=== PATIENT | female | born 1935 | race Two or more races ===

== ENCOUNTER 2017-05-12 17:02 | Emergency (ER) | payer MEDICARE, OTHER ==
[~2017-05-12] VITALS: Ht 162.6 cm; Wt 118.2 kg
[2017-05-12] MEDS ORDERED: NAPR220C PO (17:19)
[2017-05-12] MEDS ORDERED: LOSA100T36 PO (17:19)
[2017-05-12] MEDS ORDERED: XARE20TA PO (17:19)
[2017-05-12] MEDS ORDERED: CITA10SO PO (17:19)
[2017-05-12] MEDS ORDERED: NEUR300C PO (17:19)
[2017-05-12] MEDS ORDERED: ESZO1TAB3 PO (17:19)
[2017-05-12] MEDS ORDERED: VESI5TAB2 PO (17:19)
[2017-05-12] MEDS ORDERED: OMEP40CA2 PO (17:19)
[2017-05-12] MEDS ORDERED: TOLT1CAP PO (17:19)
[2017-05-12] MEDS ORDERED: HYDR25TAB PO (17:19)
[2017-05-12 20:56] VITALS: BP 178/80
== END 2017-05-12 20:57 | disposition home or self-care (01) ==
LOC: M ED 17:02 → EEVIPCON 17:02 → M ED 20:57
DX: Z48.00 Encounter for change or removal of nonsurgical wound dressing (principal); L98.499 Non-pressure chronic ulcer of skin of other sites with unspecified severity; I10 Essential (primary) hypertension; K21.9 Gastro-esophageal reflux disease without esophagitis; Z79.899 Other long term (current) drug therapy; Z88.8 Allergy status to other drugs, medicaments and biological substances; Z88.5 Allergy status to narcotic agent

== ENCOUNTER → 2017-05-18 | Outpatient (REF) | payer MEDICARE, OTHER ==
[~2017-05-18] MED LIST: CITA10SO PO; ESZO1TAB3 PO; HYDR25TAB PO; LOSA100T36 PO; NAPR220C PO; NEUR300C PO; OMEP40CA2 PO; TOLT1CAP PO; VESI5TAB2 PO; XARE20TA PO
== END ==
LOC: M LAB REF 16:39
PROVIDERS: ATTEND Nurse Practitioner Family
DX: G62.9 Polyneuropathy, unspecified (principal)

== ENCOUNTER 2017-05-27 12:35 | Outpatient (CLI) | payer MEDICARE, OTHER ==
[2017-05-27 13:00] VITALS: BP 142/70
[2017-05-27 14:58] LABS: PERCENT SATURATION 4.9 % (13.2-45.0)
[2017-05-27] MEDS ORDERED: FUROSEMIDE 40 MG/4 ML VIAL (J1940) IV PRN (18:30)
== END 2017-05-27 23:45 | disposition home or self-care (01) ==
LOC: M OPCLI4PV 12:35 → M MSPAV 12:48 → M OPCLI4PV 23:45
PROVIDERS: ATTEND Nurse Practitioner Family
DX: D64.9 Anemia, unspecified (principal); Z88.5 Allergy status to narcotic agent; Z88.8 Allergy status to other drugs, medicaments and biological substances; Z79.899 Other long term (current) drug therapy
CPT/HCPCS: 36430; 82728; 83550; 86850; 86900; 86901; 86920; J1940; P9016

== ENCOUNTER → 2017-05-30 | Outpatient (REF) | payer MEDICARE, OTHER ==
[2017-05-30 14:10] LABS: BANDS 1 % (< 11); EOSINOPHILS 1 % (0-5)
[2017-05-30 14:11] LABS: HYPOCHROMASIA 1+; POLYCHROMASIA 1+
== END ==
LOC: M LAB REF 12:44
PROVIDERS: ATTEND Nurse Practitioner Family
DX: D72.829 Elevated white blood cell count, unspecified (principal)

== ENCOUNTER → 2017-06-01 | Outpatient (REF) | payer MEDICARE, OTHER | LOC: M LAB REF 13:05 | PROVIDERS: ATTEND Surgery | DX: I87.311 Chronic venous hypertension (idiopathic) with ulcer of right lower extremity (principal) ==

== ENCOUNTER → 2017-06-01 | Outpatient (REF) | payer MEDICARE, OTHER ==
[2017-06-01 15:27] LABS: ALBUMIN 2.9 GM/DL (3.2-5.2); ALBUMIN/GLOBULIN RATIO 0.81 (1.00-1.93); ALKALINE PHOSPHATASE 80 U/L (45-117); ALT/SGPT 20 U/L (12-78); ANION GAP 9 MEQ/L (8-16); AST/SGOT 20 U/L (15-37); BILIRUBIN,TOTAL 0.5 MG/DL (0.2-1.0); BLOOD UREA NITROGEN 16 MG/DL (7-18); CARBON DIOXIDE LEVEL 29 MEQ/L (21-32); CHLORIDE LEVEL 104 MEQ/L (98-107); CREATININE FOR GFR 0.82 MG/DL (0.55-1.02); GLOMERULAR FILTRATION RATE > 60.0 (>32); GLUCOSE, FASTING 88 MG/DL (83-110); POTASSIUM SERUM 4.1 MEQ/L (3.5-5.1); SODIUM LEVEL 142 MEQ/L (136-145); TOTAL PROTEIN 6.5 GM/DL (6.4-8.2)
== END ==
LOC: M LAB REF 11:53
PROVIDERS: ATTEND Nurse Practitioner Family
DX: I87.311 Chronic venous hypertension (idiopathic) with ulcer of right lower extremity (principal)
CPT/HCPCS: 11042; 80053; 86140; 87070; 87077; 87186; G0463

== ENCOUNTER → 2017-06-08 | Outpatient (REF) | payer MEDICARE, OTHER ==
[2017-06-08 13:53] LABS: MEAN CORPUSCULAR HEMOGLOBIN 27.3 pg (27.0-33.0); MEAN CORPUSCULAR HGB CONC 29.3 g/dl (32.0-36.5); MEAN CORPUSCULAR VOLUME 93.2 fl (80.0-96.0); PLATELET COUNT, AUTOMATED 375 10^3/uL (150-450); RED CELL DISTRIBUTION WIDTH 16.3 % (11.5-14.5); WHITE BLOOD COUNT 7.9 10^3/uL (4.0-10.0)
[2017-06-08 14:42] LABS: ERYTHROCYTE SEDIMENTATION RATE 70 mm/hr (0-30)
== END ==
LOC: M LAB REF 12:55
PROVIDERS: ATTEND Surgery
DX: I87.311 Chronic venous hypertension (idiopathic) with ulcer of right lower extremity (principal); Z79.82 Long term (current) use of aspirin; Z79.899 Other long term (current) drug therapy

== ENCOUNTER → 2017-06-28 | Outpatient (CLI) | payer MEDICARE, OTHER ==
--- NOTE | 2017-06-28 11:44 | REP ---
Clinical: Venous hypertension and lower extremity ulcer. Technique: Zaragoza scale and color Doppler evaluation using linear high frequency transducer with reflux evaluation. Findings: Ultrasound examination of the right lower extremity deep venous structures from the common femoral vein to the popliteal vein demonstrates normal compressibility flow and wave patterns in response to respiration and augmentation. There is no evidence for deep venous thrombosis. Evaluation for reflux demonstrates mild reflux through the deep system including common femoral vein, superficial femoral vein, popliteal vein as well as the lesser saphenous vein which measures 5 mm diameter with reflux duration of 5 seconds. The greater saphenous vein measures between 5.2 and 6.1 mm diameter and is without evidence for reflux. Anterior accessory vein not identified. Impression: No evidence for deep venous thrombosis. Mild reflux through the deep venous system. Signed by Triston Tyler MD 06/28/2017 11:35 A
== END ==
LOC: M RAD 09:46
PROVIDERS: ATTEND Surgery
DX: I87.311 Chronic venous hypertension (idiopathic) with ulcer of right lower extremity (principal)

== ENCOUNTER → 2017-07-21 | Outpatient (REF) | payer MEDICARE, OTHER | LOC: M LAB REF 15:14 | PROVIDERS: ATTEND Nurse Practitioner Family | DX: D64.9 Anemia, unspecified (principal) ==

== ENCOUNTER → 2017-07-22 | Outpatient (CLI) | payer MEDICARE, OTHER ==
[~2017-07-22] MED LIST changes: +FUROSEMIDE 20 MG/2 ML VIAL (J1940) As Ordered ONE; +FUROSEMIDE 40 MG/4 ML VIAL (J1940) IV SCH
== END ==
LOC: M OPCLI3 09:19
PROVIDERS: ATTEND Nurse Practitioner Family
DX: D64.9 Anemia, unspecified (principal); Z88.8 Allergy status to other drugs, medicaments and biological substances; Z88.5 Allergy status to narcotic agent; Z79.899 Other long term (current) drug therapy
CPT/HCPCS: 36430; J1940; P9016

== ENCOUNTER 2017-07-26 10:57 | Outpatient (CLI) | payer MEDICARE, OTHER ==
[~2017-07-26 10:57] MED LIST changes: -FUROSEMIDE 20 MG/2 ML VIAL (J1940) As Ordered ONE; +FUROSEMIDE 40 MG/4 ML VIAL (J1940) IV ONE; -FUROSEMIDE 40 MG/4 ML VIAL (J1940) IV SCH
[2017-07-26] MEDS ORDERED: GABAPENTIN 300 MG CAP PO ONE (12:00)
[2017-07-26] MEDS ORDERED: NAPROXEN 250 MG TAB PO ONE (12:00)
== END 2017-07-26 16:35 | disposition home or self-care (01) ==
LOC: M INFU 10:57
PROVIDERS: ATTEND Internal Medicine
DX: D64.9 Anemia, unspecified (principal); Z96.653 Presence of artificial knee joint, bilateral; Z96.642 Presence of left artificial hip joint; Z88.5 Allergy status to narcotic agent; Z88.8 Allergy status to other drugs, medicaments and biological substances; Z79.899 Other long term (current) drug therapy
CPT/HCPCS: 36430; 86850; 86900; 86901; 86920; J1940; P9016

== ENCOUNTER → 2017-07-28 | Outpatient (CLI) | payer MEDICARE, OTHER ==
[~2017-07-28] MED LIST changes: -FUROSEMIDE 40 MG/4 ML VIAL (J1940) IV ONE
--- NOTE | 2017-07-28 13:21 | REP ---
Urinary tract sonography: History: Urinary frequency and incontinence. Findings: Scanning through the urinary bladder demonstrates smooth bladder contours. No extra vesicle lesion is seen. Emptying ureteral jets are confirmed bilaterally from the ureters on color Doppler interrogation. Prev oid bladder volume is calculated at 136 mL. Renal cortical echogenicity pattern is slightly increased bilaterally consistent with chronic medical renal disease. No hydronephrosis is seen on either side. The right kidney measures 9.8 x 4.9 x 3.8 cm. The left renal dimensions are 10.1 x 4.7 x 4.4 cm. We were not able to visualize the lower pole right kidney optimally due to bowel gas. No mass is seen. There is a cyst in the left kidney measuring 2.3 x 2.3 x 2.1 cm. Impression: 2.3 cm cyst left kidney. Increased renal cortical echogenicity pattern consistent with chronic medical renal disease. No evidence of hydronephrosis. Signed by Silver Carrillo MD 07/28/2017 03:59 P
== END ==
LOC: M SMT 10:04
PROVIDERS: ATTEND Nurse Practitioner Women's Health
DX: N28.1 Cyst of kidney, acquired (principal); R32 Unspecified urinary incontinence; R39.15 Urgency of urination

== ENCOUNTER 2017-08-09 06:43 | Day surgery (SDC) | payer MEDICARE, OTHER ==
[2017-08-09] MEDS: NS 1,000 ML IV ×2 (07:27)
[2017-08-09] MEDS ORDERED: LIDOCAINE 2% INJ 100 MG/5 ML SDV (FOR ANES.) As Ordered ×2 (07:32)
[2017-08-09] MEDS ORDERED: PROPOFOL 200 MG/20 ML VIAL As Ordered ×4 (07:32)
== END 2017-08-09 09:11 | disposition home or self-care (01) ==
LOC: M OPP 06:43
DX: K64.8 Other hemorrhoids (principal); K57.30 Diverticulosis of large intestine without perforation or abscess without bleeding; D50.9 Iron deficiency anemia, unspecified; K21.0 Gastro-esophageal reflux disease with esophagitis; K44.9 Diaphragmatic hernia without obstruction or gangrene; M19.90 Unspecified osteoarthritis, unspecified site; I10 Essential (primary) hypertension; Z79.82 Long term (current) use of aspirin; Z79.899 Other long term (current) drug therapy; Z88.5 Allergy status to narcotic agent; Z88.8 Allergy status to other drugs, medicaments and biological substances; Z91.040 Latex allergy status; Z91.09 Other allergy status, other than to drugs and biological substances
CPT/HCPCS: 45378

== ENCOUNTER → 2017-08-19 | Outpatient (CLI) | payer MEDICARE, OTHER | LOC: M RAD 11:03 | DX: I87.311 Chronic venous hypertension (idiopathic) with ulcer of right lower extremity (principal) ==

== ENCOUNTER 2017-08-21 19:00 | Inpatient (IN) | payer MEDICARE, OTHER ==
[2017-08-21 19:54] LABS: ABG BASE EXCESS 3.8 (-2.0-2.0); ABG HCO3 30.3 MEQ/L (22.0-26.0); ABG PARTIAL PRESSURE CO2 56.6 mmHg (35.0-45.0); ABG PARTIAL PRESSURE O2 70.4 mmHg (75.0-100.0); ABG STANDARD HCO3 27.8 MEQ/L (22.0-26.0); ABG pH (ARTERIAL) 7.346 UNITS (7.350-7.450); BASO # 0.1 10^3/uL (0.0-0.2); BASO % 0.2 % (0.0-1.0); EOS # 0.1 10^3/uL (0.0-0.50); EOS % 0.4 % (0.0-3.0); HEMATOCRIT 28.6 % (36.0-47.0); HEMOGLOBIN 8.6 g/dl (12.0-16.0); IMMATURE GRANULOCYTE # 0.1 10^3/uL (0-0); IMMATURE GRANULOCYTE % 0.5 % (0-0); LYMPH # 0.7 10^3/uL (1.5-4.5); LYMPH % 3.3 % (24.0-44.0); MEAN CORPUSCULAR HEMOGLOBIN 28.9 pg (27.0-33.0); MEAN CORPUSCULAR HGB CONC 30.1 g/dl (32.0-36.5); MONO # 1.5 10^3/uL (0.0-0.8); MONO % 6.9 % (0.0-5.0); NEUTROPHILS % 88.7 % (36.0-66.0); PLATELET COUNT, AUTOMATED 369 10^3/uL (150-450); RED BLOOD COUNT 2.98 10^6/uL (4.00-5.40); RED CELL DISTRIBUTION WIDTH 18.4 % (11.5-14.5); WHITE BLOOD COUNT 21.5 10^3/uL (4.0-10.0)
[2017-08-21 20:08] LABS: INR 1.42; PROTHROMBIN TIME 17.7 SECONDS (12.4-14.5)
[2017-08-21 20:11] LABS: D-DIMER QUANT 998.5 ng/ml (<500)
[2017-08-21] MEDS: methylPREDNISolone INJ 125 MG/2 ML VIAL (J2930) IV (20:15)
[2017-08-21] MEDS: FUROSEMIDE 40 MG/4 ML VIAL (J1940) IV (20:15)
[2017-08-21 20:21] LABS: LACTIC ACID SEPSIS PROTOCOL 2.2 MMOL/L (0.4-2.0)
[2017-08-21 20:34] LABS: ALBUMIN 2.5 GM/DL (3.2-5.2); ALBUMIN/GLOBULIN RATIO 0.68 (1.00-1.93); ALKALINE PHOSPHATASE 74 U/L (45-117); ALT/SGPT 28 U/L (12-78); ANION GAP 5 MEQ/L (8-16); AST/SGOT 39 U/L (7-37); BILIRUBIN,DIRECT 0.2 MG/DL (0.0-0.2); BILIRUBIN,TOTAL 0.6 MG/DL (0.2-1.0); BLOOD UREA NITROGEN 16 MG/DL (7-18); C REACTIVE PROTEIN QUANTITATIV 8.33 MG/DL (0.00-0.30); CALCIUM LEVEL 8.2 MG/DL (8.8-10.2); CARBON DIOXIDE LEVEL 32 MEQ/L (21-32); CHLORIDE LEVEL 103 MEQ/L (98-107); CPK CREATINE PHOSPHOKINASE 92 U/L (26-192); CREATININE FOR GFR 1.01 MG/DL (0.55-1.02); GLUCOSE, FASTING 136 MG/DL (83-110); POTASSIUM SERUM 3.9 MEQ/L (3.5-5.1); SODIUM LEVEL 140 MEQ/L (136-145); THYROXINE (T4) 6.4 UG/DL (4.5-12.0); TOTAL PROTEIN 6.2 GM/DL (6.4-8.2); TROPONIN I 0.06 NG/ML (< 0.10)
[2017-08-21 20:39] LABS: CK-MB VALUE MASS 3.7 NG/ML (0.0-3.6); MB/CK RELATIVE INDEX 4.02 (< OR =4); NT-PRO BNP 1493 PG/ML (<450)
[2017-08-21] MEDS ORDERED: ISOVUE-370 76% 100ML VIAL (Q9967) As Ordered ×2 (21:08→21:14)
[2017-08-21] MEDS: ONDANSETRON 4MG/2ML VIAL (J2405) IV (21:45)
[2017-08-21] MEDS: VANCOMYCIN HCL 1,000 MG, VIAL MATE ADAPTER 1 EACH in D5W 250 ML IV (21:45)
[2017-08-21] MEDS: PANTOPRAZOLE 40MG INJ (PROTONIX) (C9113) IV (21:45)
[2017-08-21] MEDS: PIPERACILLIN/TAZOBACTAM SOD 3.375 GM in APPROPRIATE DILUENT 1 EA IV (21:50)
[2017-08-21 22:03] LABS: APPEARANCE, URINE CLOUDY (CLEAR); BACTERIA, URINE AUTO 3+ (NEGATIVE); BILIRUBIN, URINE AUTO NEGATIVE (NEGATIVE); BLOOD, URINE BLOOD NEGATIVE (NEGATIVE); COLOR, URINE AMBER (YELLOW); GLUCOSE, URINE (UA) AUTO NEGATIVE (NEGATIVE); KETONE, URINE AUTO TRACE mg/dL (NEGATIVE); LEUKOCYTE ESTERASE, URINE AUTO 1+ (NEGATIVE); MUCUS, URINE SMALL (NEGATIVE); NITRITE, URINE AUTO NEGATIVE (NEGATIVE); PROTEIN, URINE AUTO 1+ mg/dL (NEGATIVE); RBC, URINE AUTO 2 /HPF (0-3); SQUAMOUS EPITHELIAL CELL UR AU 1 /HPF (0-6); WBC, URINE AUTO 35 /HPF (0-3)
[2017-08-21 22:42] LABS: ABG HCO3 29.7 MEQ/L (22.0-26.0); ABG O2 SATURATION 93.4 % (95.0-99.0); ABG PARTIAL PRESSURE CO2 50.3 mmHg (35.0-45.0); ABG PARTIAL PRESSURE O2 67.9 mmHg (75.0-100.0); ABG TOTAL CO2 31.2 MEQ/L (23.0-31.0); ABG pH (ARTERIAL) 7.389 UNITS (7.350-7.450)
[2017-08-21] MEDS ORDERED: ONDANSETRON 4MG/2ML VIAL (J2405) IV (23:30)
[2017-08-22 00:30] LABS: ABG BASE EXCESS 5.2 (-2.0-2.0); ABG HCO3 30.6 MEQ/L (22.0-26.0); ABG O2 SATURATION 97.9 % (95.0-99.0); ABG PARTIAL PRESSURE CO2 49.3 mmHg (35.0-45.0); ABG PARTIAL PRESSURE O2 102.7 mmHg (75.0-100.0); ABG STANDARD HCO3 29.2 MEQ/L (22.0-26.0); ABG TOTAL CO2 32.1 MEQ/L (23.0-31.0); ABG pH (ARTERIAL) 7.411 UNITS (7.350-7.450)
[2017-08-22 06:37] LABS: ADD MANUAL DIFFER YES; DIFF SLIDE NUMBER 116; HEMATOCRIT 28.7 % (36.0-47.0); HEMOGLOBIN 8.9 g/dl (12.0-16.0); MEAN CORPUSCULAR HEMOGLOBIN 28.8 pg (27.0-33.0); MEAN CORPUSCULAR VOLUME 92.9 fl (80.0-96.0); PLATELET COUNT, AUTOMATED 324 10^3/uL (150-450); POSITIVE MORPH POS FLAG; RED BLOOD COUNT 3.09 10^6/uL (4.00-5.40); RED CELL DISTRIBUTION WIDTH 18.3 % (11.5-14.5); WHITE BLOOD COUNT 19.7 10^3/uL (4.0-10.0)
[2017-08-22 06:53] LABS: ANION GAP 8 MEQ/L (8-16); BLOOD UREA NITROGEN 19 MG/DL (7-18); CALCIUM LEVEL 8.4 MG/DL (8.8-10.2); CARBON DIOXIDE LEVEL 30 MEQ/L (21-32); CHLORIDE LEVEL 103 MEQ/L (98-107); CREATININE FOR GFR 1.04 MG/DL (0.55-1.02); GLOMERULAR FILTRATION RATE 54.1 (>32); GLUCOSE, FASTING 147 MG/DL (83-110); MAGNESIUM LEVEL 1.8 MG/DL (1.8-2.4); POTASSIUM SERUM 4.1 MEQ/L (3.5-5.1); SODIUM LEVEL 141 MEQ/L (136-145)
[2017-08-22 06:57] LABS: BANDS 5 % (< 11); LYMPHOCYTES 2 % (16-52); MONOCYTES 1 % (0-8); NEUTROPHILS 92 % (35-75); PLATELET ESTIMATE NORMAL (NORMAL)
[2017-08-22 06:58] LABS: ANISOCYTOSIS 2+; PLATELET CLUMPS SMALL AMT
[2017-08-22] MEDS: methylPREDNISolone INJ 40 MG/1 ML VIAL (J2920) IV (09:00)
[2017-08-22] MEDS: CitaloPRAM (CeleXA) 10 MG TABLET PO (09:00)
[2017-08-22] MEDS: GABAPENTIN 300 MG CAP PO ×2 (09:00→20:32)
[2017-08-22] MEDS: PANTOPRAZOLE 40MG INJ (PROTONIX) (C9113) IV ×2 (09:00→20:32)
[2017-08-22] MEDS ORDERED: ENOXAPARIN 40 MG/0.4 ML SYRINGE (J1650) SC (09:00)
[2017-08-22 09:15] LABS: ABG BASE EXCESS 7.3 (-2.0-2.0); ABG HCO3 32.8 MEQ/L (22.0-26.0); ABG O2 SATURATION 85.1 % (95.0-99.0); ABG PARTIAL PRESSURE CO2 51.7 mmHg (35.0-45.0); ABG PARTIAL PRESSURE O2 50.5 mmHg (75.0-100.0); ABG STANDARD HCO3 30.9 MEQ/L (22.0-26.0); ABG TOTAL CO2 34.4 MEQ/L (23.0-31.0)
[2017-08-22 09:41] LABS: HEMATOCRIT 29.5 % (36.0-47.0); MEAN CORPUSCULAR HEMOGLOBIN 28.7 pg (27.0-33.0); MEAN CORPUSCULAR HGB CONC 30.5 g/dl (32.0-36.5); MEAN CORPUSCULAR VOLUME 93.9 fl (80.0-96.0); PLATELET COUNT, AUTOMATED 346 10^3/uL (150-450); RED BLOOD COUNT 3.14 10^6/uL (4.00-5.40); RED CELL DISTRIBUTION WIDTH 18.5 % (11.5-14.5); RETIC HEMOGLOBIN EQUIVALENT 32.8 pg (24-36); RETICULOCYTE # 109.3 10^9/L (17-77); RETICULOCYTE % 3.5 % (0.5-1.5); WHITE BLOOD COUNT 20.3 10^3/uL (4.0-10.0)
[2017-08-22 09:52] LABS: SLIDE REVIEW Report; SOURCE PERIPHERAL SMEAR
[2017-08-22 09:53] LABS: REASON FOR REVIEW COMPREHENSIVE REVIEW
[2017-08-22 09:59] LABS: RHEUMATOID FACTOR QUANT < 10.0 IU/ML (0-15.0); TOTAL PROTEIN 6.3 GM/DL (6.4-8.2)
[2017-08-22] MEDS ORDERED: VANCOMYCIN HCL 1,000 MG, VIAL MATE ADAPTER 1 EACH in D5W 250 ML IV (10:00)
[2017-08-22 10:45] LABS: VITAMIN B12 LEVEL 1440 PG/ML (247-911)
[2017-08-22 10:47] LABS: FOLATE 8.6 NG/ML (>5.4)
[2017-08-22] MEDS: FUROSEMIDE 40 MG/4 ML VIAL (J1940) IV ×2 (12:00→18:00)
[2017-08-22 12:23] LABS: ALBUMIN % 40.8 % (55.8-66.1); ALPHA-1-GLOBULIN % 7.9 % (2.9-4.9); ALPHA-2-GLOBULINS % 13.1 % (7.1-11.8)
[2017-08-22 12:24] LABS: ALBUMIN 2.57 GM/DL (3.29-5.55); ALPHA-2-GLOBULINS 0.83 GM/DL (0.42-0.99); BETA-1-GLOBULINS 0.54 GM/DL (0.28-0.60); BETA-1-GLOBULINS % 8.6 % (4.7-7.2); BETA-2-GLOBULINS 0.45 GM/DL (0.19-0.55); BETA-2-GLOBULINS % 7.1 % (3.2-6.5); GAMMA GLOBULIN % 22.5 % (11.1-18.8); GAMMA GLOBULINS 1.42 GM/DL (0.65-1.58)
[2017-08-22] MEDS: DOXYCYCLINE HYCLATE 100 MG in D5W MINI-BAG PLUS 100 ML IV ×2 (13:36→23:00)
[2017-08-22 13:40] LABS: CK-MB VALUE MASS 2.6 NG/ML (0.0-3.6); CPK CREATINE PHOSPHOKINASE 45 U/L (26-192); MB/CK RELATIVE INDEX 5.77 (< OR =4)
[2017-08-22] MEDS: CEFTAROLINE FOSAMIL 600 MG in APPROPRIATE DILUENT 1 EA IV (13:41)
[2017-08-22] MEDS: RIVAROXABAN 20 MG TAB (XARELTO) PO (20:32)
[2017-08-23] MEDS: CEFTAROLINE FOSAMIL 600 MG in APPROPRIATE DILUENT 1 EA IV ×3 (00:15→22:48)
[2017-08-23] MEDS: FUROSEMIDE 40 MG/4 ML VIAL (J1940) IV ×5 (00:58→23:34)
[2017-08-23] MEDS: ACETAMINOPHEN TAB 650MG DOSE (2X325MG) PO ×4 (02:13→23:33)
[2017-08-23 06:59] LABS: BASO % 0.1 % (0.0-1.0); HEMATOCRIT 25.5 % (36.0-47.0); HEMOGLOBIN 8.1 g/dl (12.0-16.0); IMMATURE GRANULOCYTE # 0.1 10^3/uL (0-0); IMMATURE GRANULOCYTE % 0.6 % (0-0); LYMPH # 0.6 10^3/uL (1.5-4.5); LYMPH % 3.5 % (24.0-44.0); MEAN CORPUSCULAR HEMOGLOBIN 29.3 pg (27.0-33.0); MEAN CORPUSCULAR HGB CONC 31.8 g/dl (32.0-36.5); MEAN CORPUSCULAR VOLUME 92.4 fl (80.0-96.0); MONO # 1.1 10^3/uL (0.0-0.8); MONO % 6.5 % (0.0-5.0); NEUTROPHILS # 14.5 10^3/uL (1.8-7.7); NEUTROPHILS % 89.3 % (36.0-66.0); PLATELET COUNT, AUTOMATED 347 10^3/uL (150-450); RED BLOOD COUNT 2.76 10^6/uL (4.00-5.40); RED CELL DISTRIBUTION WIDTH 18.6 % (11.5-14.5); WHITE BLOOD COUNT 16.2 10^3/uL (4.0-10.0)
[2017-08-23 07:07] LABS: ANION GAP 5 MEQ/L (8-16); BLOOD UREA NITROGEN 29 MG/DL (7-18); CALCIUM LEVEL 8.4 MG/DL (8.8-10.2); CARBON DIOXIDE LEVEL 34 MEQ/L (21-32); CHLORIDE LEVEL 98 MEQ/L (98-107); CK-MB VALUE MASS 2.3 NG/ML (0.0-3.6); CPK CREATINE PHOSPHOKINASE 33 U/L (26-192); CREATININE FOR GFR 1.13 MG/DL (0.55-1.02); GLOMERULAR FILTRATION RATE 49.2 (>32); GLUCOSE, FASTING 116 MG/DL (83-110); MAGNESIUM LEVEL 1.9 MG/DL (1.8-2.4); MB/CK RELATIVE INDEX 6.96 (< OR =4); POTASSIUM SERUM 3.5 MEQ/L (3.5-5.1); SODIUM LEVEL 137 MEQ/L (136-145); TROPONIN I 0.15 NG/ML (< 0.10)
[2017-08-23] MEDS: GABAPENTIN 300 MG CAP PO ×2 (08:42→20:27)
[2017-08-23] MEDS: PANTOPRAZOLE 40MG INJ (PROTONIX) (C9113) IV ×2 (08:42→20:27)
[2017-08-23] MEDS: methylPREDNISolone INJ 40 MG/1 ML VIAL (J2920) IV (08:42)
[2017-08-23] MEDS: NYSTATIN 100,000 UNITS/GM TOPICAL PWD 15 GM TOP ×2 (09:00→20:28)
[2017-08-23] MEDS: SANTYL OINT 30GM TOP (09:00)
[2017-08-23] MEDS: DIAPER RELIEF PASTE (DESITIN) 60GM TOP (09:00)
[2017-08-23] MEDS: CitaloPRAM (CeleXA) 10 MG TABLET PO (09:49)
[2017-08-23] MEDS: DOXYCYCLINE HYCLATE 100 MG in D5W MINI-BAG PLUS 100 ML IV ×2 (09:49→21:30)
[2017-08-23 12:09] LABS: HEMATOCRIT 26.8 % (36.0-47.0); HEMOGLOBIN 8.4 g/dl (12.0-16.0)
[2017-08-23] MEDS: RIVAROXABAN 20 MG TAB (XARELTO) PO (17:42)
[2017-08-23 18:01] LABS: HEMATOCRIT 27.8 % (36.0-47.0); HEMOGLOBIN 8.6 g/dl (12.0-16.0)
[2017-08-23] MEDS: PERCOCET 5MG/325MG TAB PO (18:31)
[2017-08-24 00:15] LABS: HEMATOCRIT 25.6 % (36.0-47.0); HEMOGLOBIN 8.1 g/dl (12.0-16.0)
[2017-08-24] MEDS: PERCOCET 5MG/325MG TAB PO ×4 (00:28→22:55)
[2017-08-24] MEDS: FUROSEMIDE 40 MG/4 ML VIAL (J1940) IV (05:45)
[2017-08-24 06:35] LABS: BASO % 0.1 % (0.0-1.0); HEMATOCRIT 26.3 % (36.0-47.0); HEMOGLOBIN 8.3 g/dl (12.0-16.0); IMMATURE GRANULOCYTE # 0.1 10^3/uL (0-0); IMMATURE GRANULOCYTE % 0.7 % (0-0); LYMPH # 0.7 10^3/uL (1.5-4.5); LYMPH % 5.4 % (24.0-44.0); MEAN CORPUSCULAR HEMOGLOBIN 29.1 pg (27.0-33.0); MEAN CORPUSCULAR HGB CONC 31.6 g/dl (32.0-36.5); MEAN CORPUSCULAR VOLUME 92.3 fl (80.0-96.0); MONO # 1.1 10^3/uL (0.0-0.8); MONO % 8.8 % (0.0-5.0); NEUTROPHILS # 10.9 10^3/uL (1.8-7.7); PLATELET COUNT, AUTOMATED 331 10^3/uL (150-450); RED BLOOD COUNT 2.85 10^6/uL (4.00-5.40); RED CELL DISTRIBUTION WIDTH 18.5 % (11.5-14.5); WHITE BLOOD COUNT 12.8 10^3/uL (4.0-10.0)
[2017-08-24 06:36] LABS: HAPTOGLOBIN 251 MG/DL
[2017-08-24 06:38] LABS: FREE KAPPA LIGHT CHAINS SERUM 81.5
[2017-08-24 06:39] LABS: FREE LAMBDA LIGHT CHAINS SERUM 40.4
[2017-08-24 06:41] LABS: ANA (HEP2) Negative
[2017-08-24 06:42] LABS: KAPPA/LAMBDA RATIO SERUM 2.02
[2017-08-24 06:57] LABS: ANION GAP 6 MEQ/L (8-16); BLOOD UREA NITROGEN 39 MG/DL (7-18); CALCIUM LEVEL 7.8 MG/DL (8.8-10.2); CARBON DIOXIDE LEVEL 34 MEQ/L (21-32); CHLORIDE LEVEL 98 MEQ/L (98-107); CREATININE FOR GFR 1.29 MG/DL (0.55-1.02); GLOMERULAR FILTRATION RATE 42.2 (>32); GLUCOSE, FASTING 119 MG/DL (83-110); MAGNESIUM LEVEL 1.5 MG/DL (1.8-2.4); POTASSIUM SERUM 3.3 MEQ/L (3.5-5.1); SODIUM LEVEL 138 MEQ/L (136-145)
[2017-08-24 08:02] LABS: C REACTIVE PROTEIN QUANTITATIV 5.97 MG/DL (0.00-0.30)
[2017-08-24] MEDS: MAGNESIUM OXIDE 400 MG TAB (MAG-OX) PO ×2 (08:22→21:09)
[2017-08-24] MEDS: CitaloPRAM (CeleXA) 10 MG TABLET PO (08:22)
[2017-08-24] MEDS: POTASSIUM CHLORIDE 10 MEQ SR TABLET PO ×2 (08:23→21:09)
[2017-08-24] MEDS: PANTOPRAZOLE 40MG INJ (PROTONIX) (C9113) IV ×2 (08:23→21:10)
[2017-08-24] MEDS: methylPREDNISolone INJ 40 MG/1 ML VIAL (J2920) IV (08:23)
[2017-08-24] MEDS: MAG SULF 1GM/100ML (MAG RUN) 1 GM in APPROPRIATE DILUENT 1 EA IV (08:24)
[2017-08-24] MEDS: GABAPENTIN 300 MG CAP PO ×2 (08:24→21:09)
[2017-08-24] MEDS: NYSTATIN 100,000 UNITS/GM TOPICAL PWD 15 GM TOP ×2 (08:25→21:11)
[2017-08-24] MEDS: DOXYCYCLINE HYCLATE 100 MG in D5W MINI-BAG PLUS 100 ML IV ×2 (09:31→21:06)
[2017-08-24] MEDS: ACETAMINOPHEN TAB 650MG DOSE (2X325MG) PO ×2 (10:07→16:13)
[2017-08-24] MEDS: DIAPER RELIEF PASTE (DESITIN) 60GM TOP (10:56)
[2017-08-24] MEDS: CEFTAROLINE FOSAMIL 600 MG in APPROPRIATE DILUENT 1 EA IV ×2 (11:38→22:55)
[2017-08-24] MEDS: SANTYL OINT 30GM TOP (11:56)
[2017-08-24] MEDS: SENOKOT S TAB PO (13:05)
[2017-08-24] MEDS: RIVAROXABAN 20 MG TAB (XARELTO) PO (18:07)
[2017-08-25] MEDS: ACETAMINOPHEN TAB 650MG DOSE (2X325MG) PO ×2 (01:37→17:29)
[2017-08-25] MEDS: GABAPENTIN 300 MG CAP PO ×3 (02:05→20:17)
[2017-08-25 07:29] LABS: BASO % 0.1 % (0.0-1.0); HEMATOCRIT 26.4 % (36.0-47.0); HEMOGLOBIN 8.3 g/dl (12.0-16.0); IMMATURE GRANULOCYTE # 0.1 10^3/uL (0-0); LYMPH # 1.2 10^3/uL (1.5-4.5); LYMPH % 11.2 % (24.0-44.0); MEAN CORPUSCULAR HEMOGLOBIN 29.2 pg (27.0-33.0); MEAN CORPUSCULAR HGB CONC 31.4 g/dl (32.0-36.5); MONO # 1.6 10^3/uL (0.0-0.8); MONO % 14.9 % (0.0-5.0); NEUTROPHILS # 7.7 10^3/uL (1.8-7.7); NEUTROPHILS % 72.8 % (36.0-66.0); PLATELET COUNT, AUTOMATED 309 10^3/uL (150-450); RED BLOOD COUNT 2.84 10^6/uL (4.00-5.40); WHITE BLOOD COUNT 10.5 10^3/uL (4.0-10.0)
[2017-08-25 07:51] LABS: ANION GAP 3 MEQ/L (8-16); BLOOD UREA NITROGEN 33 MG/DL (7-18); CALCIUM LEVEL 7.8 MG/DL (8.8-10.2); CARBON DIOXIDE LEVEL 36 MEQ/L (21-32); CHLORIDE LEVEL 99 MEQ/L (98-107); CREATININE FOR GFR 1.02 MG/DL (0.55-1.02); GLOMERULAR FILTRATION RATE 55.4 (>32); GLUCOSE, FASTING 99 MG/DL (83-110); MAGNESIUM LEVEL 1.9 MG/DL (1.8-2.4); POTASSIUM SERUM 3.9 MEQ/L (3.5-5.1); SODIUM LEVEL 138 MEQ/L (136-145)
[2017-08-25] MEDS: PERCOCET 5MG/325MG TAB PO ×3 (08:04→22:24)
[2017-08-25] MEDS: DIAPER RELIEF PASTE (DESITIN) 60GM TOP ×3 (09:00→13:39)
[2017-08-25] MEDS: CitaloPRAM (CeleXA) 10 MG TABLET PO (09:57)
[2017-08-25] MEDS: DOCUSATE SODIUM 100 MG CAP PO (09:57)
[2017-08-25] MEDS: DOXYCYCLINE HYCLATE 100 MG in D5W MINI-BAG PLUS 100 ML IV ×2 (09:58→21:59)
[2017-08-25] MEDS: PANTOPRAZOLE 40MG INJ (PROTONIX) (C9113) IV ×2 (09:58→20:17)
[2017-08-25] MEDS: methylPREDNISolone INJ 40 MG/1 ML VIAL (J2920) IV (09:58)
[2017-08-25] MEDS: MAGNESIUM OXIDE 400 MG TAB (MAG-OX) PO ×2 (09:58→20:17)
[2017-08-25] MEDS: NYSTATIN 100,000 UNITS/GM TOPICAL PWD 15 GM TOP ×2 (09:59→20:17)
[2017-08-25] MEDS: CEFTAROLINE FOSAMIL 600 MG in APPROPRIATE DILUENT 1 EA IV ×2 (13:39→23:17)
[2017-08-25] MEDS: SANTYL OINT 30GM TOP (13:40)
[2017-08-25] MEDS: RIVAROXABAN 20 MG TAB (XARELTO) PO (17:29)
[2017-08-25] MEDS: SENOKOT S TAB PO (20:18)
[2017-08-25] MEDS: ALBUTEROL SULFATE 2.5 MG/0.5 ML INH NEB SOLN NEB (20:40)
[2017-08-26 05:17] LABS: BASO % 0.1 % (0.0-1.0); EOS % 0.1 % (0.0-3.0); HEMATOCRIT 26.7 % (36.0-47.0); HEMOGLOBIN 8.1 g/dl (12.0-16.0); IMMATURE GRANULOCYTE # 0.1 10^3/uL (0-0); IMMATURE GRANULOCYTE % 1.1 % (0-0); LYMPH # 1.5 10^3/uL (1.5-4.5); LYMPH % 13.6 % (24.0-44.0); MEAN CORPUSCULAR HEMOGLOBIN 27.9 pg (27.0-33.0); MEAN CORPUSCULAR HGB CONC 30.3 g/dl (32.0-36.5); MEAN CORPUSCULAR VOLUME 92.1 fl (80.0-96.0); MONO # 1.6 10^3/uL (0.0-0.8); MONO % 14.7 % (0.0-5.0); NEUTROPHILS # 7.6 10^3/uL (1.8-7.7); NEUTROPHILS % 70.4 % (36.0-66.0); PLATELET COUNT, AUTOMATED 293 10^3/uL (150-450); RED CELL DISTRIBUTION WIDTH 17.7 % (11.5-14.5); WHITE BLOOD COUNT 10.8 10^3/uL (4.0-10.0)
[2017-08-26 05:31] LABS: ANION GAP 3 MEQ/L (8-16); BLOOD UREA NITROGEN 27 MG/DL (7-18); CALCIUM LEVEL 8.2 MG/DL (8.8-10.2); CARBON DIOXIDE LEVEL 35 MEQ/L (21-32); CHLORIDE LEVEL 101 MEQ/L (98-107); CREATININE FOR GFR 0.84 MG/DL (0.55-1.02); GLOMERULAR FILTRATION RATE > 60.0 (>32); GLUCOSE, FASTING 103 MG/DL (83-110); MAGNESIUM LEVEL 2.2 MG/DL (1.8-2.4); POTASSIUM SERUM 4.2 MEQ/L (3.5-5.1); SODIUM LEVEL 139 MEQ/L (136-145)
[2017-08-26] MEDS: ALBUTEROL SULFATE 2.5 MG/0.5 ML INH NEB SOLN NEB ×2 (07:44→21:07)
[2017-08-26] MEDS: CitaloPRAM (CeleXA) 10 MG TABLET PO (08:45)
[2017-08-26] MEDS: MAGNESIUM OXIDE 400 MG TAB (MAG-OX) PO ×2 (08:45→20:39)
[2017-08-26] MEDS: PANTOPRAZOLE 40MG INJ (PROTONIX) (C9113) IV ×2 (08:45→20:40)
[2017-08-26] MEDS: DOCUSATE SODIUM 100 MG CAP PO (08:45)
[2017-08-26] MEDS: GABAPENTIN 300 MG CAP PO ×2 (08:45→20:39)
[2017-08-26] MEDS: SENOKOT S TAB PO ×2 (08:46→20:39)
[2017-08-26] MEDS: PERCOCET 5MG/325MG TAB PO ×3 (08:46→20:42)
[2017-08-26] MEDS: methylPREDNISolone INJ 40 MG/1 ML VIAL (J2920) IV (08:47)
[2017-08-26] MEDS: NYSTATIN 100,000 UNITS/GM TOPICAL PWD 15 GM TOP ×2 (08:48→20:48)
[2017-08-26] MEDS: DOXYCYCLINE HYCLATE 100 MG in D5W MINI-BAG PLUS 100 ML IV ×2 (10:18→22:48)
[2017-08-26] MEDS: CEFTAROLINE FOSAMIL 600 MG in APPROPRIATE DILUENT 1 EA IV ×2 (11:27→22:48)
[2017-08-26] MEDS: DIAPER RELIEF PASTE (DESITIN) 60GM TOP (17:16)
[2017-08-26] MEDS: SANTYL OINT 30GM TOP (17:17)
[2017-08-26] MEDS: RIVAROXABAN 20 MG TAB (XARELTO) PO (17:18)
[2017-08-27] MEDS: ACETAMINOPHEN TAB 650MG DOSE (2X325MG) PO ×4 (01:09→23:38)
[2017-08-27] MEDS: PERCOCET 5MG/325MG TAB PO ×3 (05:12→20:42)
[2017-08-27 05:35] LABS: BASO % 0.1 % (0.0-1.0); EOS % 0.4 % (0.0-3.0); HEMATOCRIT 25.8 % (36.0-47.0); IMMATURE GRANULOCYTE # 0.2 10^3/uL (0-0); IMMATURE GRANULOCYTE % 1.4 % (0-0); LYMPH # 1.7 10^3/uL (1.5-4.5); LYMPH % 15.6 % (24.0-44.0); MEAN CORPUSCULAR HEMOGLOBIN 28.6 pg (27.0-33.0); MEAN CORPUSCULAR VOLUME 92.1 fl (80.0-96.0); MONO # 1.4 10^3/uL (0.0-0.8); MONO % 13.2 % (0.0-5.0); NEUTROPHILS # 7.6 10^3/uL (1.8-7.7); NEUTROPHILS % 69.3 % (36.0-66.0); PLATELET COUNT, AUTOMATED 304 10^3/uL (150-450); RED CELL DISTRIBUTION WIDTH 17.4 % (11.5-14.5); WHITE BLOOD COUNT 10.9 10^3/uL (4.0-10.0)
[2017-08-27 05:58] LABS: ANION GAP 4 MEQ/L (8-16); BLOOD UREA NITROGEN 24 MG/DL (7-18); CARBON DIOXIDE LEVEL 35 MEQ/L (21-32); CHLORIDE LEVEL 100 MEQ/L (98-107); CREATININE FOR GFR 0.75 MG/DL (0.55-1.02); GLOMERULAR FILTRATION RATE > 60.0 (>32); GLUCOSE, FASTING 99 MG/DL (83-110); POTASSIUM SERUM 4.2 MEQ/L (3.5-5.1); SODIUM LEVEL 139 MEQ/L (136-145)
[2017-08-27] MEDS: SENOKOT S TAB PO (08:00)
[2017-08-27] MEDS: DOCUSATE SODIUM 100 MG CAP PO (08:00)
[2017-08-27] MEDS: MAGNESIUM OXIDE 400 MG TAB (MAG-OX) PO ×2 (08:01→20:40)
[2017-08-27] MEDS: GABAPENTIN 300 MG CAP PO ×2 (08:01→20:40)
[2017-08-27] MEDS: methylPREDNISolone INJ 40 MG/1 ML VIAL (J2920) IV (08:01)
[2017-08-27] MEDS: CitaloPRAM (CeleXA) 10 MG TABLET PO (08:01)
[2017-08-27] MEDS: PANTOPRAZOLE 40MG INJ (PROTONIX) (C9113) IV ×2 (08:01→20:41)
[2017-08-27] MEDS: NYSTATIN 100,000 UNITS/GM TOPICAL PWD 15 GM TOP ×2 (08:02→21:00)
[2017-08-27] MEDS: DIAPER RELIEF PASTE (DESITIN) 60GM TOP (08:02)
[2017-08-27] MEDS: ALBUTEROL SULFATE 2.5 MG/0.5 ML INH NEB SOLN NEB ×2 (08:33→20:56)
[2017-08-27] MEDS: DOXYCYCLINE HYCLATE 100 MG in D5W MINI-BAG PLUS 100 ML IV ×2 (10:50→23:50)
[2017-08-27] MEDS: LISINOPRIL 20 MG TAB PO (12:26)
[2017-08-27] MEDS: CEFTAROLINE FOSAMIL 600 MG in APPROPRIATE DILUENT 1 EA IV ×2 (12:26→23:50)
[2017-08-27] MEDS: SANTYL OINT 30GM TOP (16:48)
[2017-08-27] MEDS: RIVAROXABAN 20 MG TAB (XARELTO) PO (18:18)
[2017-08-27] MEDS: INDAPAMIDE 1.25MG TABLET PO (18:18)
[2017-08-27] MEDS: MIRALAX *UNIT DOSE* 17GM PACKET PO (19:44)
[2017-08-28 05:29] LABS: BASO % 0.2 % (0.0-1.0); EOS # 0.1 10^3/uL (0.0-0.50); HEMATOCRIT 26.8 % (36.0-47.0); HEMOGLOBIN 8.3 g/dl (12.0-16.0); IMMATURE GRANULOCYTE # 0.2 10^3/uL (0-0); IMMATURE GRANULOCYTE % 1.7 % (0-0); MEAN CORPUSCULAR HEMOGLOBIN 28.4 pg (27.0-33.0); MEAN CORPUSCULAR VOLUME 91.8 fl (80.0-96.0); MONO # 1.6 10^3/uL (0.0-0.8); MONO % 12.7 % (0.0-5.0); NEUTROPHILS # 8.7 10^3/uL (1.8-7.7); NEUTROPHILS % 68.4 % (36.0-66.0); PLATELET COUNT, AUTOMATED 337 10^3/uL (150-450); RED BLOOD COUNT 2.92 10^6/uL (4.00-5.40); RED CELL DISTRIBUTION WIDTH 17.5 % (11.5-14.5); WHITE BLOOD COUNT 12.7 10^3/uL (4.0-10.0)
[2017-08-28 05:47] LABS: ANION GAP 4 MEQ/L (8-16); BLOOD UREA NITROGEN 24 MG/DL (7-18); C REACTIVE PROTEIN QUANTITATIV 1.06 MG/DL (0.00-0.30); CARBON DIOXIDE LEVEL 35 MEQ/L (21-32); CHLORIDE LEVEL 99 MEQ/L (98-107); CREATININE FOR GFR 0.82 MG/DL (0.55-1.02); GLOMERULAR FILTRATION RATE > 60.0 (>32); GLUCOSE, FASTING 94 MG/DL (83-110); MAGNESIUM LEVEL 2.1 MG/DL (1.8-2.4); POTASSIUM SERUM 4.2 MEQ/L (3.5-5.1); SODIUM LEVEL 138 MEQ/L (136-145)
[2017-08-28] MEDS: ALBUTEROL SULFATE 2.5 MG/0.5 ML INH NEB SOLN NEB ×3 (07:21→21:49)
[2017-08-28] MEDS: methylPREDNISolone INJ 40 MG/1 ML VIAL (J2920) IV (08:14)
[2017-08-28] MEDS: PANTOPRAZOLE 40MG INJ (PROTONIX) (C9113) IV ×2 (08:14→21:12)
[2017-08-28] MEDS: SENOKOT S TAB PO (08:15)
[2017-08-28] MEDS: DOCUSATE SODIUM 100 MG CAP PO ×2 (08:15→21:12)
[2017-08-28] MEDS: CitaloPRAM (CeleXA) 10 MG TABLET PO (08:15)
[2017-08-28] MEDS: MAGNESIUM OXIDE 400 MG TAB (MAG-OX) PO ×2 (08:15→21:11)
[2017-08-28] MEDS: GABAPENTIN 300 MG CAP PO ×2 (08:15→21:12)
[2017-08-28] MEDS: PERCOCET 5MG/325MG TAB PO ×3 (08:16→21:13)
[2017-08-28] MEDS: INDAPAMIDE 1.25MG TABLET PO (08:17)
[2017-08-28] MEDS: MIRALAX *UNIT DOSE* 17GM PACKET PO (08:17)
[2017-08-28] MEDS: LISINOPRIL 20 MG TAB PO (08:17)
[2017-08-28] MEDS: NYSTATIN 100,000 UNITS/GM TOPICAL PWD 15 GM TOP ×2 (08:18→21:13)
[2017-08-28] MEDS: DIAPER RELIEF PASTE (DESITIN) 60GM TOP ×2 (08:18→15:04)
[2017-08-28] MEDS: SANTYL OINT 30GM TOP (09:00)
[2017-08-28] MEDS: DOXYCYCLINE HYCLATE 100 MG in D5W MINI-BAG PLUS 100 ML IV (10:53)
[2017-08-28] MEDS: CEFTAROLINE FOSAMIL 600 MG in APPROPRIATE DILUENT 1 EA IV (13:25)
[2017-08-28] MEDS: RIVAROXABAN 20 MG TAB (XARELTO) PO (17:38)
[2017-08-28] MEDS ORDERED: SLF 3 ML SYR IV (21:00)
[2017-08-28] MEDS: SLF 3 ML SYR IV (21:14)
[2017-08-29] MEDS: PERCOCET 5MG/325MG TAB PO ×2 (04:13→14:36)
[2017-08-29] MEDS: SLF 3 ML SYR IV ×3 (04:14→20:51)
[2017-08-29 05:23] LABS: HEMATOCRIT 28.4 % (36.0-47.0); HEMOGLOBIN 8.9 g/dl (12.0-16.0); MEAN CORPUSCULAR HEMOGLOBIN 28.5 pg (27.0-33.0); MEAN CORPUSCULAR HGB CONC 31.3 g/dl (32.0-36.5); PLATELET COUNT, AUTOMATED 381 10^3/uL (150-450); RED BLOOD COUNT 3.12 10^6/uL (4.00-5.40); RED CELL DISTRIBUTION WIDTH 17.8 % (11.5-14.5); WHITE BLOOD COUNT 15.6 10^3/uL (4.0-10.0)
[2017-08-29 05:45] LABS: ANION GAP 6 MEQ/L (8-16); BLOOD UREA NITROGEN 24 MG/DL (7-18); C REACTIVE PROTEIN QUANTITATIV 1.31 MG/DL (0.00-0.30); CALCIUM LEVEL 8.6 MG/DL (8.8-10.2); CARBON DIOXIDE LEVEL 35 MEQ/L (21-32); CHLORIDE LEVEL 95 MEQ/L (98-107); CREATININE FOR GFR 0.77 MG/DL (0.55-1.02); GLOMERULAR FILTRATION RATE > 60.0 (>32); GLUCOSE, FASTING 88 MG/DL (83-110); POTASSIUM SERUM 4.1 MEQ/L (3.5-5.1); SODIUM LEVEL 136 MEQ/L (136-145)
[2017-08-29] MEDS: ALBUTEROL SULFATE 2.5 MG/0.5 ML INH NEB SOLN NEB ×2 (07:58→20:01)
[2017-08-29] MEDS: PANTOPRAZOLE 40MG INJ (PROTONIX) (C9113) IV ×2 (09:23→20:51)
[2017-08-29] MEDS: NYSTATIN 100,000 UNITS/GM TOPICAL PWD 15 GM TOP ×2 (09:23→20:50)
[2017-08-29] MEDS: methylPREDNISolone INJ 40 MG/1 ML VIAL (J2920) IV (09:23)
[2017-08-29] MEDS: MAGNESIUM OXIDE 400 MG TAB (MAG-OX) PO ×2 (09:24→20:50)
[2017-08-29] MEDS: INDAPAMIDE 1.25MG TABLET PO (09:24)
[2017-08-29] MEDS: CitaloPRAM (CeleXA) 10 MG TABLET PO (09:24)
[2017-08-29] MEDS: GABAPENTIN 300 MG CAP PO ×2 (09:25→20:51)
[2017-08-29] MEDS: LISINOPRIL 20 MG TAB PO (09:34)
[2017-08-29] MEDS: DOXYCYCLINE HYCLATE 100 MG in D5W MINI-BAG PLUS 100 ML IV (09:34)
[2017-08-29] MEDS: SANTYL OINT 30GM TOP (09:35)
[2017-08-29] MEDS: MOM 30ML SUSPENSION UDC PO ×2 (14:15→20:50)
[2017-08-29] MEDS: DOCUSATE SODIUM 100 MG CAP PO (14:15)
[2017-08-29] MEDS: SENOKOT S TAB PO (14:15)
[2017-08-29] MEDS: MIRALAX *UNIT DOSE* 17GM PACKET PO (14:15)
[2017-08-29] MEDS: predniSONE 20 MG TAB PO (17:05)
[2017-08-29] MEDS: RIVAROXABAN 20 MG TAB (XARELTO) PO (17:05)
[2017-08-29] MEDS: DOXYCYCLINE HYCLATE 100 MG TAB PO (20:51)
[2017-08-30] MEDS: DOCUSATE SODIUM 100 MG CAP PO (01:32)
[2017-08-30] MEDS: PERCOCET 5MG/325MG TAB PO ×4 (01:36→21:31)
[2017-08-30] MEDS: SLF 3 ML SYR IV ×3 (06:00→21:30)
[2017-08-30 06:39] LABS: HEMATOCRIT 28.3 % (36.0-47.0); HEMOGLOBIN 8.8 g/dl (12.0-16.0); MEAN CORPUSCULAR HEMOGLOBIN 27.8 pg (27.0-33.0); MEAN CORPUSCULAR HGB CONC 31.1 g/dl (32.0-36.5); MEAN CORPUSCULAR VOLUME 89.6 fl (80.0-96.0); PLATELET COUNT, AUTOMATED 423 10^3/uL (150-450); RED BLOOD COUNT 3.16 10^6/uL (4.00-5.40); RED CELL DISTRIBUTION WIDTH 17.6 % (11.5-14.5); WHITE BLOOD COUNT 14.3 10^3/uL (4.0-10.0)
[2017-08-30 06:57] LABS: C REACTIVE PROTEIN QUANTITATIV 3.98 MG/DL (0.00-0.30)
[2017-08-30 06:58] LABS: ANION GAP 4 MEQ/L (8-16); BLOOD UREA NITROGEN 24 MG/DL (7-18); CALCIUM LEVEL 8.5 MG/DL (8.8-10.2); CARBON DIOXIDE LEVEL 34 MEQ/L (21-32); CHLORIDE LEVEL 98 MEQ/L (98-107); CREATININE FOR GFR 0.81 MG/DL (0.55-1.02); GLOMERULAR FILTRATION RATE > 60.0 (>32); GLUCOSE, FASTING 121 MG/DL (70-100); POTASSIUM SERUM 4.2 MEQ/L (3.5-5.1); SODIUM LEVEL 136 MEQ/L (136-145)
[2017-08-30] MEDS: ALBUTEROL SULFATE 2.5 MG/0.5 ML INH NEB SOLN NEB ×2 (07:01→21:21)
[2017-08-30] MEDS: GABAPENTIN 300 MG CAP PO ×2 (08:41→21:29)
[2017-08-30] MEDS: DOXYCYCLINE HYCLATE 100 MG TAB PO ×2 (08:42→21:29)
[2017-08-30] MEDS: CitaloPRAM (CeleXA) 10 MG TABLET PO (08:42)
[2017-08-30] MEDS: PANTOPRAZOLE 40MG INJ (PROTONIX) (C9113) IV ×2 (08:42→21:29)
[2017-08-30] MEDS: predniSONE 20 MG TAB PO (08:42)
[2017-08-30] MEDS: LISINOPRIL 20 MG TAB PO (08:42)
[2017-08-30] MEDS: INDAPAMIDE 1.25MG TABLET PO (08:42)
[2017-08-30] MEDS: MAGNESIUM OXIDE 400 MG TAB (MAG-OX) PO ×2 (08:42→21:29)
[2017-08-30] MEDS: DIAPER RELIEF PASTE (DESITIN) 60GM TOP (08:47)
[2017-08-30] MEDS: SANTYL OINT 30GM TOP (08:47)
[2017-08-30] MEDS: NYSTATIN 100,000 UNITS/GM TOPICAL PWD 15 GM TOP ×2 (08:47→21:28)
[2017-08-30] MEDS: FLEET ENEMA PR (11:10)
[2017-08-30] MEDS: RIVAROXABAN 20 MG TAB (XARELTO) PO (17:29)
[2017-08-30 18:11] LABS: HEMATOCRIT 28.9 % (36.0-47.0); HEMOGLOBIN 9.2 g/dl (12.0-16.0)
[2017-08-30] MEDS: SENOKOT S TAB PO (21:29)
[2017-08-30] MEDS: FLEET OIL RETENTION ENEMA PR (22:35)
[2017-08-31] MEDS: SLF 3 ML SYR IV ×3 (06:00→21:10)
[2017-08-31 06:25] LABS: HEMATOCRIT 25.4 % (36.0-47.0); HEMOGLOBIN 7.9 g/dl (12.0-16.0); MEAN CORPUSCULAR HGB CONC 31.1 g/dl (32.0-36.5); MEAN CORPUSCULAR VOLUME 90.1 fl (80.0-96.0); PLATELET COUNT, AUTOMATED 408 10^3/uL (150-450); RED BLOOD COUNT 2.82 10^6/uL (4.00-5.40); RED CELL DISTRIBUTION WIDTH 17.7 % (11.5-14.5)
[2017-08-31 06:38] LABS: ANION GAP 4 MEQ/L (8-16); BLOOD UREA NITROGEN 29 MG/DL (7-18); C REACTIVE PROTEIN QUANTITATIV 2.46 MG/DL (0.00-0.30); CALCIUM LEVEL 8.1 MG/DL (8.8-10.2); CARBON DIOXIDE LEVEL 33 MEQ/L (21-32); CHLORIDE LEVEL 98 MEQ/L (98-107); CREATININE FOR GFR 0.93 MG/DL (0.55-1.02); GLOMERULAR FILTRATION RATE > 60.0 (>32); GLUCOSE, FASTING 102 MG/DL (70-100); POTASSIUM SERUM 4.1 MEQ/L (3.5-5.1); SODIUM LEVEL 135 MEQ/L (136-145)
[2017-08-31] MEDS: ALBUTEROL SULFATE 2.5 MG/0.5 ML INH NEB SOLN NEB ×2 (08:59→20:00)
[2017-08-31] MEDS: predniSONE 10 MG TAB PO (09:52)
[2017-08-31] MEDS: PANTOPRAZOLE 40MG INJ (PROTONIX) (C9113) IV ×2 (09:52→21:09)
[2017-08-31] MEDS: INDAPAMIDE 1.25MG TABLET PO (09:53)
[2017-08-31] MEDS: DOXYCYCLINE HYCLATE 100 MG TAB PO ×2 (09:53→21:10)
[2017-08-31] MEDS: DIAPER RELIEF PASTE (DESITIN) 60GM TOP (09:53)
[2017-08-31] MEDS: MAGNESIUM OXIDE 400 MG TAB (MAG-OX) PO ×2 (09:53→21:10)
[2017-08-31] MEDS: GABAPENTIN 300 MG CAP PO ×2 (09:53→21:09)
[2017-08-31] MEDS: CitaloPRAM (CeleXA) 10 MG TABLET PO (09:53)
[2017-08-31] MEDS: SENOKOT S TAB PO ×2 (09:53→21:10)
[2017-08-31] MEDS: NYSTATIN 100,000 UNITS/GM TOPICAL PWD 15 GM TOP ×2 (09:53→21:10)
[2017-08-31] MEDS: SANTYL OINT 30GM TOP (09:54)
[2017-08-31] MEDS: LISINOPRIL 20 MG TAB PO (10:33)
[2017-08-31] MEDS: MOM 30ML SUSPENSION UDC PO (11:08)
[2017-08-31] MEDS: MIRALAX *UNIT DOSE* 17GM PACKET PO (11:08)
[2017-08-31] MEDS: PERCOCET 5MG/325MG TAB PO ×2 (11:09→17:22)
[2017-08-31 11:58] LABS: HEMATOCRIT 27.4 % (36.0-47.0); HEMOGLOBIN 8.6 g/dl (12.0-16.0)
[2017-08-31] MEDS: FLEET ENEMA PR (14:19)
[2017-08-31] MEDS: RIVAROXABAN 20 MG TAB (XARELTO) PO (17:21)
[2017-09-01] MEDS: POLYVINYL ALCOHOL OPHTH SOLN 15 ML(LIQUITEARS) OU (00:02)
[2017-09-01] MEDS: PERCOCET 5MG/325MG TAB PO ×4 (00:02→22:30)
[2017-09-01] MEDS: SLF 3 ML SYR IV ×3 (05:20→22:30)
[2017-09-01 06:20] LABS: HEMATOCRIT 28.6 % (36.0-47.0); HEMOGLOBIN 8.8 g/dl (12.0-16.0); MEAN CORPUSCULAR HEMOGLOBIN 27.8 pg (27.0-33.0); MEAN CORPUSCULAR HGB CONC 30.8 g/dl (32.0-36.5); MEAN CORPUSCULAR VOLUME 90.5 fl (80.0-96.0); PLATELET COUNT, AUTOMATED 441 10^3/uL (150-450); RED BLOOD COUNT 3.16 10^6/uL (4.00-5.40); RED CELL DISTRIBUTION WIDTH 17.4 % (11.5-14.5); WHITE BLOOD COUNT 12.8 10^3/uL (4.0-10.0)
[2017-09-01 06:46] LABS: ANION GAP 4 MEQ/L (8-16); BLOOD UREA NITROGEN 28 MG/DL (7-18); CALCIUM LEVEL 8.2 MG/DL (8.8-10.2); CARBON DIOXIDE LEVEL 34 MEQ/L (21-32); CHLORIDE LEVEL 99 MEQ/L (98-107); CREATININE FOR GFR 0.98 MG/DL (0.55-1.02); GLUCOSE, FASTING 98 MG/DL (70-100); SODIUM LEVEL 137 MEQ/L (136-145)
[2017-09-01] MEDS: ALBUTEROL SULFATE 2.5 MG/0.5 ML INH NEB SOLN NEB ×2 (08:58→19:46)
[2017-09-01] MEDS: LISINOPRIL 20 MG TAB PO (09:40)
[2017-09-01] MEDS: CitaloPRAM (CeleXA) 10 MG TABLET PO (09:40)
[2017-09-01] MEDS: INDAPAMIDE 1.25MG TABLET PO (09:40)
[2017-09-01] MEDS: SENOKOT S TAB PO ×3 (09:40→22:29)
[2017-09-01] MEDS: predniSONE 10 MG TAB PO (09:40)
[2017-09-01] MEDS: GABAPENTIN 300 MG CAP PO ×2 (09:40→22:29)
[2017-09-01] MEDS: MAGNESIUM OXIDE 400 MG TAB (MAG-OX) PO ×2 (09:40→22:30)
[2017-09-01] MEDS: PANTOPRAZOLE 40MG INJ (PROTONIX) (C9113) IV ×2 (09:41→22:29)
[2017-09-01] MEDS: DIAPER RELIEF PASTE (DESITIN) 60GM TOP (13:31)
[2017-09-01] MEDS: SANTYL OINT 30GM TOP (13:32)
[2017-09-01] MEDS: NYSTATIN 100,000 UNITS/GM TOPICAL PWD 15 GM TOP ×2 (13:32→22:30)
[2017-09-01] MEDS: RIVAROXABAN 20 MG TAB (XARELTO) PO (17:10)
[2017-09-02] MEDS: PERCOCET 5MG/325MG TAB PO ×3 (04:43→17:07)
[2017-09-02] MEDS: SLF 3 ML SYR IV ×3 (05:36→21:40)
[2017-09-02 07:22] LABS: HEMATOCRIT 28.4 % (36.0-47.0); HEMOGLOBIN 8.8 g/dl (12.0-16.0); MEAN CORPUSCULAR HEMOGLOBIN 28.7 pg (27.0-33.0); MEAN CORPUSCULAR VOLUME 92.5 fl (80.0-96.0); PLATELET COUNT, AUTOMATED 438 10^3/uL (150-450); RED BLOOD COUNT 3.07 10^6/uL (4.00-5.40); RED CELL DISTRIBUTION WIDTH 17.4 % (11.5-14.5); WHITE BLOOD COUNT 13.5 10^3/uL (4.0-10.0)
[2017-09-02 07:34] LABS: ANION GAP 5 MEQ/L (8-16); BLOOD UREA NITROGEN 26 MG/DL (7-18); CALCIUM LEVEL 8.5 MG/DL (8.8-10.2); CARBON DIOXIDE LEVEL 34 MEQ/L (21-32); CHLORIDE LEVEL 98 MEQ/L (98-107); CREATININE FOR GFR 0.86 MG/DL (0.55-1.02); GLOMERULAR FILTRATION RATE > 60.0 (>32); GLUCOSE, FASTING 88 MG/DL (70-100); POTASSIUM SERUM 3.8 MEQ/L (3.5-5.1); SODIUM LEVEL 137 MEQ/L (136-145)
[2017-09-02] MEDS: ALBUTEROL SULFATE 2.5 MG/0.5 ML INH NEB SOLN NEB ×2 (08:14→21:34)
[2017-09-02] MEDS: SANTYL OINT 30GM TOP (09:00)
[2017-09-02] MEDS: PANTOPRAZOLE 40MG INJ (PROTONIX) (C9113) IV ×2 (10:07→21:39)
[2017-09-02] MEDS: LISINOPRIL 20 MG TAB PO (10:08)
[2017-09-02] MEDS: MAGNESIUM OXIDE 400 MG TAB (MAG-OX) PO ×2 (10:08→21:39)
[2017-09-02] MEDS: CitaloPRAM (CeleXA) 10 MG TABLET PO (10:08)
[2017-09-02] MEDS: GABAPENTIN 300 MG CAP PO ×2 (10:09→21:39)
[2017-09-02] MEDS: DIAPER RELIEF PASTE (DESITIN) 60GM TOP (10:09)
[2017-09-02] MEDS: NYSTATIN 100,000 UNITS/GM TOPICAL PWD 15 GM TOP ×2 (10:09→21:39)
[2017-09-02] MEDS: INDAPAMIDE 1.25MG TABLET PO (10:09)
[2017-09-02] MEDS: RIVAROXABAN 20 MG TAB (XARELTO) PO (17:06)
[2017-09-02] MEDS: POLYVINYL ALCOHOL OPHTH SOLN 15 ML(LIQUITEARS) OU (21:40)
[2017-09-02] MEDS: ACETAMINOPHEN TAB 650MG DOSE (2X325MG) PO (21:40)
[2017-09-03] MEDS: SLF 3 ML SYR IV ×3 (05:31→22:00)
[2017-09-03 06:11] LABS: HEMATOCRIT 26.6 % (36.0-47.0); HEMOGLOBIN 8.3 g/dl (12.0-16.0); MEAN CORPUSCULAR HEMOGLOBIN 28.8 pg (27.0-33.0); MEAN CORPUSCULAR HGB CONC 31.2 g/dl (32.0-36.5); MEAN CORPUSCULAR VOLUME 92.4 fl (80.0-96.0); PLATELET COUNT, AUTOMATED 426 10^3/uL (150-450); RED BLOOD COUNT 2.88 10^6/uL (4.00-5.40); RED CELL DISTRIBUTION WIDTH 17.6 % (11.5-14.5); WHITE BLOOD COUNT 12.3 10^3/uL (4.0-10.0)
[2017-09-03 06:26] LABS: ANION GAP 5 MEQ/L (8-16); BLOOD UREA NITROGEN 24 MG/DL (7-18); CALCIUM LEVEL 8.3 MG/DL (8.8-10.2); CARBON DIOXIDE LEVEL 34 MEQ/L (21-32); CHLORIDE LEVEL 99 MEQ/L (98-107); CREATININE FOR GFR 0.91 MG/DL (0.55-1.02); GLOMERULAR FILTRATION RATE > 60.0 (>32); GLUCOSE, FASTING 89 MG/DL (70-100); POTASSIUM SERUM 3.8 MEQ/L (3.5-5.1); SODIUM LEVEL 138 MEQ/L (136-145)
[2017-09-03] MEDS: ALBUTEROL SULFATE 2.5 MG/0.5 ML INH NEB SOLN NEB ×2 (08:14→20:47)
[2017-09-03] MEDS: CitaloPRAM (CeleXA) 10 MG TABLET PO (08:35)
[2017-09-03] MEDS: LISINOPRIL 20 MG TAB PO (08:35)
[2017-09-03] MEDS: INDAPAMIDE 1.25MG TABLET PO (08:35)
[2017-09-03] MEDS: GABAPENTIN 300 MG CAP PO ×2 (08:35→20:36)
[2017-09-03] MEDS: MAGNESIUM OXIDE 400 MG TAB (MAG-OX) PO (08:35)
[2017-09-03] MEDS: NYSTATIN 100,000 UNITS/GM TOPICAL PWD 15 GM TOP ×2 (08:36→20:37)
[2017-09-03] MEDS: PANTOPRAZOLE 40MG INJ (PROTONIX) (C9113) IV ×2 (08:36→20:36)
[2017-09-03] MEDS: DIAPER RELIEF PASTE (DESITIN) 60GM TOP (08:37)
[2017-09-03] MEDS: POLYVINYL ALCOHOL OPHTH SOLN 15 ML(LIQUITEARS) OU ×2 (08:40→20:37)
[2017-09-03] MEDS: MOM 30ML SUSPENSION UDC PO (08:45)
[2017-09-03] MEDS: MIRALAX *UNIT DOSE* 17GM PACKET PO (08:45)
[2017-09-03] MEDS: SANTYL OINT 30GM TOP (11:18)
[2017-09-03] MEDS: SENOKOT S TAB PO ×2 (11:18→20:36)
[2017-09-03] MEDS: PERCOCET 5MG/325MG TAB PO ×2 (11:19→20:41)
[2017-09-03] MEDS: RIVAROXABAN 20 MG TAB (XARELTO) PO (17:07)
[2017-09-04 05:40] LABS: HEMATOCRIT 24.4 % (36.0-47.0); HEMOGLOBIN 7.6 g/dl (12.0-16.0); MEAN CORPUSCULAR HEMOGLOBIN 28.3 pg (27.0-33.0); MEAN CORPUSCULAR HGB CONC 31.1 g/dl (32.0-36.5); MEAN CORPUSCULAR VOLUME 90.7 fl (80.0-96.0); PLATELET COUNT, AUTOMATED 377 10^3/uL (150-450); RED BLOOD COUNT 2.69 10^6/uL (4.00-5.40); RED CELL DISTRIBUTION WIDTH 17.2 % (11.5-14.5); WHITE BLOOD COUNT 11.5 10^3/uL (4.0-10.0)
[2017-09-04 05:58] LABS: ANION GAP 6 MEQ/L (8-16); BLOOD UREA NITROGEN 20 MG/DL (7-18); CALCIUM LEVEL 7.9 MG/DL (8.8-10.2); CARBON DIOXIDE LEVEL 32 MEQ/L (21-32); CHLORIDE LEVEL 98 MEQ/L (98-107); CREATININE FOR GFR 0.89 MG/DL (0.55-1.02); GLOMERULAR FILTRATION RATE > 60.0 (>32); GLUCOSE, FASTING 102 MG/DL (70-100); POTASSIUM SERUM 3.7 MEQ/L (3.5-5.1); SODIUM LEVEL 136 MEQ/L (136-145)
[2017-09-04] MEDS: SLF 3 ML SYR IV ×3 (06:00→22:00)
[2017-09-04] MEDS: ALBUTEROL SULFATE 2.5 MG/0.5 ML INH NEB SOLN NEB ×2 (07:07→20:00)
[2017-09-04] MEDS: DIAPER RELIEF PASTE (DESITIN) 60GM TOP (08:25)
[2017-09-04] MEDS: SENOKOT S TAB PO ×2 (08:25→20:45)
[2017-09-04] MEDS: GABAPENTIN 300 MG CAP PO ×2 (08:25→20:45)
[2017-09-04] MEDS: PERCOCET 5MG/325MG TAB PO ×3 (08:26→20:48)
[2017-09-04] MEDS: NYSTATIN 100,000 UNITS/GM TOPICAL PWD 15 GM TOP ×2 (08:26→20:45)
[2017-09-04] MEDS: PANTOPRAZOLE 40MG INJ (PROTONIX) (C9113) IV ×2 (08:27→20:45)
[2017-09-04] MEDS: CitaloPRAM (CeleXA) 10 MG TABLET PO (08:27)
[2017-09-04] MEDS: LISINOPRIL 20 MG TAB PO (08:27)
[2017-09-04] MEDS: INDAPAMIDE 1.25MG TABLET PO (08:27)
[2017-09-04] MEDS: SANTYL OINT 30GM TOP (08:28)
[2017-09-04 12:12] LABS: HEMATOCRIT 25.3 % (36.0-47.0); HEMOGLOBIN 7.8 g/dl (12.0-16.0)
[2017-09-04 15:06] LABS: IMMEDIATE SPIN CROSSMATCH 1 1
[2017-09-04] MEDS: RIVAROXABAN 20 MG TAB (XARELTO) PO (17:56)
[2017-09-04] MEDS: POLYVINYL ALCOHOL OPHTH SOLN 15 ML(LIQUITEARS) OU (17:58)
[2017-09-05] MEDS: SLF 3 ML SYR IV ×3 (05:41→22:16)
[2017-09-05] MEDS: ALBUTEROL SULFATE 2.5 MG/0.5 ML INH NEB SOLN NEB ×2 (07:24→20:31)
[2017-09-05 08:20] LABS: HEMATOCRIT 31.1 % (36.0-47.0); HEMOGLOBIN 9.6 g/dl (12.0-16.0); MEAN CORPUSCULAR HEMOGLOBIN 28.3 pg (27.0-33.0); MEAN CORPUSCULAR HGB CONC 30.9 g/dl (32.0-36.5); MEAN CORPUSCULAR VOLUME 91.7 fl (80.0-96.0); PLATELET COUNT, AUTOMATED 417 10^3/uL (150-450); RED BLOOD COUNT 3.39 10^6/uL (4.00-5.40); WHITE BLOOD COUNT 12.3 10^3/uL (4.0-10.0)
[2017-09-05] MEDS: PANTOPRAZOLE 40MG INJ (PROTONIX) (C9113) IV ×2 (08:40→22:14)
[2017-09-05] MEDS: GABAPENTIN 300 MG CAP PO ×2 (08:40→22:15)
[2017-09-05] MEDS: INDAPAMIDE 1.25MG TABLET PO (08:42)
[2017-09-05] MEDS: LISINOPRIL 20 MG TAB PO (08:42)
[2017-09-05] MEDS: CitaloPRAM (CeleXA) 10 MG TABLET PO (08:42)
[2017-09-05] MEDS: SENOKOT S TAB PO ×2 (08:43→22:15)
[2017-09-05] MEDS: NYSTATIN 100,000 UNITS/GM TOPICAL PWD 15 GM TOP ×2 (08:43→22:16)
[2017-09-05] MEDS: DIAPER RELIEF PASTE (DESITIN) 60GM TOP (08:43)
[2017-09-05] MEDS: SANTYL OINT 30GM TOP (08:44)
[2017-09-05] MEDS: PERCOCET 5MG/325MG TAB PO ×2 (08:50→22:16)
[2017-09-05] MEDS: RIVAROXABAN 20 MG TAB (XARELTO) PO (17:47)
[2017-09-06] MEDS: SLF 3 ML SYR IV ×3 (06:00→21:23)
[2017-09-06] MEDS: NYSTATIN 100,000 UNITS/GM TOPICAL PWD 15 GM TOP ×2 (09:00→21:00)
[2017-09-06] MEDS: GABAPENTIN 300 MG CAP PO ×2 (09:15→21:23)
[2017-09-06] MEDS: SENOKOT S TAB PO ×2 (09:15→21:23)
[2017-09-06] MEDS: PANTOPRAZOLE 40MG INJ (PROTONIX) (C9113) IV ×2 (09:15→21:23)
[2017-09-06] MEDS: CitaloPRAM (CeleXA) 10 MG TABLET PO (09:16)
[2017-09-06] MEDS: INDAPAMIDE 1.25MG TABLET PO (09:16)
[2017-09-06] MEDS: LISINOPRIL 20 MG TAB PO (09:16)
[2017-09-06] MEDS: PERCOCET 5MG/325MG TAB PO ×2 (09:30→21:32)
[2017-09-06 10:01] LABS: HEMATOCRIT 28.8 % (36.0-47.0); HEMOGLOBIN 9.1 g/dl (12.0-16.0); MEAN CORPUSCULAR HEMOGLOBIN 28.8 pg (27.0-33.0); MEAN CORPUSCULAR HGB CONC 31.6 g/dl (32.0-36.5); MEAN CORPUSCULAR VOLUME 91.1 fl (80.0-96.0); PLATELET COUNT, AUTOMATED 386 10^3/uL (150-450); RED BLOOD COUNT 3.16 10^6/uL (4.00-5.40); RED CELL DISTRIBUTION WIDTH 16.7 % (11.5-14.5); WHITE BLOOD COUNT 19.3 10^3/uL (4.0-10.0)
[2017-09-06 10:27] LABS: ANION GAP 8 MEQ/L (8-16); BLOOD UREA NITROGEN 13 MG/DL (7-18); CARBON DIOXIDE LEVEL 30 MEQ/L (21-32); CHLORIDE LEVEL 97 MEQ/L (98-107); CREATININE FOR GFR 0.76 MG/DL (0.55-1.30); GLOMERULAR FILTRATION RATE > 60.0 (>32); GLUCOSE, FASTING 127 MG/DL (70-100); MAGNESIUM LEVEL 1.8 MG/DL (1.8-2.4); POTASSIUM SERUM 3.8 MEQ/L (3.5-5.1); SODIUM LEVEL 135 MEQ/L (136-145)
[2017-09-06] MEDS: ALBUTEROL SULFATE 2.5 MG/0.5 ML INH NEB SOLN NEB ×2 (12:05→21:08)
[2017-09-06] MEDS: DIAPER RELIEF PASTE (DESITIN) 60GM TOP (16:00)
[2017-09-06] MEDS: SANTYL OINT 30GM TOP (16:00)
[2017-09-06] MEDS: RIVAROXABAN 20 MG TAB (XARELTO) PO (17:25)
[2017-09-07] MEDS: SLF 3 ML SYR IV ×3 (05:44→22:00)
[2017-09-07 06:10] LABS: BASO % 0.1 % (0.0-1.0); EOS # 0.2 10^3/uL (0.0-0.50); EOS % 2.5 % (0.0-3.0); HEMATOCRIT 24.1 % (36.0-47.0); HEMOGLOBIN 7.7 g/dl (12.0-16.0); IMMATURE GRANULOCYTE % 0.4 % (0-0); LYMPH # 1.2 10^3/uL (1.5-4.5); MEAN CORPUSCULAR HEMOGLOBIN 28.5 pg (27.0-33.0); MEAN CORPUSCULAR VOLUME 89.3 fl (80.0-96.0); MONO # 0.8 10^3/uL (0.0-0.8); MONO % 10.1 % (0.0-5.0); NEUTROPHILS # 5.8 10^3/uL (1.8-7.7); NEUTROPHILS % 71.9 % (36.0-66.0); PLATELET COUNT, AUTOMATED 340 10^3/uL (150-450); RED CELL DISTRIBUTION WIDTH 16.8 % (11.5-14.5)
[2017-09-07 06:27] LABS: ANION GAP 5 MEQ/L (8-16); BLOOD UREA NITROGEN 15 MG/DL (7-18); CALCIUM LEVEL 7.9 MG/DL (8.8-10.2); CARBON DIOXIDE LEVEL 31 MEQ/L (21-32); CHLORIDE LEVEL 97 MEQ/L (98-107); CREATININE FOR GFR 0.75 MG/DL (0.55-1.30); GLOMERULAR FILTRATION RATE > 60.0 (>32); GLUCOSE, FASTING 97 MG/DL (70-100); MAGNESIUM LEVEL 1.7 MG/DL (1.8-2.4); POTASSIUM SERUM 3.3 MEQ/L (3.5-5.1); SODIUM LEVEL 133 MEQ/L (136-145)
[2017-09-07] MEDS: ALBUTEROL SULFATE 2.5 MG/0.5 ML INH NEB SOLN NEB ×2 (08:06→20:00)
[2017-09-07 08:11] LABS: HEMOGLOBIN 7.9 g/dl (12.0-16.0); MEAN CORPUSCULAR HEMOGLOBIN 28.8 pg (27.0-33.0); MEAN CORPUSCULAR HGB CONC 31.6 g/dl (32.0-36.5); MEAN CORPUSCULAR VOLUME 91.2 fl (80.0-96.0); PLATELET COUNT, AUTOMATED 316 10^3/uL (150-450); RED BLOOD COUNT 2.74 10^6/uL (4.00-5.40); RED CELL DISTRIBUTION WIDTH 16.7 % (11.5-14.5)
[2017-09-07] MEDS: POTASSIUM CHLORIDE 10 MEQ SR TABLET PO (08:58)
[2017-09-07] MEDS: PANTOPRAZOLE 40MG INJ (PROTONIX) (C9113) IV (08:58)
[2017-09-07] MEDS: INDAPAMIDE 1.25MG TABLET PO (08:59)
[2017-09-07] MEDS: MAG SULF 1GM/100ML (MAG RUN) 1 GM in APPROPRIATE DILUENT 1 EA IV (08:59)
[2017-09-07] MEDS: GABAPENTIN 300 MG CAP PO ×2 (08:59→20:44)
[2017-09-07] MEDS: CitaloPRAM (CeleXA) 10 MG TABLET PO (08:59)
[2017-09-07] MEDS: SENOKOT S TAB PO ×2 (08:59→20:39)
[2017-09-07] MEDS: LISINOPRIL 20 MG TAB PO (09:00)
[2017-09-07] MEDS: PERCOCET 5MG/325MG TAB PO ×2 (12:59→20:45)
[2017-09-07 14:21] LABS: IMMEDIATE SPIN CROSSMATCH 1 1
[2017-09-07] MEDS: SANTYL OINT 30GM TOP (15:00)
[2017-09-07] MEDS: DIAPER RELIEF PASTE (DESITIN) 60GM TOP (15:00)
[2017-09-07] MEDS: NYSTATIN 100,000 UNITS/GM TOPICAL PWD 15 GM TOP ×2 (16:31→20:45)
[2017-09-07] MEDS: RIVAROXABAN 20 MG TAB (XARELTO) PO (17:42)
[2017-09-07] MEDS: PANTOPRAZOLE 40MG TAB (PROTONIX) PO (20:44)
[2017-09-08] MEDS: ALBUTEROL SULFATE 2.5 MG/0.5 ML INH NEB SOLN NEB ×3 (01:10→20:10)
[2017-09-08] MEDS: SLF 3 ML SYR IV ×3 (05:31→21:49)
[2017-09-08 06:15] LABS: HEMOGLOBIN 8.7 g/dl (12.0-16.0); MEAN CORPUSCULAR HEMOGLOBIN 29.2 pg (27.0-33.0); MEAN CORPUSCULAR HGB CONC 32.2 g/dl (32.0-36.5); MEAN CORPUSCULAR VOLUME 90.6 fl (80.0-96.0); PLATELET COUNT, AUTOMATED 315 10^3/uL (150-450); RED BLOOD COUNT 2.98 10^6/uL (4.00-5.40); RED CELL DISTRIBUTION WIDTH 16.7 % (11.5-14.5); WHITE BLOOD COUNT 6.8 10^3/uL (4.0-10.0)
[2017-09-08 06:35] LABS: ANION GAP 5 MEQ/L (8-16); BLOOD UREA NITROGEN 14 MG/DL (7-18); CARBON DIOXIDE LEVEL 30 MEQ/L (21-32); CHLORIDE LEVEL 99 MEQ/L (98-107); CREATININE FOR GFR 0.71 MG/DL (0.55-1.30); GLOMERULAR FILTRATION RATE > 60.0 (>32); GLUCOSE, FASTING 92 MG/DL (70-100); MAGNESIUM LEVEL 1.8 MG/DL (1.8-2.4); POTASSIUM SERUM 3.5 MEQ/L (3.5-5.1); SODIUM LEVEL 134 MEQ/L (136-145)
[2017-09-08] MEDS: GABAPENTIN 300 MG CAP PO ×2 (07:56→20:41)
[2017-09-08] MEDS: CitaloPRAM (CeleXA) 10 MG TABLET PO (07:56)
[2017-09-08] MEDS: SENOKOT S TAB PO ×2 (07:57→20:41)
[2017-09-08] MEDS: NYSTATIN 100,000 UNITS/GM TOPICAL PWD 15 GM TOP ×2 (07:57→20:42)
[2017-09-08] MEDS: POLYVINYL ALCOHOL OPHTH SOLN 15 ML(LIQUITEARS) OU (07:57)
[2017-09-08] MEDS: POTASSIUM CHLORIDE 10 MEQ SR TABLET PO (07:57)
[2017-09-08] MEDS: PANTOPRAZOLE 40MG TAB (PROTONIX) PO ×2 (07:57→20:41)
[2017-09-08] MEDS: LISINOPRIL 20 MG TAB PO (07:58)
[2017-09-08] MEDS: INDAPAMIDE 1.25MG TABLET PO (07:58)
[2017-09-08] MEDS: DIAPER RELIEF PASTE (DESITIN) 60GM TOP (07:59)
[2017-09-08] MEDS: SANTYL OINT 30GM TOP (08:00)
[2017-09-08] MEDS ORDERED: ISOVUE-370 76% 100ML VIAL (Q9967) As Ordered (11:22)
[2017-09-08] MEDS ORDERED: GLUCAGON FOR INJ 1 MG VIAL (J1610) As Ordered (11:22)
[2017-09-08] MEDS ORDERED: VoLumen 0.1% SUSPENSION 450ML BOTTLE As Ordered (11:22)
[2017-09-08] MEDS: PERCOCET 5MG/325MG TAB PO ×2 (13:30→20:42)
[2017-09-08] MEDS: RIVAROXABAN 20 MG TAB (XARELTO) PO (17:06)
[2017-09-09] MEDS: SLF 3 ML SYR IV ×3 (05:59→22:29)
[2017-09-09 06:42] LABS: HEMATOCRIT 26.3 % (36.0-47.0); HEMOGLOBIN 8.3 g/dl (12.0-16.0); MEAN CORPUSCULAR HEMOGLOBIN 28.6 pg (27.0-33.0); MEAN CORPUSCULAR HGB CONC 31.6 g/dl (32.0-36.5); MEAN CORPUSCULAR VOLUME 90.7 fl (80.0-96.0); PLATELET COUNT, AUTOMATED 301 10^3/uL (150-450); RED CELL DISTRIBUTION WIDTH 16.9 % (11.5-14.5); WHITE BLOOD COUNT 5.6 10^3/uL (4.0-10.0)
[2017-09-09 06:58] LABS: ANION GAP 6 MEQ/L (8-16); BLOOD UREA NITROGEN 9 MG/DL (7-18); CALCIUM LEVEL 7.9 MG/DL (8.8-10.2); CARBON DIOXIDE LEVEL 31 MEQ/L (21-32); CHLORIDE LEVEL 100 MEQ/L (98-107); CREATININE FOR GFR 0.67 MG/DL (0.55-1.30); GLOMERULAR FILTRATION RATE > 60.0 (>32); GLUCOSE, FASTING 95 MG/DL (70-100); MAGNESIUM LEVEL 1.6 MG/DL (1.8-2.4); POTASSIUM SERUM 3.6 MEQ/L (3.5-5.1); SODIUM LEVEL 137 MEQ/L (136-145)
[2017-09-09] MEDS: MAG SULF 1GM/100ML (MAG RUN) 1 GM in APPROPRIATE DILUENT 1 EA IV (07:54)
[2017-09-09] MEDS: POTASSIUM CHLORIDE 10 MEQ SR TABLET PO (07:54)
[2017-09-09] MEDS: SENOKOT S TAB PO ×3 (07:55→22:27)
[2017-09-09] MEDS: PERCOCET 5MG/325MG TAB PO ×2 (07:55→22:41)
[2017-09-09] MEDS: GABAPENTIN 300 MG CAP PO ×2 (07:55→22:27)
[2017-09-09] MEDS: PANTOPRAZOLE 40MG TAB (PROTONIX) PO ×2 (07:55→22:27)
[2017-09-09] MEDS: CitaloPRAM (CeleXA) 10 MG TABLET PO (07:55)
[2017-09-09] MEDS: INDAPAMIDE 1.25MG TABLET PO (07:55)
[2017-09-09] MEDS: LISINOPRIL 20 MG TAB PO (07:58)
[2017-09-09] MEDS: NYSTATIN 100,000 UNITS/GM TOPICAL PWD 15 GM TOP ×2 (07:59→22:27)
[2017-09-09] MEDS: ALBUTEROL SULFATE 2.5 MG/0.5 ML INH NEB SOLN NEB ×2 (08:29→21:23)
[2017-09-09] MEDS: DIAPER RELIEF PASTE (DESITIN) 60GM TOP (08:32)
[2017-09-09] MEDS: SANTYL OINT 30GM TOP (08:32)
[2017-09-09] MEDS: FERROUS SULFATE 325MG TAB PO ×2 (12:14→22:27)
[2017-09-09] MEDS: ASCORBIC ACID 250 MG TAB PO ×2 (12:15→22:27)
[2017-09-09] MEDS: RIVAROXABAN 20 MG TAB (XARELTO) PO (17:39)
[2017-09-10] MEDS: ACETAMINOPHEN TAB 650MG DOSE (2X325MG) PO (03:14)
[2017-09-10] MEDS: PERCOCET 5MG/325MG TAB PO ×2 (05:11→20:39)
[2017-09-10] MEDS: SLF 3 ML SYR IV ×3 (05:12→20:39)
[2017-09-10 06:11] LABS: HEMOGLOBIN 7.9 g/dl (12.0-16.0); MEAN CORPUSCULAR HEMOGLOBIN 28.7 pg (27.0-33.0); MEAN CORPUSCULAR HGB CONC 31.6 g/dl (32.0-36.5); MEAN CORPUSCULAR VOLUME 90.9 fl (80.0-96.0); PLATELET COUNT, AUTOMATED 281 10^3/uL (150-450); RED BLOOD COUNT 2.75 10^6/uL (4.00-5.40); WHITE BLOOD COUNT 5.4 10^3/uL (4.0-10.0)
[2017-09-10 06:27] LABS: ANION GAP 6 MEQ/L (8-16); BLOOD UREA NITROGEN 8 MG/DL (7-18); CALCIUM LEVEL 8.3 MG/DL (8.8-10.2); CARBON DIOXIDE LEVEL 30 MEQ/L (21-32); CHLORIDE LEVEL 99 MEQ/L (98-107); CREATININE FOR GFR 0.62 MG/DL (0.55-1.30); GLOMERULAR FILTRATION RATE > 60.0 (>32); GLUCOSE, FASTING 94 MG/DL (70-100); MAGNESIUM LEVEL 1.6 MG/DL (1.8-2.4); POTASSIUM SERUM 3.5 MEQ/L (3.5-5.1); SODIUM LEVEL 135 MEQ/L (136-145)
[2017-09-10] MEDS: MAG SULF 1GM/100ML (MAG RUN) 1 GM in APPROPRIATE DILUENT 1 EA IV (07:45)
[2017-09-10] MEDS: ALBUTEROL SULFATE 2.5 MG/0.5 ML INH NEB SOLN NEB ×2 (07:59→20:10)
[2017-09-10] MEDS: INDAPAMIDE 1.25MG TABLET PO (08:02)
[2017-09-10] MEDS: CitaloPRAM (CeleXA) 10 MG TABLET PO (08:02)
[2017-09-10] MEDS: PANTOPRAZOLE 40MG TAB (PROTONIX) PO ×2 (08:02→20:37)
[2017-09-10] MEDS: GABAPENTIN 300 MG CAP PO ×2 (08:02→20:37)
[2017-09-10] MEDS: SENOKOT S TAB PO ×2 (08:02→20:37)
[2017-09-10] MEDS: LISINOPRIL 20 MG TAB PO (08:02)
[2017-09-10] MEDS: FERROUS SULFATE 325MG TAB PO ×2 (08:02→20:37)
[2017-09-10] MEDS: ASCORBIC ACID 250 MG TAB PO ×2 (08:02→20:37)
[2017-09-10] MEDS: POTASSIUM CHLORIDE 10 MEQ SR TABLET PO (08:03)
[2017-09-10] MEDS: MIRALAX *UNIT DOSE* 17GM PACKET PO (08:03)
[2017-09-10] MEDS: NYSTATIN 100,000 UNITS/GM TOPICAL PWD 15 GM TOP ×2 (08:04→20:39)
[2017-09-10] MEDS: SANTYL OINT 30GM TOP (08:04)
[2017-09-10] MEDS: DIAPER RELIEF PASTE (DESITIN) 60GM TOP (08:05)
[2017-09-10] MEDS: RIVAROXABAN 20 MG TAB (XARELTO) PO (18:30)
[2017-09-11] MEDS: ALBUTEROL SULFATE 2.5 MG/0.5 ML INH NEB SOLN NEB ×3 (03:39→20:51)
[2017-09-11] MEDS: SLF 3 ML SYR IV ×3 (05:53→22:00)
[2017-09-11 06:29] LABS: HEMATOCRIT 29.5 % (36.0-47.0); HEMOGLOBIN 9.2 g/dl (12.0-16.0); MEAN CORPUSCULAR HEMOGLOBIN 28.6 pg (27.0-33.0); MEAN CORPUSCULAR HGB CONC 31.2 g/dl (32.0-36.5); MEAN CORPUSCULAR VOLUME 91.6 fl (80.0-96.0); PLATELET COUNT, AUTOMATED 317 10^3/uL (150-450); RED BLOOD COUNT 3.22 10^6/uL (4.00-5.40); RED CELL DISTRIBUTION WIDTH 17.2 % (11.5-14.5)
[2017-09-11 06:58] LABS: ANION GAP 7 MEQ/L (8-16); BLOOD UREA NITROGEN 7 MG/DL (7-18); CALCIUM LEVEL 8.5 MG/DL (8.8-10.2); CARBON DIOXIDE LEVEL 31 MEQ/L (21-32); CHLORIDE LEVEL 100 MEQ/L (98-107); CREATININE FOR GFR 0.75 MG/DL (0.55-1.30); GLOMERULAR FILTRATION RATE > 60.0 (>32); GLUCOSE, FASTING 104 MG/DL (70-100); MAGNESIUM LEVEL 1.8 MG/DL (1.8-2.4); POTASSIUM SERUM 4.1 MEQ/L (3.5-5.1); SODIUM LEVEL 138 MEQ/L (136-145)
[2017-09-11] MEDS: ASCORBIC ACID 250 MG TAB PO ×2 (08:52→21:58)
[2017-09-11] MEDS: SENOKOT S TAB PO ×2 (08:52→21:59)
[2017-09-11] MEDS: GABAPENTIN 300 MG CAP PO ×2 (08:52→21:58)
[2017-09-11] MEDS: INDAPAMIDE 1.25MG TABLET PO (08:52)
[2017-09-11] MEDS: MIRALAX *UNIT DOSE* 17GM PACKET PO (08:52)
[2017-09-11] MEDS: FERROUS SULFATE 325MG TAB PO ×2 (08:53→21:58)
[2017-09-11] MEDS: PANTOPRAZOLE 40MG TAB (PROTONIX) PO ×2 (08:53→21:59)
[2017-09-11] MEDS: NYSTATIN 100,000 UNITS/GM TOPICAL PWD 15 GM TOP ×2 (08:53→22:00)
[2017-09-11] MEDS: CitaloPRAM (CeleXA) 10 MG TABLET PO (08:53)
[2017-09-11] MEDS: LISINOPRIL 20 MG TAB PO (08:53)
[2017-09-11] MEDS: SANTYL OINT 30GM TOP (08:54)
[2017-09-11] MEDS: DIAPER RELIEF PASTE (DESITIN) 60GM TOP (08:55)
[2017-09-11] MEDS ORDERED: IPRATROPIUM 0.5MG/ALBUTEROL 2.5MG INH SOL UD 3ML (DUONEB)(J7620) NEB (10:15)
[2017-09-11 10:29] LABS: C REACTIVE PROTEIN QUANTITATIV 5.18 MG/DL (0.00-0.30)
[2017-09-11] MEDS: BUDESONIDE 0.5 MG/2 ML INHALATION SUSPENSION INH ×2 (10:59→20:51)
[2017-09-11] MEDS: BENZONATATE 100 MG CAP PO ×3 (11:51→21:59)
[2017-09-11] MEDS: guaiFENesin ER 600 MG TAB PO ×2 (11:51→21:58)
[2017-09-11] MEDS: PERCOCET 5MG/325MG TAB PO ×2 (11:51→22:01)
[2017-09-11] MEDS: IPRATROPIUM 0.5MG/ALBUTEROL 2.5MG INH SOL UD 3ML (DUONEB)(J7620) NEB ×2 (14:23→20:00)
[2017-09-11] MEDS: RIVAROXABAN 20 MG TAB (XARELTO) PO (17:15)
[2017-09-12] MEDS: IPRATROPIUM 0.5MG/ALBUTEROL 2.5MG INH SOL UD 3ML (DUONEB)(J7620) NEB ×5 (01:26→23:44)
[2017-09-12] MEDS: SLF 3 ML SYR IV ×3 (04:38→21:48)
[2017-09-12] MEDS: PERCOCET 5MG/325MG TAB PO ×2 (04:38→20:28)
[2017-09-12 05:57] LABS: HEMATOCRIT 25.7 % (36.0-47.0); MEAN CORPUSCULAR HEMOGLOBIN 28.8 pg (27.0-33.0); MEAN CORPUSCULAR HGB CONC 31.1 g/dl (32.0-36.5); MEAN CORPUSCULAR VOLUME 92.4 fl (80.0-96.0); PLATELET COUNT, AUTOMATED 241 10^3/uL (150-450); RED BLOOD COUNT 2.78 10^6/uL (4.00-5.40); RED CELL DISTRIBUTION WIDTH 17.2 % (11.5-14.5); WHITE BLOOD COUNT 6.6 10^3/uL (4.0-10.0)
[2017-09-12 06:11] LABS: ANION GAP 8 MEQ/L (8-16); BLOOD UREA NITROGEN 7 MG/DL (7-18); CALCIUM LEVEL 8.1 MG/DL (8.8-10.2); CARBON DIOXIDE LEVEL 29 MEQ/L (21-32); CHLORIDE LEVEL 99 MEQ/L (98-107); CREATININE FOR GFR 0.73 MG/DL (0.55-1.30); GLOMERULAR FILTRATION RATE > 60.0 (>32); GLUCOSE, FASTING 106 MG/DL (70-100); MAGNESIUM LEVEL 1.7 MG/DL (1.8-2.4); POTASSIUM SERUM 3.4 MEQ/L (3.5-5.1); SODIUM LEVEL 136 MEQ/L (136-145)
[2017-09-12] MEDS: ALBUTEROL SULFATE 2.5 MG/0.5 ML INH NEB SOLN NEB ×3 (07:35→21:17)
[2017-09-12] MEDS: BUDESONIDE 0.5 MG/2 ML INHALATION SUSPENSION INH ×2 (07:35→21:17)
[2017-09-12] MEDS: INDAPAMIDE 1.25MG TABLET PO (08:25)
[2017-09-12] MEDS: SENOKOT S TAB PO ×2 (08:25→20:28)
[2017-09-12] MEDS: POTASSIUM CHLORIDE 10 MEQ SR TABLET PO (08:25)
[2017-09-12] MEDS: GABAPENTIN 300 MG CAP PO ×2 (08:25→20:28)
[2017-09-12] MEDS: ASCORBIC ACID 250 MG TAB PO ×2 (08:25→20:29)
[2017-09-12] MEDS: CitaloPRAM (CeleXA) 10 MG TABLET PO (08:25)
[2017-09-12] MEDS: guaiFENesin ER 600 MG TAB PO ×2 (08:25→20:28)
[2017-09-12] MEDS: BENZONATATE 100 MG CAP PO ×3 (08:26→20:28)
[2017-09-12] MEDS: FERROUS SULFATE 325MG TAB PO ×3 (08:26→20:29)
[2017-09-12] MEDS: PANTOPRAZOLE 40MG TAB (PROTONIX) PO ×2 (08:26→20:29)
[2017-09-12] MEDS: POLYVINYL ALCOHOL OPHTH SOLN 15 ML(LIQUITEARS) OU (08:26)
[2017-09-12] MEDS: NYSTATIN 100,000 UNITS/GM TOPICAL PWD 15 GM TOP ×2 (08:26→20:29)
[2017-09-12] MEDS: LISINOPRIL 20 MG TAB PO (08:26)
[2017-09-12] MEDS: DIAPER RELIEF PASTE (DESITIN) 60GM TOP (08:27)
[2017-09-12] MEDS: MAG SULF 1GM/100ML (MAG RUN) 1 GM in APPROPRIATE DILUENT 1 EA IV (08:28)
[2017-09-12] MEDS: SANTYL OINT 30GM TOP (08:28)
[2017-09-12] MEDS: MIRALAX *UNIT DOSE* 17GM PACKET PO (08:31)
[2017-09-12] MEDS: ACETAMINOPHEN TAB 650MG DOSE (2X325MG) PO (14:40)
[2017-09-12] MEDS: RIVAROXABAN 20 MG TAB (XARELTO) PO (17:30)
[2017-09-12] MEDS: DEXTROMETHORPHAN 60MG/10ML SUSP 90ML BTL(DELSYM) PO (20:29)
[2017-09-13] MEDS: ACETAMINOPHEN TAB 650MG DOSE (2X325MG) PO ×2 (01:55→22:32)
[2017-09-13] MEDS: SLF 3 ML SYR IV ×3 (05:57→22:00)
[2017-09-13 06:13] LABS: HEMATOCRIT 26.3 % (36.0-47.0); HEMOGLOBIN 8.3 g/dl (12.0-16.0); MEAN CORPUSCULAR HEMOGLOBIN 29.3 pg (27.0-33.0); MEAN CORPUSCULAR HGB CONC 31.6 g/dl (32.0-36.5); MEAN CORPUSCULAR VOLUME 92.9 fl (80.0-96.0); PLATELET COUNT, AUTOMATED 236 10^3/uL (150-450); RED BLOOD COUNT 2.83 10^6/uL (4.00-5.40); RED CELL DISTRIBUTION WIDTH 17.2 % (11.5-14.5); WHITE BLOOD COUNT 5.3 10^3/uL (4.0-10.0)
[2017-09-13 06:36] LABS: ANION GAP 7 MEQ/L (8-16); BLOOD UREA NITROGEN 7 MG/DL (7-18); CALCIUM LEVEL 8.6 MG/DL (8.8-10.2); CARBON DIOXIDE LEVEL 32 MEQ/L (21-32); CHLORIDE LEVEL 98 MEQ/L (98-107); CREATININE FOR GFR 0.67 MG/DL (0.55-1.30); GLOMERULAR FILTRATION RATE > 60.0 (>32); GLUCOSE, FASTING 91 MG/DL (70-100); MAGNESIUM LEVEL 1.7 MG/DL (1.8-2.4); POTASSIUM SERUM 3.8 MEQ/L (3.5-5.1); SODIUM LEVEL 137 MEQ/L (136-145)
[2017-09-13] MEDS: BUDESONIDE 0.5 MG/2 ML INHALATION SUSPENSION INH ×2 (07:37→20:53)
[2017-09-13] MEDS: IPRATROPIUM 0.5MG/ALBUTEROL 2.5MG INH SOL UD 3ML (DUONEB)(J7620) NEB ×3 (07:37→20:53)
[2017-09-13] MEDS: ALBUTEROL SULFATE 2.5 MG/0.5 ML INH NEB SOLN NEB ×2 (07:37→20:00)
[2017-09-13] MEDS: MIRALAX *UNIT DOSE* 17GM PACKET PO ×2 (09:00→09:36)
[2017-09-13] MEDS: guaiFENesin ER 600 MG TAB PO ×2 (09:31→20:17)
[2017-09-13] MEDS: PANTOPRAZOLE 40MG TAB (PROTONIX) PO ×2 (09:32→20:17)
[2017-09-13] MEDS: ASCORBIC ACID 250 MG TAB PO ×2 (09:32→20:17)
[2017-09-13] MEDS: SENOKOT S TAB PO ×2 (09:32→20:17)
[2017-09-13] MEDS: LISINOPRIL 20 MG TAB PO (09:33)
[2017-09-13] MEDS: GABAPENTIN 300 MG CAP PO ×2 (09:33→20:16)
[2017-09-13] MEDS: CitaloPRAM (CeleXA) 10 MG TABLET PO (09:33)
[2017-09-13] MEDS: FERROUS SULFATE 325MG TAB PO ×3 (09:33→20:17)
[2017-09-13] MEDS: BENZONATATE 100 MG CAP PO ×3 (09:33→20:16)
[2017-09-13] MEDS: DIAPER RELIEF PASTE (DESITIN) 60GM TOP (09:34)
[2017-09-13] MEDS: INDAPAMIDE 1.25MG TABLET PO (09:34)
[2017-09-13] MEDS: SANTYL OINT 30GM TOP (09:35)
[2017-09-13] MEDS: NYSTATIN 100,000 UNITS/GM TOPICAL PWD 15 GM TOP ×2 (09:36→20:16)
[2017-09-13] MEDS: DEXTROMETHORPHAN 60MG/10ML SUSP 90ML BTL(DELSYM) PO ×2 (09:43→22:32)
[2017-09-13] MEDS: PERCOCET 5MG/325MG TAB PO ×2 (09:53→20:30)
[2017-09-13 16:56] LABS: HEMATOCRIT 28.9 % (36.0-47.0)
[2017-09-13] MEDS: RIVAROXABAN 20 MG TAB (XARELTO) PO (17:09)
[2017-09-14] MEDS: IPRATROPIUM 0.5MG/ALBUTEROL 2.5MG INH SOL UD 3ML (DUONEB)(J7620) NEB ×4 (01:17→17:51)
[2017-09-14] MEDS: SLF 3 ML SYR IV ×3 (05:18→21:27)
[2017-09-14 06:14] LABS: HEMATOCRIT 26.5 % (36.0-47.0); HEMOGLOBIN 8.2 g/dl (12.0-16.0); MEAN CORPUSCULAR HEMOGLOBIN 28.6 pg (27.0-33.0); MEAN CORPUSCULAR HGB CONC 30.9 g/dl (32.0-36.5); MEAN CORPUSCULAR VOLUME 92.3 fl (80.0-96.0); PLATELET COUNT, AUTOMATED 243 10^3/uL (150-450); RED BLOOD COUNT 2.87 10^6/uL (4.00-5.40); RED CELL DISTRIBUTION WIDTH 17.2 % (11.5-14.5); WHITE BLOOD COUNT 5.2 10^3/uL (4.0-10.0)
[2017-09-14 06:37] LABS: ANION GAP 8 MEQ/L (8-16); BLOOD UREA NITROGEN 7 MG/DL (7-18); CALCIUM LEVEL 8.5 MG/DL (8.8-10.2); CARBON DIOXIDE LEVEL 29 MEQ/L (21-32); CHLORIDE LEVEL 97 MEQ/L (98-107); GLOMERULAR FILTRATION RATE > 60.0 (>32); GLUCOSE, FASTING 90 MG/DL (70-100); MAGNESIUM LEVEL 1.6 MG/DL (1.8-2.4); POTASSIUM SERUM 3.2 MEQ/L (3.5-5.1); SODIUM LEVEL 134 MEQ/L (136-145)
[2017-09-14] MEDS: ALBUTEROL SULFATE 2.5 MG/0.5 ML INH NEB SOLN NEB ×3 (08:00→20:09)
[2017-09-14] MEDS: FERROUS SULFATE 325MG TAB PO ×3 (09:35→21:27)
[2017-09-14] MEDS: INDAPAMIDE 1.25MG TABLET PO (09:35)
[2017-09-14] MEDS: BENZONATATE 100 MG CAP PO ×3 (09:35→21:27)
[2017-09-14] MEDS: LISINOPRIL 20 MG TAB PO (09:36)
[2017-09-14] MEDS: POTASSIUM CHLORIDE 10 MEQ SR TABLET PO (09:36)
[2017-09-14] MEDS: CitaloPRAM (CeleXA) 10 MG TABLET PO (09:36)
[2017-09-14] MEDS: PANTOPRAZOLE 40MG TAB (PROTONIX) PO ×2 (09:36→21:27)
[2017-09-14] MEDS: ASCORBIC ACID 250 MG TAB PO ×2 (09:37→21:27)
[2017-09-14] MEDS: GABAPENTIN 300 MG CAP PO ×2 (09:37→21:27)
[2017-09-14] MEDS: DIAPER RELIEF PASTE (DESITIN) 60GM TOP (09:37)
[2017-09-14] MEDS: NYSTATIN 100,000 UNITS/GM TOPICAL PWD 15 GM TOP ×2 (09:37→21:28)
[2017-09-14] MEDS: guaiFENesin ER 600 MG TAB PO ×2 (09:37→21:27)
[2017-09-14] MEDS: SANTYL OINT 30GM TOP (09:38)
[2017-09-14] MEDS: MIRALAX *UNIT DOSE* 17GM PACKET PO (09:39)
[2017-09-14] MEDS: SENOKOT S TAB PO ×2 (09:39→21:00)
[2017-09-14] MEDS: MAG SULF 1GM/100ML (MAG RUN) 1 GM in APPROPRIATE DILUENT 1 EA IV ×2 (09:40→09:42)
[2017-09-14] MEDS: BUDESONIDE 0.5 MG/2 ML INHALATION SUSPENSION INH ×2 (10:33→17:51)
[2017-09-14] MEDS: DEXTROMETHORPHAN 60MG/10ML SUSP 90ML BTL(DELSYM) PO (13:26)
[2017-09-14] MEDS: RIVAROXABAN 20 MG TAB (XARELTO) PO (17:25)
[2017-09-14] MEDS: PERCOCET 5MG/325MG TAB PO (21:32)
[2017-09-15] MEDS: IPRATROPIUM 0.5MG/ALBUTEROL 2.5MG INH SOL UD 3ML (DUONEB)(J7620) NEB ×2 (00:36→07:30)
[2017-09-15] MEDS: SLF 3 ML SYR IV (05:31)
[2017-09-15] MEDS: BUDESONIDE 0.5 MG/2 ML INHALATION SUSPENSION INH (07:30)
[2017-09-15] MEDS: ALBUTEROL SULFATE 2.5 MG/0.5 ML INH NEB SOLN NEB (07:30)
[2017-09-15] MEDS: guaiFENesin ER 600 MG TAB PO (08:19)
[2017-09-15] MEDS: FERROUS SULFATE 325MG TAB PO (08:20)
[2017-09-15] MEDS: CitaloPRAM (CeleXA) 10 MG TABLET PO (08:20)
[2017-09-15] MEDS: PANTOPRAZOLE 40MG TAB (PROTONIX) PO (08:20)
[2017-09-15] MEDS: LISINOPRIL 20 MG TAB PO (08:21)
[2017-09-15] MEDS: GABAPENTIN 300 MG CAP PO (08:21)
[2017-09-15] MEDS: INDAPAMIDE 1.25MG TABLET PO (08:22)
[2017-09-15] MEDS: ASCORBIC ACID 250 MG TAB PO (08:22)
[2017-09-15] MEDS: NYSTATIN 100,000 UNITS/GM TOPICAL PWD 15 GM TOP (08:24)
[2017-09-15] MEDS: BENZONATATE 100 MG CAP PO (08:29)
[2017-09-15] MEDS: SANTYL OINT 30GM TOP (08:30)
[2017-09-15] MEDS: PERCOCET 5MG/325MG TAB PO (08:36)
== END 2017-09-15 11:07 | DRG 193 ==
LOC: M PCU 08-22 21:56 → M MSPAV 08-30 07:29 → M ED 19:00 → M ED INP 23:27
PROC: 30233N1 Transfusion of Nonautologous Red Blood Cells into Peripheral Vein, Percutaneous Approach (ICD-10-PCS; principal; 2017-09-04)
DX: J18.9 Pneumonia, unspecified organism (principal); J96.02 Acute respiratory failure with hypercapnia; J96.01 Acute respiratory failure with hypoxia; E87.2 Acidosis; I83.013 Varicose veins of right lower extremity with ulcer of ankle; Z66 Do not resuscitate; J20.5 Acute bronchitis due to respiratory syncytial virus; D64.9 Anemia, unspecified; I44.0 Atrioventricular block, first degree; I10 Essential (primary) hypertension; I45.10 Unspecified right bundle-branch block; E66.9 Obesity, unspecified; F32.9 Major depressive disorder, single episode, unspecified; K22.70 Barrett's esophagus without dysplasia; I73.9 Peripheral vascular disease, unspecified; Z79.01 Long term (current) use of anticoagulants; Z79.899 Other long term (current) drug therapy; Z91.040 Latex allergy status; Z88.5 Allergy status to narcotic agent; Z91.048 Other nonmedicinal substance allergy status; Z88.8 Allergy status to other drugs, medicaments and biological substances; Z86.718 Personal history of other venous thrombosis and embolism

== ENCOUNTER → 2017-09-19 | Outpatient (REF) ==
[2017-09-19 11:15] LABS: HEMATOCRIT 30.5 % (36.0-47.0); HEMOGLOBIN 9.4 g/dl (12.0-16.0); MEAN CORPUSCULAR HEMOGLOBIN 28.9 pg (27.0-33.0); MEAN CORPUSCULAR HGB CONC 30.8 g/dl (32.0-36.5); MEAN CORPUSCULAR VOLUME 93.8 fl (80.0-96.0); PLATELET COUNT, AUTOMATED 425 10^3/uL (150-450); RED BLOOD COUNT 3.25 10^6/uL (4.00-5.40); RED CELL DISTRIBUTION WIDTH 18.5 % (11.5-14.5); WHITE BLOOD COUNT 8.1 10^3/uL (4.0-10.0)
[2017-09-19 11:56] LABS: ANION GAP 7 MEQ/L (8-16); BLOOD UREA NITROGEN 10 MG/DL (7-18); CALCIUM LEVEL 8.5 MG/DL (8.8-10.2); CARBON DIOXIDE LEVEL 32 MEQ/L (21-32); CHLORIDE LEVEL 97 MEQ/L (98-107); GLOMERULAR FILTRATION RATE > 60.0 (>32); GLUCOSE, FASTING 90 MG/DL (70-100); POTASSIUM SERUM 4.1 MEQ/L (3.5-5.1); SODIUM LEVEL 136 MEQ/L (136-145)
[2017-09-19 15:44] LABS: FREE T4 1.06 NG/DL (0.76-1.46)
== END ==
DX: I27.0 Primary pulmonary hypertension (principal)

== ENCOUNTER → 2017-09-26 | Outpatient (REF) | payer MEDICARE, OTHER | DX: L89.152 Pressure ulcer of sacral region, stage 2 (principal) | CPT/HCPCS: 87081 ==

== ENCOUNTER → 2017-10-03 | Outpatient (REF) | DX: Z22.322 Carrier or suspected carrier of Methicillin resistant Staphylococcus aureus (principal) ==

== ENCOUNTER → 2017-10-11 | Outpatient (REF) | DX: R10.9 Unspecified abdominal pain (principal) ==

== ENCOUNTER → 2017-10-18 | Outpatient (REF) ==
[2017-10-18 10:00] LABS: HEMATOCRIT 30.9 % (36.0-47.0); HEMOGLOBIN 9.8 g/dl (12.0-16.0); MEAN CORPUSCULAR HEMOGLOBIN 30.6 pg (27.0-33.0); MEAN CORPUSCULAR HGB CONC 31.7 g/dl (32.0-36.5); MEAN CORPUSCULAR VOLUME 96.6 fl (80.0-96.0); PLATELET COUNT, AUTOMATED 304 10^3/uL (150-450); RED CELL DISTRIBUTION WIDTH 16.9 % (11.5-14.5); WHITE BLOOD COUNT 7.4 10^3/uL (4.0-10.0)
[2017-10-18 10:26] LABS: ANION GAP 8 MEQ/L (8-16); BLOOD UREA NITROGEN 8 MG/DL (7-18); CARBON DIOXIDE LEVEL 31 MEQ/L (21-32); CHLORIDE LEVEL 100 MEQ/L (98-107); CREATININE FOR GFR 0.66 MG/DL (0.55-1.30); GLOMERULAR FILTRATION RATE > 60.0 (>32); GLUCOSE, FASTING 81 MG/DL (70-100); POTASSIUM SERUM 3.8 MEQ/L (3.5-5.1); SODIUM LEVEL 139 MEQ/L (136-145)
== END ==
DX: J96.90 Respiratory failure, unspecified, unspecified whether with hypoxia or hypercapnia (principal)

== ENCOUNTER 2017-11-08 10:45 | Inpatient (IN) | payer MEDICARE, OTHER ==
[2017-11-08] MEDS ORDERED: NS 1,000 ML IV (11:00)
[2017-11-08] MEDS ORDERED: PROPOFOL 200 MG/20 ML VIAL As Ordered (11:04)
[2017-11-08] MEDS ORDERED: LIDOCAINE 2% INJ 100 MG/5 ML SDV (FOR ANES.) As Ordered (11:04)
[2017-11-08] MEDS ORDERED: fentaNYL 100 MCG/2 ML INJECTION (J3010) As Ordered (12:43)
[2017-11-08 14:46] LABS: HEMATOCRIT 31.6 % (36.0-47.0); HEMOGLOBIN 10.2 g/dl (12.0-15.5); MEAN CORPUSCULAR HEMOGLOBIN 32.2 pg (27.0-33.0); MEAN CORPUSCULAR HGB CONC 32.3 g/dl (32.0-36.5); MEAN CORPUSCULAR VOLUME 99.7 fl (80.0-96.0); PLATELET COUNT, AUTOMATED 250 10^3/uL (150-450); RED BLOOD COUNT 3.17 10^6/uL (4.00-5.40); RED CELL DISTRIBUTION WIDTH 15.2 % (11.5-14.5); WHITE BLOOD COUNT 7.2 10^3/uL (4.0-10.0)
[2017-11-08 14:56] LABS: INR 1.16
[2017-11-08 14:57] LABS: PARTIAL THROMBOPLASTIN TIME 34.4 SECONDS (26.8-37.9)
[2017-11-08 15:18] LABS: MAGNESIUM LEVEL 2.1 MG/DL (1.8-2.4)
[2017-11-08 15:24] LABS: LACTIC ACID SEPSIS PROTOCOL 1.2 MMOL/L (0.4-2.0)
[2017-11-08 15:24] LABS: ALBUMIN 3.2 GM/DL (3.2-5.2); ALBUMIN/GLOBULIN RATIO 1.07 (1.00-1.93); ALKALINE PHOSPHATASE 73 U/L (45-117); ALT/SGPT 11 U/L (12-78); ANION GAP 5 MEQ/L (8-16); AST/SGOT 19 U/L (7-37); BILIRUBIN,TOTAL 0.5 MG/DL (0.2-1.0); BLOOD UREA NITROGEN 12 MG/DL (7-18); CALCIUM LEVEL 8.9 MG/DL (8.8-10.2); CARBON DIOXIDE LEVEL 32 MEQ/L (21-32); CHLORIDE LEVEL 104 MEQ/L (98-107); CREATININE FOR GFR 0.63 MG/DL (0.55-1.30); GLOMERULAR FILTRATION RATE > 60.0 (>32); GLUCOSE, FASTING 100 MG/DL (70-100); POTASSIUM SERUM 3.8 MEQ/L (3.5-5.1); SODIUM LEVEL 141 MEQ/L (136-145); TOTAL PROTEIN 6.2 GM/DL (6.4-8.2)
[2017-11-08 16:51] LABS: HEMATOCRIT 30.2 % (36.0-47.0); HEMOGLOBIN 9.7 g/dl (12.0-15.5); MEAN CORPUSCULAR HEMOGLOBIN 31.8 pg (27.0-33.0); MEAN CORPUSCULAR HGB CONC 32.1 g/dl (32.0-36.5); PLATELET COUNT, AUTOMATED 254 10^3/uL (150-450); RED BLOOD COUNT 3.05 10^6/uL (4.00-5.40); RED CELL DISTRIBUTION WIDTH 15.1 % (11.5-14.5); WHITE BLOOD COUNT 7.5 10^3/uL (4.0-10.0)
[2017-11-08] MEDS: PANTOPRAZOLE 40MG INJ (PROTONIX) (C9113) IV (18:50)
[2017-11-08 22:12] LABS: HEMATOCRIT 29.5 % (36.0-47.0); HEMOGLOBIN 9.4 g/dl (12.0-15.5); MEAN CORPUSCULAR HEMOGLOBIN 31.9 pg (27.0-33.0); MEAN CORPUSCULAR HGB CONC 31.9 g/dl (32.0-36.5); PLATELET COUNT, AUTOMATED 238 10^3/uL (150-450); RED BLOOD COUNT 2.95 10^6/uL (4.00-5.40); WHITE BLOOD COUNT 8.4 10^3/uL (4.0-10.0)
[2017-11-09] MEDS: PANTOPRAZOLE 40MG INJ (PROTONIX) (C9113) IV ×2 (05:51→16:59)
[2017-11-09 06:05] LABS: HEMATOCRIT 30.1 % (36.0-47.0); HEMOGLOBIN 9.6 g/dl (12.0-15.5); MEAN CORPUSCULAR HEMOGLOBIN 31.3 pg (27.0-33.0); MEAN CORPUSCULAR HGB CONC 31.9 g/dl (32.0-36.5); PLATELET COUNT, AUTOMATED 251 10^3/uL (150-450); RED BLOOD COUNT 3.07 10^6/uL (4.00-5.40); RED CELL DISTRIBUTION WIDTH 15.2 % (11.5-14.5); WHITE BLOOD COUNT 7.6 10^3/uL (4.0-10.0)
[2017-11-09 06:18] LABS: ANION GAP 6 MEQ/L (8-16); BLOOD UREA NITROGEN 12 MG/DL (7-18); CALCIUM LEVEL 8.7 MG/DL (8.8-10.2); CARBON DIOXIDE LEVEL 28 MEQ/L (21-32); CHLORIDE LEVEL 107 MEQ/L (98-107); CREATININE FOR GFR 0.52 MG/DL (0.55-1.30); GLOMERULAR FILTRATION RATE > 60.0 (>32); GLUCOSE, FASTING 89 MG/DL (70-100); POTASSIUM SERUM 3.4 MEQ/L (3.5-5.1); SODIUM LEVEL 141 MEQ/L (136-145)
[2017-11-09] MEDS: LOSARTAN 50 MG TAB PO (09:31)
[2017-11-09 10:08] LABS: HEMATOCRIT 30.5 % (36.0-47.0); HEMOGLOBIN 9.9 g/dl (12.0-15.5); MEAN CORPUSCULAR HGB CONC 32.5 g/dl (32.0-36.5); MEAN CORPUSCULAR VOLUME 98.7 fl (80.0-96.0); PLATELET COUNT, AUTOMATED 236 10^3/uL (150-450); RED BLOOD COUNT 3.09 10^6/uL (4.00-5.40); RED CELL DISTRIBUTION WIDTH 15.3 % (11.5-14.5); WHITE BLOOD COUNT 6.9 10^3/uL (4.0-10.0)
[2017-11-09] MEDS ORDERED: PROPOFOL 200 MG/20 ML VIAL As Ordered ×2 (13:44→14:32)
[2017-11-09] MEDS ORDERED: LIDOCAINE 2% INJ 100 MG/5 ML SDV (FOR ANES.) As Ordered (13:45)
[2017-11-09] MEDS ORDERED: LABETALOL HCL 100 MG/20 ML VIAL As Ordered (14:13)
[2017-11-09 16:14] LABS: HEMATOCRIT 30.3 % (36.0-47.0); HEMOGLOBIN 9.7 g/dl (12.0-15.5); MEAN CORPUSCULAR HEMOGLOBIN 31.8 pg (27.0-33.0); MEAN CORPUSCULAR VOLUME 99.3 fl (80.0-96.0); PLATELET COUNT, AUTOMATED 233 10^3/uL (150-450); RED BLOOD COUNT 3.05 10^6/uL (4.00-5.40); WHITE BLOOD COUNT 7.2 10^3/uL (4.0-10.0)
[2017-11-09] MEDS: POTASSIUM CHLORIDE 10 MEQ SR TABLET PO (17:00)
[2017-11-09] MEDS: ACETAMINOPHEN TAB 650MG DOSE (2X325MG) PO ×2 (17:04→23:36)
[2017-11-09] MEDS: amLODIPine 5 MG TAB PO (17:57)
[2017-11-09] MEDS: FLEET ENEMA PR (22:15)
[2017-11-09 23:03] LABS: HEMATOCRIT 29.7 % (36.0-47.0); HEMOGLOBIN 9.4 g/dl (12.0-15.5); MEAN CORPUSCULAR HEMOGLOBIN 30.9 pg (27.0-33.0); MEAN CORPUSCULAR HGB CONC 31.6 g/dl (32.0-36.5); MEAN CORPUSCULAR VOLUME 97.7 fl (80.0-96.0); RED BLOOD COUNT 3.04 10^6/uL (4.00-5.40); WHITE BLOOD COUNT 6.8 10^3/uL (4.0-10.0)
[2017-11-09 23:04] LABS: PLATELET COUNT, AUTOMATED 231 10^3/uL (150-450); RED CELL DISTRIBUTION WIDTH 14.9 % (11.5-14.5)
[2017-11-10 05:31] LABS: HEMATOCRIT 27.8 % (36.0-47.0); MEAN CORPUSCULAR HEMOGLOBIN 31.5 pg (27.0-33.0); MEAN CORPUSCULAR HGB CONC 32.4 g/dl (32.0-36.5); MEAN CORPUSCULAR VOLUME 97.2 fl (80.0-96.0); PLATELET COUNT, AUTOMATED 216 10^3/uL (150-450); RED BLOOD COUNT 2.86 10^6/uL (4.00-5.40); RED CELL DISTRIBUTION WIDTH 14.8 % (11.5-14.5); WHITE BLOOD COUNT 6.3 10^3/uL (4.0-10.0)
[2017-11-10 05:52] LABS: ANION GAP 6 MEQ/L (8-16); BLOOD UREA NITROGEN 7 MG/DL (7-18); CALCIUM LEVEL 8.4 MG/DL (8.8-10.2); CARBON DIOXIDE LEVEL 30 MEQ/L (21-32); CHLORIDE LEVEL 108 MEQ/L (98-107); CREATININE FOR GFR 0.47 MG/DL (0.55-1.30); GLOMERULAR FILTRATION RATE > 60.0 (>32); GLUCOSE, FASTING 90 MG/DL (70-100); POTASSIUM SERUM 3.3 MEQ/L (3.5-5.1); SODIUM LEVEL 144 MEQ/L (136-145)
[2017-11-10] MEDS ORDERED: DOCUSATE SODIUM 100 MG CAP PO (06:00)
[2017-11-10] MEDS ORDERED: PINK BISMUTH SUSP 524MG/30ML ORAL SYRINGE PO (06:00)
[2017-11-10] MEDS ORDERED: CALCIUM CARBONATE 500 MG CHEW U/D PO (06:00)
[2017-11-10] MEDS: PANTOPRAZOLE 40MG INJ (PROTONIX) (C9113) IV ×2 (06:51→17:23)
[2017-11-10] MEDS: ACETAMINOPHEN TAB 650MG DOSE (2X325MG) PO ×2 (06:52→18:56)
[2017-11-10] MEDS: FERROUS SULFATE 325MG TAB PO ×3 (08:36→21:03)
[2017-11-10] MEDS: LOSARTAN 50 MG TAB PO (08:36)
[2017-11-10] MEDS: GABAPENTIN 300 MG CAP PO ×2 (08:37→21:03)
[2017-11-10] MEDS: CitaloPRAM (CeleXA) 10 MG TABLET PO (08:37)
[2017-11-10] MEDS: hydroCHLOROthiazide 25 MG TAB PO (08:37)
[2017-11-10] MEDS: guaiFENesin ER 600 MG TAB PO ×2 (08:37→21:03)
[2017-11-10] MEDS: BENZONATATE 100 MG CAP PO ×4 (08:37→21:04)
[2017-11-10] MEDS: LORATADINE 10 MG TAB PO (08:37)
[2017-11-10] MEDS: OMEGA-3 1050MG CAPSULE PO (09:00)
[2017-11-10] MEDS: SOLIFENACIN 5 MG TAB PO (10:21)
[2017-11-10] MEDS: amLODIPine 5 MG TAB PO ×2 (11:15→21:06)
[2017-11-10] MEDS ORDERED: LIDOCAINE 2% MDV 20 ML VIAL As Ordered (12:47)
[2017-11-10] MEDS ORDERED: ISOVUE-300 61% 50ML VIAL (Q9967) As Ordered ×2 (12:48→12:50)
[2017-11-10] MEDS: **hydrALAZINE** 10 MG TAB PO ×2 (16:25→23:13)
[2017-11-10] MEDS: cloNIDine 0.1 MG TAB PO (19:07)
[2017-11-10] MEDS ORDERED: amLODIPine 5 MG TAB PO (21:00)
[2017-11-11] MEDS: **hydrALAZINE** 10 MG TAB PO ×3 (04:25→15:56)
[2017-11-11] MEDS: PANTOPRAZOLE 40MG INJ (PROTONIX) (C9113) IV (06:37)
[2017-11-11] MEDS: cloNIDine 0.1 MG TAB PO ×3 (06:38→12:00)
[2017-11-11] MEDS: ACETAMINOPHEN TAB 650MG DOSE (2X325MG) PO ×2 (06:38→12:09)
[2017-11-11 06:39] LABS: HEMATOCRIT 27.9 % (36.0-47.0); HEMOGLOBIN 9.1 g/dl (12.0-15.5); MEAN CORPUSCULAR HEMOGLOBIN 32.2 pg (27.0-33.0); MEAN CORPUSCULAR HGB CONC 32.6 g/dl (32.0-36.5); MEAN CORPUSCULAR VOLUME 98.6 fl (80.0-96.0); PLATELET COUNT, AUTOMATED 203 10^3/uL (150-450); RED BLOOD COUNT 2.83 10^6/uL (4.00-5.40); RED CELL DISTRIBUTION WIDTH 14.7 % (11.5-14.5); WHITE BLOOD COUNT 5.5 10^3/uL (4.0-10.0)
[2017-11-11 06:55] LABS: ANION GAP 6 MEQ/L (8-16); BLOOD UREA NITROGEN 6 MG/DL (7-18); CALCIUM LEVEL 8.4 MG/DL (8.8-10.2); CARBON DIOXIDE LEVEL 30 MEQ/L (21-32); CHLORIDE LEVEL 107 MEQ/L (98-107); CREATININE FOR GFR 0.55 MG/DL (0.55-1.30); GLOMERULAR FILTRATION RATE > 60.0 (>32); GLUCOSE, FASTING 90 MG/DL (70-100); POTASSIUM SERUM 3.1 MEQ/L (3.5-5.1); SODIUM LEVEL 143 MEQ/L (136-145)
[2017-11-11] MEDS: DICLOFENAC 1% TOP (09:00)
[2017-11-11] MEDS: CitaloPRAM (CeleXA) 10 MG TABLET PO (09:03)
[2017-11-11] MEDS: OMEGA-3 1050MG CAPSULE PO (09:03)
[2017-11-11] MEDS: BENZONATATE 100 MG CAP PO ×2 (09:03→15:56)
[2017-11-11] MEDS: SOLIFENACIN 5 MG TAB PO (09:03)
[2017-11-11] MEDS: GABAPENTIN 300 MG CAP PO (09:04)
[2017-11-11] MEDS: amLODIPine 5 MG TAB PO (09:04)
[2017-11-11] MEDS: LORATADINE 10 MG TAB PO (09:05)
[2017-11-11] MEDS: FERROUS SULFATE 325MG TAB PO ×2 (09:05→15:56)
[2017-11-11] MEDS: LOSARTAN 50 MG TAB PO (09:05)
[2017-11-11] MEDS: guaiFENesin ER 600 MG TAB PO (09:05)
[2017-11-11] MEDS: RESTASIS OU (09:06)
[2017-11-11] MEDS: hydroCHLOROthiazide 25 MG TAB PO (09:07)
== END 2017-11-11 16:08 | disposition home health service (06) | DRG 378 ==
LOC: M OPP 10:45 → M PCU 17:53 → M MSPAV 11-09 15:02
PROC: 0DJ08ZZ Inspection of Upper Intestinal Tract, Via Natural or Artificial Opening Endoscopic (ICD-10-PCS; principal; 2017-11-08 12:00)
PROC: 0DB48ZX Excision of Esophagogastric Junction, Via Natural or Artificial Opening Endoscopic, Diagnostic (ICD-10-PCS; 2017-11-08 13:29)
PROC: 06L38CZ Occlusion of Esophageal Vein with Extraluminal Device, Via Natural or Artificial Opening Endoscopic (ICD-10-PCS; 2017-11-08 13:29)
PROC: B519YZZ Fluoroscopy of Inferior Vena Cava using Other Contrast (ICD-10-PCS; 2017-11-08 13:29)
DX: K92.2 Gastrointestinal hemorrhage, unspecified (principal); D62 Acute posthemorrhagic anemia; K21.0 Gastro-esophageal reflux disease with esophagitis; F32.9 Major depressive disorder, single episode, unspecified; F41.9 Anxiety disorder, unspecified; K22.6 Gastro-esophageal laceration-hemorrhage syndrome; K44.9 Diaphragmatic hernia without obstruction or gangrene; K22.70 Barrett's esophagus without dysplasia; I10 Essential (primary) hypertension; Z79.01 Long term (current) use of anticoagulants; Z86.718 Personal history of other venous thrombosis and embolism; Z79.899 Other long term (current) drug therapy; Z91.040 Latex allergy status; Z91.048 Other nonmedicinal substance allergy status; Z88.8 Allergy status to other drugs, medicaments and biological substances; Z88.5 Allergy status to narcotic agent

== ENCOUNTER → 2018-04-12 | Outpatient (REF) | payer MEDICARE, OTHER ==
[2018-04-12 12:15] LABS: HEMOGLOBIN 11.7 g/dl (12.0-15.5); MEAN CORPUSCULAR HEMOGLOBIN 33.7 pg (27.0-33.0); MEAN CORPUSCULAR HGB CONC 33.4 g/dl (32.0-36.5); MEAN CORPUSCULAR VOLUME 100.9 fl (80.0-96.0); PLATELET COUNT, AUTOMATED 256 10^3/uL (150-450); RED BLOOD COUNT 3.47 10^6/uL (4.00-5.40); RED CELL DISTRIBUTION WIDTH 13.3 % (11.5-14.5); WHITE BLOOD COUNT 6.5 10^3/uL (4.0-10.0)
[2018-04-12 13:03] LABS: ALBUMIN 3.8 GM/DL (3.2-5.2); ALBUMIN/GLOBULIN RATIO 1.19 (1.00-1.93); ALKALINE PHOSPHATASE 91 U/L (45-117); ALT/SGPT 20 U/L (12-78); ANION GAP 11 MEQ/L (8-16); AST/SGOT 16 U/L (7-37); BILIRUBIN,TOTAL 0.6 MG/DL (0.2-1.0); BLOOD UREA NITROGEN 17 MG/DL (7-18); CALCIUM LEVEL 9.2 MG/DL (8.8-10.2); CARBON DIOXIDE LEVEL 28 MEQ/L (21-32); CHLORIDE LEVEL 102 MEQ/L (98-107); CHOLESTEROL LEVEL 156 MG/DL (<200); CHOLESTEROL RISK RATIO 2.516 (<5); CREATININE FOR GFR 0.65 MG/DL (0.55-1.30); FERRITIN 42 NG/ML (8-252); GLOMERULAR FILTRATION RATE > 60.0 (>32); GLUCOSE, FASTING 89 MG/DL (70-100); HDL CHOLESTEROL 62 MG/DL (>40); IRON (FE) 120 UG/DL (50-170); MAGNESIUM LEVEL 1.9 MG/DL (1.8-2.4); NON-HDL-C 94 MG/DL; PERCENT SATURATION 33.9 % (13.2-45.0); POTASSIUM SERUM 3.8 MEQ/L (3.5-5.1); SODIUM LEVEL 141 MEQ/L (136-145); TOTAL IRON BINDING CAPACITY 354 UG/DL (250-450); TRIGLYCERIDES LEVEL 70 MG/DL (<150)
[2018-04-12 15:48] LABS: ESTIMATED AVERAGE GLUCOSE 88 MG/DL (60-110); HEMOGLOBIN A1c 4.7 %
== END ==
LOC: M SFHCPLAZ 10:51
DX: D50.0 Iron deficiency anemia secondary to blood loss (chronic) (principal); I10 Essential (primary) hypertension; E03.9 Hypothyroidism, unspecified; E61.2 Magnesium deficiency; Z68.39 Body mass index [BMI] 39.0-39.9, adult
CPT/HCPCS: 83550

== ENCOUNTER → 2018-05-15 | Outpatient (REF) | payer MEDICARE, OTHER | LOC: M LAB REF 12:42 | DX: I87.311 Chronic venous hypertension (idiopathic) with ulcer of right lower extremity (principal) | CPT/HCPCS: 87070; 87077; 87186 ==

== ENCOUNTER → 2018-10-09 | Outpatient (REF) | payer MEDICARE, OTHER ==
[~2018-10-09] MED LIST changes: +BAYE325T12 PO; +BENZ-18 PO; +CITA10TA5 PO; +DICL1GEL3 TD; +DOCQ100C5 PO; -ESZO1TAB3 PO; +ESZO1TAB6 PO; +FERR1TAB8 PO; +FERR32TA PO; +GABA-843 PO; +HYDR10TAB PO; +LEVO25TA5 PO; +LORA-243 PO; -LOSA100T36 PO; +LOSA100T50 PO; +MUCI600T37 PO; +OCUVTAB PO; +OMEG100011 PO; +PEPT262S PO; +REST0.05 OU; -TOLT1CAP PO; +TOLT4CAP3 PO; +TUMS500C PO; +VESI10TA2 PO
[2018-10-09 18:51] LABS: HEMATOCRIT 34.6 % (36.0-47.0); HEMOGLOBIN 11.2 g/dl (12.0-15.5); MEAN CORPUSCULAR HEMOGLOBIN 33.3 pg (27.0-33.0); MEAN CORPUSCULAR HGB CONC 32.4 g/dl (32.0-36.5); PLATELET COUNT, AUTOMATED 294 10^3/uL (150-450); RED BLOOD COUNT 3.36 10^6/uL (4.00-5.40)
[2018-10-09 19:17] LABS: ALBUMIN 3.7 GM/DL (3.2-5.2); ALT/SGPT 22 U/L (12-78); BILIRUBIN,TOTAL 0.4 MG/DL (0.2-1.0); BLOOD UREA NITROGEN 24 MG/DL (7-18); CALCIUM LEVEL 8.8 MG/DL (8.8-10.2); CARBON DIOXIDE LEVEL 27 MEQ/L (21-32); CHLORIDE LEVEL 102 MEQ/L (98-107); CHOLESTEROL LEVEL 160 MG/DL (<200); CHOLESTEROL RISK RATIO 2.622 (<5); CREATININE FOR GFR 0.87 MG/DL (0.55-1.30); FERRITIN 125 NG/ML (8-252); GLOMERULAR FILTRATION RATE > 60.0 (>32); GLUCOSE, FASTING 85 MG/DL (70-100); HDL CHOLESTEROL 61 MG/DL (>40); IRON (FE) 77 UG/DL (50-170); LDL CHOLESTEROL 88 MG/DL (<100); MAGNESIUM LEVEL 1.8 MG/DL (1.8-2.4); NON-HDL-C 99 MG/DL; PERCENT SATURATION 24.2 % (13.2-45.0); POTASSIUM SERUM 4.3 MEQ/L (3.5-5.1); SODIUM LEVEL 139 MEQ/L (136-145); TOTAL IRON BINDING CAPACITY 318 UG/DL (250-450); TOTAL PROTEIN 7.1 GM/DL (6.4-8.2); TRIGLYCERIDES LEVEL 55 MG/DL (<150)
== END ==
LOC: M SFHCPLAZ 14:58
PROVIDERS: ATTEND Nurse Practitioner Adult Health
DX: D50.0 Iron deficiency anemia secondary to blood loss (chronic) (principal); I10 Essential (primary) hypertension; E61.2 Magnesium deficiency; Z66 Do not resuscitate; Z23 Encounter for immunization
CPT/HCPCS: 15271; 36415; 80053; 80061; 82728; 83550; 83735; 84443; 85027; 90670; G0009; G0463; Q4196

== ENCOUNTER → 2018-11-03 | Outpatient (CLI) | payer MEDICARE, OTHER ==
--- NOTE | 2018-11-03 12:26 | REP ---
MRI CERVICAL SPINE WITHOUT CONTRAST: HISTORY: Cervical radiculopathy. A small central disc protrusion is present at the C2-3 level. There is minimal effacement of the thecal sac without spinal cord compression. The C2 neural foramina are patent. A disc bulge is present at the C3-4 level. There is minimal effacement of the thecal sac without spinal cord compression. Uncinate process hypertrophy is present on the left. This produces mild narrowing of the left C3 neural foramen. The right C3 neural foramen is patent. A disc bulge is present at the C5-6 level. There are 2 mm of anterior subluxation of C5 on 6. There is mild effacement of the thecal sac without spinal cord compression. Facet hypertrophy is present on the right. This produces minimal narrowing of the right C5 neural foramen. The left C5 neural foramen is patent. A disc bulge is present at the C6-7 level. There is moderate effacement of the thecal sac without spinal cord compression. Uncinate process hypertrophy is present on the right. This produces minimal narrowing of the right C6 neural foramen. The left C6 neural foramen is patent. There is no other disc bulge or herniation. The remaining neural foramina are patent. The spinal cord is normal in signal intensity. The C4-5 through C6-7 intervertebral discs are decreased in height consistent with disc degeneration. Normal signal intensity is present in the cervical vertebral bodies. IMPRESSION: There is cervical spondylosis at the C2-3 through C6-7 levels without spinal cord compression. Electronically Signed by Brennen Schroeder MD 11/03/2018 12:51 P
--- NOTE | 2018-11-03 12:43 | REP ---
MRI LUMBAR SPINE WITHOUT CONTRAST: HISTORY: Radiculopathy. Decreased signal intensity on T2-weighted images is present in the lumbar intervertebral discs. The L2-3 through L5-S1 intervertebral discs are decreased in height. These findings are consistent with disc degeneration. There is no disc bulge or herniation at the L1-2 level. There is hypertrophy of the posterior articulating facets. The L1 nerves exit the neural foramina without compression. A diffuse disc bulge is present at the L2-3 level. There is minimal compression of the thecal sac. There is hypertrophy of the posterior articulating facets. The L2 nerves exit the neural foramina without compression. A diffuse disc bulge is present at the L3-4 level. There is minimal compression of the thecal sac. There is hypertrophy of the posterior articulating facets. There are 4 mm of grade I spondylolisthesis of L3 on 4. There is compression of the right L3 nerve in the neural foramen. The left L3 nerve exits the neural foramen without compression. A diffuse disc bulge is present at the L4-5 level. There is hypertrophy of the ligamenta flava and posterior articulating facets. There are 4 mm of grade I spondylolisthesis of L4 on 5. These findings produce minimal central canal stenosis. There is compression of the right L4 nerve in the neural foramen. The left L4 nerve exits the neural foramen without compression. A diffuse disc bulge is present at the L5-S1 level. There is minimal compression of the thecal sac. There is hypertrophy of the posterior articulating facets. There is compression of the right L5 nerve in the neural foramen. The left L5 nerve exits the neural foramen without compression. The conus medullaris is normal in appearance terminating at the level of the L2 vertebral body. Normal signal intensity is present in the lumbar vertebral bodies. There is scoliosis convex to the left. IMPRESSION: 1. Diffuse disc bulges at the L2-3 and L5-S1 levels with minimal thecal sac compression. There is compression of the left L5 nerve in the neural foramen. 2. Diffuse disc bulge at the L3-4 level with minimal thecal sac compression. There is grade I spondylolisthesis of L3 on 4. There is compression of the right L3 nerve in the neural foramen. 3. Minimal central canal stenosis at the L4-5 level secondary to disc bulge, ligamentous and facet hypertrophy, and grade I spondylolisthesis. There is compression of the right L4 nerve in the neural foramen. Electronically Signed by Brennen Schroeder MD 11/03/2018 12:51 P
== END ==
LOC: M PLARAD 10:01
PROVIDERS: ATTEND Pain Medicine Interventional Pain Medicine
DX: M47.896 Other spondylosis, lumbar region (principal); M50.21 Other cervical disc displacement, high cervical region; M50.221 Other cervical disc displacement at C4-C5 level; M50.222 Other cervical disc displacement at C5-C6 level; M50.223 Other cervical disc displacement at C6-C7 level; M47.892 Other spondylosis, cervical region; M51.26 Other intervertebral disc displacement, lumbar region

== ENCOUNTER 2019-01-01 14:10 | Emergency (ER) | payer MEDICARE, OTHER ==
[~2019-01-01] VITALS: Ht 162.6 cm; Wt 102.3 kg
[2019-01-01] MEDS ORDERED: KEFL250C11 PO (14:23)
[2019-01-01] MEDS ORDERED: CEPHALEXIN 250 MG CAP PO ONE (14:30)
[2019-01-01 17:08] VITALS: BP 161/67
== END 2019-01-01 17:09 | disposition home or self-care (01) ==
LOC: M ED 14:10
DX: R22.31 Localized swelling, mass and lump, right upper limb (principal); I10 Essential (primary) hypertension; E07.9 Disorder of thyroid, unspecified; D50.9 Iron deficiency anemia, unspecified; I27.20 Pulmonary hypertension, unspecified; K22.70 Barrett's esophagus without dysplasia; Z79.899 Other long term (current) drug therapy; Z88.5 Allergy status to narcotic agent; Z88.8 Allergy status to other drugs, medicaments and biological substances; Z91.040 Latex allergy status; Z91.048 Other nonmedicinal substance allergy status

== ENCOUNTER → 2019-01-25 | Outpatient (REF) | payer MEDICARE, OTHER ==
[~2019-01-25] MED LIST changes: +KEFL250C11 PO
[2019-01-26 09:42] LABS: RUBELLA IgG QUALITATIVE IMMUNE (IMMUNE)
== END ==
LOC: M SFHCPLAZ 16:03
PROVIDERS: ATTEND Nurse Practitioner Adult Health
DX: R76.0 Raised antibody titer (principal)

== ENCOUNTER → 2019-03-15 | Outpatient (REF) | payer MEDICARE, OTHER ==
[2019-03-15 13:44] LABS: ALBUMIN 3.6 GM/DL (3.2-5.2); ALT/SGPT 20 U/L (12-78); BILIRUBIN,TOTAL 0.4 MG/DL (0.2-1.0); BLOOD UREA NITROGEN 19 MG/DL (7-18); CALCIUM LEVEL 9.2 MG/DL (8.8-10.2); CARBON DIOXIDE LEVEL 27 MEQ/L (21-32); CHLORIDE LEVEL 104 MEQ/L (98-107); CREATININE FOR GFR 0.91 MG/DL (0.55-1.30); GLOMERULAR FILTRATION RATE > 60.0 (>32); GLUCOSE, FASTING 87 MG/DL (70-100); SODIUM LEVEL 137 MEQ/L (136-145)
== END ==
LOC: M SFHCPLAZ 09:25
PROVIDERS: ATTEND Nurse Practitioner Adult Health
DX: E03.9 Hypothyroidism, unspecified (principal); I10 Essential (primary) hypertension; Z23 Encounter for immunization
CPT/HCPCS: 36415; 80053; 84443; 90471; 90750; G0463

== ENCOUNTER → 2019-04-03 | Outpatient (POV) | payer MEDICARE, OTHER ==
[~2019-04-03] VITALS: Ht 162.6 cm; Wt 104.5 kg
[~2019-04-03] MED LIST changes: -OMEP40CA2 PO; +OMEP40CA97 PO
[2019-04-03 15:21] VITALS: BP 137/58
--- NOTE | 2019-04-04 16:23 | IRCOV ---
[facility] IR Consult Office Visit IR Consult Office Visit DATE: Apr 03, 2019 REASON FOR CONSULTATION/CHIEF COMPLAINT: Right lower extremity edema. Chronic venous ulcers over the right lateral malleolus. HISTORY OF PRESENT ILLNESS: 83-year-old female wheelchair-bound with chronic long-standing history of right lower extremity varicose veins since age 41. Patient reports wearing stockings her entire life. Over the past several years, she has suffered increasing edema of the right lower extremity. Over the last several months has suffered with superficial venous ulcers over the right lateral ankle. Denies pain. Denies fevers or chills. No prior history of varicose vein treatment. No prior history of deep vein thrombosis. No issues in the left leg. Has had left hip removed and is wheelchair bound. ALLERGIES: Please see below. HOME MEDICATIONS: Please see below. PAST MEDICAL HISTORY: 1. Right lower extremity varicose veins. 2. Diverticulosis. 3. Pulmonary hypertension. 4. Hypothyroid. 5. Chronic left hip issues. PAST SURGICAL HISTORY: 1. Left hip removed. FAMILY HISTORY: Nonsignificant. SOCIAL HISTORY: Lives in a group home. Enjoys life. Needs help with activities of daily living. Independent in motorized chair. REVIEW OF SYSTEMS: Otherwise negative. PHYSICAL EXAMINATION: VITAL SIGNS: Please see below. GENERAL APPEARANCE: Appears well. In good spirits. Comfortable at rest. HEENT: No scleral icterus. RESPIRATORY: Breathing normally at rest. CARDIOVASCULAR: Normal rate. ABDOMEN: Nondistended. EXTREMITIES: Right lower extremity: Compression stockings to the knees. Right leg pitting edema to the thighs. Left lower extremity: no pedal edema. NEUROLOGICAL: Alert and oriented. PSYCHIATRIC: Appropriate to circumstance. LABORATORY DATA: Please see below. Imaging: I personally reviewed the ultrasound imaging from December 2018. This demonstrated GSV without reflux. However, not sure this study was performed in the standing position or with Valsalva. ASSESSMENT/PLAN: 83-year-old female with long-standing history of varicose veins which progressed to edema, skin changes and finally active nonhealing venous ulceration over the lateral malleolus. At CEAP 6 she has advanced late stage venous hypertension. I will obtain venous phase CT of the abdomen pelvis to look for iliofemoral obstruction and ultrasound venous mapping of the right lower extremity. Will touch base with patient after imaging. I spent 30 minutes in consultation with the patient. Thank you for this referral. Allergies Coded Allergies: latex (Verified Allergy, Mild, rash, 01/01/19) TAPE (Verified Allergy, Unknown, 08/21/17) meperidine (Verified Adverse Reaction, Unknown, nausea, 01/01/19) morphine (Verified Adverse Reaction, Unknown, nausea, 01/01/19) Home Medications Scheduled Benzonatate (Benzonatate), 200 MG PO TID Cephalexin (Keflex), 1 CAP PO TID Citalopram Hydrobromide (Citalopram HBr), 10 MG PO DAILY, (Reported) Cyclosporine (Restasis), 1 DROP OU BID, (Reported) Ferrous Sulfate (Ferrous Sulfate), 325 MG PO TID Gabapentin (Neurontin), 300 MG PO DAILY, (Reported) Guaifenesin (Mucinex), 1,200 MG PO BID Hydralazine HCl (Hydralazine HCl), 10 MG PO Q6H Hydrochlorothiazide (Hydrochlorothiazide), 25 MG PO DAILY, (Reported) Levothyroxine Sodium (Levothyroxine Sodium), 12.5 MCG PO DAILY, (Reported) Loratadine (Loratadine), 10 MG PO DAILY, (Reported) Losartan Potassium (Losartan Potassium), 100 MG PO DAILY, (Reported) [place]-3 Fatty Acids/Fish Oil ([place] 3 1,000 mg Softgel), 1 CAP PO DAILY, (Reported) Omeprazole (Omeprazole), 40 MG PO BID, (Reported) Solifenacin Succinate (Vesicare), 10 MG PO DAILY, (Reported) Vits A,C,E/Lutein/Minerals (Ocuvite with Lutein Tablet), 1 TAB PO DAILY, (Reported) Scheduled PRN (Docqlace), 100 MG PO BID PRN for CONSTIPATION, (Reported) Bismuth Subsalicylate (Pepto-Bismol), 30 ML PO BID PRN for UPSET STOMACH, (Reported) Calcium Carbonate (Tums), 500 MG PO TID PRN for INDIGESTION, (Reported) Diclofenac Sodium (Diclofenac Sodium), 1 DOSE TD BID PRN for PAIN, (Reported) Gabapentin (Gabapentin), 300 MG PO QHS PRN for PAIN, (Reported) VS, I&O, 24H, Fishbone Vital Signs/I&O Vital Signs Date Time Temp Pulse Resp B/P (MAP) Pulse Ox O2 Delivery O2 Flow Rate FiO2 8/27/19 15:21 98.5 77 18 137/58 (84) 99 JENSEN PHELAN MD Apr 04, 2019 16:23
== END ==
LOC: M IRPOV 14:53
PROVIDERS: ATTEND Radiology Diagnostic Radiology
DX: I83.013 Varicose veins of right lower extremity with ulcer of ankle (principal); R60.0 Localized edema; K57.30 Diverticulosis of large intestine without perforation or abscess without bleeding; I27.20 Pulmonary hypertension, unspecified; E03.9 Hypothyroidism, unspecified; Z79.899 Other long term (current) drug therapy; Z99.3 Dependence on wheelchair

== ENCOUNTER → 2019-04-05 | Outpatient (CLI) | payer MEDICARE, OTHER ==
[~2019-04-05] MED LIST changes: +GASTROGRAFIN SOLUTION 30ML (Q9963) As Ordered ONE; +ISOVUE-370 76% 100ML VIAL (Q9967) As Ordered ONE; +OMEP40CA2 PO; -OMEP40CA97 PO
--- NOTE | 2019-04-05 16:23 | REP ---
Lower Extremity Vein Mapping: Right lower extremity: Positive reflux is greater than 0.5 seconds. Right Reflux Left Reflux CFV Reflux yes -- Ant. Acc. GSV Present yes -- Reflux no -- Greater saph/fem junction 4.7 mm no -- mm -- Greater saph vein mid thigh 3.3 mm no -- mm -- Greater saph vein at knee 3.3 no -- SFV PROX no -- SFV MID yes -- SFV DISTAL no -- POPLITEAL VEIN yes -- LSV 6.6 mm no -- mm -- Electronically Signed by Aubrey Villa MD 04/05/2019 04:15 P
--- NOTE | 2019-04-05 18:07 | REP ---
CT abdomen and pelvis with IV and oral contrast: Dual-phase postcontrast imaging. History: Peripheral vascular disease. Venous phase imaging requested. Comparison CT study September 08, 2017. CT contrast dose: 100 ml of intravenous Isovue 370 is administered. Portal venous phase (55-second delay), and delayed venous phase (250 seconds) acquisitions are performed. CT findings: Preliminary digital data manager radiograph demonstrates a vena cava filter in place. Bowel gas pattern is normal. There is a destructive process at the left hip with absence of the femoral head and some remodeling and destruction of the left iliac bone. There are postsurgical changes at the acetabulum and in the proximal femur. Axial CT images demonstrate a large hiatal hernia. The lung bases are otherwise clear. No adrenal lesion is seen. No focal hepatic or splenic lesion is observed. There is a left renal cyst at mid kidney level. IVC filter is seen in place. Abdominal aorta is normal in caliber, somewhat tortuous. There is no evidence of portal venous thrombosis or superior mesenteric vein thrombosis. The splenic vein appears to be patent and normal in caliber. No pancreatic lesion is seen. No abnormalities noted in the gallbladder. Small and large intestinal bowel loops are unremarkable. The appendix is surgically absent. The patient is status post ventral hernia repair. No abdominal wall defect is seen. As noted on the data manager view, the femoral head is resorbed and there are remodeling changes in the acetabulum and iliac bone along with postsurgical mesh and proximal femoral orthopedic wires. These findings are unchanged from comparison CT study September 08, 2017. The delayed acquisition shows no evidence of vena cava or iliac vein or femoral vein thrombosis. Impression: No CT evidence of intra-abdominal venous thrombosis. IVC filter in place. Large hiatal hernia. Ventral hernia repair. 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 Electronically Signed by Silver Carrillo MD 04/06/2019 08:07 A
== END ==
LOC: M RAD 14:28
PROVIDERS: ATTEND Radiology Diagnostic Radiology
DX: I87.2 Venous insufficiency (chronic) (peripheral) (principal)
CPT/HCPCS: 74177; 93971; Q9963; Q9967

== ENCOUNTER → 2019-05-23 | Outpatient (CLI) | payer MEDICARE, OTHER ==
[~2019-05-23] MED LIST changes: +E-Z-GAS II EFFERVESCENT PACKET (SODIUM BICARB./CITRIC ACID/SIMETHICONE) As Ordered ONE; +E-Z-HD 98% w/w 340GM SUSP BTL As Ordered ONE; +E-Z-PAQUE 96% w/w SUSP 176GM BTL As Ordered ONE; -GASTROGRAFIN SOLUTION 30ML (Q9963) As Ordered ONE; -ISOVUE-370 76% 100ML VIAL (Q9967) As Ordered ONE; -OMEP40CA2 PO; +OMEP40CA97 PO
--- NOTE | 2019-05-23 13:51 | REP ---
Examination Requested: Upper G.I. Series With KUB Reason For Exam: Dysphasia Upper GI Air Contrast The procedure was performed by JOY Schmidt, under the direct supervision of Dr. Carrillo. The images were reviewed with Dr. Carrillo. The tree scout film shows no organomegaly or pathological masses. The intestinal gas pattern appears normal. An IVC filter is noted to be in place. Extensive postoperative changes of the left hip and pelvis with absence of the left femoral head. Due to the patients motility issues, liquid barium was given in the anterior oblique position in order to perform the study. The oral and pharyngeal stages of deglutition were unremarkable. Esophageal transport is efficient and there is no esophagitis, stricture, or mucosal ring noted. However to-and-fro motion as well as tertiary contractions were visualized throughout the exam. There is a large hiatal hernia, with the entire stomach above the diaphragm . Gastroesophageal reflux was visualized to the level of the thoracic inlet . Due to the patient's motility issues the stomach was not able to be well evaluated. The stomach marie are normally outlined. The rugal folds are smooth and regular. There is no gastritis, neoplasm, ulcer disease noted. After approximately 20 minutes. There is still no gastric emptying into the small intestine. The patient was removed from the exam table in place and a wheelchair after another 20 minutes of plain film was taken demonstrating barium in the small intestine. The visualized portion of the proximal small bowel appears normal in course and caliber. Impression: 1. Large hiatal hernia, with the entire stomach above the diaphragm. 2. Gastroesophageal reflux. 3. Delayed gastric emptying. 4. Presbyesophagus. 0.9 minutes of fluoroscopy time was utilized for this procedure. Some fluoroscopic images are performed with last image hold technology. These images require no additional radiation. Reviewed by JOY Rand 05/23/2019 12:55 P Electronically Signed by Silver Carrillo MD 05/23/2019 01:42 P
== END ==
LOC: M RAD 07:48
PROVIDERS: ATTEND Nurse Practitioner Adult Health
DX: K44.9 Diaphragmatic hernia without obstruction or gangrene (principal); K21.9 Gastro-esophageal reflux disease without esophagitis; R13.10 Dysphagia, unspecified
CPT/HCPCS: 74241; G0463

== ENCOUNTER → 2019-06-14 | Outpatient (CLI) | payer MEDICARE, OTHER ==
[~2019-06-14] MED LIST changes: -E-Z-GAS II EFFERVESCENT PACKET (SODIUM BICARB./CITRIC ACID/SIMETHICONE) As Ordered ONE; -E-Z-HD 98% w/w 340GM SUSP BTL As Ordered ONE; -E-Z-PAQUE 96% w/w SUSP 176GM BTL As Ordered ONE; +LIDOCAINE 1% MDV 20ML VIAL As Ordered ONE; +LIDOCAINE 2% MDV 20 ML VIAL As Ordered ONE; +MIDAZOLAM INJ 2 MG/2 ML VIAL (J2250) As Ordered ONE; +SODIUM TETRADECYL SULFATE(3%)30MG/ML 2ML VIAL (SOTRADECOL) As Ordered ONE; +fentaNYL 100 MCG/2 ML INJECTION (J3010) As Ordered ONE
[2019-06-14 10:50] VITALS: BP 132/79
--- NOTE | 2019-06-14 16:33 | REP ---
Right greater saphenous vein Doppler ultrasound for reflux: Comparison is 04/05/2019. The right proximal greater saphenous vein is reevaluated prior to EVLT. Doppler ultrasound of the proximal right greater saphenous vein is performed. There were multiple attempts. No reflux was elicited. The right greater saphenous vein measures three - 4 mm in diameter. EVLT reportedly was not performed. Electronically Signed by Aubrey Villa MD 06/14/2019 04:24 P
== END ==
LOC: M IRPRO 09:12
PROVIDERS: ATTEND Radiology Diagnostic Radiology
DX: R09.89 Other specified symptoms and signs involving the circulatory and respiratory systems (principal)

== ENCOUNTER → 2019-09-12 | Outpatient (CLI) | payer MEDICARE, OTHER ==
[~2019-09-12] MED LIST changes: +APAP325T4 PO; +CALC600T66 PO; +CEPH500C PO; +COLA100C5 PO; +DOXY100T27 PO; +FLON1SPR NARES; +HM S0.65 NARES; +INDA125TA PO; +ISOS30TA4 PO; -LIDOCAINE 1% MDV 20ML VIAL As Ordered ONE; -LIDOCAINE 2% MDV 20 ML VIAL As Ordered ONE; +LORA-622 PO; +MAGN64TASA PO; -MIDAZOLAM INJ 2 MG/2 ML VIAL (J2250) As Ordered ONE; +MUCI600T31 PO; +MULTCAP PO; +POLYOPD OU; +PROBCAP14 PO; +ROBI1LIQ9 PO; -SODIUM TETRADECYL SULFATE(3%)30MG/ML 2ML VIAL (SOTRADECOL) As Ordered ONE; +SPIR-10; +TESS100C PO; +VALS1TAB68 PO; -fentaNYL 100 MCG/2 ML INJECTION (J3010) As Ordered ONE
--- NOTE | 2019-09-12 10:38 | REPPI ---
A P and lateral chest, three views : Comparisons are the portable chest dated 11/08/2017 and c abdomen/pelvis CT of 04/05/2019. The patient has a known large fixed hiatal hernia. The lung vázquez are clear. The patient is rotated. Cardiac size is upper normal. The phil are obscured. Mediastinum is unremarkable. There is advanced osteoarthritis of the shoulders bilaterally, unchanged. Impression: No acute cardiopulmonary findings. Patient rotated. Large fixed hiatal hernia. Advanced bilateral shoulder osteoarthritis. Electronically Signed by Aubrey Villa MD 09/12/2019 10:29 A
== END ==
LOC: M PLAIMG 08:42
PROVIDERS: ATTEND Nurse Practitioner Adult Health
DX: K44.9 Diaphragmatic hernia without obstruction or gangrene (principal); M19.011 Primary osteoarthritis, right shoulder; M19.012 Primary osteoarthritis, left shoulder; R05 Cough
CPT/HCPCS: 71046; G0463

== ENCOUNTER 2019-09-22 09:38 | Inpatient (IN) | payer MEDICARE, OTHER ==
[~2019-09-22] VITALS: Ht 162.6 cm; Wt 101.6 kg
[~2019-09-22 09:38] MED LIST changes: -APAP325T4 PO; -CALC600T66 PO; -CEPH500C PO; -COLA100C5 PO; -DOXY100T27 PO; -FLON1SPR NARES; -HM S0.65 NARES; -INDA125TA PO; -ISOS30TA4 PO; -LORA-622 PO; -MAGN64TASA PO; -MUCI600T31 PO; -MULTCAP PO; -POLYOPD OU; -PROBCAP14 PO; -ROBI1LIQ9 PO; -SPIR-10; -TESS100C PO; -VALS1TAB68 PO
[2019-09-22] MEDS ORDERED: SPIR-10 (10:08)
[2019-09-22] MEDS ORDERED: VALS1TAB68 PO (10:08)
[2019-09-22] MEDS ORDERED: ISOS30TA4 PO (10:08)
[2019-09-22] MEDS ORDERED: INDA125TA PO (10:08)
[2019-09-22] MEDS ORDERED: DOXY100T27 PO (10:08)
[2019-09-22 10:34] LABS: BASO % 0.3 % (0.0-1.0); EOS # 0.3 10^3/uL (0.0-0.5); EOS % 3.2 % (0.0-3.0); HEMATOCRIT 35.3 % (36.0-47.0); HEMOGLOBIN 11.6 g/dl (12.0-15.5); LYMPH # 0.9 10^3/uL (1.5-5.0); LYMPH % 9.4 % (24.0-44.0); MEAN CORPUSCULAR HGB CONC 32.9 g/dl (32.0-36.5); MEAN CORPUSCULAR VOLUME 103.5 fl (80.0-96.0); MONO # 0.9 10^3/uL (0.0-0.8); MONO % 9.7 % (0.0-5.0); NEUTROPHILS % 76.6 % (36.0-66.0); PLATELET COUNT, AUTOMATED 273 10^3/uL (150-450); RED BLOOD COUNT 3.41 10^6/uL (4.00-5.40); WHITE BLOOD COUNT 9.1 10^3/uL (4.0-10.0)
[2019-09-22] MEDS ORDERED: IPRATROPIUM 0.5MG/ALBUTEROL 2.5MG INH SOL UD 3ML (DUONEB)(J7620) NEB ONE (10:45)
[2019-09-22] MEDS ORDERED: ACETAMINOPHEN TAB 650MG DOSE (2X325MG) PO ONE (10:45)
--- NOTE | 2019-09-22 10:56 | REP ---
Clinical: Cough and shortness of breath. Technique: PA and lateral. Comparison: 09/12/2019. Findings: Large hiatal hernia is again identified. Superimposed left lower lobe atelectasis and possible small pleural effusion are suspected and require correlation. Remainder of lung vázquez are well-aerated and clear. No pneumothorax. Skeletal structures demonstrate stable osteopenia and degenerative changes primarily involving the thoracic spine and right shoulder. Impression: Large hiatal hernia. Superimposed left lower lobe atelectasis and small pleural effusion Electronically Signed by Triston Tyler MD 09/22/2019 10:47 A
[2019-09-22 11:06] LABS: ALBUMIN 3.7 GM/DL (3.2-5.2); ALT/SGPT 22 U/L (12-78); BILIRUBIN,DIRECT 0.2 MG/DL (0.0-0.2); BILIRUBIN,TOTAL 0.6 MG/DL (0.2-1.0); BLOOD UREA NITROGEN 31 MG/DL (7-18); CALCIUM LEVEL 9.5 MG/DL (8.8-10.2); CARBON DIOXIDE LEVEL 29 MEQ/L (21-32); CHLORIDE LEVEL 99 MEQ/L (98-107); CK-MB VALUE MASS 1.9 NG/ML (<3.6); CPK CREATINE PHOSPHOKINASE 99 U/L (26-192); CREATININE FOR GFR 1.09 MG/DL (0.55-1.30); GLUCOSE, FASTING 92 MG/DL (70-100); MB/CK RELATIVE INDEX 1.92 (< OR =4); NT-PRO BNP 314 PG/ML (<450); SODIUM LEVEL 134 MEQ/L (136-145); TROPONIN I < 0.02 NG/ML (< 0.10)
--- NOTE | 2019-09-22 13:17 | REP ---
Clinical: Persistent cough. Technique: Axial noncontrast images from the thoracic inlet to the upper abdomen with coronal and sagittal re-formations. Findings: The esophagus is markedly distended and the appearance is consistent with prior gastric pull-through with much of the stomach identified in the posterior left hemithorax. Considerable amount of residual debris is noted within the esophagus and stomach. Adjacent left lower lobe atelectasis/consolidation with air bronchograms is appreciated and may represent acute and/or chronic findings. Remainder of the bilateral lung vázquez are well-aerated and clear. No further consolidation, nodule or mass noted. No effusion. No pneumothorax. No significant adenopathy identified. Atherosclerotic changes to the thoracic aorta and coronary arteries noted without aortic aneurysm or cardiomegaly. No pericardial effusion. Musculoskeletal structures are intact. Impression: 1. 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 2. Left lower lobe atelectasis/small consolidation with air bronchograms likely chronic and related to the above findings although subtle superimposed acute left lower lobe process cannot be excluded. No effusion. 3. Atherosclerotic changes to the thoracic aorta and coronary arteries. Remainder of the examination appears normal. Electronically Signed by Triston Tyler MD 09/22/2019 01:07 P
[2019-09-22] MEDS ORDERED: AZITHROMYCIN INJ 500 MG, VIAL MATE ADAPTER 1 EACH in D5W 250 ML IV ONE (14:00)
[2019-09-22] MEDS ORDERED: cefTRIAXone SOD 2 GM in D5W MINI-BAG PLUS 50 ML IV ONE (14:00)
[2019-09-22] MEDS ORDERED: HM S0.65 NARES (14:13)
[2019-09-22] MEDS ORDERED: FERR1TAB8 PO (14:13)
[2019-09-22] MEDS ORDERED: LORA-622 PO (14:13)
[2019-09-22] MEDS ORDERED: APAP325T4 PO (14:13)
[2019-09-22] MEDS ORDERED: CALC600T66 PO (14:13)
[2019-09-22] MEDS ORDERED: MULTCAP PO (14:13)
[2019-09-22] MEDS ORDERED: MAGN64TASA PO (14:13)
[2019-09-22] MEDS ORDERED: MUCI600T31 PO (14:13)
[2019-09-22] MEDS ORDERED: POLYOPD OU (14:13)
[2019-09-22] MEDS ORDERED: TESS100C PO (14:13)
[2019-09-22] MEDS ORDERED: COLA100C5 PO (14:13)
[2019-09-22] MEDS ORDERED: FLON1SPR NARES (14:13)
[2019-09-22] MEDS ORDERED: PROBCAP14 PO (14:13)
[2019-09-22] MEDS ORDERED: GABA-843 PO (14:13)
[2019-09-22] MEDS ORDERED: ROBI1LIQ9 PO (14:13)
[2019-09-22] MEDS ORDERED: SODIUM CHLORIDE NASAL 0.65% SPRAY BTL (OCEAN) PRN (14:15)
[2019-09-22] MEDS ORDERED: MAALOX 30 ML SUSP *UDC PO PRN (14:15)
[2019-09-22] MEDS ORDERED: GABAPENTIN 300 MG CAP PO PRN (14:15)
[2019-09-22] MEDS ORDERED: PINK BISMUTH SUSP 524MG/30ML ORAL SYRINGE PO PRN (14:15)
[2019-09-22] MEDS ORDERED: LEVALBUTEROL 1.25 MG/0.5 ML CONCENTRATE NEB INH PRN (14:15)
[2019-09-22] MEDS ORDERED: LORATADINE 10 MG TAB PO PRN (14:15)
[2019-09-22] MEDS ORDERED: CALCIUM CARBONATE 500 MG CHEW U/D PO PRN (14:15)
--- NOTE | 2019-09-22 14:37 | HPEPDOC ---
General Date of Admission 09/22/19 Date of Service: Sep 22, 2019 Chief Complaint The patient is a 84-year-old female admitted with a reason for visit of Weakness. Source: Patient, Family Exam Limitations: No limitations Timing/Duration: Other Severity: Other (2-3 days, not applicable) Associated Symptoms: Other (tired, lethargy, fatigue, cold, dizziness, occasional shortness of breath) History of Present Illness This is a 84 years old white female [facility]-way facility resident with past medical history of multiple medical problems including Monk's esophagus, hypertension, hypothyroidism, anxiety, iron deficiency anemia, peripheral neuropathy, iron deficiency anemia, arthritis, presented with chief complaints of dizzy, tired, fatigue since last 3 days, as per patient, she is not involved in her daily activities and sleeping more often. As per patient, she does have a cough but occasional shortness of breath when she does too much physically. No chest pain, no abdominal pain, no nausea, vomiting, diarrhea, no headache, no weakness. Patient was started on by mouth antibiotics without any improvement. Hence, [facility] Home Medications Scheduled Calcium Carbonate/Vitamin D3 (Calcium 600 + Vit D Tablet) 1 Each Tablet, 2 TAB PO DAILY, (Reported) 1200 mg calcium and 1000 IU vitamin D Citalopram Hydrobromide (Citalopram HBr) 10 Mg Tab, 10 MG PO DAILY, (Reported) Cyclosporine (Restasis) 0.05 % Emu, 1 DROP OU BID, (Reported) Docusate Sodium (Colace) 100 Mg Capsule, 100 MG PO QHS, (Reported) Doxycycline Monohydrate (Doxycycline Monohydrate) 100 Mg Tablet, 100 MG PO BID, (Reported) Started 09/12/2019 for 10 days; due for last dose 09/22/19 PM Ferrous Sulfate (Ferrous Sulfate) 325 Mg Tablet, 325 MG PO TID, (Reported) Fluticasone Propionate (Flonase Allergy Relief) 9.9 Ml [place].susp, 2 SPRAY NARES QHS, (Reported) Gabapentin (Neurontin) 300 Mg Cap, 300 MG PO DAILY, (Reported) Gabapentin (Gabapentin) 300 Mg Capsule, 300 MG PO DAILY, (Reported) Guaifenesin (Mucinex) 600 Mg Tab.er.12h, 600 MG PO DAILY, (Reported) Indapamide (Indapamide) 1.25 Mg Tablet, 1.25 MG PO DAILY, (Reported) Isosorbide Mononitrate (Isosorbide Mononitrate ER) 30 Mg Tab.er.24h, 30 MG PO DAILY, (Reported) Lactobacillus Acidophilus (Probiotic) 1 Each Capsule, 1 CAP PO DAILY, (Reported) Levothyroxine Sodium (Levothyroxine Sodium) 25 Mcg Tab, 12.5 MCG PO DAILY, (Reported) Magnesium Chloride (Mag64) 64 Mg Tablet.dr, 128 MG PO BID, (Reported) Multivitamin (Multivitamins) 1 Each Capsule, 1 CAP PO DAILY, (Reported) Omeprazole (Omeprazole) 40 Mg Cap, 40 MG PO BID, (Reported) Solifenacin Succinate (Vesicare) 10 Mg Tab, 10 MG PO QHS, (Reported) Valsartan (Valsartan) 320 Mg Tablet, 320 MG PO QHS, (Reported) Vits A,C,E/Lutein/Minerals (Ocuvite with Lutein Tablet) 1 Tab Tab, 1 TAB PO DAILY, (Reported) Scheduled PRN Acetaminophen (Acetaminophen) 325 Mg Tablet, 650 MG PO Q4H PRN for PAIN / FEVER, (Reported) Benzonatate (Tessalon Perle) 100 Mg Capsule, 100 MG PO TID PRN for COUGH, (Reported) Bismuth Subsalicylate (Pepto-Bismol) 262 Mg/15 Ml Mikayla, 30 ML PO BID PRN for UPSET STOMACH, (Reported) Calcium Carbonate (Tums) 500 Mg Chw, 500 MG PO TID PRN for INDIGESTION, (Reported) Diclofenac Sodium (Diclofenac Sodium) 1 % Gel, 1 DOSE TD BID PRN for PAIN, (Reported) APPLY TO NECK AND SHOULDERS Gabapentin (Gabapentin) 300 Mg Cap, 300 MG PO QHS PRN for PAIN, (Reported) Guaifenesin/Dextromethorphan (Robitussin Cough-Chest Dm Liq) 237 Ml Liquid, 5 ML PO Q8H PRN for COUGH, (Reported) Loratadine (Loratadine) 10 Mg Tablet, 10 MG PO DAILY PRN for allergy symptoms, (Reported) Polyvinyl Alcohol (Artificial Tears) 15 Ml Drops, 1 DROP OU BID PRN for DRY EYES, (Reported) Sodium Chloride (Saline Nasal [place]) 44 Ml [place], 1 SPRAY NARES DAILY PRN for NASAL DRYNESS, (Reported) Allergies Coded Allergies: latex (Verified Allergy, Mild, rash, 09/22/19) TAPE (Verified Allergy, Unknown, 09/22/19) meperidine (Verified Adverse Reaction, Unknown, nausea, 09/22/19) morphine (Verified Adverse Reaction, Unknown, nausea, 09/22/19) Past Medical History Medical History Monk's esophagus, hypertension, pulmonary hypertension, hypothyroidism, anxiety, iron deficiency anemia, peripheral neuropathy, diverticulosis, chronic urinary incontinence, arthritis) hemorrhoids, Wenckebach type I second-degree heart block Surgical History Left hip surgery, C-sections 2, bilateral hernia repair, abdominal hernia repair Family History Father with a heart disease. Mother with CVA Social History * Smoker: Denies Alcohol: Denies Drugs: denies A-FIB/CHADSVASC A-FIB History Current/History of A-Fib/PAF?: No Review of Systems Constitutional: Reports: Weakness, Fatigue Eyes: Denies: Pain, Vision change, Conjunctivae inflammation, Eyelid inflammation, Redness, Other ENT: Denies: Head Aches, Ear Pain, Dysphagia, Sinus Congestion, Post Nasal Drip, Sore Throat, Epistaxis, Other Symptoms Pulmonary: Reports: Dyspnea, Cough Gastrointestinal: Denies: Nausea, Vomiting, Abdominal Pain, Diarrhea, Constipation, Melena, Hematochezia, Other Symptoms Genitourinary: Denies: Dysuria, Frequency, Incontinence, Hematuria, Retention, Other Symptoms Hematologic: Denies: Bruising, Bleeding Excessively, Petecchia, Purpura, Enlarged Lymph Nodes, Other Hematologic Endocrine: Denies: Polydipsia, Polyphagia, Polyuria, Heat Intolerance, Cold Intolerance, Other Endocrine Sx Musculoskeletal: Denies: Neck Pain, Back Pain, Shoulder Pain, Arm Pain, Hand Pain, Leg Pain, Foot Pain, Joint Pain, Muscle Pain, Spasms, Other Symptoms Neurological: Denies: Weakness, Numbness, Incoordination, Change in speech, Confusion, Seizures, Other Symptoms Physical Examination General Exam: Positive: Alert, Cooperative Eye Exam: Positive: PERRLA, Conjunctiva & lids normal ENT Exam: Positive: Atraumatic, Mucous membr. moist/pink Neck Exam: Positive: Supple Chest Exam: Positive: Other (. Bilateral basal crackles) Heart Exam: Positive: Rate Normal, Normal S1, Normal S2 Abdomen Exam: Positive: Normal bowel sounds, Soft, Tenderness Extremity Exam: Positive: Normal pulses Skin Exam: Positive: Nl turgor and temperature Neuro Exam: Positive: Strength at 5/5 X4 ext, Cranial Nerves 3-12 NL Psych Exam: Positive: Mood NL, Oriented x 3 Vital Signs Vital Signs Date Time Temp Pulse Resp B/P (MAP) Pulse Ox O2 Delivery O2 Flow Rate FiO2 09/22/19 13:23 81 18 97 Room Air 09/22/19 13:15 163/70 (101) 09/22/19 09:52 96.4 Laboratory Data Labs 24H Laboratory Tests 2 09/22/19 09:58: Immature Granulocyte % (Auto) 0.8, Neutrophils (%) (Auto) 76.6H, Lymphocytes (%) (Auto) 9.4L, Monocytes (%) (Auto) 9.7H, Eosinophils (%) (Auto) 3.2H, Basophils (%) (Auto) 0.3, Neutrophils # (Auto) 7.0, Lymphocytes # (Auto) 0.9L, Monocytes # (Auto) 0.9H, Eosinophils # (Auto) 0.3, Basophils # (Auto) 0.0, Nucleated Red Blood Cells % (auto) 0.0, Anion Gap 6L, Glomerular Filtration Rate 51.0, Calcium Level 9.5, Total Bilirubin 0.6, Direct Bilirubin 0.2, Aspartate Amino Transf (AST/SGOT) 25, Alanine Aminotransferase (ALT/SGPT) 22, Alkaline Phosphatase 64, Total Creatine Kinase 99, Creatine Kinase MB 1.9, Creatine Kinase MB Relative Index 1.92, Troponin I < 0.02, DS-Rus-C-Type Natriuretic Peptide 314, Total Protein 7.0, Albumin 3.7, Albumin/Globulin Ratio 1.12, Thyroid Stimulating Hormone (TSH) 1.590 09/22/19 10:22: Bedside Glucose (Misc Panel) 120H 09/22/19 12:20: Urine Color YELLOW, Urine Appearance HAZY, Urine pH 7.0, Urine Specific [place] 1.006, Urine Protein NEGATIVE, Urine Glucose (UA) NEGATIVE, Urine Ketones NEGATIVE, Urine Blood NEGATIVE, Urine Nitrite NEGATIVE, Urine Bilirubin NEGATIVE, Urine Urobilinogen 0.2, Urine Leukocyte Esterase 2+H, Urine WBC (Auto) 56H, Urine RBC (Auto) 4H, Urine Hyaline Casts (Auto) 0, Urine Bacteria (Auto) 2+H, Urine Squamous Epithelial Cells 0, Urine Sperm (Auto) CBC/BMP Laboratory Tests 09/22/19 09:58 Microbiology Microbiology 09/22/19 Urine Culture, Received Pending 09/22/19 Respiratory Virus Panel (PCR) ([facility]) - Final, Complete 09/22/19 Blood Culture, Received Pending 09/22/19 Blood Culture, Received Pending Problems (1) Pneumonia Status: Acute Problem Text: 84 is old lady presented with chief complaints of cough, shortness of breath on exertion, feeling tired, fatigue and sleepiness in the last 3 days. Patient was started on by mouth antibiotics without any improvement in symptoms and decided come to ED today Patient's heart rate is 81, blood pressure 163/70, respiratory rate of 18 and pulse ox 97% on room air. White count 9.1, hemoglobin and hematocrit are within normal range. MCV is little high to 103.5, platelets 273. Electrolytes are normal, BUN 31, creatinine 1.09. UA shows 56 WBCs with positive leukocyte is trace, also CT of the chest shows Monk's esophagus with pull-through surgery and left lower lobe and dressed, chest x-ray shows left lower lobe atelectasis and possible small pleural effusion Eschen was started on Zithromax and Rocephin in ED Admit patient to MedSurg floor Saline lock Continue Zithromax and Rocephin DuoNeb nebulizer treatment every 4 hours when necessary And his pulse ox is within normal range. Hence oxygen supplement is not needed PT, OT [facility] DVT prophylaxis with heparin Diet is regular Activity as tolerated Son was also present at bedside, and management were discussed with patient and her son and they both agreed with present plan of care (2) UTI (urinary tract infection) Status: Acute Problem Text: Urine cultures ordered Patient already on Rocephin. Will continue the same, will change antibiotics if indicated by urine culture if needed Oral hydration. Recommended (3) Chronic ulcer of right foot Status: Chronic Problem Text: Right lower extremity, medial and lateral malleolus ulceration present since admission. Patient follows up with Dr. Hinojosa as an outpatient and gets the treatment done. Will request wound carenursing consult while she is in the hospital (4) HTN (hypertension) Status: Chronic Problem Text: Continue home meds (5) Hypothyroid Status: Chronic Problem Text: Continue home meds (6) Anxiety Status: Chronic Problem Text: Continue home meds Plan / VTE VTE Prophylaxis Ordered?: Yes NAHOMY CALERO MD Sep 22, 2019 14:36
[2019-09-22] MEDS: LACTOBACILLUS ACIDOPHILUS CAP (BACID) PO SCH (16:51)
[2019-09-22] MEDS: FERROUS SULFATE 325MG TAB PO SCH ×2 (16:52→20:40)
[2019-09-22 20:09] VITALS: BP 126/53
[2019-09-22] MEDS: VALSARTAN 80 MG TAB (DIOVAN) PO SCH (20:39)
[2019-09-22] MEDS: guaiFENesin DM LIQ 10ML UD PO PRN (20:39)
[2019-09-22] MEDS: MAGNESIUM CHLORIDE 64 MG TABCR (SLO MAG) PO SCH (20:39)
[2019-09-22] MEDS: FLUTICASONE PROP 0.05% NASAL SPRAY 16 GM (FLONASE) NARES SCH (20:39)
[2019-09-22] MEDS: HEPARIN SOD (PORCINE) 5000 UNITS/ML VIAL (J1644 PER 1000UNITS) SC SCH (20:40)
[2019-09-22] MEDS: OMEPRAZOLE 20 MG CAP PO SCH (20:40)
[2019-09-22] MEDS: ACETAMINOPHEN TAB 650MG DOSE (2X325MG) PO PRN (20:40)
[2019-09-22] MEDS: GABAPENTIN 300 MG CAP PO SCH (20:40)
[2019-09-22] MEDS: DOCUSATE SODIUM 100 MG CAP PO SCH (20:40)
[2019-09-22] MEDS: SOLIFENACIN 5 MG TAB PO SCH (20:44)
[2019-09-23] MEDS: LEVOTHYROXINE 12.5MCG PER 1/2 TAB (0.0125MG) PO SCH (04:49)
[2019-09-23] MEDS: guaiFENesin DM LIQ 10ML UD PO PRN ×2 (04:49→08:30)
--- NOTE | 2019-09-23 05:37 | ECGEPIP ---
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
[2019-09-23 05:41] VITALS: BP 121/54
[2019-09-23 07:15] LABS: HEMOGLOBIN 10.7 g/dl (12.0-15.5); MEAN CORPUSCULAR HEMOGLOBIN 34.9 pg (27.0-33.0); MEAN CORPUSCULAR HGB CONC 33.4 g/dl (32.0-36.5); MEAN CORPUSCULAR VOLUME 104.2 fl (80.0-96.0); PLATELET COUNT, AUTOMATED 227 10^3/uL (150-450); RED BLOOD COUNT 3.07 10^6/uL (4.00-5.40); WHITE BLOOD COUNT 8.3 10^3/uL (4.0-10.0)
[2019-09-23 07:43] LABS: ALBUMIN 3.1 GM/DL (3.2-5.2); BILIRUBIN,TOTAL 0.4 MG/DL (0.2-1.0); CALCIUM LEVEL 9.5 MG/DL (8.8-10.2); GLOMERULAR FILTRATION RATE 56.4 (>32); POTASSIUM SERUM 4.5 MEQ/L (3.5-5.1); TOTAL PROTEIN 6.3 GM/DL (6.4-8.2)
[2019-09-23] MEDS: HEPARIN SOD (PORCINE) 5000 UNITS/ML VIAL (J1644 PER 1000UNITS) SC SCH ×2 (08:30→20:40)
[2019-09-23] MEDS: MAGNESIUM CHLORIDE 64 MG TABCR (SLO MAG) PO SCH ×2 (08:30→20:39)
[2019-09-23] MEDS: LACTOBACILLUS ACIDOPHILUS CAP (BACID) PO SCH ×2 (08:31→17:15)
[2019-09-23] MEDS: FERROUS SULFATE 325MG TAB PO SCH ×3 (08:31→20:48)
[2019-09-23] MEDS: OMEPRAZOLE 20 MG CAP PO SCH ×2 (08:31→20:49)
[2019-09-23] MEDS: guaiFENesin ER 600 MG TAB PO SCH (08:31)
[2019-09-23] MEDS: OCUVITE 1 TAB PO SCH (08:31)
[2019-09-23] MEDS: GABAPENTIN 300 MG CAP PO SCH ×2 (08:31→20:49)
[2019-09-23] MEDS: INDAPAMIDE 1.25MG TABLET PO SCH (08:34)
[2019-09-23] MEDS: ISOSORBIDE MON. (IMDUR) 30 MG XR TAB PO SCH ×2 (08:34→08:36)
[2019-09-23] MEDS: CitaloPRAM (CeleXA) 10 MG TABLET PO SCH (08:36)
--- NOTE | 2019-09-23 10:58 | IPNPDOC ---
Subjective Date Seen The patient was seen on 09/23/19. Subjective Chief Complaint/HPI Patient comfortable. Feeling better in no apparent distress. Still has some cough General: Denies: ROS Unobtainable, Chills, Night Sweats, Fatigue, Malaise, Normal Appetite, Other Symptoms Constitutional: Denies: Chills, Fever, Malaise, Night Sweats, Weakness, Fatigue, Weight Loss, Lethargy, Other Pulmonary: Denies: Dyspnea, Cough, Pleuritic Chest Pain, Other Symptoms Cardiovascular: Denies: Chest Pain, Palpitations, Orthopnea, Paroxysmal Noc. Dyspnea, Edema, Lt Headedness, Other Symptoms Gastrointestinal: Denies: Nausea, Vomiting, Abdominal Pain, Diarrhea, Constipation, Melena, Hematochezia, Other Symptoms Musculoskeletal: Denies: Neck Pain, Back Pain, Shoulder Pain, Arm Pain, Hand Pain, Leg Pain, Foot Pain, Joint Pain, Muscle Pain, Spasms, Other Symptoms Neurological: Denies: Weakness, Numbness, Incoordination, Change in speech, Confusion, Seizures, Other Symptoms Objective Physical Examination ENT Exam: Positive: Atraumatic, Mucous membr. moist/pink Neck Exam: Positive: Supple Chest Exam: Positive: Other (. Bilateral basal crackles) Heart Exam: Positive: Rate Normal, Normal S1, Normal S2 Abdomen Exam: Positive: Normal bowel sounds, Soft, Tenderness Extremity Exam: Positive: Normal pulses Skin Exam: Positive: Nl turgor and temperature Neuro Exam: Positive: Strength at 5/5 X4 ext, Cranial Nerves 3-12 NL Assessment /Plan Problems (1) Pneumonia Status: Acute Problem Text: 84 is old lady presented with chief complaints of cough, shortness of breath on exertion, feeling tired, fatigue and sleepiness in the last 3 days. Patient was started on by mouth antibiotics without any improvement in symptoms and decided come to ED today Patient's heart rate is 81, blood pressure 163/70, respiratory rate of 18 and pulse ox 97% on room air. White count 9.1, hemoglobin and hematocrit are within normal range. MCV is little high to 103.5, platelets 273. Electrolytes are normal, BUN 31, creatinine 1.09. UA shows 56 WBCs with positive leukocyte is trace, also CT of the chest shows Monk's esophagus with pull-through surgery and left lower lobe and dressed, chest x-ray shows left lower lobe atelectasis and possible small pleural effusion Pt was started on Zithromax and Rocephin in ED Continue the same antibiotics and repeat chest x-ray today DuoNeb nebulizer treatment every 4 hours when necessary And his pulse ox is within normal range. Hence oxygen supplement is not needed PT evaluation has been ordered before patient is transfer [facility] tomorrow (2) UTI (urinary tract infection) Status: Acute Problem Text: Urine cultures ordered, report still pending Patient already on Rocephin. Will continue the same, will change antibiotics if indicated by urine culture if needed Oral hydration. Recommended (3) HTN (hypertension) Status: Chronic Problem Text: Under well control Continue home meds (4) Hypothyroid Status: Chronic Problem Text: Continue home meds (5) Chronic ulcer of right foot Status: Chronic Problem Text: Right lower extremity, medial and lateral malleolus ulceration present since admission. Patient follows up with Dr. Hinojosa as an outpatient and gets the treatment done. will request wound carenursing consult while she is in the hospital Plan/VTE VTE Prophylaxis Ordered?: Yes VS, I&O, 24H, [facility] Vital Signs/I&O Vital Signs Date Time Temp Pulse Resp B/P (MAP) Pulse Ox O2 Delivery O2 Flow Rate FiO2 09/23/19 05:41 98.0 73 18 121/54 (76) 95 Room Air I&O- Last 24 Hours up to 6 AM 09/23/19 06:00 Intake Total 850 ml Balance 850 ml Laboratory Data 24H LABS Laboratory Tests 2 09/22/19 12:20: Urine Color YELLOW, Urine Appearance HAZY, Urine pH 7.0, Urine Specific [place] 1.006, Urine Protein NEGATIVE, Urine Glucose (UA) NEGATIVE, Urine Ketones NEGATIVE, Urine Blood NEGATIVE, Urine Nitrite NEGATIVE, Urine Bilirubin NEGATIVE, Urine Urobilinogen 0.2, Urine Leukocyte Esterase 2+H, Urine WBC (Auto) 56H, Urine RBC (Auto) 4H, Urine Hyaline Casts (Auto) 0, Urine Bacteria (Auto) 2+H, Urine Squamous Epithelial Cells 0, Urine Sperm (Auto) 09/23/19 06:47: Nucleated Red Blood Cells % (auto) 0.0, Anion Gap 4L, Glomerular Filtration Rate 56.4, Calcium Level 9.5, Magnesium Level 2.0, Total Bilirubin 0.4, Aspartate Amino Transf (AST/SGOT) 15, Alanine Aminotransferase (ALT/SGPT) 15, Alkaline Phosphatase 58, Total Protein 6.3L, Albumin 3.1L, Albumin/Globulin Ratio 0.97L CBC/BMP Laboratory Tests 09/23/19 06:47 Microbiology Microbiology 09/22/19 Urine Culture, Received Pending 09/22/19 Respiratory Virus Panel (PCR) ([facility]) - Final, Complete 09/22/19 Blood Culture - Preliminary, Resulted No growth after 24 hours . All specim... 09/22/19 Blood Culture - Preliminary, Resulted No growth after 24 hours . All specim... NAHOMY CALERO MD Sep 23, 2019 10:58
--- NOTE | 2019-09-23 13:35 | REP ---
Clinical: Follow up pneumonia. Comparison: 09/22/2019. Findings: Large hiatal hernia unchanged. Stable opacity at the left lung base. No new acute consolidation, effusion, or pneumothorax. Mediastinum and cardiac silhouette stable. Skeletal structures stable. Impression: Stable chest x-ray. No new acute process. Electronically Signed by Triston Tyler MD 09/23/2019 01:27 P
[2019-09-23 14:00] VITALS: BP 107/63
[2019-09-23] MEDS ORDERED: cefTRIAXone SOD 1 GM in D5W MINI-BAG PLUS 50 ML IV SCH (14:00)
[2019-09-23] MEDS ORDERED: AZITHROMYCIN INJ 500 MG, VIAL MATE ADAPTER 1 EACH in D5W 250 ML IV SCH (15:00)
[2019-09-23 20:48] VITALS: BP 136/61
[2019-09-23] MEDS: VALSARTAN 80 MG TAB (DIOVAN) PO SCH (20:48)
[2019-09-23] MEDS: DOCUSATE SODIUM 100 MG CAP PO SCH (20:48)
[2019-09-23] MEDS: SOLIFENACIN 5 MG TAB PO SCH (20:49)
[2019-09-23] MEDS: FLUTICASONE PROP 0.05% NASAL SPRAY 16 GM (FLONASE) NARES SCH (20:50)
[2019-09-23] MEDS: MOM 30ML SUSPENSION UDC PO PRN (20:53)
[2019-09-24] MEDS: LEVOTHYROXINE 12.5MCG PER 1/2 TAB (0.0125MG) PO SCH (05:32)
[2019-09-24 05:47] VITALS: BP 133/62
[2019-09-24 07:06] LABS: BASO % 0.5 % (0.0-1.0); EOS # 0.3 10^3/uL (0.0-0.5); EOS % 4.1 % (0.0-3.0); HEMATOCRIT 32.8 % (36.0-47.0); HEMOGLOBIN 10.8 g/dl (12.0-15.5); LYMPH # 1.2 10^3/uL (1.5-5.0); LYMPH % 16.2 % (24.0-44.0); MEAN CORPUSCULAR HEMOGLOBIN 34.1 pg (27.0-33.0); MEAN CORPUSCULAR HGB CONC 32.9 g/dl (32.0-36.5); MEAN CORPUSCULAR VOLUME 103.5 fl (80.0-96.0); MONO # 1.1 10^3/uL (0.0-0.8); MONO % 13.9 % (0.0-5.0); NEUTROPHILS % 64.6 % (36.0-66.0); PLATELET COUNT, AUTOMATED 233 10^3/uL (150-450); RED BLOOD COUNT 3.17 10^6/uL (4.00-5.40); WHITE BLOOD COUNT 7.7 10^3/uL (4.0-10.0)
[2019-09-24 07:32] LABS: ALBUMIN 3.1 GM/DL (3.2-5.2); BILIRUBIN,TOTAL 0.4 MG/DL (0.2-1.0); CALCIUM LEVEL 8.9 MG/DL (8.8-10.2); CREATININE FOR GFR 0.95 MG/DL (0.55-1.30); GLOMERULAR FILTRATION RATE 59.8 (>32); MAGNESIUM LEVEL 2.2 MG/DL (1.8-2.4); POTASSIUM SERUM 4.2 MEQ/L (3.5-5.1); TOTAL PROTEIN 6.4 GM/DL (6.4-8.2)
[2019-09-24] MEDS: HEPARIN SOD (PORCINE) 5000 UNITS/ML VIAL (J1644 PER 1000UNITS) SC SCH ×2 (08:41→22:38)
[2019-09-24] MEDS: LACTOBACILLUS ACIDOPHILUS CAP (BACID) PO SCH ×2 (08:42→18:33)
[2019-09-24] MEDS: GABAPENTIN 300 MG CAP PO SCH ×2 (08:42→22:37)
[2019-09-24] MEDS: OCUVITE 1 TAB PO SCH (08:42)
[2019-09-24] MEDS: MAGNESIUM CHLORIDE 64 MG TABCR (SLO MAG) PO SCH ×2 (08:42→22:36)
[2019-09-24] MEDS: CitaloPRAM (CeleXA) 10 MG TABLET PO SCH (08:42)
[2019-09-24] MEDS: OMEPRAZOLE 20 MG CAP PO SCH ×2 (08:42→22:37)
[2019-09-24] MEDS: FERROUS SULFATE 325MG TAB PO SCH ×3 (08:43→22:37)
[2019-09-24] MEDS: INDAPAMIDE 1.25MG TABLET PO SCH (08:43)
[2019-09-24] MEDS: guaiFENesin ER 600 MG TAB PO SCH (08:43)
[2019-09-24] MEDS: ISOSORBIDE MON. (IMDUR) 30 MG XR TAB PO SCH (08:46)
--- NOTE | 2019-09-24 10:13 | IPNPDOC ---
Subjective Date Seen The patient was seen on 09/24/19. Subjective Chief Complaint/HPI Patient comfortable, no distress. Offers no new complaints. Once cleared from physical therapy can be discharged home General: Denies: ROS Unobtainable, Chills, Night Sweats, Fatigue, Malaise, Normal Appetite, Other Symptoms Skin: Denies: Rash, Lesions, Jaundice, Bruising, Itching, Dry, Breakdown, Nail Changes, Other Pulmonary: Denies: Dyspnea, Cough, Pleuritic Chest Pain, Other Symptoms Cardiovascular: Denies: Chest Pain, Palpitations, Orthopnea, Paroxysmal Noc. Dyspnea, Edema, Lt Headedness, Other Symptoms Gastrointestinal: Denies: Nausea, Vomiting, Abdominal Pain, Diarrhea, Constipation, Melena, Hematochezia, Other Symptoms Genitourinary: Denies: Dysuria, Frequency, Incontinence, Hematuria, Retention, Other Symptoms Musculoskeletal: Denies: Neck Pain, Back Pain, Shoulder Pain, Arm Pain, Hand Pain, Leg Pain, Foot Pain, Joint Pain, Muscle Pain, Spasms, Other Symptoms Neurological: Denies: Weakness, Numbness, Incoordination, Change in speech, Confusion, Seizures, Other Symptoms Objective Physical Examination ENT Exam: Positive: Atraumatic, Mucous membr. moist/pink Neck Exam: Positive: Supple Chest Exam: Positive: Other (scattered bilateral crackers, but otherwise good air entry bilaterally) Heart Exam: Positive: Rate Normal, Normal S1, Normal S2 Abdomen Exam: Positive: Normal bowel sounds, Soft, Tenderness Extremity Exam: Positive: Normal pulses Skin Exam: Positive: Nl turgor and temperature Neuro Exam: Positive: Strength at 5/5 X4 ext, Cranial Nerves 3-12 NL Assessment /Plan Problems (1) Pneumonia Status: Acute Problem Text: 84 is old lady presented with chief complaints of cough, shortness of breath on exertion, feeling tired, fatigue and sleepiness in the last 3 days. Patient was started on by mouth antibiotics without any improvement in symptoms and decided come to ED today Patient's heart rate is 81, blood pressure 163/70, respiratory rate of 18 and pulse ox 97% on room air. White count 9.1, hemoglobin and hematocrit are within normal range. MCV is little high to 103.5, platelets 273. Electrolytes are normal, BUN 31, creatinine 1.09. UA shows 56 WBCs with positive leukocyte is trace, also CT of the chest shows Monk's esophagus with pull-through surgery and left lower lobe and dressed, chest x-ray shows left lower lobe atelectasis and possible small pleural effusion Pt was started on Zithromax and Rocephin in ED Patient most likely has a viral infection as repeat chest x-ray did not show any evidence of infiltrate DuoNeb nebulizer treatment every 4 hours when necessary Patient is clinically stable, asymptomatic. We will DC IV Rocephin and Zithromax and continue her nebulizer treatments Patient can be discharged back to assisted-living facility once cleared by physical therapy today (2) UTI (urinary tract infection) Status: Acute Problem Text: Urine Culture is consistent with Klebsiella which is sensitive to almost all antibiotics, especially cephalosporins EC Rocephin and start Keflex 500 mg by mouth twice a day for one more week Oral hydration. Recommended (3) HTN (hypertension) Status: Chronic Problem Text: Under well control Continue home meds (4) Hypothyroid Status: Chronic Problem Text: Continue home meds (5) Chronic ulcer of right foot Status: Chronic Problem Text: Right lower extremity, medial and lateral malleolus ulceration present since admission. Patient follows up with Dr. Hinojosa as an outpatient and gets the treatment done. will request wound carenursing consult while she is in the hospital Plan/VTE VTE Prophylaxis Ordered?: Yes VS, I&O, 24H, Fishbone Vital Signs/I&O Vital Signs Date Time Temp Pulse Resp B/P (MAP) Pulse Ox O2 Delivery O2 Flow Rate FiO2 09/24/19 08:46 122/70 09/24/19 05:47 98.1 76 18 98 Room Air I&O- Last 24 Hours up to 6 AM 09/24/19 06:00 Intake Total 1725 ml Output Total 1025 ml Balance 700 ml Laboratory Data 24H LABS Laboratory Tests 2 09/24/19 06:42: Immature Granulocyte % (Auto) 0.7, Neutrophils (%) (Auto) 64.6, Lymphocytes (%) (Auto) 16.2L, Monocytes (%) (Auto) 13.9H, Eosinophils (%) (Auto) 4.1H, Basophils (%) (Auto) 0.5, Neutrophils # (Auto) 5.0, Lymphocytes # (Auto) 1.2L, Monocytes # (Auto) 1.1H, Eosinophils # (Auto) 0.3, Basophils # (Auto) 0.0, Nucleated Red Blood Cells % (auto) 0.0, Anion Gap 5L, Glomerular Filtration Rate 59.8, Calcium Level 8.9, Magnesium Level 2.2, Total Bilirubin 0.4, Aspartate Amino Transf (AST/SGOT) 15, Alanine Aminotransferase (ALT/SGPT) 17, Alkaline Phosphatase 59, Total Protein 6.4, Albumin 3.1L, Albumin/Globulin Ratio 0.94L CBC/BMP Laboratory Tests 09/24/19 06:42 Microbiology Microbiology 09/22/19 Urine Culture - Final, Complete Klebsiella Pneumoniae 09/22/19 Respiratory Virus Panel (PCR) ([facility]) - Final, Complete 09/22/19 Blood Culture - Preliminary, Resulted No growth after 24 hours . All specim... 09/22/19 Blood Culture - Preliminary, Resulted No growth after 24 hours . All specim... NAHOMY CALERO MD Sep 24, 2019 10:13
[2019-09-24] MEDS ORDERED: MIRALAX *UNIT DOSE* 17GM PACKET PO PRN (11:30)
[2019-09-24] MEDS: MOM 30ML SUSPENSION UDC PO PRN (11:46)
[2019-09-24] MEDS: CEPHALEXIN 500 MG CAP PO SCH ×2 (11:46→22:36)
[2019-09-24 14:00] VITALS: BP 132/62
[2019-09-24] MEDS: ACETAMINOPHEN TAB 650MG DOSE (2X325MG) PO PRN ×2 (16:24→22:41)
[2019-09-24 20:03] VITALS: BP 109/54
[2019-09-24] MEDS: DOCUSATE SODIUM 100 MG CAP PO SCH (22:27)
[2019-09-24 22:30] VITALS: BP 135/54
[2019-09-24] MEDS: VALSARTAN 80 MG TAB (DIOVAN) PO SCH (22:30)
[2019-09-24] MEDS: SOLIFENACIN 5 MG TAB PO SCH (22:37)
[2019-09-24] MEDS: FLUTICASONE PROP 0.05% NASAL SPRAY 16 GM (FLONASE) NARES SCH (22:37)
[2019-09-25] MEDS ORDERED: FLEET ENEMA PR PRN (01:15)
[2019-09-25 06:15] VITALS: BP 134/54
[2019-09-25] MEDS: LEVOTHYROXINE 12.5MCG PER 1/2 TAB (0.0125MG) PO SCH (06:29)
[2019-09-25] MEDS: OCUVITE 1 TAB PO SCH (08:55)
[2019-09-25] MEDS: LACTOBACILLUS ACIDOPHILUS CAP (BACID) PO SCH ×2 (08:55→16:15)
[2019-09-25] MEDS: INDAPAMIDE 1.25MG TABLET PO SCH (08:56)
[2019-09-25] MEDS: GABAPENTIN 300 MG CAP PO SCH ×2 (08:56→21:17)
[2019-09-25] MEDS: CitaloPRAM (CeleXA) 10 MG TABLET PO SCH (08:56)
[2019-09-25] MEDS: OMEPRAZOLE 20 MG CAP PO SCH ×2 (08:56→21:17)
[2019-09-25] MEDS: CEPHALEXIN 500 MG CAP PO SCH ×2 (08:57→21:17)
[2019-09-25] MEDS: ISOSORBIDE MON. (IMDUR) 30 MG XR TAB PO SCH (08:59)
[2019-09-25] MEDS: MAGNESIUM CHLORIDE 64 MG TABCR (SLO MAG) PO SCH ×2 (09:00→21:16)
[2019-09-25] MEDS: guaiFENesin ER 600 MG TAB PO SCH (09:00)
[2019-09-25] MEDS: FERROUS SULFATE 325MG TAB PO SCH ×3 (09:00→21:17)
[2019-09-25] MEDS: HEPARIN SOD (PORCINE) 5000 UNITS/ML VIAL (J1644 PER 1000UNITS) SC SCH ×2 (09:01→21:16)
[2019-09-25 10:00] VITALS: BP 138/54
--- NOTE | 2019-09-25 12:16 | IPNPDOC ---
Subjective Date Seen The patient was seen on 09/25/19. Subjective Chief Complaint/HPI Seen and examined at bedside, no complaints today. General: Reports: Normal Appetite; Denies: Chills, Night Sweats, Fatigue, Malaise Constitutional: Denies: Chills, Fever, Night Sweats Eyes: Denies: Pain, Vision change ENT: Denies: Head Aches, Ear Pain, Dysphagia Skin: Denies: Rash, Lesions, Breakdown Pulmonary: Denies: Dyspnea, Cough Cardiovascular: Denies: Chest Pain, Palpitations, Orthopnea, Paroxysmal Noc. Dyspnea, Lt Headedness Gastrointestinal: Denies: Nausea, Vomiting, Abdominal Pain, Diarrhea, Constipation Genitourinary: Denies: Dysuria, Frequency, Incontinence, Retention Hematologic: Denies: Bruising, Bleeding Excessively Musculoskeletal: Denies: Neck Pain, Back Pain, Joint Pain, Muscle Pain, Spasms Neurological: Denies: Weakness, Numbness, Change in speech, Confusion Psych: Reports: Mood Normal; Denies: Depression, Memory Issues Objective Physical Examination General Exam: Positive: Alert, No Acute Distress Eye Exam: Positive: PERRLA, Conjunctiva & lids normal, EOMI; Negative: Sclera icteric ENT Exam: Positive: Atraumatic, Mucous membr. moist/pink Neck Exam: Positive: Supple Chest Exam: Positive: Other (scattered bilateral crackers, but otherwise good air entry bilaterally) Heart Exam: Positive: Rate Normal, Normal S1, Normal S2 Telemetry: Positive: No significant arrhythmia Abdomen Exam: Positive: Normal bowel sounds, Soft, Tenderness Female Exam: Positive: Nl Ext Genitalia; Negative: Lesions, Discharge, Odor, Tenderness Extremity Exam: Positive: Normal pulses Skin Exam: Positive: Nl turgor and temperature Neuro Exam: Positive: Strength at 5/5 X4 ext, Cranial Nerves 3-12 NL Psych Exam: Positive: Mental status NL, Mood NL, Oriented x 3 Assessment /Plan Assessment 1. Pneumonia - patient clinically stable, off antibiotics, symptoms likely viral in nature. - continue neb treatments prn. 2. UTI - urine cx consistent with Klebsiella. - continue Keflex BID. 3. hypertension - continue valsartan, ISMN. 4. hypothyroidism - continue levothyroxine. 5. R foot chronic ulcer - wound care nurse. Disposition: d/c back to assisted living. Plan/VTE VTE Prophylaxis Ordered?: Yes VS, I&O, 24H, Fishbone Vital Signs/I&O Vital Signs Date Time Temp Pulse Resp B/P (MAP) Pulse Ox O2 Delivery O2 Flow Rate FiO2 09/25/19 10:00 97.8 72 17 138/54 (82) 94 Room Air I&O- Last 24 Hours up to 6 AM 09/25/19 06:00 Intake Total 1440 ml Output Total 1000 ml Balance 440 ml Laboratory Data Microbiology Microbiology 09/22/19 Urine Culture - Final, Complete Klebsiella Pneumoniae 09/22/19 Respiratory Virus Panel (PCR) ([facility]) - Final, Complete 09/22/19 Blood Culture - Preliminary, Resulted No Growth after 72 hours. All specime... 09/22/19 Blood Culture - Preliminary, Resulted No Growth after 72 hours. All specime... PAUL BOB MD Sep 25, 2019 12:16
[2019-09-25 19:51] VITALS: BP 107/43
[2019-09-25] MEDS: VALSARTAN 80 MG TAB (DIOVAN) PO SCH (21:00)
[2019-09-25] MEDS: FLUTICASONE PROP 0.05% NASAL SPRAY 16 GM (FLONASE) NARES SCH (21:16)
[2019-09-25] MEDS: SOLIFENACIN 5 MG TAB PO SCH (21:17)
[2019-09-25] MEDS: DOCUSATE SODIUM 100 MG CAP PO SCH (21:17)
[2019-09-25] MEDS: POLYVINYL ALCOHOL OPHTH SOLN 15 ML(LIQUITEARS) OU PRN (22:14)
[2019-09-25] MEDS: ACETAMINOPHEN TAB 650MG DOSE (2X325MG) PO PRN (22:14)
[2019-09-26] MEDS: LEVOTHYROXINE 12.5MCG PER 1/2 TAB (0.0125MG) PO SCH (05:27)
[2019-09-26 05:29] VITALS: BP 131/52
[2019-09-26] MEDS: guaiFENesin ER 600 MG TAB PO SCH (08:02)
[2019-09-26] MEDS: CEPHALEXIN 500 MG CAP PO SCH (08:02)
[2019-09-26] MEDS: OMEPRAZOLE 20 MG CAP PO SCH (08:03)
[2019-09-26] MEDS: INDAPAMIDE 1.25MG TABLET PO SCH (08:03)
[2019-09-26] MEDS: LACTOBACILLUS ACIDOPHILUS CAP (BACID) PO SCH (08:03)
[2019-09-26] MEDS: FERROUS SULFATE 325MG TAB PO SCH (08:03)
[2019-09-26] MEDS: MAGNESIUM CHLORIDE 64 MG TABCR (SLO MAG) PO SCH (08:03)
[2019-09-26] MEDS: GABAPENTIN 300 MG CAP PO SCH (08:04)
[2019-09-26] MEDS: OCUVITE 1 TAB PO SCH (08:04)
[2019-09-26] MEDS: HEPARIN SOD (PORCINE) 5000 UNITS/ML VIAL (J1644 PER 1000UNITS) SC SCH (08:04)
[2019-09-26 08:08] VITALS: BP 128/53
[2019-09-26] MEDS: POLYVINYL ALCOHOL OPHTH SOLN 15 ML(LIQUITEARS) OU PRN (08:08)
[2019-09-26] MEDS: CitaloPRAM (CeleXA) 10 MG TABLET PO SCH (08:08)
[2019-09-26] MEDS: ISOSORBIDE MON. (IMDUR) 30 MG XR TAB PO SCH (08:08)
[2019-09-26] MEDS ORDERED: CEPH500C PO (09:45)
--- NOTE | 2019-09-26 10:02 | DS.PDOC ---
Discharge Summary General Date of Admission Sep 22, 2019 at 14:08 Date of Discharge 09/26/19 Discharge Summary PROCEDURES PERFORMED DURING STAY: [None]. ADMITTING DIAGNOSES: 1. PNA 2. UTI DISCHARGE DIAGNOSES: 1. PNA 2. UTI COMPLICATIONS/CHIEF COMPLAINT: Pneumonia. HISTORY OF PRESENT ILLNESS: This is a 84 years old white female [facility] resident with past medical history of multiple medical problems including Monk's esophagus, hypertension, hypothyroidism, anxiety, iron deficiency anemia, peripheral neuropathy, iron deficiency anemia, arthritis, presented with chief complaints of dizzy, tired, fatigue since last 3 days, as per patient, she is not involved in her daily activities and sleeping more often. As per patient, she does have a cough but occasional shortness of breath when she does too much physically. No chest pain, no abdominal pain, no nausea, vomiting, diarrhea, no headache, no weakness. Patient was started on by mouth antibiotics without any improvement. Hence, she was sent [facility] HOSPITAL COURSE: Patient was subsequently admitted and treated for the following conditions: 1. Pneumonia - started on IV rocephin/zithromax. - no clear infiltrates noted on CXR. - patient clinically stable, taken off antibiotics, symptoms likely viral in nature. - continue neb treatments prn. 2. UTI - started on IV antibiotics. - urine cx consistent with Klebsiella. - continue Keflex BID until 10/01. 3. hypertension - continue valsartan, ISMN. 4. hypothyroidism - continue levothyroxine. DISCHARGE MEDICATIONS: Please see below. ALLERGIES: Please see below. PHYSICAL EXAMINATION ON DISCHARGE: VITAL SIGNS: Please see below. GENERAL: AAO x 3, NAD. HEENT: NCAT, anicteric sclera, PERRLA/EOMI NECK: supple, no JVD, no thyromegaly CARDIOVASCULAR EXAMINATION: NS1S2, regular, no murmurs/rubs RESPIRATORY EXAMINATION: CTA b/l, no wheezing, rales, rhonchi. ABDOMINAL EXAMINATION: NT/ND, positive bowel sounds, no masses EXTREMITIES: no cyanosis, clubbing, edema SKIN: warm, no rashes, NEUROLOGICAL EXAMINATION: AAO x 3, no motor/sensory deficits, PSYCHIATRIC EXAMINATION: calm, cooperative, normal affect LABORATORY DATA: Please see below. IMAGING: CXR: Clinical: Follow up pneumonia. Comparison: 09/22/2019. Findings: Large hiatal hernia unchanged. Stable opacity at the left lung base. No new acute consolidation, effusion, or pneumothorax. Mediastinum and cardiac silhouette stable. Skeletal structures stable. Impression: Stable chest x-ray. No new acute process. PROGNOSIS: good ACTIVITY: [As tolerated]. DIET: low fat/cholesterol DISCHARGE PLAN: discharge to [facility] DISPOSITION: stable DISCHARGE INSTRUCTIONS: 1. please follow up with PCP in 1 week ITEMS TO FOLLOWUP ON ON OUTPATIENT: 1. none DISCHARGE CONDITION: [Stable]. TIME SPENT ON DISCHARGE: Greater than [30] minutes. Vital Signs/I&Os Vital Signs Date Time Temp Pulse Resp B/P (MAP) Pulse Ox O2 Delivery O2 Flow Rate FiO2 09/26/19 08:08 128/53 09/26/19 05:29 97.3 63 18 95 Room Air I&O- Last 24 Hours up to 6 AM 09/26/19 06:00 Intake Total 1490 ml Output Total 1100 ml Balance 390 ml Microbiology Microbiology 09/22/19 Urine Culture - Final, Complete Klebsiella Pneumoniae 09/22/19 Respiratory Virus Panel (PCR) ([facility]) - Final, Complete 09/22/19 Blood Culture - Preliminary, Resulted No Growth after 72 hours. All specime... 09/22/19 Blood Culture - Preliminary, Resulted No Growth after 72 hours. All specime... Discharge Medications Scheduled Calcium Carbonate/Vitamin D3 (Calcium 600 + Vit D Tablet) 1 Each Tablet, 2 TAB PO DAILY, (Reported) 1200 mg calcium and 1000 IU vitamin D Cephalexin (Cephalexin) 500 Mg Capsule, 500 MG PO BID Citalopram Hydrobromide (Citalopram HBr) 10 Mg Tab, 10 MG PO DAILY, (Reported) Cyclosporine (Restasis) 0.05 % Emu, 1 DROP OU BID, (Reported) Docusate Sodium (Colace) 100 Mg Capsule, 100 MG PO QHS, (Reported) Ferrous Sulfate (Ferrous Sulfate) 325 Mg Tablet, 325 MG PO TID, (Reported) Fluticasone Propionate (Flonase Allergy Relief) 9.9 Ml [place].susp, 2 SPRAY NARES QHS, (Reported) Gabapentin (Neurontin) 300 Mg Cap, 300 MG PO DAILY, (Reported) Gabapentin (Gabapentin) 300 Mg Capsule, 300 MG PO DAILY, (Reported) Guaifenesin (Mucinex) 600 Mg Tab.er.12h, 600 MG PO DAILY, (Reported) Indapamide (Indapamide) 1.25 Mg Tablet, 1.25 MG PO DAILY, (Reported) Isosorbide Mononitrate (Isosorbide Mononitrate ER) 30 Mg Tab.er.24h, 30 MG PO DAILY, (Reported) Lactobacillus Acidophilus (Probiotic) 1 Each Capsule, 1 CAP PO DAILY, (Reported) Levothyroxine Sodium (Levothyroxine Sodium) 25 Mcg Tab, 12.5 MCG PO DAILY, (Reported) Magnesium Chloride (Mag64) 64 Mg Tablet.dr, 128 MG PO BID, (Reported) Multivitamin (Multivitamins) 1 Each Capsule, 1 CAP PO DAILY, (Reported) Omeprazole (Omeprazole) 40 Mg Cap, 40 MG PO BID, (Reported) Solifenacin Succinate (Vesicare) 10 Mg Tab, 10 MG PO QHS, (Reported) Valsartan (Valsartan) 320 Mg Tablet, 320 MG PO QHS, (Reported) Vits A,C,E/Lutein/Minerals (Ocuvite with Lutein Tablet) 1 Tab Tab, 1 TAB PO DAILY, (Reported) Scheduled PRN Acetaminophen (Acetaminophen) 325 Mg Tablet, 650 MG PO Q4H PRN for PAIN / FEVER, (Reported) Benzonatate (Tessalon Perle) 100 Mg Capsule, 100 MG PO TID PRN for COUGH, (Reported) Bismuth Subsalicylate (Pepto-Bismol) 262 Mg/15 Ml [place]ayla, 30 ML PO BID PRN for UPSET STOMACH, (Reported) Calcium Carbonate (Tums) 500 Mg Chw, 500 MG PO TID PRN for INDIGESTION, (Reported) Diclofenac Sodium (Diclofenac Sodium) 1 % Gel, 1 DOSE TD BID PRN for PAIN, (Reported) APPLY TO NECK AND SHOULDERS Gabapentin (Gabapentin) 300 Mg Cap, 300 MG PO QHS PRN for PAIN, (Reported) Guaifenesin/Dextromethorphan (Robitussin Cough-Chest Dm Liq) 237 Ml Liquid, 5 ML PO Q8H PRN for COUGH, (Reported) Loratadine (Loratadine) 10 Mg Tablet, 10 MG PO DAILY PRN for allergy symptoms, (Reported) Polyvinyl Alcohol (Artificial Tears) 15 Ml Drops, 1 DROP OU BID PRN for DRY EYES , (Reported) Sodium Chloride (Saline Nasal [place]) 44 Ml [place], 1 SPRAY NARES DAILY PRN for NASAL DRYNESS, (Reported) Allergies Coded Allergies: latex (Verified Allergy, Mild, rash, 09/22/19) TAPE (Verified Allergy, Unknown, 09/22/19) meperidine (Verified Adverse Reaction, Unknown, nausea, 09/22/19) morphine (Verified Adverse Reaction, Unknown, nausea, 09/22/19) PAUL BOB MD Sep 26, 2019 09:47
== END 2019-09-26 11:30 | DRG 194 ==
LOC: M ED 09:38 → M ED INP 14:08 → ENRESERV 14:28 → M MS5PR 15:15
PROVIDERS: ADMIT Internal Medicine; ATTEND Internal Medicine
DX: J18.9 Pneumonia, unspecified organism (principal); N39.0 Urinary tract infection, site not specified; J98.11 Atelectasis; R53.1 Weakness; K22.70 Barrett's esophagus without dysplasia; I10 Essential (primary) hypertension; E03.9 Hypothyroidism, unspecified; F41.9 Anxiety disorder, unspecified; D50.9 Iron deficiency anemia, unspecified; G62.9 Polyneuropathy, unspecified; M06.9 Rheumatoid arthritis, unspecified; Z79.899 Other long term (current) drug therapy; Z91.040 Latex allergy status; Z88.6 Allergy status to analgesic agent; Z88.5 Allergy status to narcotic agent; I27.20 Pulmonary hypertension, unspecified; R32 Unspecified urinary incontinence; K64.9 Unspecified hemorrhoids; I44.1 Atrioventricular block, second degree; B96.1 Klebsiella pneumoniae [K. pneumoniae] as the cause of diseases classified elsewhere; R06.02 Shortness of breath; K44.9 Diaphragmatic hernia without obstruction or gangrene; L97.519 Non-pressure chronic ulcer of other part of right foot with unspecified severity

== ENCOUNTER → 2019-10-03 | Outpatient (REF) ==
[~2019-10-03] MED LIST changes: +APAP325T4 PO; +CALC600T66 PO; +CEPH500C PO; +COLA100C5 PO; +DOXY100T27 PO; +FLON1SPR NARES; +HM S0.65 NARES; +INDA125TA PO; +ISOS30TA4 PO; +LORA-622 PO; +MAGN64TASA PO; +MUCI600T31 PO; +MULTCAP PO; +POLYOPD OU; +PROBCAP14 PO; +ROBI1LIQ9 PO; +SPIR-10; +TESS100C PO; +VALS1TAB68 PO
--- NOTE | 2019-10-03 16:03 | REPPI ---
Portable chest, 03:30 p.m., single AP view with the patient upright: Comparison is 09/23/2019. The study is underpenetrated, likely from patient body habitus. This is unchanged. The patient is rotated. The patient has a known a huge hiatal hernia. This is unchanged. The visualized lung vázquez are clear. The cardiac size is upper normal. The The phil and mediastinum are unremarkable. There are degenerative changes in the shoulders. Impression: No interval change. Huge hiatal hernia. No acute cardiopulmonary findings. Electronically Signed by Aubrey Villa MD 10/03/2019 03:55 P
== END ==
PROVIDERS: ATTEND Physician Assistant
DX: R05 Cough (principal)

== ENCOUNTER → 2019-10-03 | Outpatient (REF) ==
[2019-10-03 09:48] LABS: HEMATOCRIT 33.4 % (36.0-47.0); HEMOGLOBIN 11.2 g/dl (12.0-15.5); MEAN CORPUSCULAR HEMOGLOBIN 33.8 pg (27.0-33.0); MEAN CORPUSCULAR HGB CONC 33.5 g/dl (32.0-36.5); MEAN CORPUSCULAR VOLUME 100.9 fl (80.0-96.0); PLATELET COUNT, AUTOMATED 263 10^3/uL (150-450); RED BLOOD COUNT 3.31 10^6/uL (4.00-5.40); WHITE BLOOD COUNT 7.6 10^3/uL (4.0-10.0)
[2019-10-03 10:10] LABS: CALCIUM LEVEL 9.3 MG/DL (8.8-10.2); CREATININE FOR GFR 0.95 MG/DL (0.55-1.30); GLOMERULAR FILTRATION RATE 59.8 (>32); POTASSIUM SERUM 4.6 MEQ/L (3.5-5.1)
== END ==
PROVIDERS: ATTEND Family Medicine
DX: I10 Essential (primary) hypertension (principal)

== ENCOUNTER → 2019-10-08 | Outpatient (REF) ==
--- NOTE | 2019-10-08 15:55 | REPPI ---
PORTABLE CHEST: AP portable view of the chest is performed and compared to a prior study of 10/03/2019. Large hiatal hernia is again noted. The heart and mediastinum are unchanged in appearance. There is calcification of the thoracic aorta. The lung vázquez are unchanged in appearance with no new infiltrate. IMPRESSION: Stable exam. Electronically Signed by Aubrey Zaragoza MD 10/09/2019 07:47 P
== END ==
PROVIDERS: ATTEND Internal Medicine
DX: R05 Cough (principal)

== ENCOUNTER → 2019-10-09 | Outpatient (REF) ==
[2019-10-09 11:13] LABS: HEMATOCRIT 29.4 % (36.0-47.0); HEMOGLOBIN 10.2 g/dl (12.0-15.5); MEAN CORPUSCULAR HEMOGLOBIN 34.6 pg (27.0-33.0); MEAN CORPUSCULAR HGB CONC 34.7 g/dl (32.0-36.5); MEAN CORPUSCULAR VOLUME 99.7 fl (80.0-96.0); PLATELET COUNT, AUTOMATED 302 10^3/uL (150-450); RED BLOOD COUNT 2.95 10^6/uL (4.00-5.40); WHITE BLOOD COUNT 8.8 10^3/uL (4.0-10.0)
[2019-10-09 11:43] LABS: CALCIUM LEVEL 9.4 MG/DL (8.8-10.2); CREATININE FOR GFR 0.96 MG/DL (0.55-1.30); GLOMERULAR FILTRATION RATE 59.1 (>32); POTASSIUM SERUM 5.2 MEQ/L (3.5-5.1)
== END ==
PROVIDERS: ATTEND Family Medicine
DX: R05 Cough (principal)

== ENCOUNTER → 2019-10-11 | Outpatient (REF) ==
[2019-10-11 08:38] LABS: BLOOD UREA NITROGEN 19 MG/DL (7-18); CALCIUM LEVEL 9.4 MG/DL (8.8-10.2); CARBON DIOXIDE LEVEL 29 MEQ/L (21-32); CHLORIDE LEVEL 94 MEQ/L (98-107); CREATININE FOR GFR 0.86 MG/DL (0.55-1.30); GLOMERULAR FILTRATION RATE > 60.0 (>32); GLUCOSE, FASTING 106 MG/DL (70-100); POTASSIUM SERUM 4.6 MEQ/L (3.5-5.1); SODIUM LEVEL 128 MEQ/L (136-145)
== END ==
PROVIDERS: ATTEND Physician Assistant
DX: D64.9 Anemia, unspecified (principal)

== ENCOUNTER → 2019-10-25 | Outpatient (REF) ==
--- NOTE | 2019-10-25 16:14 | REPPI ---
CHEST, SINGLE VIEW: Single view of the chest is performed and compared to prior studies of 10/08/2019 and 10/03/2019. There is cardiomegaly. There is a large hiatal hernia. No new infiltrate is visualized. The cardiomegaly and hiatal hernia obscure much of the left lung base. Right lung remains clear. Mediastinal silhouette is unchanged. IMPRESSION: Stable exam. Electronically Signed by Aubrey Zaragoza MD 10/25/2019 05:45 P
== END ==
PROVIDERS: ATTEND Family Medicine
DX: I51.7 Cardiomegaly (principal); K44.9 Diaphragmatic hernia without obstruction or gangrene; R05 Cough

== ENCOUNTER 2019-11-13 18:34 | Inpatient (IN) | payer MEDICARE, OTHER ==
[~2019-11-13] VITALS: Ht 162.6 cm; Wt 102.5 kg
[~2019-11-13 18:34] MED LIST changes: -ACET-907 PO; -ACET1TAB55 PO; -ALBU83IN INH; -BACITAB PO; -BENZ200C70 PO; -BISA10SU20 PR; -CEFT1INJ5 IM; -FLEEENE12 PR; -ISOS30TAB PO; -LEVOTAB10 PO; -MILKSUS PO; -POTA1TAB14 PO; -POTA20TA6 PO; -SENN-23 PO; -VITMTA PO
[2019-11-13] MEDS ORDERED: IBUPROFEN 600 MG TAB PO ONE (19:30)
[2019-11-13 20:04] LABS: BASO % 0.2 % (0.0-1.0); HEMATOCRIT 29.9 % (36.0-47.0); LYMPH # 0.6 10^3/uL (1.5-5.0); LYMPH % 3.2 % (24.0-44.0); MEAN CORPUSCULAR HEMOGLOBIN 33.8 pg (27.0-33.0); MEAN CORPUSCULAR HGB CONC 33.4 g/dl (32.0-36.5); MONO # 1.4 10^3/uL (0.0-0.8); MONO % 7.6 % (0.0-5.0); NEUTROPHILS % 88.3 % (36.0-66.0); PLATELET COUNT, AUTOMATED 212 10^3/uL (150-450); RED BLOOD COUNT 2.96 10^6/uL (4.00-5.40); WHITE BLOOD COUNT 18.1 10^3/uL (4.0-10.0)
[2019-11-13 20:36] LABS: ALT/SGPT 14 U/L (12-78); BILIRUBIN,DIRECT 0.4 MG/DL (0.0-0.2); BILIRUBIN,TOTAL 0.9 MG/DL (0.2-1.0); BLOOD UREA NITROGEN 14 MG/DL (7-18); CALCIUM LEVEL 8.2 MG/DL (8.8-10.2); CARBON DIOXIDE LEVEL 28 MEQ/L (21-32); CHLORIDE LEVEL 98 MEQ/L (98-107); CREATININE FOR GFR 0.89 MG/DL (0.55-1.30); GLOMERULAR FILTRATION RATE > 60.0 (>32); GLUCOSE, FASTING 102 MG/DL (70-100); POTASSIUM SERUM 3.2 MEQ/L (3.5-5.1); SODIUM LEVEL 132 MEQ/L (136-145); TOTAL PROTEIN 5.9 GM/DL (6.4-8.2)
[2019-11-13] MEDS ORDERED: cefTRIAXone SOD 1 GM in D5W MINI-BAG PLUS 50 ML IV ONE (20:45)
[2019-11-13] MEDS: FLUTICASONE PROP 0.05% NASAL SPRAY 16 GM (FLONASE) SCH (21:00)
[2019-11-13] MEDS: SOLIFENACIN 5 MG TAB PO SCH (21:00)
[2019-11-13] MEDS ORDERED: POTA1TAB14 PO (22:17)
[2019-11-13] MEDS ORDERED: BACITAB PO (22:17)
[2019-11-13] MEDS ORDERED: LEVOTAB10 PO (22:17)
[2019-11-13] MEDS ORDERED: FLEEENE12 PR (22:17)
[2019-11-13] MEDS ORDERED: BENZ200C70 PO (22:17)
[2019-11-13] MEDS ORDERED: POTA20TA6 PO (22:17)
[2019-11-13] MEDS ORDERED: ALBU83IN INH (22:17)
[2019-11-13] MEDS ORDERED: ACET1TAB55 PO (22:17)
[2019-11-13] MEDS ORDERED: VITMTA PO (22:17)
[2019-11-13] MEDS ORDERED: BISA10SU20 PR (22:17)
[2019-11-13] MEDS ORDERED: MILKSUS PO (22:17)
[2019-11-13] MEDS ORDERED: ACET-907 PO (22:17)
[2019-11-13] MEDS ORDERED: ISOS30TAB PO (22:17)
[2019-11-13] MEDS ORDERED: SENN-23 PO (22:17)
[2019-11-13] MEDS ORDERED: CEFT1INJ5 IM (22:17)
--- NOTE | 2019-11-13 22:38 | IPNPDOC ---
Text Note Date of Service The patient was seen on 11/13/19. NOTE TIME OF SERVICE [id number] is an 84 [facility] w a PMH of Monk's esophagus, chronic HTN, hypothyroidism, anxiety, iron deficiency anemia, peripheral neuropathy, and class 2 obesity, & OA who presented w c/o of cough and fever and will be admitted for management of Sepsis likely 2/2 COVID- H1KU. The chest xray done on November 12 looks slightly better than the xray done in October. She also has mild hypokalemia- we will place the sepsis order set and replete her lytes as needed. Rest per 's H&P VS,Fishbone, I+O VS, Abdiazize, I+O Laboratory Tests 11/13/19 19:39 Vital Signs Date Time Temp Pulse Resp B/P (MAP) Pulse Ox O2 Delivery O2 Flow Rate FiO2 11/13/19 22:30 98.9 70 22 126/59 (81) 94 Nasal Cannula 2.0 CECY ORELLANA MD Nov 13, 2019 22:38
--- NOTE | 2019-11-13 22:41 | HPEPDOC ---
[facility] Medical History & Physical Date of Admission Nov 13, 2019 Date of Service: Nov 13, 2019 Primary Care Physician: Natty Craig Attending Physician: CECY ORELLANA MD History and Physical PRIMARY CARE PROVIDER: Natty BRANCH ATTENDING: Dr. Cecy Orellana CHIEF COMPLAINT: Fevers/chills HISTORY OF PRESENT ILLNESS: Patient is an 84 year old female [facility] "not [facility] well". She is a resident [facility] and was sent to the emergency department after she was found to have a temperature of 105 and a white blood cell count of 22.6. Her UA was also positive and respiratory panel came back positive for kim virus Hku-1. She reports few complaints and is the only thing of note that she feels is a change from baseline is that she felt the chills last night and maybe is having some increased difficulty reading. She otherwise admits to a multi-month to multi- year history of a chronic nonproductive cough that is unchanged currently, chronic sinus congestion that is also unchanged. She otherwise feels well. PAST MEDICAL HISTORY: Hypertension Pulmonary hypertension-noc ox in 2018 negative. 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 Retired with previous work in [employer]. No Pets at home. Occupational exposures? No. No sick contacts. No Recent travel/travel history. FAMILY HISTORY: Father from unspecified heart disease Mother from CVA Siblings alive with hypertension and heart disease ALLERGIES: Please see below. REVIEW OF SYSTEMS: GENERAL: Denies recent unexpected weight change, night sweats, hemoptysis HEENT: Denies headache, dizziness, hearing loss, sore throat CARDIOVASCULAR: Denies chest pain, palpitations, orthopnea RESPIRATORY: Denies shortness of breath, wheezing, admits to chronic nonproductive cough GASTROINTESTINAL: denies nausea, vomiting, abdominal pain, constipation, diarrhea, bloody stool GENITOURINARY: Denies dysuria,urinary urgency, hematuria. MUSCULOSKELETAL: Denies muscle/joint pain, weakness, stiffness NEUROLOGICAL: Denies any numbness/tingling, focal weakness, or syncope HOME MEDICATIONS: Please see below. PHYSICAL EXAMINATION: Vital Signs Date Time Temp Pulse Resp B/P (MAP) Pulse Ox O2 Delivery O2 Flow Rate FiO2 11/13/19 18:53 102.2 87 22 143/65 (91) 98 Nasal Cannula 2.0 General: No acute distress, laying comfortably in bed. HEENT: Normocephalic, atraumatic. EOMI. No scleral icterus. Moist mucous membranes. No pharyngeal erythema or uvular deviation. Neck: No JVD, lymphadenopathy, or thyromegaly. Cardiac: RRR, Normal S1 and S2, No murmurs, gallops, rubs. Pulm: Diminished breath sounds throughout lung vázquez with decreased expiratory phase of respiration. No wheezing, crackles, rhonchi Abd: Bowel Sounds present. Abdomen is obese, soft, non-tender, non-distended. No guarding, rebound tenderness, or rigidity. Ext: 1+ pitting edema in bilateral lower extremities Neuro: CN 3-12 grossly intact. No focal neuro deficits. LABORATORY DATA: IMAGIN11/13/2019 Chest x-ray: MICROBIOLOGY: Please see below. ASSESSMENT/PLAN: #. Sepsis -Patient is SIRS+ with leukocytosis and fever with source of infection from either kim virus Hku-1 and positive UA. However because of her peripheral edema and the fact that the remainder of her vital signs are doing well I'm hesitant to start her on a 30 mL/kg bolus. She has already received a gram of Rocephin which should adequately cover for a UTI and based on her current chest x-ray there are no signs of a focal pneumonia though she obviously does have a viral pneumonia. We will continue with daily Rocephin which should cover for mos t common gram positives as well as most common causes of UTI, though I suspect asymptomatic bacteriuria. - Blood culturesx2 ordered at [facility] along with sputum culture, gram stain, urine culture pending, legionella pending. #. Macrocytic Anemia -B12, folate, iron studies ordered. Patient has history of iron deficiency anemia and is currently on iron supplementation. Continue home iron supplementation. #. Hypokalemia - Repleting potassium, will repeat BMP in AM #. Hypertension -Continue home valsartan and indapamide #. Pulmonary hypertension Continue Isordil #. Monk's esophagus -Continue omeprazole, Tums #. Hypothyroidism -Continue home Synthroid dose #. Generalized anxiety disorder -Continue citalopram #. Chronic cough -Continue Tessalon Perles, Lizeth, albuterol as needed. #. Morbid Obesity - Complicating care #.chronic urinary incontinence -Continue vesicare -DVT prophy: Teds and sequentials, heparin CODE STATUS: Patient is DNR/DNI. Her power of erisa attorney is Hanny Glass [phone]. Patient requested day team call her with an update in AM. Laboratory Data Labs 24H Laboratory Tests 2 11/13/19 19:39: Immature Granulocyte % (Auto) 0.7, Neutrophils (%) (Auto) 88.3H, Lymphocytes (%) (Auto) 3.2L, Monocytes (%) (Auto) 7.6H, Eosinophils (%) (Auto) 0.0, Basophils (%) (Auto) 0.2, Neutrophils # (Auto) 16.0H, Lymphocytes # (Auto) 0.6L, Monocytes # (Auto) 1.4H, Eosinophils # (Auto) 0.0, Basophils # (Auto) 0.0, Nucleated Red Blood Cells % (auto) 0.0, Anion Gap 6L, Glomerular Filtration Rate > 60.0, Lactic Acid Level 1.0, Calcium Level 8.2L, Total Bilirubin 0.9, Direct Bilirubin 0.4H, Aspartate Amino Transf (AST/SGOT) 19, Alanine Aminotransferase (ALT/SGPT) 14, Alkaline Phosphatase 78, Total Protein 5.9L, Albumin 3.0L, Albumin/Globulin Ratio 1.03 Home Medications Scheduled Acetaminophen (Acetaminophen) 325 Mg Tablet, 650 MG PO Q4H START ON 11/13/2019; STOP ON 11/14/2019 Calcium Carbonate/Vitamin D3 (Calcium 600 + Vit D Tablet) 1 Each Tablet, 2 TAB PO DAILY 1200 mg calcium and 1000 IU vitamin D Ceftriaxone Sodium (Ceftriaxone) 1 Gm Vial, 1 GM IM QPM GIVEN AT 1600 WITH LIDOCAINE 1%: START ON 11/13/2019; STOP ON 11/17/2019 Citalopram Hydrobromide (Citalopram HBr) 10 Mg Tab, 5 MG PO DAILY Cyclosporine (Restasis) 0.05 % Emu, 1 DROP OU BID Diclofenac Sodium (Diclofenac Sodium) 1 % Gel, 1 DOSE TOP BID APPLY TO NECK AND SHOULDERS: 0600, 2000 Ferrous Sulfate (Ferrous Sulfate) 325 Mg Tablet, 325 MG PO TID Fluticasone Propionate (Flonase Allergy Relief) 9.9 Ml [place].susp, 2 SPRAY NA QHS Gabapentin (Neurontin) 300 Mg Cap, 300 MG PO DAILY Indapamide (Indapamide) 1.25 Mg Tablet, 1.25 MG PO DAILY Isosorbide Dinitrate (Isosorbide Dinitrate) 30 Mg Tablet, 30 MG PO QHS L.acidoph/L.bulg/B.bif/S.therm (Bacid Caplet) 1 Each Tablet, 1 TAB PO DAILY Levocetirizine Dihydrochloride (Levocetirizine Dihydrochloride) 5 Mg Tablet, 5 MG PO QHS Levothyroxine Sodium (Levothyroxine Sodium) 25 Mcg Tab, 12.5 MCG PO DAILY Magnesium Chloride (Mag64) 64 Mg Tablet.dr, 128 MG PO DAILY Multivitamins (Thera M Plus Tablet) 1 Each Tablet, 1 TAB PO DAILY Omeprazole (Omeprazole) 40 Mg Cap, 40 MG PO BID 0600, 1600 Potassium Chloride (Potassium Chloride) 20 Meq Tab.er.prt, 20 MEQ PO DAILY START ON 11/14/2019; STOP ON 11/16/2019 Potassium Chloride (Potassium Chloride) 20 Meq Tablet.er, 40 MEQ PO STAT Sennosides/Docusate Sodium (Senna-S Tablet) 1 Each Tablet, 2 TAB PO BID Solifenacin Succinate (Vesicare) 10 Mg Tab, 10 MG PO QHS Valsartan (Valsartan) 320 Mg Tablet, 320 MG PO QHS Vits A,C,E/Lutein/Minerals (Ocuvite with Lutein Tablet) 1 Tab Tab, 1 TAB PO DAILY Scheduled PRN Acetaminophen (Tylenol) 325 Mg Tablet, 650 MG PO Q4H PRN for PAIN / FEVER Albuterol Sulf (Albuterol Sulfate) 2.5 Mg/3 Ml Vial.neb, 2.5 MG INH Q2H PRN for COUGH Benzonatate (Benzonatate) 200 Mg Capsule, 200 MG PO Q6H PRN for COUGH ESPECIALLY AT NIGHT Bisacodyl (Bisacodyl) 10 Mg Supp.rect, 10 MG [place] DAILY PRN for CONSTIPATION Calcium Carbonate (Tums) 500 Mg Chw, 1,000 MG PO TID PRN for DYSPEPSIA Gabapentin (Gabapentin) 300 Mg Cap, 300 MG PO QHS PRN for PAIN Magnesium Hydroxide (Milk of Magnesia) 400 Mg/5 Ml [place].susp, 30 ML PO DAILY PRN for CONSTIPATION Polyvinyl Alcohol (Artificial Tears) 15 Ml Drops, 1 DROP OU BID PRN for DRY EYES Sodium Chloride (Saline Nasal [place]) 44 Ml [place], 2 SPRAY NA Q4H PRN for NASAL CONGESTION Sodium Phosphate,[place]-Dibasic (Fleet Enema) 133 Ml Enema, 1 [place] DAILY PRN for CONSTIPATION Allergies Coded Allergies: latex (Verified Allergy, Intermediate, rash, 11/13/19) TAPE (Verified Allergy, Unknown, 09/22/19) meperidine (Verified Adverse Reaction, Mild, nausea, 11/13/19) morphine (Verified Adverse Reaction, Mild, nausea, 11/13/19) A-FIB/CHADSVASC A-FIB History Current/History of A-Fib/PAF?: No GME ATTESTATION GME ATTESTATION My faculty preceptor for this patient encounter was physically present during the encounter and was fully available. All aspects of the patient interview, examination, medical decision making process, and medical care plan development were reviewed and approved by the faculty preceptor. The faculty preceptor is aware and concurs with the plan as stated in the body of this note and will attest to such by his/her cosignature. ATTENDING NOTE Pls see my addendum from 11/13/19 I reviewed and edited 's H&P and agree with the findings as documented. MAYRA DIEHL DO Nov 13, 2019 22:41 CECY ORELLANA MD Nov 13, 2019 23:28
[2019-11-13 22:44] LABS: HEMOGLOBIN A1c 4.7 %
[2019-11-13] MEDS ORDERED: POTASSIUM CHLORIDE 10 MEQ SR TABLET PO ONE (22:45)
[2019-11-13 22:56] LABS: MAGNESIUM LEVEL 1.3 MG/DL (1.8-2.4)
[2019-11-13] MEDS ORDERED: POLYVINYL ALCOHOL OPHTH SOLN 15 ML(LIQUITEARS) OU PRN (23:00)
[2019-11-13] MEDS ORDERED: BENZONATATE 100 MG CAP PO PRN (23:00)
[2019-11-13] MEDS ORDERED: SODIUM CHLORIDE NASAL 0.65% SPRAY BTL (OCEAN) PRN (23:00)
[2019-11-13] MEDS ORDERED: ACETAMINOPHEN TAB 650MG DOSE (2X325MG) PO PRN (23:00)
[2019-11-13] MEDS ORDERED: ALBUTEROL SULFATE 2.5 MG/0.5 ML INH NEB SOLN INH PRN (23:00)
[2019-11-13] MEDS ORDERED: BISACODYL 10 MG SUPP PR PRN (23:00)
[2019-11-13] MEDS ORDERED: GABAPENTIN 300 MG CAP PO PRN (23:00)
[2019-11-13] MEDS ORDERED: MOM 30ML SUSPENSION UDC PO PRN (23:00)
[2019-11-13] MEDS ORDERED: PILL CUTTER 1 EACH XX PRN (23:15)
[2019-11-13 23:42] LABS: VENOUS BASE EXCESS 0.9 (-2.0-2.0); VENOUS HCO3 26.2 MEQ/L (23.0-27.0); VENOUS O2 SATURATION 97.7 % (60.0-80.0); VENOUS PARTIAL PRESSURE CO2 44.6 mmHg (38.0-50.0); VENOUS PARTIAL PRESSURE O2 104.9 mmHg (30.0-50.0); VENOUS PH 7.387 UNITS (7.330-7.430); VENOUS STANDARD HCO3 25.3 MEQ/L; VENOUS TOTAL CO2 27.6 MEQ/L (24.0-28.0)
[2019-11-13] MEDS: SENOKOT S TAB PO SCH (23:47)
[2019-11-13] MEDS: DICLOFENAC EPOLAMINE 1.3 % PATCH TOP SCH (23:50)
[2019-11-14] VITALS (23 sets, daily range): BP systolic 120–146; BP diastolic 58–69; O2SAT 86–99
[2019-11-14] MEDS: VALSARTAN 80 MG TAB (DIOVAN) PO SCH ×2 (00:02→20:55)
[2019-11-14] MEDS: ISOSORBIDE DIN. (ISORDIL) 30 MG TAB PO SCH ×2 (00:03→20:55)
[2019-11-14] MEDS ORDERED: POTASSIUM CHLORIDE 10 MEQ SR TABLET PO ONE (00:45)
[2019-11-14 05:46] LABS: PERCENT SATURATION 10.2 % (13.2-45.0)
[2019-11-14] MEDS: LEVOTHYROXINE 12.5MCG PER 1/2 TAB (0.0125MG) PO SCH (06:35)
[2019-11-14] MEDS: HEPARIN SOD (PORCINE) 5000 UNITS/ML VIAL (J1644 PER 1000UNITS) SC SCH ×3 (06:35→20:58)
[2019-11-14] MEDS: OMEPRAZOLE 20 MG CAP PO SCH ×2 (08:36→20:55)
[2019-11-14] MEDS: GABAPENTIN 300 MG CAP PO SCH (08:37)
[2019-11-14] MEDS: SENOKOT S TAB PO SCH ×2 (08:37→20:56)
[2019-11-14] MEDS: CitaloPRAM (CeleXA) 10 MG TABLET PO SCH (08:38)
[2019-11-14] MEDS: FERROUS SULFATE 325MG TAB PO SCH ×3 (08:38→20:55)
[2019-11-14] MEDS: POTASSIUM CHLORIDE 10 MEQ SR TABLET PO SCH (08:38)
[2019-11-14] MEDS: FEXOFENADINE 60 MG TAB PO SCH (08:38)
[2019-11-14] MEDS: INDAPAMIDE 1.25MG TABLET PO SCH (08:39)
[2019-11-14] MEDS: OCUVITE 1 TAB PO SCH (08:39)
[2019-11-14] MEDS: LACTOBACILLUS ACIDOPHILUS CAP (BACID) PO SCH (08:39)
[2019-11-14] MEDS: MAGNESIUM CHLORIDE 64 MG TABCR (SLO MAG) PO SCH (08:40)
[2019-11-14] MEDS: DICLOFENAC EPOLAMINE 1.3 % PATCH TOP SCH ×2 (08:40→20:57)
[2019-11-14] MEDS ORDERED: [UNRECOGNIZED DRUG - OTHER] OU SCH (09:00)
[2019-11-14] MEDS ORDERED: ENTER DRUG NAME HERE (PATIENT'S OWN MED) TOP SCH (09:00)
[2019-11-14 09:13] LABS: FOLATE 12.4 NG/ML (>5.4)
[2019-11-14] MEDS ORDERED: SLF 3 ML SYR IV PRN (10:15)
--- NOTE | 2019-11-14 12:16 | IPNPDOC ---
Text Note Date of Service The patient was seen on 11/14/19. NOTE Subjective: Feels better this am. Continues to have cough but is better. Physical Exam: Vitals: as below General: No acute distress, laying comfortably in bed. HEENT: Normocephalic, atraumatic. EOMI. No scleral icterus. Moist mucous membranes. No pharyngeal erythema or uvular deviation. Neck: No JVD, lymphadenopathy, or thyromegaly. Cardiac: RRR, Normal S1 and S2, No murmurs, gallops, rubs. Pulm: Diminished breath sounds throughout lung vázquez with decreased expiratory phase of respiration. No wheezing, crackles, rhonchi Abd: Bowel Sounds present. Abdomen is obese, soft, non-tender, non-distended. No guarding, rebound tenderness, or rigidity. Ext: 1+ pitting edema in bilateral lower extremities Neuro: CN 3-12 grossly intact. No focal neuro deficits. Labs and radiology: reviewed Assessment and plan: Patient is an 84 year old female presenting with chief comp laint of "not feeling well". She is a resident [facility] and was sent to the emergency department after she was found to have a temperature of 105 and a white blood cell count of 22.6. Her UA was also positive and respiratory panel came back positive for kim virus Hku-1. She reports few complaints and is the only thing of note that she feels is a change from baseline is that she felt the chills last night and maybe is having some increased difficulty reading. She otherwise admits to a multi-month to multi- year history of a chronic nonproductive cough that is unchanged currently, chronic sinus congestion that is also unchanged. She otherwise feels well. Sepsis Viral pneumonia due to Coronovirus HKU-1 Possible UTI Patient is SIRS+ with leukocytosis and fever with source of infection from either kim virus Hku-1 and positive UA. Blood culturesx2 ordered at [facility] along with sputum culture, gram stain, urine culture pending, legionella pending. Macrocytic Anemia B12, folate, iron studies does not show any def. Patient has history of iron deficiency anemia and is currently on iron supplementation. Continue home iron supplementation. Hypokalemia Repleting potassium Hypertension Continue home valsartan and indapamide Pulmonary hypertension Continue Isordil Monk's esophagus Continue omeprazole, Tums Hypothyroidism Continue home Synthroid dose Generalized anxiety disorder Continue citalopram Chronic cough Continue Tessalon Perles, Lizeth, albuterol as needed. Morbid Obesity Complicating care chronic urinary incontinence Continue vesicare DVT prophy: Teds and sequentials, heparin VS,Fishbone, I+O VS, Fishbone, I+O Laboratory Tests 11/13/19 19:39 Vital Signs Date Time Temp Pulse Resp B/P (MAP) Pulse Ox O2 Delivery O2 Flow Rate FiO2 11/14/19 04:00 96.6 66 20 122/58 (79) 98 Room Air 11/13/19 22:30 2.0 I&O- Last 24 Hours up to 6 AM 11/14/19 06:00 Intake Total 150 ml Output Total 300 ml Balance -150 ml RYANN DONALD MD Nov 14, 2019 07:40
[2019-11-14] MEDS: SLF 3 ML SYR IV SCH ×2 (13:38→20:58)
[2019-11-14] MEDS: SOLIFENACIN 5 MG TAB PO SCH (20:56)
[2019-11-14] MEDS ORDERED: cefTRIAXone SOD 1 GM in D5W MINI-BAG PLUS 50 ML IV SCH (21:00)
[2019-11-14] MEDS: ACETAMINOPHEN TAB 650MG DOSE (2X325MG) PO PRN (21:00)
[2019-11-14] MEDS: FLUTICASONE PROP 0.05% NASAL SPRAY 16 GM (FLONASE) SCH (21:00)
[2019-11-15] VITALS (16 sets, daily range): BP systolic 111–164; BP diastolic 57–74; O2SAT 89–97
[2019-11-15] MEDS: CALCIUM CARBONATE 500 MG CHEW U/D PO PRN ×2 (01:11→05:51)
[2019-11-15] MEDS: ACETAMINOPHEN TAB 650MG DOSE (2X325MG) PO PRN ×2 (04:25→08:46)
[2019-11-15] MEDS: SLF 3 ML SYR IV SCH (05:45)
[2019-11-15] MEDS: LEVOTHYROXINE 12.5MCG PER 1/2 TAB (0.0125MG) PO SCH (05:45)
[2019-11-15] MEDS: HEPARIN SOD (PORCINE) 5000 UNITS/ML VIAL (J1644 PER 1000UNITS) SC SCH (05:45)
[2019-11-15 07:11] LABS: BASO % 0.6 % (0.0-1.0); EOS # 0.2 10^3/uL (0.0-0.5); EOS % 2.6 % (0.0-3.0); HEMATOCRIT 30.7 % (36.0-47.0); HEMOGLOBIN 10.2 g/dl (12.0-15.5); LYMPH # 1.8 10^3/uL (1.5-5.0); LYMPH % 24.3 % (24.0-44.0); MEAN CORPUSCULAR HEMOGLOBIN 33.9 pg (27.0-33.0); MEAN CORPUSCULAR HGB CONC 33.2 g/dl (32.0-36.5); MONO # 0.9 10^3/uL (0.0-0.8); MONO % 11.9 % (0.0-5.0); NEUTROPHILS # 4.3 10^3/uL (1.5-8.5); PLATELET COUNT, AUTOMATED 209 10^3/uL (150-450); RED BLOOD COUNT 3.01 10^6/uL (4.00-5.40); WHITE BLOOD COUNT 7.2 10^3/uL (4.0-10.0)
[2019-11-15 07:50] LABS: CALCIUM LEVEL 8.7 MG/DL (8.8-10.2); CREATININE FOR GFR 0.97 MG/DL (0.55-1.30); GLOMERULAR FILTRATION RATE 58.4 (>32); POTASSIUM SERUM 4.4 MEQ/L (3.5-5.1)
[2019-11-15] MEDS: INDAPAMIDE 1.25MG TABLET PO SCH (08:37)
[2019-11-15] MEDS: OCUVITE 1 TAB PO SCH (08:37)
[2019-11-15] MEDS: FERROUS SULFATE 325MG TAB PO SCH (08:37)
[2019-11-15] MEDS: SENOKOT S TAB PO SCH (08:37)
[2019-11-15] MEDS: GABAPENTIN 300 MG CAP PO SCH (08:37)
[2019-11-15] MEDS: OMEPRAZOLE 20 MG CAP PO SCH (08:38)
[2019-11-15] MEDS: FEXOFENADINE 60 MG TAB PO SCH (08:38)
[2019-11-15] MEDS: LACTOBACILLUS ACIDOPHILUS CAP (BACID) PO SCH (08:38)
[2019-11-15] MEDS: CitaloPRAM (CeleXA) 10 MG TABLET PO SCH (08:39)
[2019-11-15] MEDS: POTASSIUM CHLORIDE 10 MEQ SR TABLET PO SCH (08:39)
[2019-11-15] MEDS: DICLOFENAC EPOLAMINE 1.3 % PATCH TOP SCH (08:40)
[2019-11-15] MEDS: MAGNESIUM CHLORIDE 64 MG TABCR (SLO MAG) PO SCH (08:40)
[2019-11-15] MEDS ORDERED: CEFD300CAP PO (09:53)
[2019-11-15] MEDS ORDERED: cefTRIAXone SOD 1 GM in D5W MINI-BAG PLUS 50 ML IV SCH (12:00)
--- NOTE | 2019-11-16 18:21 | DS.PDOC ---
Discharge Summary General Date of Admission Nov 13, 2019 at 21:08 Date of Discharge 11/15/19 Discharge Summary PROCEDURES PERFORMED DURING STAY: [None]. DISCHARGE DIAGNOSES: Sepsis Viral resp tract infection Coronovirus HKU-1 Pneumonia UTI SECONDARY DIAGNOSIS: Hypertension Pulmonary hypertension-noc ox in 2018 negative. 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 HISTORY OF PRESENT ILLNESS: See history and physical HOSPITAL COURSE: Labs and radiology: reviewed Assessment and plan: Patient is an 84 year old female presenting with chief complaint of "not feeling well". She is a resident [facility] and was sent to the emergency department after she was found to have a temperature of 105 and a white blood cell count of 22.6. Her UA was also positive and respiratory panel came back positive for kim virus Hku-1. She reports few complaints and is the only thing of note that she feels is a change from baseline is that she felt the chills last night and maybe is having some increased difficulty reading. She otherwise admits to a multi-month to multi- year history of a chronic nonproductive cough that is unchanged currently, chronic sinus congestion that is also unchanged. She otherwise feels well. Sepsis due to pneumonia due to resp tranct infection by Coronovirus HKU-1 UTI Patient is SIRS+ with leukocytosis and fever with source of infection from either kim virus Hku-1 and positive UA. Blood culturesx2 ordered at [facility] along with sputum culture, gram stain, urine cultures, legionella pending. please follow up on final cultures Macrocytic Anemia B12, folate, iron studies does not show any def. Patient has history of iron deficiency anemia and is currently on iron supplementation. Continue home iron supplementation. Hypokalemia Repleting potassium Hypertension Continue home valsartan and indapamide Pulmonary hypertension Continue Isordil Monk's esophagus Continue omeprazole, Tums Hypothyroidism Continue home Synthroid dose Generalized anxiety disorder Continue citalopram Chronic cough Continue Tessalon Perles, Lizeth, albuterol as needed. Obesity Complicating care chronic urinary incontinence Continue vesicare DISCHARGE MEDICATIONS: Please see below. ALLERGIES: Please see below. PHYSICAL EXAMINATION ON DISCHARGE: VITAL SIGNS: Please see below. General: No acute distress, laying comfortably in bed. HEENT: Normocephalic, atraumatic. EOMI. No scleral icterus. Moist mucous membranes. No pharyngeal erythema or uvular deviation. Neck: No JVD, lymphadenopathy, or thyromegaly. Cardiac: RRR, Normal S1 and S2, No murmurs, gallops, rubs. Pulm: Diminished breath sounds throughout lung vázquez with decreased expiratory phase of respiration. No wheezing, crackles, rhonchi Abd: Bowel Sounds present. Abdomen is obese, soft, non-tender, non-distended. No guarding, rebound tenderness, or rigidity. Ext: 1+ pitting edema in bilateral lower extremities Neuro: CN 3-12 grossly intact. No focal neuro deficits. LABORATORY DATA: Please see below. ACTIVITY: [As tolerated]. DIET: As tolerated DISPOSITION: 62 D/T Rehab Facility. DISCHARGE CONDITION: [Stable]. TIME SPENT ON DISCHARGE: 35 minutes. Vital Signs/I&Os Vital Signs Date Time Temp Pulse Resp B/P (MAP) Pulse Ox O2 Delivery O2 Flow Rate FiO2 11/15/19 12:03 93 Room Air 11/15/19 12:00 97.4 68 20 11/15/19 08:00 164/74 (104) 11/13/19 22:30 2.0 I&O- Last 24 Hours up to 6 AM 11/16/19 06:00 Intake Total 440 ml Output Total 400 ml Balance 40 ml Microbiology Microbiology 11/13/19 Blood Culture - Preliminary, Resulted No Growth after 48 hours. All Specime... Discharge Medications Scheduled Acetaminophen (Acetaminophen) 325 Mg Tablet, 650 MG PO Q4H, (Reported) START ON 11/13/2019; STOP ON 11/14/2019 Calcium Carbonate/Vitamin D3 (Calcium 600 + Vit D Tablet) 1 Each Tablet, 2 TAB PO DAILY, (Reported) 1200 mg calcium and 1000 IU vitamin D Cefdinir (Cefdinir) 300 Mg Capsule, 1 CAP PO BID for 5 days Citalopram Hydrobromide (Citalopram HBr) 10 Mg Tab, 5 MG PO DAILY, (Reported) Cyclosporine (Restasis) 0.05 % Emu, 1 DROP OU BID, (Reported) Diclofenac Sodium (Diclofenac Sodium) 1 % Gel, 1 DOSE TOP BID, (Reported) APPLY TO NECK AND SHOULDERS: 0600, 2000 Ferrous Sulfate (Ferrous Sulfate) 325 Mg Tablet, 325 MG PO TID, (Reported) Fluticasone Propionate (Flonase Allergy Relief) 9.9 Ml Johnston.susp, 2 SPRAY NA QHS, (Reported) Gabapentin (Neurontin) 300 Mg Cap, 300 MG PO DAILY, (Reported) Indapamide (Indapamide) 1.25 Mg Tablet, 1.25 MG PO DAILY, (Reported) Isosorbide Dinitrate (Isosorbide Dinitrate) 30 Mg Tablet, 30 MG PO QHS, (Reported) L.acidoph/L.bulg/B.bif/S.therm (Bacid Caplet) 1 Each Tablet, 1 TAB PO DAILY, (Reported) Levocetirizine Dihydrochloride (Levocetirizine Dihydrochloride) 5 Mg Tablet, 5 MG PO QHS, (Reported) Levothyroxine Sodium (Levothyroxine Sodium) 25 Mcg Tab, 12.5 MCG PO DAILY, (Reported) Magnesium Chloride (Mag64) 64 Mg Tablet.dr, 128 MG PO DAILY, (Reported) Multivitamins (Thera M Plus Tablet) 1 Each Tablet, 1 TAB PO DAILY, (Reported) Omeprazole (Omeprazole) 40 Mg Cap, 40 MG PO BID, (Reported) 0600, 1600 Sennosides/Docusate Sodium (Senna-S Tablet) 1 Each Tablet, 2 TAB PO BID, (Reported) Solifenacin Succinate (Vesicare) 10 Mg Tab, 10 MG PO QHS, (Reported) Valsartan (Valsartan) 320 Mg Tablet, 320 MG PO QHS, (Reported) Vits A,C,E/Lutein/Minerals (Ocuvite with Lutein Tablet) 1 Tab Tab, 1 TAB PO DAILY, (Reported) Scheduled PRN Acetaminophen (Tylenol) 325 Mg Tablet, 650 MG PO Q4H PRN for PAIN / FEVER, (Reported) Albuterol Sulf (Albuterol Sulfate) 2.5 Mg/3 Ml Vial.neb, 2.5 MG INH Q2H PRN for COUGH, (Reported) Benzonatate (Benzonatate) 200 Mg Capsule, 200 MG PO Q6H PRN for COUGH, (Reported) ESPECIALLY AT NIGHT Bisacodyl (Bisacodyl) 10 Mg Supp.rect, 10 MG SC DAILY PRN for CONSTIPATION, (Reported) Calcium Carbonate (Tums) 500 Mg Chw, 1,000 MG PO TID PRN for DYSPEPSIA, (Reported) Gabapentin (Gabapentin) 300 Mg Cap, 300 MG PO QHS PRN for PAIN, (Reported) Magnesium Hydroxide (Milk of Magnesia) 400 Mg/5 Ml Oral.susp, 30 ML PO DAILY PRN for CONSTIPATION, (Reported) Polyvinyl Alcohol (Artificial Tears) 15 Ml Drops, 1 DROP OU BID PRN for DRY EYES, (Reported) Sodium Chloride (Saline Nasal Johnston) 44 Ml Johnston, 2 SPRAY NA Q4H PRN for NASAL CONGESTION, (Reported) Sodium Phosphate,[place]-Dibasic (Fleet Enema) 133 Ml Enema, 1 MARVEL SC DAILY PRN for CONSTIPATION, (Reported) Allergies Coded Allergies: latex (Verified Allergy, Intermediate, rash, 11/13/19) TAPE (Verified Allergy, Unknown, 09/22/19) meperidine (Verified Adverse Reaction, Mild, nausea, 11/13/19) morphine (Verified Adverse Reaction, Mild, nausea, 11/13/19) RYANN DONALD MD Nov 16, 2019 18:21
== END 2019-11-15 13:12 | DRG 871 ==
LOC: EDBD 18:34 → M ED 18:34 → M ED INP 21:08 → ENRESERVTM 22:17 → ENRESERVDT 22:17 → M PCU 23:07
PROVIDERS: ADMIT Internal Medicine; ATTEND Internal Medicine Nephrology
DX: A41.9 Sepsis, unspecified organism (principal); J12.9 Viral pneumonia, unspecified; N39.0 Urinary tract infection, site not specified; B97.29 Other coronavirus as the cause of diseases classified elsewhere; E87.6 Hypokalemia; I10 Essential (primary) hypertension; E03.9 Hypothyroidism, unspecified; I27.20 Pulmonary hypertension, unspecified; E66.01 Morbid (severe) obesity due to excess calories; M19.90 Unspecified osteoarthritis, unspecified site; D50.9 Iron deficiency anemia, unspecified; F41.1 Generalized anxiety disorder; K57.30 Diverticulosis of large intestine without perforation or abscess without bleeding; K22.70 Barrett's esophagus without dysplasia; K44.9 Diaphragmatic hernia without obstruction or gangrene; K21.9 Gastro-esophageal reflux disease without esophagitis; I44.1 Atrioventricular block, second degree; D53.9 Nutritional anemia, unspecified; R32 Unspecified urinary incontinence; Z79.899 Other long term (current) drug therapy; Z91.040 Latex allergy status; Z88.5 Allergy status to narcotic agent; Z88.8 Allergy status to other drugs, medicaments and biological substances

== ENCOUNTER → 2019-11-13 | Outpatient (REF) ==
[~2019-11-13] MED LIST changes: +ACET-907 PO; +ACET1TAB55 PO; +ALBU83IN INH; +BACITAB PO; +BENZ200C70 PO; +BISA10SU20 PR; +CEFT1INJ5 IM; -DICL1GEL3 TD; +DICL1GEL3 TOP; +FLEEENE12 PR; +FLON1SPR; -FLON1SPR NARES; +HM S0.65; -HM S0.65 NARES; +ISOS30TAB PO; +LEVOTAB10 PO; +MILKSUS PO; +POTA1TAB14 PO; +POTA20TA6 PO; +SENN-23 PO; +VITMTA PO
[2019-11-13 11:54] LABS: HEMATOCRIT 34.7 % (36.0-47.0); HEMOGLOBIN 11.4 g/dl (12.0-15.5); MEAN CORPUSCULAR HEMOGLOBIN 34.2 pg (27.0-33.0); MEAN CORPUSCULAR HGB CONC 32.9 g/dl (32.0-36.5); MEAN CORPUSCULAR VOLUME 104.2 fl (80.0-96.0); PLATELET COUNT, AUTOMATED 246 10^3/uL (150-450); RED BLOOD COUNT 3.33 10^6/uL (4.00-5.40); WHITE BLOOD COUNT 22.6 10^3/uL (4.0-10.0)
[2019-11-13 12:03] LABS: BLOOD UREA NITROGEN 10 MG/DL (7-18); CALCIUM LEVEL 8.7 MG/DL (8.8-10.2); CARBON DIOXIDE LEVEL 28 MEQ/L (21-32); CHLORIDE LEVEL 98 MEQ/L (98-107); CREATININE FOR GFR 0.87 MG/DL (0.55-1.30); GLOMERULAR FILTRATION RATE > 60.0 (>32); GLUCOSE, FASTING 107 MG/DL (70-100); SODIUM LEVEL 133 MEQ/L (136-145)
[2019-11-13 13:33] LABS: APPEARANCE, URINE CLOUDY (CLEAR); BACTERIA, URINE AUTO 3+ (NEGATIVE); BILIRUBIN, URINE AUTO NEGATIVE (NEGATIVE); BLOOD, URINE BLOOD NEGATIVE (NEGATIVE); COLOR, URINE AMBER (YELLOW); GLUCOSE, URINE (UA) AUTO NEGATIVE (NEGATIVE); KETONE, URINE AUTO NEGATIVE (NEGATIVE); LEUKOCYTE ESTERASE, URINE AUTO 2+ (NEGATIVE); NITRITE, URINE AUTO NEGATIVE (NEGATIVE); PROTEIN, URINE AUTO NEGATIVE (NEGATIVE); RBC, URINE AUTO 2 /HPF (0-3); SPECIFIC GRAVITY URINE AUTO 1.015 (1.002-1.035); SQUAMOUS EPITHELIAL CELL UR AU 0 /HPF (0-6); UROBILINOGEN, URINE AUTO 0.2 mg/dL (0.0-2.0); WBC, URINE AUTO 159 /HPF (0-3)
--- NOTE | 2019-11-14 08:16 | REPPI ---
PORTABLE CHEST X-RAY: SINGLE VIEW. HISTORY: Cough. Fever. COMPARISON CHEST X-RAY: October 25, 2019. FINDINGS: The patient is rotated somewhat to the left, similar to the prior study. There is evidence of a large hiatal hernia behind the heart again noted. Cardiomegaly is observed. Pulmonary vasculature is slightly cephalized. There is no evidence of acute pulmonary edema. The left lateral pleural angle is slightly blunted but this is unchanged from recent prior studies including October 03, 2019. No focal infiltrate is seen. IMPRESSION: Large hiatal hernia. Chronic blunting left lateral pleural angle. Mild cephalization. No focal infiltrate seen. Electronically Signed by Silver Carrillo MD 11/14/2019 08:59 A
== END ==
PROVIDERS: ATTEND Family Medicine
DX: I10 Essential (primary) hypertension (principal)

== ENCOUNTER → 2020-03-31 | Outpatient (CLI) | payer MEDICARE, OTHER ==
[~2020-03-31] MED LIST changes: +ACET-907 PO; +ACET1TAB55 PO; +ALBU83IN INH; +BACITAB PO; +BENZ200C70 PO; +BISA10SU20 PR; +CEFD300CAP PO; +CEFT1INJ5 IM; +FLEEENE12 PR; +ISOS30TAB PO; +LEVOTAB10 PO; +MILKSUS PO; +POTA1TAB14 PO; +POTA20TA6 PO; +SENN-23 PO; +VITMTA PO
[2020-03-31 16:17] LABS: HEMATOCRIT 35.6 % (36.0-47.0); HEMOGLOBIN 11.7 g/dl (12.0-15.5); MEAN CORPUSCULAR HEMOGLOBIN 33.6 pg (27.0-33.0); MEAN CORPUSCULAR HGB CONC 32.9 g/dl (32.0-36.5); MEAN CORPUSCULAR VOLUME 102.3 fl (80.0-96.0); PLATELET COUNT, AUTOMATED 274 10^3/uL (150-450); RED BLOOD COUNT 3.48 10^6/uL (4.00-5.40); WHITE BLOOD COUNT 8.5 10^3/uL (4.0-10.0)
[2020-03-31 17:03] LABS: ALBUMIN 3.9 GM/DL (3.2-5.2); BILIRUBIN,TOTAL 0.6 MG/DL (0.2-1.0); CALCIUM LEVEL 9.8 MG/DL (8.8-10.2); GLOMERULAR FILTRATION RATE 56.4 (>32); PERCENT SATURATION 27.5 % (13.2-45.0); POTASSIUM SERUM 4.6 MEQ/L (3.5-5.1); THYROID STIMULATING HORMONE 1.31 uIU/ML (0.358-3.740); TOTAL PROTEIN 7.3 GM/DL (6.4-8.2)
== END ==
LOC: M PLALAB 12:20
PROVIDERS: ATTEND Nurse Practitioner Adult Health
DX: E03.9 Hypothyroidism, unspecified (principal); D50.0 Iron deficiency anemia secondary to blood loss (chronic); I10 Essential (primary) hypertension
CPT/HCPCS: 36415; 80053; 83550; 84443; 85027; G0463

== ENCOUNTER → 2020-04-22 | Outpatient (CLI) | payer MEDICARE, OTHER ==
--- NOTE | 2020-04-22 10:55 | PFTRPT ---
Visit Date: 04/22/2020 Second ID: [id number] Referring Doctor: DORON Wilde Marcus, M Height: 63.00 Inches Weight: 220.00 Lbs BSA: 2.01 Diagnosis: R06.02 TECHNIQUE: Pre- and post-bronchodilator study of excellent technical quality. FINDINGS: Forced vital capacity reduced. FEV1 is in proportion of obstructive index; therefore, normal. Expiratory limit within the flow-volume loop does suggest some degree of limitation; however, favorable bronchodilator response is identified. Total lung capacity normal. Residual volume does suggest a degree of air trapping. Diffusing capacity is significantly reduced, but is appropriate for alveolar volume. Hemoglobin is mildly reduced at 11. Airway resistance and conductance are normal. IMPRESSION: Nonspecific flow loop limitation with bronchodilator response; underlying air trapping; concomitant anemia. Please correlate clinically. MTDD
== END ==
LOC: M CARPUL 08:33
PROVIDERS: ATTEND Physician Assistant
DX: R06.02 Shortness of breath (principal)

== ENCOUNTER → 2020-06-27 | Outpatient (CLI) | payer MEDICARE, OTHER ==
[~2020-06-27] MED LIST changes: +E-Z-GAS II EFFERVESCENT PACKET (SODIUM BICARB./CITRIC ACID/SIMETHICONE) As Ordered ONE; +E-Z-HD 98% w/w 340GM SUSP BTL As Ordered ONE; +E-Z-PAQUE 96% w/w SUSP 176GM BTL As Ordered ONE
--- NOTE | 2020-06-27 16:36 | REP ---
INDICATION: DYSKINESIA OPF ESPHAGUS. COMPARISON: None TECHNIQUE: This procedure was performed by Allyn Paniagua [facility], under the direct supervision of Dr. Zaragoza. Images were reviewed with Dr. Zaragoza prior to dictation. Liquid barium was given in the semi erect position, as well as in the supine oblique position in order to perform a double contrast upper GI examination. FINDINGS: A single view PA chest x-ray is submitted as a risk management analyst film. There is no change since the previous chest x-ray dated 11/13/2019. This study is extremely limited due to the patient's lack of mobility. The oral and pharyngeal stages of deglutition were unremarkable. Esophageal transport is prompt and efficient and there is no evidence of esophagitis, stricture, or mucosal ring. There there is evidence of a hiatal hernia. Gastroesophageal reflux was visualized to the level of the thoracic inlet. IMPRESSION: 1. Limited esophagram due to patient's lack of mobility. 2. Hiatal hernia. 3. Gastroesophageal reflux to the level of the thoracic inlet. 0.2 minutes of fluoroscopy time was utilized for this procedure. Some fluoroscopic images are performed with last image hold technology. These images require no additional radiation. <Electronically signed by Allyn Paniagua > 06/27/20 1613 <Electronically signed by Aubrey Zaragoza > 06/27/20 1632
== END ==
LOC: M RAD 07:30
PROVIDERS: ATTEND Internal Medicine Gastroenterology
DX: K22.4 Dyskinesia of esophagus (principal); K44.9 Diaphragmatic hernia without obstruction or gangrene; K21.9 Gastro-esophageal reflux disease without esophagitis

== ENCOUNTER → 2020-07-19 | Outpatient (CLI) | payer MEDICARE, OTHER ==
[~2020-07-19] MED LIST changes: +ALLE60TA69 PO; +CALC600C3 PO; -E-Z-GAS II EFFERVESCENT PACKET (SODIUM BICARB./CITRIC ACID/SIMETHICONE) As Ordered ONE; -E-Z-HD 98% w/w 340GM SUSP BTL As Ordered ONE; -E-Z-PAQUE 96% w/w SUSP 176GM BTL As Ordered ONE; +SPIR-10 PO; +ZEAS2POW4 TP
== END ==
LOC: M LABSMTC 10:35
PROVIDERS: ATTEND Anesthesiology
DX: Z01.818 Encounter for other preprocedural examination (principal); Z20.828 Contact with and (suspected) exposure to other viral communicable diseases

== ENCOUNTER 2020-07-24 12:10 | Day surgery (SDC) | payer MEDICARE, OTHER ==
[~2020-07-24] VITALS: Ht 162.6 cm; Wt 106.6 kg
[~2020-07-24 12:10] MED LIST changes: +NS 1,000 ML IV ONE
[2020-07-24] MEDS ORDERED: fentaNYL 100 MCG/2 ML INJECTION (J3010) As Ordered ONE (12:52)
[2020-07-24] MEDS ORDERED: LIDOCAINE 2% 100MG/5ML SDV (FOR ANES.) As Ordered ONE (12:52)
[2020-07-24] MEDS ORDERED: propofoL 200 MG/20 ML VIAL As Ordered ONE (12:52)
--- NOTE | 2020-07-24 13:50 | ROOR ---
Patient Name: Marlyn Loco Procedure Date: 07/24/2020 1:22 PM Date of : 1935 Age: 85 Room: [facility] Gender: Female Note Status: Finalized Procedure: Upper GI endoscopy Indications: Dysphagia, Heartburn Providers: Amari GUZMAN MD Referring MD: Natty Craig NP Requesting Provider: Medicines: Monitored Anesthesia Care Complications: No immediate complications. Procedure: Pre-Anesthesia Assessment: - The heart rate, respiratory rate, oxygen saturations, blood pressure, adequacy of pulmonary ventilation, and response to care were monitored throughout the procedure. The Endoscope was introduced through the mouth, and advanced to the second part of duodenum. The upper GI endoscopy was accomplished without difficulty. The patient tolerated the procedure well. Findings: White nummular lesions were noted in the entire esophagus. The Z-line was variable and was found 28 cm from the incisors. This was biopsied with a cold forceps for histology. A large hiatal hernia was present. The exam of the stomach was otherwise normal. The examined duodenum was normal. Impression: - White nummular lesions in esophageal mucosa c/w naldo esophagitis. - Z-line variable, 28 cm from the incisors. Biopsied. - Dilated esophagus, but no strictures seen. Ferr reflux through a widely open LES. - Large/Huge hiatal hernia. - Normal examined duodenum. Recommendation: - Await pathology results. - Nystatin suspension 100,000 units PO QID for 10 days. (script sent to pharmacy). - Consider referral back to surgery for repair of hiatal hernia. - Observe patient's clinical course. Procedure Code(s): --- Professional --- 36584, Esophagogastroduodenoscopy, flexible, transoral; with biopsy, single or multiple Diagnosis Code(s): --- Professional --- K22.8, Other specified diseases of esophagus K44.9, Diaphragmatic hernia without obstruction or gangrene R13.10, Dysphagia, unspecified R12, Heartburn CPT copyright 2019 [employer]. All rights reserved. The codes documented in this report are preliminary and upon vision therapist review may be revised to meet current compliance requirements. Amari Guzman MD Amari GUZMAN MD 07/24/2020 1:50:24 PM Electronically signed by Amari GUZMAN MD Number of Addenda: 0 Note Initiated On: 07/24/2020 1:22 PM Estimated Blood Loss: Estimated blood loss: none.
[2020-07-24 14:10] VITALS: BP 164/76
== END 2020-07-24 15:30 | disposition home or self-care (01) ==
LOC: M OPP 12:10
PROVIDERS: ATTEND Internal Medicine Gastroenterology
DX: K22.8 Other specified diseases of esophagus (principal); K44.9 Diaphragmatic hernia without obstruction or gangrene; R13.10 Dysphagia, unspecified; R12 Heartburn; I10 Essential (primary) hypertension; E03.9 Hypothyroidism, unspecified; Z79.899 Other long term (current) drug therapy; Z88.5 Allergy status to narcotic agent; Z88.8 Allergy status to other drugs, medicaments and biological substances; Z91.040 Latex allergy status; Z91.048 Other nonmedicinal substance allergy status
CPT/HCPCS: 43239; 88305; J3010

== ENCOUNTER 2021-03-01 23:06 | Emergency (ER) | payer MEDICARE, OTHER ==
[~2021-03-01] VITALS: Ht 162.6 cm; Wt 102.3 kg
[~2021-03-01 23:06] MED LIST changes: +GABA-282 PO; -GABA-843 PO; +HYDR-3490 PO; -HYDR25TAB PO; +ISOS1TAB35 PO; -ISOS30TA4 PO; +MAGN400O57 PO; -MILKSUS PO; -NS 1,000 ML IV ONE; +OMEP40CA4 PO; -OMEP40CA97 PO
[2021-03-02 00:07] LABS: BASO % 0.4 % (0.0-1.0); EOS # 0.2 10^3/uL (0.0-0.5); EOS % 2.6 % (0.0-3.0); HEMATOCRIT 35.1 % (36.0-47.0); HEMOGLOBIN 11.4 g/dl (12.0-15.5); LYMPH # 1.8 10^3/uL (1.5-5.0); LYMPH % 19.2 % (24.0-44.0); MEAN CORPUSCULAR HEMOGLOBIN 33.3 pg (27.0-33.0); MEAN CORPUSCULAR HGB CONC 32.5 g/dl (32.0-36.5); MEAN CORPUSCULAR VOLUME 102.6 fl (80.0-96.0); MONO # 0.8 10^3/uL (0.0-0.8); NEUTROPHILS # 6.3 10^3/uL (1.5-8.5); NEUTROPHILS % 67.9 % (36.0-66.0); PLATELET COUNT, AUTOMATED 253 10^3/uL (150-450); RED BLOOD COUNT 3.42 10^6/uL (4.00-5.40); WHITE BLOOD COUNT 9.2 10^3/uL (4.0-10.0)
[2021-03-02 00:33] LABS: ALBUMIN 3.8 GM/DL (3.2-5.2); ALT/SGPT 23 U/L (12-78); BILIRUBIN,DIRECT 0.2 MG/DL (0.0-0.2); BILIRUBIN,TOTAL 0.5 MG/DL (0.2-1.0); BLOOD UREA NITROGEN 35 MG/DL (7-18); CALCIUM LEVEL 9.3 MG/DL (8.8-10.2); CARBON DIOXIDE LEVEL 28 MEQ/L (21-32); CHLORIDE LEVEL 98 MEQ/L (98-107); CK-MB VALUE MASS 1.9 NG/ML (<3.6); CPK CREATINE PHOSPHOKINASE 73 U/L (26-192); FREE T4 1.16 NG/DL (0.76-1.46); GLOMERULAR FILTRATION RATE 41.5 (>32); GLUCOSE, FASTING 100 MG/DL (70-100); POTASSIUM SERUM 4.7 MEQ/L (3.5-5.1); SODIUM LEVEL 132 MEQ/L (136-145); TOTAL PROTEIN 7.2 GM/DL (6.4-8.2); TROPONIN I < 0.02 NG/ML (< 0.10)
--- NOTE | 2021-03-02 02:05 | REPVR ---
PROCEDURE INFORMATION: Exam: XR Left Knee Exam date and time: 03/02/2021 1:10 AM Age: 85 years old Clinical indication: Pain; Knee; Left; Additional info: Trauma TECHNIQUE: Imaging protocol: XR Left knee. Views: 4 or more views. COMPARISON: None FINDINGS: Evaluation is suboptimal as there is no complete frontal projection obtained. The bones appear demineralized. Clinical follow-up for osteoporosis. Evaluation for subtle injury is compromised by demineralized bones. The patient is status post a left total knee replacement with cemented components and patellar resurfacing. Femorotibial spacing appears preserved. No evidence of component loosening is seen. No periprosthetic fracture is seen. Patellofemoral alignment is not reliably assessed on these views. No evidence of a significant suprapatellar effusion is seen. Clinical correlation is advised. Vascular calcifications are seen. IMPRESSION: Study limitations discussed above. No evidence of an acute displaced fracture is seen otherwise. Electronically signed by: Henri Urrutia On 03/02/2021 02:04:16 AM
--- NOTE | 2021-03-02 02:08 | REPVR ---
PROCEDURE INFORMATION: Exam: XR Chest Exam date and time: 03/02/2021 1:10 AM Age: 85 years old Clinical indication: Other: General weakness; Additional info: Gen weakness TECHNIQUE: Imaging protocol: XR of the chest. Views: 2 views. COMPARISON: CR PORTABLE CHEST 10/08/2019 3:17 PM FINDINGS: LUNGS and PLEURAL SPACE: Again noted is opacity at the left lung base which may be secondary to chronic pleural fluid, pleural thickening and/or parenchymal scarring/atelectasis. No acute appearing infiltrate is seen. No pneumothorax is seen. MEDIASTINUM: There is no mediastinal shift or widening. CARDIAC SILHOUETTE: Suae-xf-regspzyl cardiac enlargement. Aortic atherosclerosis. There is a 12 cm retrocardiac opacity containing gas, likely the previously mentioned hiatal hernia. BONY THORAX: The bones appear demineralized. There is slightly accentuated thoracic kyphosis. There is moderately severe rightward convex scoliosis. There is overlapping of the right humeral head with the glenoid which could be positional or related to malalignment of the joint. There is deformity of the humeral heads bilaterally consistent with bony remodeling from chronic osteoarthritic change. Clinical correlation is advised. OTHER: An IVC filter is noted. IMPRESSION: No acute infiltrate is seen. Chronic appearing findings discussed above in detail. Electronically signed by: Henri Urrutia On 03/02/2021 02:08:14 AM
--- NOTE | 2021-03-02 02:16 | REPVR ---
PROCEDURE INFORMATION: Exam: XR Left Hip Exam date and time: 03/02/2021 1:10 AM Age: 85 years old Clinical indication: Hip pain and pelvic pain; Left hip; Prior surgery; Surgery date: 6+ months; Surgery type: 2008 hip replacment; Additional info: Trauma TECHNIQUE: Imaging protocol: XR Left hip. Views: 2 or 3 views hip with pelvis when performed. COMPARISON: CT ABD PELVIS WITH CONTRAST 04/05/2019 5:07 PM FINDINGS: Evaluation of pelvic structures is suboptimal secondary to demineralization of bones, body habitus and overlying bowel gas and fecal material. Degenerative change of the visualized lower lumbar spine noted. Degenerative change noted at the sacroiliac joints. The sacroiliac joints appear symmetric. The pubic symphysis is anatomically aligned. The obturator rings appear to be intact. Again noted, the left femoral head has been removed. There is some metallic hardware along the left acetabulum and left proximal femur as well as multiple femoral cerclage wires. There are some calcific densities overlying the site of the left hip joint. There appears to be severe demineralization of the left iliac bone above and including the left acetabulum. This may be slightly more extensive than on the prior study. Comparison is difficult due to differences in technique. Differential would include infection, osteolysis secondary to particle disease or malignancy. No conclusive displaced fracture is seen, however subtle nondisplaced fracture could be obscured by the overlying artifact discussed above as well as in the region of the left proximal femur and acetabulum additionally by overlying metallic hardware. For further evaluation in this patient for acute osseous injury, consideration could be given to bone scan. If infection is suspected, consideration could be given to white blood cell scan. For overall evaluation of the pelvis consideration could be given to CT. IMPRESSION: Multiple findings, limitations and recommendations discussed above in detail. Electronically signed by: Henri Urrutia On 03/02/2021 02:16:16 AM
--- NOTE | 2021-03-02 02:21 | REPVR ---
PROCEDURE INFORMATION: Exam: XR Left Femur Exam date and time: 03/02/2021 1:10 AM Age: 85 years old Clinical indication: Pain; Thigh; Left; Additional info: Trauma TECHNIQUE: Imaging protocol: XR Left femur. Views: 2 views. COMPARISON: CT pelvis April 05, 2019. FINDINGS: Diagnostic evaluation is partially compromised secondary to bony demineralization and body habitus. The left proximal femur has been resected. There is some calcific density scattered within the soft tissues between the left proximal femur and left acetabulum with a distance of approximately 4.7 cm. There is some metallic hardware at the acetabulum as well as along the proximal femur. There is bony demineralization and osteolytic deformity involving the left iliac bone just above the acetabulum measuring approximately 5.8 cm in diameter. The entire left iliac bone above the level of this osteolysis appears to be of greater demineralization than the adjacent pelvic bones. This could be secondary to infection, progressive particle disease or malignancy. Clinical correlation is advised. A left total knee replacement is seen at the distal femur. There is some chronic appearing nonaggressive periosteal thickening along the proximal and distal femur. No visible acute displaced fracture is seen. Vascular calcifications noted. In this patient, for evaluation of subtle osseous injury optimal choice would be bone scan. For evaluation of infection, including infected hardware or joint space consider white blood cell scan and or aspiration respectively. IMPRESSION: Findings, limitations and recommendations discussed above in detail. Electronically signed by: Henri Urrutia On 03/02/2021 02:21:25 AM
[2021-03-02 02:41] VITALS: O2SAT 97
[2021-03-02 03:07] VITALS: BP 162/80
--- NOTE | 2021-03-02 20:33 | ECGEPIP ---
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
== END 2021-03-02 03:08 | disposition home or self-care (01) ==
LOC: M ED 23:06
DX: M25.552 Pain in left hip (principal); W19.XXXA Unspecified fall, initial encounter; Y92.9 Unspecified place or not applicable; Y93.9 Activity, unspecified; Y99.9 Unspecified external cause status; I44.0 Atrioventricular block, first degree; I45.10 Unspecified right bundle-branch block; Z79.899 Other long term (current) drug therapy; Z91.040 Latex allergy status; Z91.89 Other specified personal risk factors, not elsewhere classified; Z88.5 Allergy status to narcotic agent; Z88.8 Allergy status to other drugs, medicaments and biological substances

== ENCOUNTER 2021-04-13 18:08 | Emergency (ER) | payer MEDICARE, OTHER ==
[~2021-04-13] VITALS: Ht 162.6 cm; Wt 111.4 kg
[2021-04-13] MEDS ORDERED: MORPHINE 2 MG/ML 1ML VIAL (J2270) IV ONE (18:45)
[2021-04-13] MEDS ORDERED: ONDANSETRON 4MG/2ML VIAL IV ONE (18:45)
[2021-04-13 19:24] LABS: BASO % 0.2 % (0.0-1.0); EOS # 0.2 10^3/uL (0.0-0.5); EOS % 1.4 % (0.0-3.0); HEMATOCRIT 35.4 % (36.0-47.0); HEMOGLOBIN 11.8 g/dl (12.0-15.5); LYMPH # 1.1 10^3/uL (1.5-5.0); LYMPH % 8.8 % (24.0-44.0); MEAN CORPUSCULAR HEMOGLOBIN 33.8 pg (27.0-33.0); MEAN CORPUSCULAR HGB CONC 33.3 g/dl (32.0-36.5); MEAN CORPUSCULAR VOLUME 101.4 fl (80.0-96.0); MONO # 1.1 10^3/uL (0.0-0.8); MONO % 9.1 % (2.0-8.0); NEUTROPHILS # 9.7 10^3/uL (1.5-8.5); NEUTROPHILS % 79.9 % (36.0-66.0); PLATELET COUNT, AUTOMATED 230 10^3/uL (150-450); RED BLOOD COUNT 3.49 10^6/uL (4.00-5.40); WHITE BLOOD COUNT 12.1 10^3/uL (4.0-10.0)
--- NOTE | 2021-04-13 19:48 | REPVR ---
PROCEDURE INFORMATION: Exam: CT Thoracic Spine Without Contrast Exam date and time: 04/13/2021 6:43 PM Age: 85 years old Clinical indication: Injury or trauma; Fall; Blunt trauma (contusions or hematomas); Additional info: Fall, abnl swelling sup/anterior chest wall, pain R scap/peter TECHNIQUE: Imaging protocol: Computed tomography images of the thoracic spine without contrast. Radiation optimization: All CT scans at this facility use at least one of these dose optimization techniques: automated exposure control; mA and/or kV adjustment per patient size (includes targeted exams where dose is matched to clinical indication); or iterative reconstruction. COMPARISON: CT Chest without contrast 09/22/2019 12:50 PM FINDINGS: Vertebrae: There is been interval development of a moderate compression deformity of the T5 vertebral body (). There is retropulsion. There is a 25 degree dextroscoliosis. Discs/Spinal canal/Neural foramina: There is loss of disc space height throughout the intervertebral disc spaces related to degenerative disc disease; There is ankylosis T11 and T12. There is no thoracic stenosis. Soft tissues: Unremarkable. IMPRESSION: 1. Findings consistent with a moderate compression fracture T5 which has developed since the prior exam (09/27) and may be acute. 2. There is no retropulsion or evidence of an epidural collection. Electronically signed by: Chano Armstrong On 04/13/2021 19:48:41 PM
--- NOTE | 2021-04-13 19:54 | REPVR ---
PROCEDURE INFORMATION: Exam: CT Chest Without Contrast; Diagnostic Exam date and time: 04/13/2021 6:43 PM Age: 85 years old Clinical indication: Injury or trauma; Fall; Blunt trauma (contusions or hematomas); Additional info: Fall, abnl swelling sup/anterior chest wall, pain R scap/peter TECHNIQUE: Imaging protocol: Diagnostic computed tomography of the chest without contrast. Radiation optimization: All CT scans at this facility use at least one of these dose optimization techniques: automated exposure control; mA and/or kV adjustment per patient size (includes targeted exams where dose is matched to clinical indication); or iterative reconstruction. COMPARISON: CT Chest without contrast 09/22/2019 12:50 PM FINDINGS: Lungs: There is right basilar atelectasis. There is chronic left basilar bronchiectasis and consolidation. Pleural spaces: No pneumothorax. No pleural effusion. Heart: There are coronary artery calcifications. Mediastinal space: There is a large hiatal hernia. There is contrast and ingested material throughout the dilated thoracic esophagus. Aorta: There is atherosclerotic disease of the thoracic aorta without aneurysmal dilatation. Lymph nodes: No enlarged lymph nodes. Bones/joints: There are marked degenerative changes of the glenohumeral joints. There are healed fractures of the lower right ribs. No acute displaced rib fracture is demonstrated. Soft tissues: Unremarkable. IMPRESSION: 1. Possible acute moderate compression fracture of T5 (see CT thoracic spine). 2. No sequela of acute intrathoracic trauma. Electronically signed by: Chano Armstrong On 04/13/2021 19:54:18 PM
[2021-04-13 19:59] LABS: CK-MB VALUE MASS 1.4 NG/ML (<3.6); CPK CREATINE PHOSPHOKINASE 54 U/L (26-192); MB/CK RELATIVE INDEX 2.59 (< OR =4); TROPONIN I < 0.02 NG/ML (< 0.10)
[2021-04-13] MEDS ORDERED: NS 1,000 ML IV ONE (20:35)
[2021-04-13] MEDS ORDERED: PERCOCET 5MG/325MG TAB PO ONE (21:00)
[2021-04-13] MEDS ORDERED: PERC5TAB12 PO (22:23)
[2021-04-13 22:31] VITALS: BP 169/72
[2021-04-13] MEDS ORDERED: OXYCODONE/APAP 5MG/325MG(BULK FOR ED) 1 TABLET PO ONE (23:10)
--- NOTE | 2021-04-15 04:27 | ECGEPIP ---
[facility] - ED Test Date: 2021-04-13 Pat Name: PANKAJ AMES Department: Room: - Gender: Female [employer]ler Truck Driver: JAMAR : 1935 Requested By: SARANYA Harper PA-C Order Number: [id number] Reading MD: Jaime Whipple Measurements Intervals [place] Rate: 66 P: 80 UT: 286 QRS: 98 QRSD: 154 T: 15 QT: 414 QTc: 434 Interpretive Statements Sinus rhythm with marked sinus arrhythmia with 1st degree AV block Right bundle branch block Anterolateral infarct , age undetermined Cannot rule out Inferior infarct , age undetermined Electronically Signed on 04-15-2021 4:27:09 EDT by Jaime Whipple
== END 2021-04-13 23:20 | disposition home or self-care (01) ==
LOC: M ED 18:08
DX: S22.050A Wedge compression fracture of T5-T6 vertebra, initial encounter for closed fracture (principal); W06.XXXA Fall from bed, initial encounter; Y92.099 Unspecified place in other non-institutional residence as the place of occurrence of the external cause; Y93.9 Activity, unspecified; Y99.9 Unspecified external cause status; I45.10 Unspecified right bundle-branch block; I44.0 Atrioventricular block, first degree; Z79.899 Other long term (current) drug therapy; Z91.89 Other specified personal risk factors, not elsewhere classified; Z91.040 Latex allergy status; Z88.5 Allergy status to narcotic agent; Z88.8 Allergy status to other drugs, medicaments and biological substances
CPT/HCPCS: 71250; 72128; 80047; 82550; 82553; 84484; 85025; 93005; 96361; 96374; 96375; 99284; J2270; J2405

== ENCOUNTER 2021-04-16 08:53 | Emergency (ER) | payer MEDICARE, OTHER ==
[~2021-04-16] VITALS: Ht 162.6 cm; Wt 107.3 kg
[~2021-04-16 08:53] MED LIST changes: +PERC5TAB12 PO
[2021-04-16] MEDS ORDERED: ACETAMINOPHEN 325 MG TAB PO ONE (09:10)
--- NOTE | 2021-04-16 09:39 | REP ---
INDICATION: trauma. COMPARISON: Comparison brain CT study 21 August 2017. TECHNIQUE: Helical scanning is acquired. 5 mm axial images were reformatted. Coronal MPR images were generated. FINDINGS: Bone window settings demonstrate an intact bony calvarium. There is no evidence of skull fracture or incidental bony calvarial lesion. The visualized paranasal sinuses appear clear. No intraorbital abnormality is seen. On soft tissue window setting images; the lateral, third, and fourth ventricles are normal in size and position. Zaragoza-white differentiation pattern is normal above and below the tentorium. There are is no evidence of intracranial hemorrhage. No mass, edema, infarction, or midline shift is seen. No extra-axial fluid collection is appreciated. There is moderate generalized volume loss. Vascular calcification is noted. IMPRESSION: Generalized volume loss and vascular calcification. No acute intracranial abnormality. No skull fracture or intracranial injury seen. <Electronically signed by Marcos Carrillo > 04/16/21 0936
--- NOTE | 2021-04-16 09:41 | REP ---
INDICATION: trauma. COMPARISON: None. TECHNIQUE: Helical scanning is acquired and overlapping 2 mm high resolution axial images were generated and reviewed at bone and soft tissue window settings. Coronal and sagittal multiplanar re-formations images are generated. FINDINGS: There is no evidence of cervical spine element fracture. No skull base fracture is seen. Cervical vertebral body heights are preserved. Alignment is normal. Facet joints are normally aligned bilaterally at each cervical level on multiplanar re-formations images. There is no evidence of intraspinal or paraspinal hematoma. No extra vertebral abnormality is seen. There is degenerative spondylosis. Diffuse degenerative disc disease is seen. Osteoarthritic facet changes are noted in the mid cervical spine bilaterally. A moderate levoconvex curvature is noted. IMPRESSION: Degenerative spondylosis changes, cervical curvature/scoliosis. Vascular calcification. No traumatic abnormality noted. <Electronically signed by Marcos Carrillo > 04/16/21 0958
--- NOTE | 2021-04-16 09:56 | REP ---
INDICATION: trauma. COMPARISON: Comparison radiographs March 02, 2021. TECHNIQUE: Four views of the right knee are provided. No sunrise view. FINDINGS: Four views of the right knee demonstrate diffuse osteopenia. Right knee arthroplasty components are well aligned. No fracture is seen about the knee. Vascular calcification is observed. IMPRESSION: Post right knee arthroplasty. No fracture seen. Some vascular calcification. Diffuse osteoporosis. <Electronically signed by Marcos Carrillo > 04/16/21 0967
--- NOTE | 2021-04-16 09:57 | REP ---
INDICATION: trauma COMPARISON: None. TECHNIQUE: Five views left elbow. FINDINGS: There is no radiographic evidence of fracture. Large spurs are noted of the head of the radius and also of the olecranon. There is joint space narrowing and subchondral sclerosis diffusely. There is an oval calcific body at the posterolateral joint margin measuring approximately 15 x 10 mm. IMPRESSION: No fracture or dislocation. Degenerative changes. <Electronically signed by Aubrey Zaragoza > 04/16/21 0913
--- NOTE | 2021-04-16 10:02 | REPVR ---
PROCEDURE INFORMATION: Exam: CT Thoracic Spine Without Contrast Exam date and time: 04/16/2021 9:28 AM Age: 85 years old Clinical indication: Injury or trauma; Fall; Blunt trauma (contusions or hematomas) TECHNIQUE: Imaging protocol: Computed tomography images of the thoracic spine without contrast. Radiation optimization: All CT scans at this facility use at least one of these dose optimization techniques: automated exposure control; mA and/or kV adjustment per patient size (includes targeted exams where dose is matched to clinical indication); or iterative reconstruction. COMPARISON: CT Spine,thoracic w/o contrast 04/13/2021 6:50 PM FINDINGS: Vertebrae: Severe dextroscoliosis of the thoracic spine and levoscoliosis of the visualized lumbar spine. Diffuse demineralization of the bones. Multilevel degenerative changes with anterior osteophyte formation, loss of disc spaces, and facet joint arthropathy. No acute fracture. Discs/Spinal canal/Neural foramina: No significant disc protrusion. No severe spinal canal stenosis. No significant neural foraminal narrowing. Other bones/joints: Right 9th rib fracture with remodeling; chronic. Soft tissues: Unremarkable. Vasculature: Moderate atherosclerosis. Mediastinum: Large hiatal hernia containing most of the stomach. Stomach appears to be thickened filled with ingested material, findings are partially seen. Other findings: IVC filter. IMPRESSION: No acute findings. Degenerative changes with severe dextroscoliosis as described above. Electronically signed by: Fiona Castro On 04/16/2021 10:02:21 AM
--- NOTE | 2021-04-16 12:00 | REP ---
INDICATION: cough x months COMPARISON: Chest radiograph 03/02/2021. TECHNIQUE: Three views right shoulder. FINDINGS: There is no evidence of acute fracture, dislocation, or intrinsic bone disease.Severe arthritic changes are seen at the glenohumeral and acromioclavicular joints in the form of joint space narrowing and moderate diffuse spurring. IMPRESSION: No fracture or dislocation. Severe arthritic changes right shoulder. <Electronically signed by Aubrey Zaragoza > 04/16/21 2097
--- NOTE | 2021-04-16 12:13 | REP ---
INDICATION: cough x months. COMPARISON: 03/02/2021 TECHNIQUE: AP and lateral FINDINGS: The technique utilized in obtaining the radiograph has magnified the cardiac silhouette and accentuated the interstitial markings. There is cardiomegaly accentuated by technique status quo. Note is again made of a hiatal hernia. There is no significant change in appearance of the lung vázquez. No new abnormal opacities have developed. There is no change in the osseous structures. There is an old proximal right humeral fracture. IMPRESSION: Stable appearing chronic changes <Electronically signed by Devaughn Everett > 04/16/21 0154
--- NOTE | 2021-04-16 12:15 | REP ---
INDICATION: cough x months COMPARISON: None. TECHNIQUE: Four views right elbow. FINDINGS: There is no evidence of acute fracture, dislocation, or intrinsic bone disease.There is mild calcification in the distal triceps tendon. There is mild spurring of the coronoid process. IMPRESSION: No fracture or dislocation. Mild calcification distal triceps tendon. <Electronically signed by Aubrey Zaragoza > 04/16/21 [id number]
[2021-04-16 13:30] VITALS: BP 175/84
--- NOTE | 2021-04-16 19:02 | ECGEPIP ---
[facility] - ED Test Date: 2021-04-16 Pat Name: PANKAJ AMES Department: Room: - Gender: Female Contact Center Agent: TAYLOR : 1935 Requested By: Mago Last Order Number: [id number] Reading MD: Jaiem Whipple Measurements Intervals [place] Rate: 88 P: 66 SC: 256 QRS: 100 QRSD: 150 T: -1 QT: 368 QTc: 445 Interpretive Statements Sinus rhythm with 1st degree AV block with premature atrial complexes Right bundle branch block Anterolateral infarct , age undetermined Cannot rule out Inferior infarct , age undetermined SIMILAR TO 04/13/21 Electronically Signed on 04-16-2021 19:01:50 EDT by Jaime Whipple
== END 2021-04-16 14:13 | disposition home or self-care (01) ==
LOC: M ED 08:53
DX: S22.040A Wedge compression fracture of fourth thoracic vertebra, initial encounter for closed fracture (principal); S22.050A Wedge compression fracture of T5-T6 vertebra, initial encounter for closed fracture; T14.8XXA Other injury of unspecified body region, initial encounter; V00.818A Other accident with wheelchair (powered), initial encounter; Y92.531 Health care provider office as the place of occurrence of the external cause; Y93.9 Activity, unspecified; Y99.9 Unspecified external cause status; I45.10 Unspecified right bundle-branch block; I44.0 Atrioventricular block, first degree; F41.9 Anxiety disorder, unspecified; M19.90 Unspecified osteoarthritis, unspecified site; Z96.651 Presence of right artificial knee joint; M47.812 Spondylosis without myelopathy or radiculopathy, cervical region; Z79.899 Other long term (current) drug therapy; Z91.89 Other specified personal risk factors, not elsewhere classified; Z91.040 Latex allergy status; Z88.8 Allergy status to other drugs, medicaments and biological substances; Z88.5 Allergy status to narcotic agent

== ENCOUNTER 2021-04-22 14:11 | Inpatient (IN) | payer MEDICARE, OTHER ==
[~2021-04-22] VITALS: Ht 162.6 cm; Wt 106.8 kg
[~2021-04-22 14:11] MED LIST changes: -CITA10TA5 PO; +CITA10TA7 PO; -FLON1SPR; +FLON1SPR NARES; -HM S0.65; +HM S0.65 NARES; +LOSA100T45 PO; -LOSA100T50 PO; +POTA-151 PO; -POTA20TA6 PO
[2021-04-22 15:58] LABS: HEMATOCRIT 30.8 % (36.0-47.0); MEAN CORPUSCULAR HEMOGLOBIN 33.7 pg (27.0-33.0); MEAN CORPUSCULAR HGB CONC 32.5 g/dl (32.0-36.5); MEAN CORPUSCULAR VOLUME 103.7 fl (80.0-96.0); PLATELET COUNT, AUTOMATED 255 10^3/uL (150-450); RED BLOOD COUNT 2.97 10^6/uL (4.00-5.40); WHITE BLOOD COUNT 10.5 10^3/uL (4.0-10.0)
[2021-04-22 16:09] LABS: BLOOD UREA NITROGEN 26 MG/DL (7-18); CALCIUM LEVEL 10.4 MG/DL (8.8-10.2); CARBON DIOXIDE LEVEL 27 MEQ/L (21-32); CHLORIDE LEVEL 99 MEQ/L (98-107); CK-MB VALUE MASS 1.7 NG/ML (<3.6); CPK CREATINE PHOSPHOKINASE 54 U/L (26-192); CREATININE FOR GFR 1.09 MG/DL (0.55-1.30); GLOMERULAR FILTRATION RATE 50.9 (>32); GLUCOSE, FASTING 101 MG/DL (70-100); MB/CK RELATIVE INDEX 3.15 (< OR =4); NT-PRO BNP 2902 PG/ML (<450); SODIUM LEVEL 131 MEQ/L (136-145); TROPONIN I < 0.02 NG/ML (< 0.10)
[2021-04-22 16:22] LABS: RSV AMPLIFICATION NEGATIVE (NEGATIVE)
[2021-04-22] MEDS ORDERED: FUROSEMIDE 40MG/4ML VIAL (J1940) IV ONE (16:45)
[2021-04-22] MEDS ORDERED: BENZ-18 PO (18:24)
[2021-04-22] MEDS ORDERED: [UNRECOGNIZED DRUG - CODE] PO (18:24)
[2021-04-22] MEDS ORDERED: CALCCAP4 PO (18:24)
[2021-04-22] MEDS ORDERED: [UNRECOGNIZED DRUG - OTHER] PO (18:24)
[2021-04-22] MEDS ORDERED: NYST1POW9 TOP (18:24)
[2021-04-22] MEDS ORDERED: ARNU1INH3 INH (18:24)
[2021-04-22] MEDS ORDERED: PEPT262S PO (18:24)
[2021-04-22] MEDS ORDERED: MUCI600T31 PO (18:24)
[2021-04-22] MEDS ORDERED: OXYC1TAB23 PO (18:24)
[2021-04-22] MEDS ORDERED: GABA-282 PO (18:24)
[2021-04-22] MEDS ORDERED: HYDR28OI7 TOP (18:24)
[2021-04-22] MEDS ORDERED: COLA100C5 PO (18:24)
[2021-04-22] MEDS ORDERED: HIBI4LIQ TOP (18:24)
[2021-04-22] MEDS ORDERED: OCUV1CAP3 PO (18:24)
[2021-04-22] MEDS ORDERED: ISOS1TAB35 PO (18:24)
[2021-04-22] MEDS ORDERED: SENN-23 PO (18:24)
[2021-04-22] MEDS ORDERED: PROAAER10 INH (18:24)
[2021-04-22] MEDS ORDERED: LORA-674 PO (18:24)
[2021-04-22] MEDS ORDERED: CURA1CRE2 TOP (18:24)
[2021-04-22] MEDS ORDERED: OMEP40CA5 PO (18:24)
[2021-04-22] MEDS ORDERED: GNP15SYP PO (18:24)
[2021-04-22] MEDS ORDERED: HOME MED LIST COMPLETE! XX SCH (18:30)
[2021-04-22] MEDS ORDERED: ALBUTEROL 90 MCG/ACT 8GM HFA INHALER INH PRN (18:35)
[2021-04-22] MEDS ORDERED: BENZONATATE 100MG CAPSULE PO PRN (18:35)
[2021-04-22] MEDS ORDERED: HYDROCORTISONE 1% CREAM 30 GM TOP PRN (18:35)
[2021-04-22] MEDS ORDERED: PERCOCET 5MG/325MG TAB PO PRN (18:35)
[2021-04-22] MEDS ORDERED: FEXOFENADINE 60 MG TAB PO PRN (18:35)
[2021-04-22] MEDS ORDERED: LORATADINE 10 MG TAB PO PRN (18:35)
[2021-04-22] MEDS ORDERED: guaiFENesin ER 600 MG TAB PO PRN (18:35)
[2021-04-22] MEDS ORDERED: PINK BISMUTH SUSP 524MG/30ML ORAL SYRINGE PO PRN (18:35)
[2021-04-22] MEDS ORDERED: CALCIUM CARBONATE 500 MG CHEW U/D PO PRN (18:35)
[2021-04-22] MEDS ORDERED: PILL CUTTER 1 EACH XX PRN (19:20)
[2021-04-22] MEDS: ISOSORBIDE MON. (IMDUR) 30 MG XR TAB PO SCH (21:00)
[2021-04-22] MEDS: VALSARTAN 80 MG TAB (DIOVAN) PO SCH (21:00)
[2021-04-22 21:20] VITALS: BP 133/84
[2021-04-22] MEDS: SENOKOT S TAB PO SCH (22:01)
[2021-04-22] MEDS: OMEPRAZOLE 20MG CAP PO SCH (22:01)
[2021-04-22] MEDS: FERROUS SULFATE 325MG TAB PO SCH (22:02)
[2021-04-22] MEDS: FUROSEMIDE 40MG/4ML VIAL (J1940) IV SCH (22:12)
[2021-04-22] MEDS: FLUTICASONE PROP 0.05% NASAL SPRAY 16 GM (FLONASE) NARES SCH (22:53)
[2021-04-22] MEDS: SOLIFENACIN 5 MG TAB PO SCH (22:54)
[2021-04-22] MEDS: NYSTATIN 100,000 UNITS/GM TOPICAL PWD 15 GM TOP SCH (22:54)
[2021-04-23] MEDS: FUROSEMIDE 40MG/4ML VIAL (J1940) IV SCH ×3 (01:03→08:33)
[2021-04-23 02:26] LABS: TROPONIN I < 0.02 NG/ML (< 0.10)
[2021-04-23 05:55] LABS: HEMATOCRIT 31.9 % (36.0-47.0); HEMOGLOBIN 10.5 g/dl (12.0-15.5); MEAN CORPUSCULAR HEMOGLOBIN 33.2 pg (27.0-33.0); MEAN CORPUSCULAR HGB CONC 32.9 g/dl (32.0-36.5); MEAN CORPUSCULAR VOLUME 100.9 fl (80.0-96.0); PLATELET COUNT, AUTOMATED 266 10^3/uL (150-450); RED BLOOD COUNT 3.16 10^6/uL (4.00-5.40); WHITE BLOOD COUNT 9.1 10^3/uL (4.0-10.0)
[2021-04-23 06:00] VITALS: BP 120/66
[2021-04-23] MEDS: LEVOTHYROXINE 12.5MCG PER 1/2 TAB (0.0125MG) PO SCH (06:10)
[2021-04-23 06:29] LABS: ALBUMIN 2.9 GM/DL (3.2-5.2); BILIRUBIN,TOTAL 0.6 MG/DL (0.2-1.0); CALCIUM LEVEL 9.6 MG/DL (8.8-10.2); CREATININE FOR GFR 1.36 MG/DL (0.55-1.30); GLOMERULAR FILTRATION RATE 39.4 (>32); MAGNESIUM LEVEL 1.6 MG/DL (1.8-2.4); POTASSIUM SERUM 4.4 MEQ/L (3.5-5.1); TOTAL PROTEIN 6.2 GM/DL (6.4-8.2)
[2021-04-23] MEDS ORDERED: ALENDRONATE 35MG TABLET PO SCH (07:00)
[2021-04-23] MEDS: HEPARIN SOD (PORCINE) 5000UNITS/ML 1ML VIAL/SYRINGE SC SCH ×2 (08:28→20:08)
[2021-04-23] MEDS: SENOKOT S TAB PO SCH ×2 (08:30→20:08)
[2021-04-23] MEDS: FERROUS SULFATE 325MG TAB PO SCH ×3 (08:30→20:08)
[2021-04-23] MEDS: OMEPRAZOLE 20MG CAP PO SCH ×2 (08:30→20:08)
[2021-04-23] MEDS: CitaloPRAM (CeleXA) 10 MG TABLET PO SCH (08:30)
[2021-04-23] MEDS: GABAPENTIN 300 MG CAP PO SCH (08:30)
[2021-04-23] MEDS: LACTOBACILLUS ACIDOPHILUS CAP (BACID) PO SCH (08:31)
[2021-04-23] MEDS: NYSTATIN 100,000 UNITS/GM TOPICAL PWD 15 GM TOP SCH ×2 (08:34→20:12)
[2021-04-23] MEDS ORDERED: SPIRONOLACTONE 25 MG TAB PO SCH (09:00)
[2021-04-23] MEDS ORDERED: MULTIVITAMINS/MINERALS THERAP 1 TAB PO SCH (09:00)
[2021-04-23] MEDS ORDERED: FLUBLOK(EGG FREE)(QUAD)INFLUENZA VACC 0.5ML SYRINGE 18YRS & OLDER IM ONE (09:00)
[2021-04-23] MEDS ORDERED: CALCIUM/VITAMIN D 500 MG TAB PO SCH (09:00)
[2021-04-23 14:00] VITALS: BP 160/84
[2021-04-23] MEDS: VALSARTAN 80 MG TAB (DIOVAN) PO SCH (20:10)
[2021-04-23] MEDS: ISOSORBIDE MON. (IMDUR) 30 MG XR TAB PO SCH (20:10)
[2021-04-23] MEDS: SOLIFENACIN 5 MG TAB PO SCH (20:11)
[2021-04-23] MEDS: ACETAMINOPHEN TAB 650MG DOSE (2X325MG) PO PRN (20:11)
[2021-04-23] MEDS: FLUTICASONE PROP 0.05% NASAL SPRAY 16 GM (FLONASE) NARES SCH (20:12)
[2021-04-23 22:00] VITALS: BP 150/70
[2021-04-24] MEDS ORDERED: FUROSEMIDE 40MG/4ML VIAL (J1940) IV SCH
[2021-04-24] MEDS: CALCIUM CARBONATE 500 MG CHEW U/D PO SCH ×4 (00:14→18:02)
[2021-04-24 00:30] VITALS: BP 95/47
[2021-04-24 06:00] VITALS: BP 97/48
[2021-04-24] MEDS: LEVOTHYROXINE 12.5MCG PER 1/2 TAB (0.0125MG) PO SCH (06:25)
[2021-04-24] MEDS ORDERED: CALCIUM CARBONATE 500 MG CHEW U/D PO SCH (08:00)
[2021-04-24 08:48] LABS: HEMATOCRIT 33.7 % (36.0-47.0); HEMOGLOBIN 11.2 g/dl (12.0-15.5); MEAN CORPUSCULAR HEMOGLOBIN 33.7 pg (27.0-33.0); MEAN CORPUSCULAR HGB CONC 33.2 g/dl (32.0-36.5); MEAN CORPUSCULAR VOLUME 101.5 fl (80.0-96.0); PLATELET COUNT, AUTOMATED 311 10^3/uL (150-450); RED BLOOD COUNT 3.32 10^6/uL (4.00-5.40); WHITE BLOOD COUNT 11.8 10^3/uL (4.0-10.0)
[2021-04-24 09:18] LABS: CALCIUM LEVEL 9.9 MG/DL (8.8-10.2); CREATININE FOR GFR 1.95 MG/DL (0.55-1.30); MAGNESIUM LEVEL 1.8 MG/DL (1.8-2.4); POTASSIUM SERUM 4.6 MEQ/L (3.5-5.1)
[2021-04-24] MEDS: OMEPRAZOLE 20MG CAP PO SCH ×2 (09:50→20:43)
[2021-04-24] MEDS: GABAPENTIN 300 MG CAP PO SCH (09:50)
[2021-04-24] MEDS: CitaloPRAM (CeleXA) 10 MG TABLET PO SCH (09:50)
[2021-04-24] MEDS: FERROUS SULFATE 325MG TAB PO SCH ×3 (09:50→20:46)
[2021-04-24] MEDS: LACTOBACILLUS ACIDOPHILUS CAP (BACID) PO SCH (09:50)
[2021-04-24] MEDS: HEPARIN SOD (PORCINE) 5000UNITS/ML 1ML VIAL/SYRINGE SC SCH ×2 (09:50→20:46)
[2021-04-24] MEDS: SENOKOT S TAB PO SCH ×2 (09:50→20:43)
[2021-04-24] MEDS: NYSTATIN 100,000 UNITS/GM TOPICAL PWD 15 GM TOP SCH ×2 (09:51→20:47)
[2021-04-24 14:00] VITALS: BP 120/47
[2021-04-24] MEDS: MOM 30ML SUSPENSION UDC PO PRN (15:12)
[2021-04-24] MEDS: DOCUSATE SODIUM 100MG CAPSULE PO PRN (20:44)
[2021-04-24] MEDS: SOLIFENACIN 5 MG TAB PO SCH (20:46)
[2021-04-24] MEDS: ISOSORBIDE MON. (IMDUR) 30 MG XR TAB PO SCH (20:46)
[2021-04-24] MEDS: GABAPENTIN 300 MG CAP PO PRN (20:47)
[2021-04-24] MEDS: FLUTICASONE PROP 0.05% NASAL SPRAY 16 GM (FLONASE) NARES SCH (20:47)
[2021-04-24] MEDS ORDERED: PANTOPRAZOLE 20 MG TAB PO SCH (21:00)
[2021-04-24 22:00] VITALS: BP 111/58
[2021-04-25] VITALS (7 sets, daily range): BP systolic 98–119; BP diastolic 50–72
[2021-04-25] MEDS: LEVOTHYROXINE 12.5MCG PER 1/2 TAB (0.0125MG) PO SCH (05:49)
[2021-04-25] MEDS: CALCIUM CARBONATE 500 MG CHEW U/D PO SCH ×2 (05:50)
[2021-04-25 06:33] LABS: HEMATOCRIT 33.6 % (36.0-47.0); HEMOGLOBIN 11.1 g/dl (12.0-15.5); MEAN CORPUSCULAR HEMOGLOBIN 33.2 pg (27.0-33.0); MEAN CORPUSCULAR VOLUME 100.6 fl (80.0-96.0); PLATELET COUNT, AUTOMATED 331 10^3/uL (150-450); RED BLOOD COUNT 3.34 10^6/uL (4.00-5.40)
[2021-04-25 06:46] LABS: CALCIUM LEVEL 9.3 MG/DL (8.8-10.2); CREATININE FOR GFR 2.29 MG/DL (0.55-1.30); GLOMERULAR FILTRATION RATE 21.6 (>32); POTASSIUM SERUM 4.9 MEQ/L (3.5-5.1)
[2021-04-25] MEDS: CitaloPRAM (CeleXA) 10 MG TABLET PO SCH (07:57)
[2021-04-25] MEDS: SENOKOT S TAB PO SCH ×2 (07:57→20:34)
[2021-04-25] MEDS: GABAPENTIN 300 MG CAP PO SCH (07:57)
[2021-04-25] MEDS: FERROUS SULFATE 325MG TAB PO SCH ×3 (07:57→20:34)
[2021-04-25] MEDS: LACTOBACILLUS ACIDOPHILUS CAP (BACID) PO SCH (07:57)
[2021-04-25] MEDS: OMEPRAZOLE 20MG CAP PO SCH ×2 (07:57→20:34)
[2021-04-25] MEDS: NYSTATIN 100,000 UNITS/GM TOPICAL PWD 15 GM TOP SCH ×2 (07:58→20:36)
[2021-04-25] MEDS: HEPARIN SOD (PORCINE) 5000UNITS/ML 1ML VIAL/SYRINGE SC SCH ×2 (07:58→20:35)
[2021-04-25] MEDS ORDERED: NS 500 ML IV ONE ×2 (08:05→14:50)
[2021-04-25 11:31] LABS: CALCIUM LEVEL 9.2 MG/DL (8.8-10.2); CREATININE FOR GFR 2.32 MG/DL (0.55-1.30); GLOMERULAR FILTRATION RATE 21.3 (>32); POTASSIUM SERUM 4.6 MEQ/L (3.5-5.1)
[2021-04-25] MEDS: SODIUM CHLORIDE 1 GM TAB PO SCH ×2 (14:22→20:34)
[2021-04-25] MEDS: DOCUSATE SODIUM 100MG CAPSULE PO PRN (18:51)
[2021-04-25] MEDS: ISOSORBIDE MON. (IMDUR) 30 MG XR TAB PO SCH (19:47)
[2021-04-25] MEDS ORDERED: MIRALAX *UNIT DOSE* 17GM PACKET PO PRN (20:20)
[2021-04-25] MEDS: MOM 30ML SUSPENSION UDC PO PRN (20:33)
[2021-04-25] MEDS: SOLIFENACIN 5 MG TAB PO SCH (20:34)
[2021-04-25] MEDS: GABAPENTIN 300 MG CAP PO PRN (20:34)
[2021-04-25] MEDS: ACETAMINOPHEN TAB 650MG DOSE (2X325MG) PO PRN (20:35)
[2021-04-25] MEDS: FLUTICASONE PROP 0.05% NASAL SPRAY 16 GM (FLONASE) NARES SCH (20:36)
[2021-04-26] MEDS: LEVOTHYROXINE 12.5MCG PER 1/2 TAB (0.0125MG) PO SCH (05:21)
[2021-04-26 06:00] VITALS: BP 109/61
[2021-04-26 06:01] LABS: HEMATOCRIT 32.4 % (36.0-47.0); HEMOGLOBIN 10.8 g/dl (12.0-15.5); MEAN CORPUSCULAR HEMOGLOBIN 33.4 pg (27.0-33.0); MEAN CORPUSCULAR HGB CONC 33.3 g/dl (32.0-36.5); MEAN CORPUSCULAR VOLUME 100.3 fl (80.0-96.0); PLATELET COUNT, AUTOMATED 288 10^3/uL (150-450); RED BLOOD COUNT 3.23 10^6/uL (4.00-5.40); WHITE BLOOD COUNT 10.7 10^3/uL (4.0-10.0)
[2021-04-26 06:16] LABS: CALCIUM LEVEL 8.6 MG/DL (8.8-10.2); CREATININE FOR GFR 1.7 MG/DL (0.55-1.30); GLOMERULAR FILTRATION RATE 30.5 (>32); MAGNESIUM LEVEL 2.1 MG/DL (1.8-2.4); POTASSIUM SERUM 4.9 MEQ/L (3.5-5.1)
[2021-04-26] MEDS: SENOKOT S TAB PO SCH (09:32)
[2021-04-26] MEDS: SODIUM CHLORIDE 1 GM TAB PO SCH (09:32)
[2021-04-26] MEDS: FERROUS SULFATE 325MG TAB PO SCH (09:33)
[2021-04-26] MEDS: CitaloPRAM (CeleXA) 10 MG TABLET PO SCH (09:33)
[2021-04-26] MEDS: GABAPENTIN 300 MG CAP PO SCH (09:33)
[2021-04-26] MEDS: HEPARIN SOD (PORCINE) 5000UNITS/ML 1ML VIAL/SYRINGE SC SCH (09:33)
[2021-04-26] MEDS: OMEPRAZOLE 20MG CAP PO SCH (09:33)
[2021-04-26] MEDS: LACTOBACILLUS ACIDOPHILUS CAP (BACID) PO SCH (09:33)
[2021-04-26] MEDS: NYSTATIN 100,000 UNITS/GM TOPICAL PWD 15 GM TOP SCH (09:34)
== END 2021-04-26 14:05 | DRG 292 ==
LOC: EDBD 14:11 → M ED 14:11 → M ED INP 17:07 → ENRESERV 18:32 → M MSPAV 21:20
PROVIDERS: ADMIT Internal Medicine; ATTEND Family Medicine
DX: I11.0 Hypertensive heart disease with heart failure (principal); N17.9 Acute kidney failure, unspecified; E87.1 Hypo-osmolality and hyponatremia; M48.54XD Collapsed vertebra, not elsewhere classified, thoracic region, subsequent encounter for fracture with routine healing; I50.33 Acute on chronic diastolic (congestive) heart failure; D50.9 Iron deficiency anemia, unspecified; K21.9 Gastro-esophageal reflux disease without esophagitis; E03.9 Hypothyroidism, unspecified; Z72.3 Lack of physical exercise; I27.20 Pulmonary hypertension, unspecified; K22.70 Barrett's esophagus without dysplasia; Z79.899 Other long term (current) drug therapy; Z91.040 Latex allergy status; Z88.5 Allergy status to narcotic agent; Z88.8 Allergy status to other drugs, medicaments and biological substances; F41.9 Anxiety disorder, unspecified; Z66 Do not resuscitate; I45.10 Unspecified right bundle-branch block; M19.90 Unspecified osteoarthritis, unspecified site; M81.0 Age-related osteoporosis without current pathological fracture

== ENCOUNTER 2021-04-26 09:47 | Inpatient (IN) | payer MEDICARE, OTHER ==
[~2021-04-26] VITALS: Ht 162.6 cm; Wt 114.1 kg
[~2021-04-26 09:47] MED LIST changes: +ARNU1INH3 INH; +CALCCAP4 PO; +CITA10TA5 PO; -CITA10TA7 PO; +CURA1CRE2 TOP; +GNP15SYP PO; +HIBI4LIQ TOP; +HYDR28OI7 TOP; +LORA-674 PO; -LOSA100T45 PO; +LOSA100T50 PO; +NYST1POW9 TOP; +OCUV1CAP3 PO; +OMEP-221 PO; +OXYC1TAB23 PO; -POTA-151 PO; +POTA20TA6 PO; +PROAAER10 INH; +[UNRECOGNIZED DRUG - CODE] PO; +[UNRECOGNIZED DRUG - OTHER] PO
[2021-04-26] MEDS ORDERED: MIRALAX *UNIT DOSE* 17GM PACKET PO PRN (10:00)
[2021-04-26] MEDS ORDERED: ACETAMINOPHEN TAB 650MG DOSE (2X325MG) PO PRN (10:00)
[2021-04-26 14:15] VITALS: BP 113/57
[2021-04-26] MEDS: REMEDY PHYTOPLEX Z-GUARD PASTE 113GM TUBE (FROM STOREROOM PRODUCT) TOP SCH ×2 (16:00→21:16)
[2021-04-26] MEDS: FERROUS SULFATE 325MG TAB PO SCH ×2 (16:29→21:14)
[2021-04-26] MEDS: MULTIVITAMINS/MINERALS THERAP 1 TAB PO SCH (16:29)
[2021-04-26] MEDS: MAGNESIUM OXIDE 400MG TAB (MAG-OX) PO SCH (16:30)
[2021-04-26] MEDS: COMBIVENT RESPIMAT 100-20MCG INHALER 4GM INH SCH (19:58)
[2021-04-26] MEDS: FLUTICASONE HFA 220 MCG 12 GM INHALER (FLOVENT) INH SCH (19:58)
[2021-04-26 20:00] VITALS: BP 110/55
[2021-04-26] MEDS: CALCIUM/VITAMIN D 500 MG TAB PO SCH (21:14)
[2021-04-26] MEDS: SENOKOT S TAB PO SCH (21:14)
[2021-04-26] MEDS: SOLIFENACIN 5 MG TAB PO SCH (21:14)
[2021-04-26] MEDS: OMEPRAZOLE 20 MG CAP PO SCH (21:14)
[2021-04-26] MEDS: SODIUM CHLORIDE 1 GM TAB PO SCH (21:14)
[2021-04-26] MEDS: ISOSORBIDE MON. (IMDUR) 30 MG XR TAB PO SCH (21:15)
[2021-04-26] MEDS: HEPARIN SOD (PORCINE) 5000UNITS/ML 1ML VIAL/SYRINGE SC SCH (21:15)
[2021-04-26] MEDS: FLUTICASONE PROP 0.05% NASAL SPRAY 16 GM (FLONASE) NARES SCH (21:42)
[2021-04-26] MEDS: NYSTATIN 100,000 UNITS/GM TOPICAL PWD 15 GM TOP SCH (21:43)
[2021-04-27] MEDS: LEVOTHYROXINE 12.5MCG PER 1/2 TAB (0.0125MG) PO SCH (05:30)
[2021-04-27 06:05] LABS: BASO # 0.1 10^3/uL (0.0-0.2); BASO % 0.5 % (0.0-1.0); EOS # 0.4 10^3/uL (0.0-0.5); EOS % 3.8 % (0.0-3.0); HEMATOCRIT 34.9 % (36.0-47.0); HEMOGLOBIN 11.4 g/dl (12.0-15.5); LYMPH # 1.7 10^3/uL (1.5-5.0); LYMPH % 16.5 % (24.0-44.0); MEAN CORPUSCULAR HEMOGLOBIN 33.3 pg (27.0-33.0); MEAN CORPUSCULAR HGB CONC 32.7 g/dl (32.0-36.5); MONO # 1.2 10^3/uL (0.0-0.8); MONO % 11.3 % (2.0-8.0); NEUTROPHILS # 6.9 10^3/uL (1.5-8.5); NEUTROPHILS % 66.2 % (36.0-66.0); PLATELET COUNT, AUTOMATED 311 10^3/uL (150-450); RED BLOOD COUNT 3.42 10^6/uL (4.00-5.40); WHITE BLOOD COUNT 10.4 10^3/uL (4.0-10.0)
[2021-04-27 06:37] VITALS: BP 122/55
[2021-04-27 06:40] LABS: ALBUMIN 2.8 GM/DL (3.2-5.2); ALT/SGPT 1512 U/L (12-78); BILIRUBIN,TOTAL 0.7 MG/DL (0.2-1.0); BLOOD UREA NITROGEN 50 MG/DL (7-18); CARBON DIOXIDE LEVEL 28 MEQ/L (21-32); CHLORIDE LEVEL 100 MEQ/L (98-107); CREATININE FOR GFR 1.25 MG/DL (0.55-1.30); GLOMERULAR FILTRATION RATE 43.5 (>32); GLUCOSE, FASTING 91 MG/DL (70-100); POTASSIUM SERUM 5.6 MEQ/L (3.5-5.1); SODIUM LEVEL 134 MEQ/L (136-145); TOTAL PROTEIN 6.2 GM/DL (6.4-8.2)
[2021-04-27] MEDS: COMBIVENT RESPIMAT 100-20MCG INHALER 4GM INH SCH ×3 (07:27→17:51)
[2021-04-27] MEDS: FLUTICASONE HFA 220 MCG 12 GM INHALER (FLOVENT) INH SCH ×2 (07:27→17:51)
[2021-04-27] MEDS: OMEPRAZOLE 20 MG CAP PO SCH ×2 (08:35→22:00)
[2021-04-27] MEDS: SODIUM CHLORIDE 1 GM TAB PO SCH (08:36)
[2021-04-27] MEDS: GABAPENTIN 300 MG CAP PO SCH (08:36)
[2021-04-27] MEDS: CitaloPRAM (CeleXA) 10 MG TABLET PO SCH (08:36)
[2021-04-27] MEDS: MULTIVITAMINS/MINERALS THERAP 1 TAB PO SCH (08:36)
[2021-04-27] MEDS: FERROUS SULFATE 325MG TAB PO SCH ×2 (08:36→15:37)
[2021-04-27] MEDS: LACTOBACILLUS ACIDOPHILUS CAP (BACID) PO SCH (08:36)
[2021-04-27] MEDS: SENOKOT S TAB PO SCH ×2 (08:36→22:00)
[2021-04-27] MEDS: CALCIUM/VITAMIN D 500 MG TAB PO SCH ×2 (08:36→22:00)
[2021-04-27] MEDS: oxyCODONE 5MG TAB PO PRN ×2 (08:37→22:07)
[2021-04-27] MEDS: MAGNESIUM OXIDE 400MG TAB (MAG-OX) PO SCH (08:37)
[2021-04-27] MEDS: CETIRIZINE (ZyrTEC) 10 MG TAB PO SCH (08:37)
[2021-04-27] MEDS: HEPARIN SOD (PORCINE) 5000UNITS/ML 1ML VIAL/SYRINGE SC SCH ×2 (08:38→22:01)
[2021-04-27] MEDS: REMEDY PHYTOPLEX Z-GUARD PASTE 113GM TUBE (FROM STOREROOM PRODUCT) TOP SCH ×3 (08:40→22:03)
--- NOTE | 2021-04-27 08:47 | HPEPDOC ---
Medical Biller/Coder Note DATE OF ADMISSION: 04-26-21 DATE OF SERVICE: 04-27-21 TIME OF ADMISSION: Please refer to physician's admission order. SOURCE OF ADMISSION INFORMATION: [facility] record and patient CHIEF COMPLAINT: CHF HISTORY OF PRESENT ILLNESS: 85F pmh pulmonary HTN, Hypothyroidism, Barretts esophagus, chronic urinary incontinence, asthma, T5 compression fracture, arterial neuropathy, obesity, iron deficiency anemia presented to [facility] ED on 04-22-21 complaining of worsening shortness of breath with CXR showing vascular congestion and she was found to be in CHF exacerbation. She was given IV diuretics and alter developed DELORES in setting of CKD. She was evaluated by renal who gave her IVF and started her on salt tabs for her hyponatremia. ECHO was ordered showing grade 1 diastolic failure. She had persistent weakness with mobility and ADL impairments deemed medically appropriate for discharge to ARU on 04-26-21. REVIEW OF SYSTEMS: The following is a completed review of systems and has been reviewed. Review of systems otherwise unremarkable. PAIN: Patient self reports no pain EYES: [No recent vision changes EARS, NOSE, & THROAT: No throat pain, or dysphagia, or rhinorrhea CARDIOVASCULAR: Denies chest pain or palpitations PULMONARY: Denies shortness of breath, +intermittent cough GASTROINTESTINAL: + constipation GENITOURINARY: denies dysuria MUSCULOSKELETAL: bilat LE weakness NEUROLOGICAL: +peripheral polyneuropathy HEMATOLOGICAL: denies easy bruising SKIN: scattered bilat LE wounds PSYCHIATRIC: Unremarkable All other review of systems found to be negative. PAST MEDICAL HISTORY: as per HPI PAST SURGICAL HISTORY: Left hip prosthesis removal, c sections, multiple endoscopies, colonoscopy, bilat hernia repair ALLERGIES: Please see below. MEDICATIONS: Please see below. FAMILY HISTORY: CVA, cardiac SOCIAL HISTORY: No etoh/illicit drugs/smoking DIET: low sodium PHYSICAL EXAMINATION: VITAL SIGNS: Please see below. GENERAL: Pleasant and cooperative. No acute distress. HEENT: PERRL. Extraocular movements intact. Clear conjunctiva CARDIOVASCULAR: Regular rate and rhythm. No murmurs, rubs, or gallops LUNGS: Clear to auscultation bilaterally. No wheezes. scattered rhonchi ABDOMEN: Soft, mildly TTP throughout nondistended. Positive bowel sounds. Normal active bowel sounds NEUROLOGICAL: Alert and oriented times three. Cranial nerves II through XII grossly intact. Sensation decreased in stocking pattern EXTREMITIES: 4\5 strength bilateral upper extremities. 4\5 strength right lower extremity. 4/5 strength in left lower extremity SKIN: scattered stage 1 pressure sores on tops of bilat toes LABORATORY DATA: Please see below. IMAGING:Imaging documentation personally reviewed by record FUNCTIONAL STATUS: Premorbid: Mod-Independent with all activities of daily life as well as mobility On Admission: GOALS: Mod-Independent with all activities of daily life as well as mobility from wheelchair level ASSESSMENT:85-year-old F with past medical history of pulmonary HTN, hypothyroidism, obesity who presents status post CHF exacerbation with mobility and ADL impairments PLAN: 1. Rehab- PT/OT advance mobility strengthen/stretch/maintain ROM all 4limbs 2. Neuro- peripheral polyneuropathy due to arterial disease contributing to movement impairment 3. CArdiac- diastolic CHF with recent exacerbation s/p aggressive diuresis complicated by DELORES- daily weights, fluid restrict -HTN cont BP meds 4. Resp- monitor for infection -patient with chronic sinusitis cont Zyrtec, flonase and nasal saline -asthma cont inhaler treatment 5. GI-acute elevation in LFTs, liver US and doppler pending, patient npo -hospitalist following, hepatitis panel pending 6. Renal- CKD with recent DELORES improving, renal following -NaCl tabs d/c'd -hyperkalemia veltasa ordered, f/u CMP tomorrow 7. DVT ppx- heparin 8. Pain- oxycodone, gabapentin 9. Endo- hx of hypothyroidism cont Synthroid 10. DIspo- TBD POST ADMISSION PHYSICIAN EVALUATION: Medical and functional status: Description of medical status, medical assessment: As above. Rehabilitation diagnosis and current and prior cold morbid medical conditions as above. Risk of complications and plans to mitigate them as above. Description of functional status current status is as above. Prior status as above. Status compared to preadmission: There are no clinically significant differences between the patient's current status and the information described on the preadmission screening document. Treatment plan anticipated: Treatment plan is as described above. Required disciplines including physical therapy, occupational therapy, others as noted above. Intensity of services: 3 hours a day, 6 days a week. Special considerations: There are no specific special or safety considerations that would likely preclude immediate implementation of an intensive rehabilitation program or subsequently influence the plan of care. ATTESTATION: Considering all the information above, it is my best judgment that this patient requires intensive rehabilitation therapy as described above and an inpatient hospital environment due to the complexity of nursing, medical, and rehabilitation needs required by the patient. Furthermore, this patient can reasonably be expected to participate in an benefit from an inpatient rehabilitation stay with an interdisciplinary team approach to the delivery of rehabilitation care under the direction and supervision of rehabilitation physician. PROGNOSIS: good ESTIMATED LENGTH OF STAY:10-14 days. PROJECTED DISCHARGE DESTINATION: Home with family support and any durable medical equipment required to increase functional safety and mobility. TIME SPENT COUNSELING AND COORDINATING INITIAL CARE: Greater than 70 minutes. Vital Signs Vital Sign - Last 24 Hours 04/26/21 04/26/21 04/26/21 04/27/21 14:15 20:00 21:15 06:37 Temp 98.3 98.0 98.5 Pulse 66 64 68 Resp 16 16 18 B/P (MAP) 113/57 (75) 110/55 (73) 110/55 122/55 (77) Pulse Ox 93 94 92 O2 Delivery Room Air Room Air Room Air 04/27/21 08:37 Resp 18 Laboratory Data CBC/BMP Laboratory Tests 04/27/21 05:43 Labs 24H Laboratory Tests 2 04/27/21 05:43: Immature Granulocyte % (Auto) 1.7, Neutrophils (%) (Auto) 66.2H, Lymphocytes (%) (Auto) 16.5L, Monocytes (%) (Auto) 11.3H, Eosinophils (%) (Auto) 3.8H, Basophils (%) (Auto) 0.5, Neutrophils # (Auto) 6.9, Lymphocytes # (Auto) 1.7, Monocytes # (Auto) 1.2H, Eosinophils # (Auto) 0.4, Basophils # (Auto) 0.1, Nucleated Red Blood Cells % (auto) 0.0, Anion Gap 6L, Glomerular Filtration Rate 43.5, Calcium Level 9.0, Total Bilirubin 0.7, Aspartate Amino Transf (AST/SGOT) 561H, Alanine Aminotransferase (ALT/SGPT) 1512H, Alkaline Phosphatase 97, Total Protein 6.2L, Albumin 2.8L, Albumin/Globulin Ratio 0.8L Home Medications Scheduled C,E,Zinc,Copper 11/Fgfoo8e/Lut (Ocuvite Adult 50 Plus Softgel) 1 Each Capsule, 1 CAP PO DAILY, (Reported) Calcium Carbonate/Vitamin D3 (Calcium 600 + Vit D 400 Softgl) 1 Each Capsule, 2 CAP PO DAILY, (Reported) Chlorhexidine Gluconate (Hibiclens) 118 Ml Liquid, 1 APPLIC TOP BID, (Reported) APPLY TO AFFECTED AREA TO PREVENT SKIN INFECTION Citalopram Hydrobromide (Citalopram HBr) 10 Mg Tab, 5 MG PO DAILY, (Reported) Cyclosporine (Restasis) 0.05 % Emu, 1 DROP OU BID, (Reported) Ferrous Sulfate (Ferrous Sulfate) 325 Mg Tablet, 325 MG PO TID, (Reported) Fluticasone Furoate (Arnuity Ellipta) 200 Mcg Blst.w.dev, 1 PUFF INH DAILY, (Reported) Fluticasone Propionate (Flonase Allergy Relief) 9.9 Ml [place].susp, 2 SPRAY NARES QHS, (Reported) Gabapentin (Neurontin) 300 Mg Cap, 300 MG PO DAILY, (Reported) Indapamide (Indapamide) 1.25 Mg Tablet, 1.25 MG PO DAILY, (Reported) Isosorbide Mononitrate (Isosorbide Mononitrate ER) 30 Mg Tab.er.24h, 30 MG PO Q HS, (Reported) L.acidoph/L.bulg/B.bif/S.therm (Bacid Caplet) 1 Each Tablet, 1 TAB PO DAILY, (Reported) Levocetirizine Dihydrochloride (Levocetirizine Dihydrochloride) 5 Mg Tablet, 5 MG PO DAILY, (Reported) Levothyroxine Sodium (Levothyroxine Sodium) 25 Mcg Tab, 12.5 MCG PO DAILY, (Reported) Magnesium Chloride (Mag64) 64 Mg Tablet.dr, 128 MG PO DAILY, (Reported) Multivitamins (Thera M Plus Tablet) 1 Each Tablet, 1 TAB PO DAILY, (Reported) Nystatin (Nystatin Powder) 15 Gm Powder, 1 APPLIC TOP BID, (Reported) TO GROIN Omeprazole (Omeprazole) 40 Mg Capsule.dr, 40 MG PO BID, (Reported) Sennosides/Docusate Sodium (Senna-S Tablet) 1 Each Tablet, 2 TAB PO BID, (Reported) Solifenacin Succinate (Vesicare) 10 Mg Tab, 10 MG PO QHS, (Reported) Scheduled PRN Acetaminophen (Tylenol) 325 Mg Tablet, 650 MG PO Q4H PRN for PAIN / FEVER, (Reported) Acetaminophen/Dextromethorphan (Delsym Cough-Sore Throat Liq) 325 Mg-10 Mg/10 Ml Liquid, 5 ML PO Q8H PRN for COUGH, (Reported) Albuterol Sulf (Albuterol Sulfate) 2.5 Mg/3 Ml Vial.neb, 2.5 MG INH Q2H PRN for SOB/COUGH, (Reported) Albuterol Sulfate (Proair Hfa) 8.5 Gm Hfa.aer.ad, 2 PUFF INH QID PRN for SHORTNESS OF BREATH, (Reported) Benzonatate (Benzonatate) 100 Mg Capsule, 100 MG PO TID PRN for COUGH, (Reported) Bismuth Subsalicylate (Pepto-Bismol) 262 Mg/15 Ml Oral.susp, 30 ML PO BID PRN for DYSPEPSIA, (Reported) Dextromethorphan HBr (Tussin Cough) 15 Mg/5 Ml Liquid, 10 ML PO Q4H PRN for COUGH, (Reported) Diclofenac Sodium (Diclofenac Sodium) 1 % Gel, 1 APPLIC TOP BID PRN for PAIN LEVEL 1-5, (Reported) APPLY TO NECK AND SHOULDERS Docusate Sodium (Colace) 100 Mg Capsule, 100 MG PO BID PRN for CONSTIPATION, (Reported) Fexofenadine HCl (Lizeth Allergy) 60 Mg Tablet, 60 MG PO BID PRN for ALLERGIES, (Reported) Gabapentin (Gabapentin) 300 Mg Capsule, 300 MG PO QHS PRN for PAIN LEVEL 1-4, (Reported) Guaifenesin (Mucinex) 600 Mg Tab.er.12h, 600 MG PO BID PRN for CONGESTION, (Reported) Hydrocortisone (Hydrocortisone) 1% 28GM Cream..g., 1 APPLIC TOP BID PRN for ITCHING, (Reported) Loratadine (Loratadine) 10 Mg Tablet, 10 MG PO DAILY PRN for ALLERGIES, (Reported) Magnesium Hydroxide (Milk of Magnesia) 400 Mg/5 Ml Oral.susp, 30 ML PO DAILY PRN for CONSTIPATION, (Reported) Oxycodone HCl/Acetaminophen (Oxycodone-Acetaminophen 5-325) 1 Each Tablet, 1 TAB PO Q6H PRN for PAIN LEVEL 5-10, (Reported) Polyvinyl Alcohol (Artificial Tears) 15 Ml Drops, 1 DROP OU TID PRN for DRY EYES, (Reported) Sodium Chloride (Saline Nasal [place]) 44 Ml [place], 2 SPRAY NARES Q4H PRN for NASAL CONGESTION, (Reported) [Therabreath] , 1 LOZEN[place] PO BID PRN for DRY MOUTH, (Reported) Allergies Coded Allergies: latex (Verified Allergy, Intermediate, rash, blisters, 07/17/20) TAPE (Verified Allergy, Unknown, blisters, 07/17/20) meperidine (Verified Adverse Reaction, Mild, nausea, 07/17/20) morphine (Verified Adverse Reaction, Mild, nausea, 07/17/20) A-FIB/CHADSVASC A-FIB History Current/History of A-Fib/PAF?: No Current PO Anticoag Therapy: No RAGHAV CABEZAS MD Apr 27, 2021 08:47
[2021-04-27] MEDS: NYSTATIN 100,000 UNITS/GM TOPICAL PWD 15 GM TOP SCH ×2 (09:10→22:02)
[2021-04-27 11:43] LABS: INR 1.05; PROTHROMBIN TIME 14.1 SECONDS (12.7-14.5)
[2021-04-27 11:56] LABS: ACETAMINOPHEN LEVEL 9.5 UG/ML (10.0-30.0); FERRITIN 4366 NG/ML (8-252); HEPATITIS B SURFACE ANTIGEN NEGATIVE (NEGATIVE); HEPATITIS C VIRUS ABY INDEX 0.2 INDEX (<0.8); IRON (FE) 105 UG/DL (50-170); TOTAL IRON BINDING CAPACITY 250 UG/DL (250-450)
[2021-04-27 11:58] LABS: HEPATITIS A ANTIBODY IGM NEGATIVE (NEGATIVE)
[2021-04-27] MEDS ORDERED: PATIROMER SORBITEX CALCIUM 8.4 GM POWDER PACKET (VELTASSA) PO ONE (12:00)
--- NOTE | 2021-04-27 12:11 | IPNPDOC ---
Text Note Date of Service The patient was seen on 04/27/21. NOTE Subjective: Patient is a an 85-year-old female who is currently in the acute rehab unit for rehab after hospital stay for congestive heart failure. Patient had an acute kidney injury which is improving. Patient is complaining of some pain in her upper and lower extremities as well as her right upper quadrant of her abdomen. Patient was found to have transaminitis with an ALT of 1512 and AST of 561. Patient is otherwise feeling well at this time. Patient was working with physical therapy later today. Patient denies any difficulty breathing. Patient has not had a bowel movement yet. Review of systems: General: Patient denies fevers HEENT: Patient denies headaches Cardiovascular: Patient denies chest pain Respiratory: Patient denies shortness of breath, cough GI: Patient reports right upper quadrant abdominal pain and constipation. Patient denies nausea or, vomiting : Patient denies increased frequency or pain with urination Extremities: Patient denies swelling or pain in extremities Neurological: Patient denies numbness or tingling in legs Physical exam: Vitals: See below General: Alert and oriented female patient who is laying in bed I walked in the room. Patient not appear to be in any acute distress. HEENT: Normocephalic, atraumatic, moist mucous membranes, anicteric sclera Neck: No lymphadenopathy or thyromegaly Cardiac: Regular rate and rhythm, no murmurs, normal S1, normal S2 Pulm: Clear to auscultation bilaterally. No wheezes, rhonchi, rales Abd: Tenderness of right upper quadrant, no rebound tenderness, normal bowel sounds Ext: No edema bilateral lower extremities Labs: See below Imaging: No new imaging of been performed Assessment/plan: 85-year-old female who presented to the acute rehab unit after a stay in the hospital for cysts CHF exacerbation. Patient was found to have transaminitis today. 1. Transaminitis. ALT and AST are about 20 times the upper limits of normal. Hepatitis panel has been ordered, liver ultrasound with Doppler has been ordered, autoimmune work-up has been ordered as well as iron panel to rule out hemochromatosis. Patient's ferritin level was quite elevated which may be an acute phase reactant however, we will need to continue to monitor. Patient was on ferrous sulfate TID prior to ccoming to the hospital and this was continued. This has been discontinued at this time. Hepatitis work-up has been negative. Differential includes viral hepatitis, autoimmune hepatitis, congestive hep atitis from either a Budd-Chiari syndrome or the patient's IVC filter, medication or other toxins however, going through her medication list does not show any medications causing this. Patient Tylenol level is low. We will continue to monitor the patient's AST and ALT. Patient does not have hyper bilirubinemia nor an elevated alkaline phosphatase. Patient's liver ultrasound was nondiagnostic so CT of the abdomen and pelvis with and without contrast with delayed phase contrast imaging was performed and was pending official radiology read as of 19:17. 2. Acute kidney injury. This is improving. We will continue to monitor the patient's kidney function. 3. Hyper kalemia. Patient potassium was 5.6 today. Patient not appear volume overloaded however, I did speak with Dr. Lombardo of nephrology who states that he will either give the patient Lasix or Kayexalate to fix the patient's p otassium. Patient was given a dose of Kayexalate ordered by nephrology. 4. Hyponatremia. Patient has sodium chloride tablets and this is improving. 5. Hypotension, resolved. 6. Compression fracture of T5 vertebrae. Continue calcium and vitamin D. 7. Diastolic congestive heart failure acute on chronic. This is resolved. We will continue to monitor. Patient appears euvolemic today. 8. Hypertension. Hold parameters on medications. 9. Hypothyroidism. Continue home medication. 10. GERD. Continue PPI therapy 11. Physical deconditioning. Continue with therapy in ARU. DVT Prophylaxis: Heparin Disposition: Discharge per Dr. Ge. Mark SANTOS, I+O Mark SANTOS, I+O Laboratory Tests 04/27/21 05:43 Vital Signs Date Time Temp Pulse Resp B/P (MAP) Pulse Ox O2 Delivery O2 Flow Rate FiO2 04/27/21 09:10 16 04/27/21 06:37 98.5 68 122/55 (77) 92 Room Air I&O- Last 24 Hours up to 6 AM 04/27/21 06:00 Intake Total 360 ml Output Total 250 ml Balance 110 ml TOBIAS BASSETT DO Apr 27, 2021 12:11
[2021-04-27] MEDS ORDERED: SOD POLYSTYRENE SULFONATE SUSP 15 GM/60 ML UD PO ONE (13:00)
[2021-04-27 13:10] LABS: CPK CREATINE PHOSPHOKINASE 24 U/L (26-192)
[2021-04-27 14:00] VITALS: BP 183/73
[2021-04-27] MEDS ORDERED: PANTOPRAZOLE 40MG VIAL (C9113 PER 1) IV ONE (15:00)
--- NOTE | 2021-04-27 15:12 | REP ---
INDICATION: transaminitis, please include doppler. COMPARISON: None. TECHNIQUE: Real-time sonographic evaluation of the right upper quadrant FINDINGS: The gallbladder was not visualized. There is no given history of cholecystectomy. The hepatic parenchymal echo pattern is coarsened without evidence of a mass. There is no intrahepatic or extrahepatic ductal dilatation but the common bile duct measures between 4 and 5 mm. The pancreas was not visualized. The imaged portion the right kidney is unremarkable. The technologist has written on the worksheet that Doppler evaluation is nondiagnostic due to the patient's condition. The mean systolic velocity of the hepatic artery is 111 centimeters/second. The peak systolic velocity of the main portal vein is 39.7 centimeters/second and has a diameter of 8.1 mm. The peak systolic velocity of the left portal vein is 29.5 centimeters/second. The hepatic veins were not visualized IMPRESSION: The examination is limited. The technologist has written on the patient's worksheet that the examination was extremely limited to obtain. Consider CT. <Electronically signed by Devaughn Everett > 04/27/21 [id number]
[2021-04-27] MEDS ORDERED: SODIUM CHLORIDE 0.9% 1000ML IV ONE (15:40)
[2021-04-27] MEDS ORDERED: ISOVUE-370 76% 100ML VIAL As Ordered ONE (15:58)
[2021-04-27] MEDS ORDERED: LevoFLOXacin 500 MG TABLET PO SCH (18:00)
--- NOTE | 2021-04-27 19:43 | REPVR ---
PROCEDURE INFORMATION: Exam: CT Abdomen And Pelvis Without And With Contrast Exam date and time: 04/27/2021 6:15 PM Age: 85 years old Clinical indication: R/O portal vein/hepatic vein clot; Additional info: Dual phase post contrast TECHNIQUE: Imaging protocol: Computed tomography of the abdomen and pelvis without and with contrast. Radiation optimization: All CT scans at this facility use at least one of these dose optimization techniques: automated exposure control; mA and/or kV adjustment per patient size (includes targeted exams where dose is matched to clinical indication); or iterative reconstruction. Contrast material: ISOVUE 370; Contrast volume: 100 ml; Contrast route: INTRAVENOUS (IV); COMPARISON: 1. CT ABD PELVIS WITH CONTRAST 04/05/2019 5:07 PM 2. MS LIVER US 04/27/2021 2:36:41 PM FINDINGS: Lungs: There is bibasilar atelectasis. The lungs were not fully imaged. Heart: No cardiomegaly or pericardial effusion. Liver: Unremarkable. No liver lesion is identified. The contour of the liver is smooth. No hepatomegaly is noted. Gallbladder and bile ducts: There are calcified gallstones in the gallbladder. No gallbladder wall thickening, pericholecystic fluid, or inflammatory fat stranding is noted around the gallbladder. No dilation of the bile ducts is noted. No calcified stones are seen in the common bile duct. Pancreas: Unremarkable. No dilation of the main pancreatic duct is noted. Spleen: Normal. No splenomegaly is noted. Adrenal glands: Normal. No adrenal mass is noted. Kidneys and ureters: There are benign-appearing cyst in the left kidney, the largest measuring 3 cm in the interpolar region, for which imaging follow-up is not necessary. No stones are noted in the kidneys or ureters. There is no hydronephrosis or hydroureter. Stomach and bowel: There is a large hiatal hernia, which is similar in appearance compared to the CT abdomen and pelvis on 04/05/2019. There is colonic diverticulosis without evidence for diverticulitis. There is no evidence for a bowel obstruction, colitis, pneumatosis intestinalis, intussusception, volvulus, or perforated viscus. There is a large amount of formed stool in the rectum. Appendix: The appendix has been removed. Intraperitoneal space: No free air. No ascites. No abscess. Retroperitoneal space: Unremarkable. Vasculature: An inferior vena cava filter is in place below the level of the renal veins. The hepatic veins, portal veins, splenic vein, superior mesenteric vein, inferior mesenteric vein, and renal veins are patent. No abdominal aortic aneurysm is present. There are extensive atherosclerotic calcifications. No occlusion of the celiac artery, superior mesenteric artery, inferior mesenteric artery, renal arteries, or iliac arteries is noted. Lymph nodes: No enlarged lymph nodes. Urinary bladder: The distended urinary bladder is normal in appearance. No stones or masses are seen in the bladder. Reproductive: There are 1.8 cm and 2.5 cm left ovarian cysts characteristics and a 2.3 cm right ovarian cyst with simple characteristics, which are stable compared to the CT abdomen and pelvis on 09/08/2017 and 04/05/2019. No further imaging is recommended. (Reference: Anjel) There is distention of the endometrial canal with a large amount of fluid, which has progressed compared to the CT abdomen and pelvis on 04/05/2019. Bones/joints: Postoperative changes are noted involving the left iliac bone, left acetabulum, and left proximal femur, with soft tissue thickening within and around the region of the left hip and absence of the left femoral head, neck, and greater and lesser trochanters, which is similar in appearance compared to the CT abdomen and pelvis on 04/05/2019. There is a chronic healed fracture of the left iliac bone and chronic resorption of the left iliac bone that is similar in appearance compared to the CT abdomen and pelvis on 04/05/2019. No acute fracture or dislocation is noted. There is a moderate levoscoliosis of the lumbar spine and degenerative changes in the lumbar spine. The bones have a demineralized appearance. Soft tissues: A ventral hernia repair mesh is in place. There is a midline vertical incision scar in the anterior abdominal wall. There is chronic severe fatty atrophy of the gluteal muscles that is similar in appearance compared to the CT abdomen and pelvis on 04/05/2019. There is soft tissue edema posterior to the region of the left ischial tuberosity, which may indicate a pressure ulcer. IMPRESSION: 1. Patent hepatic and portal veins. 2. Cholelithiasis without CT evidence for cholecystitis. 3. Large hiatal hernia, which is similar in appearance compared to the CT abdomen and pelvis on 04/05/2019. 4. Colonic diverticulosis without evidence for diverticulitis. 5. Large amount of formed stool in the rectum. No bowel obstruction. 6. Progressive distention of the endometrial canal with a large amount of fluid since the CT abdomen and pelvis on 04/05/2019. Gynecology consultation is suggested on a nonemergent basis for further evaluation. 7. Soft tissue edema posterior to the region of the left ischial tuberosity, which may indicate a pressure ulcer. COMMENTS: For patients with an IVC filter, recommend assessment for a management plan for the patient's IVC filter. If there is no established management plan, recommend referral to an interventional clinician on a nonemergent basis for evaluation. REFERENCES: Anjel et al. Management of Incidental Adnexal Findings on CT and MRI: A White Paper of the ACR Incidental Findings Committee, J Am Manjinder Radiol. 2019;17(2):248-254. Electronically signed by: Parth Carr On 04/27/2021 19:43:03 PM
[2021-04-27 20:00] VITALS: BP 133/62
[2021-04-27] MEDS: SOLIFENACIN 5 MG TAB PO SCH (22:01)
[2021-04-27] MEDS: FLUTICASONE PROP 0.05% NASAL SPRAY 16 GM (FLONASE) NARES SCH (22:01)
[2021-04-27] MEDS: ISOSORBIDE MON. (IMDUR) 30 MG XR TAB PO SCH (22:01)
--- NOTE | 2021-04-27 22:21 | IPNPDOC ---
Subjective CC/HPI The patient is a 85-year-old female admitted with a reason for visit of CHF. Events since last encounter Pt sitting in wheelchair today. Elevated liver enzymes noted. Primary team doing work up. Renal function is stable. General: Denies: Chills, Night Sweats Constitutional: Denies: Chills, Fever, Malaise, Night Sweats, Weakness, Fatigue, Weight Loss, Lethargy, Other Eyes: Denies: Pain, Vision change, Conjunctivae inflammation, Eyelid inflammation, Redness, Other ENT: Denies: Head Aches, Ear Pain, Dysphagia, Sinus Congestion, Post Nasal Drip, Sore Throat, Epistaxis, Other Symptoms Skin: Denies: Rash, Lesions, Jaundice, Bruising, Itching, Dry, Breakdown, Nail Changes, Other Pulmonary: Denies: Dyspnea, Cough, Pleuritic Chest Pain, Other Symptoms Cardiovascular: Denies: Chest Pain, Palpitations, Orthopnea, Paroxysmal Noc. Dyspnea, Edema, Lt Headedness, Other Symptoms Gastrointestinal: Reports: Constipation; Denies: Nausea, Vomiting, Abdominal Pain, Diarrhea, Melena, Hematochezia, Other Symptoms Genitourinary: Denies: Dysuria, Frequency, Incontinence, Hematuria, Retention, Other Symptoms Hematologic: Denies: Bruising, Bleeding Excessively, Petecchia, Purpura, Enlarged Lymph Nodes, Other Hematologic Endocrine: Denies: Polydipsia, Polyphagia, Polyuria, Heat Intolerance, Cold Intolerance, Other Endocrine Sx Musculoskeletal: Reports: Back Pain, Joint Pain Neurological: Reports: Weakness Psych: Reports: Mood Normal Objective Physical Examination General Exam: Alert, Other (Morbidy obese, sitting in motorized wheelchair, Carmen lift dependent) EYE EXAM: PERRLA, EOMI ENT EXAM: Atraumatic, Mucous membr. moist/pink Neck Exam: Supple; No: JVD, thyromegaly Chest Exam: Clear to auscultation, Normal air movement Heart Exam: Rate Normal, Normal S1, Normal S2 ABDOMEN EXAM: Normal bowel sounds, Soft; No: Tenderness Extremity Exam: Edema (1+ edema of legs); No: Clubbing, Cyanosis Skin Exam: Nl turgor and temperature; No: Rash Neuro Exam: Normal Speech, Other (Carmen and wheelchair depenent) Psych Exam: Mental status NL, Mood NL Vital Signs/I&O Vital Signs Date Time Temp Pulse Resp B/P (MAP) Pulse Ox O2 Delivery O2 Flow Rate FiO2 04/27/21 22:07 20 04/27/21 22:01 133/62 04/27/21 20:00 98.2 68 95 Room Air I&O- Last 24 Hours up to 6 AM 04/27/21 06:00 Intake Total 360 ml Output Total 250 ml Balance 110 ml Laboratory Data Labs 24H Laboratory Tests 2 04/27/21 05:43: Immature Granulocyte % (Auto) 1.7, Neutrophils (%) (Auto) 66.2H, Lymphocytes (%) (Auto) 16.5L, Monocytes (%) (Auto) 11.3H, Eosinophils (%) (Auto) 3.8H, Basophils (%) (Auto) 0.5, Neutrophils # (Auto) 6.9, Lymphocytes # (Auto) 1.7, Monocytes # (Auto) 1.2H, Eosinophils # (Auto) 0.4, Basophils # (Auto) 0.1, Nucleated Red Blood Cells % (auto) 0.0, Anion Gap 6L, Glomerular Filtration Rate 43.5, Calcium Level 9.0, Iron Level 105, Total Iron Binding Capacity 250, Transferrin % Saturation 42.0, Ferritin 4366H, Total Bilirubin 0.7, Gamma Glutamyl Transferase 94H, Aspartate Amino Transf (AST/SGOT) 561H, Alanine Aminotransferase (ALT/SGPT) 1512H, Alkaline Phosphatase 97, Total Creatine Kinase 24L, Total Protein 6.2L, Albumin 2.8L, Albumin/Globulin Ratio 0.8L, Acetaminophen Level 9.5L, Hepatitis A IgM Antibody NEGATIVE, Hepatitis B Surface Antigen NEGATIVE, Hepatitis C Antibody Index 0.2 04/27/21 11:00: Prothrombin Time 14.1H, Prothromb Time International Ratio 1.05 CBC/BMP Laboratory Tests 04/27/21 05:43 Current Medications Current Medications Medications (Trade) Dose Ordered Sig/Amada Route PRN Reason Start Time Stop Time Status Last Admin Dose Admin Acetaminophen (Tylenol Tab) 650 mg Q4HP PRN PO fever/MILD PAIN (PS 1-4) 04/26/21 10:00 04/27/21 08:26 DC Albuterol/ Ipratropium (Combivent Respimat 100-20mcg) 1 puff RTID INH 04/26/21 20:00 04/27/21 17:51 Alendronate Sodium (Fosamax) 35 mg Th@07 PO 04/30/21 07:00 04/27/21 22:12 DC Calcium/Vitamin D (Oscal D) 500 mg BID PO 04/26/21 21:00 04/27/21 22:00 Cetirizine HCl (ZyrTEC) 5 mg QAM PO 04/27/21 09:00 04/27/21 08:37 Citalopram Hydrobromide (CeleXA) 5 mg DAILY PO 04/27/21 09:00 04/27/21 08:36 Ferrous Sulfate (Ferrous Sulfate) 325 mg TID PO 04/26/21 16:00 04/27/21 17:40 DC 04/27/21 15:37 Fluticasone Propionate (Flonase 0.05% Nasal [place]) 2 spray QHS NARES 04/26/21 21:00 04/27/21 22:01 Fluticasone Propionate (Flovent Hfa 220mcg) 2 puff RBID INH 04/26/21 20:00 04/27/21 17:51 Gabapentin (Neurontin) 300 mg DAILY PO 04/27/21 09:00 04/27/21 08:36 Heparin Sodium (Porcine) (Heparin) 5,000 units Q12H SC 04/26/21 21:00 04/27/21 22:01 Isosorbide Mononitrate (Imdur) 30 mg QHS PO 04/26/21 21:00 04/27/21 22:01 Lactobacillus Acidophilus (Bacid) 1 ea DAILY PO 04/27/21 09:00 04/27/21 08:36 Levofloxacin (Levaquin) 500 mg DAILY@1800 PO 04/27/21 18:00 04/27/21 18:48 Levothyroxine Sodium (Synthroid) 12.5 mcg DAILY@06 PO 04/27/21 06:00 04/27/21 05:30 Magnesium Oxide (Mag-Ox) 400 mg DAILY PO 04/26/21 09:00 04/27/21 08:37 Multivitamins (Theragram-M) 1 tab DAILY PO 04/26/21 09:00 04/27/21 08:36 Nystatin (Mycostatin Powder, Nystop) apply to abdominal folds ... BID TOP 04/26/21 21:00 04/27/21 22:02 Omeprazole (PriLOSEC) 40 mg BID PO 04/26/21 21:00 04/27/21 22:00 Oxycodone HCl (Roxicodone, Oxyir) 5 mg Q6HP PRN PO MODERATE PAIN (PS 5-7) 04/26/21 10:00 04/27/21 22:07 Polyethylene Glycol (Miralax) 1 pkt DAILY PRN PO CONSTIPATION 04/26/21 10:00 04/26/21 21:16 Senna/Docusate Sodium (Senokot S) 2 tab BID PO 04/26/21 21:00 04/27/21 22:00 Sodium Chloride (Sodium Chloride) 1 gm BID PO 04/26/21 21:00 04/27/21 09:24 DC 04/27/21 08:36 Solifenacin (Vesicare) 10 mg QHS PO 04/26/21 21:00 04/27/21 22:01 Allergies Coded Allergies: latex (Verified Allergy, Intermediate, rash, blisters, 07/17/20) TAPE (Verified Allergy, Unknown, blisters, 07/17/20) meperidine (Verified Adverse Reaction, Mild, nausea, 07/17/20) morphine (Verified Adverse Reaction, Mild, nausea, 07/17/20) Assessment/Plan Date Seen The patient was seen on 04/27/21 at 22:14. Plan / VTE VTE Prophylaxis Ordered?: Yes Plan Orders past 48 Hours Orders Admission / Observation Status (04/26/21 09:57) Code Status (04/26/21 09:57) Vital Signs Every 8 Hours Q8H (04/26/21 09:57) Activity Per Pt/Ot (04/26/21 09:57) Oob Ad Kirsten With Assist (04/26/21 09:57) Bladder Scan Pm&R (04/26/21 09:57) Fall Risk Precautions (04/26/21 09:57) Antiembolitic Stockings / Teds (04/26/21 09:57) 2 Gram Sodium Diet (04/26/21 Lunch) Heparin (Heparin) (04/26/21 21:00) Omeprazole (Prilosec) (04/26/21 21:00) Docusate Sod/Senna (Senokot S) (04/26/21 21:00) Polyethylene Glycol (Miralax) (04/26/21 10:00) Acetaminophen Tab (Tylenol Tab) (04/26/21 10:00) Cbc With Differential (04/27/21 06:00) Complete Comphrensive Metaboli (04/27/21 06:00) Incentive Spirometry (04/26/21 09:57) Pt Eval & Tx As Needed (04/26/21 09:57) Ot Eval & Treat As Needed (04/26/21 09:57) Pmr Case Management Referral (04/26/21 09:57) Is Lung Expansion Therapy-Nsg. (04/26/21 09:57) Weigh Daily 06 (04/26/21 09:57) Zinc Oxide/Petrolatum,White (Remedy Phyt (04/26/21 16:00) Albuterol/Ipratropium Inh (Combivent Res (04/26/21 20:00) Alendronate Sodium (Fosamax) (04/30/21 07:00) Citalopram Hydrobromide (Celexa) (04/27/21 09:00) Ferrous Sulfate (Ferrous Sulfate) (04/26/21 16:00) Fluticasone Prop 0.05% [place]mer Spr (Flonase (04/26/21 21:00) Gabapentin (Neurontin) (04/27/21 09:00) Isosorbide Mononitrate Xr (Imdur) (04/26/21 21:00) Lactobacillus Acidophilus (Bacid) (04/27/21 09:00) Levothyroxine Sodium (Synthroid) (04/27/21 06:00) Nystatin Powder (Mycostatin Powder, Nyst (04/26/21 21:00) Oxycodone Hcl (Roxicodone, Oxyir) (04/26/21 10:00) Sodium Chloride (Sodium Chloride) (04/26/21 21:00) Solifenacin (Vesicare) (04/26/21 21:00) Fluticasone Prop Inh 220 Mcg (Flovent Hf (04/26/21 20:00) Cetirizine Hcl (Zyrtec) (04/27/21 09:00) Calcium/Vitamin D (Oscal D) (04/26/21 21:00) Hospitalist Consult (04/26/21 10:11) Nephrology Consult (04/26/21 10:11) Magnesium Oxide (Mag-Ox) (04/26/21 09:00) Multivitamins (Theragram-M) (04/26/21 09:00) Resp Order Cpoe (04/26/21 ) Anti-Mitochondrial Antibody (04/27/21 08:36) Prothrombin Time Profile\Inr (04/27/21 08:38) Antinuclear Antibodies (04/27/21 08:43) Anti-Smooth Muscle Antibody (04/27/21 08:43) Liver Doppler Flow (04/27/21 09:05) Liver Us (04/27/21 09:05) Patiromer Sorbitex Calcium (Veltassa) (04/27/21 12:00) Cbc With Differential (04/29/21 06:00) Cbc With Differential (04/28/21 06:00) Complete Comphrensive Metaboli (04/28/21 06:00) Complete Comphrensive Metaboli (04/29/21 06:00) Hepatitis B Surface Antigen (04/27/21 05:43) Hepatitis C Antibody (04/27/21 05:43) Hepatitis A Antibody Igm (04/27/21 05:43) Acetaminophen Level (04/27/21 05:43) Ferritin (04/27/21 05:43) Gamma Glutamyltransferase (04/27/21 05:43) Total Iron Binding Capacit (04/27/21 05:43) Sodium Polystyrene Sulfonate (Kayexalate (04/27/21 13:00) Creatine Phosphokinase (04/27/21 05:43) Pantoprazole Sodium (Protonix) (04/27/21 15:00) 2 Gram Sodium Diet (04/27/21 Dinner) Ct Abd & Pelvis W/O Fol By Wit (04/27/21 15:38) Ns (Nacl 0.9%) (04/27/21 15:40) Levofloxacin (Levaquin) (04/27/21 18:00) Nt-Probnp (04/28/21 06:00) Plan Text Morbid Obesity HFpEF with diastolic dysfunction DELORES on CKD Wheel chair and carmen lift dependent Elevated Liver Enzymes Osteoporosis and vertebral compression fractures Hold diuretics for now. No significant edema. Renal function is improving. Liver USG and CT scan with no pathology. Serology has been ordered. Stop alendronate for now for possible autoimmune hepatitis. WILFRID NEGRO MD Apr 27, 2021 22:20
[2021-04-28] MEDS: LEVOTHYROXINE 12.5MCG PER 1/2 TAB (0.0125MG) PO SCH (05:16)
[2021-04-28 06:00] VITALS: BP 139/63
[2021-04-28 07:32] LABS: BASO % 0.4 % (0.0-1.0); EOS # 0.3 10^3/uL (0.0-0.5); HEMATOCRIT 34.7 % (36.0-47.0); HEMOGLOBIN 11.2 g/dl (12.0-15.5); LYMPH # 1.2 10^3/uL (1.5-5.0); LYMPH % 11.5 % (24.0-44.0); MEAN CORPUSCULAR HEMOGLOBIN 33.9 pg (27.0-33.0); MEAN CORPUSCULAR HGB CONC 32.3 g/dl (32.0-36.5); MEAN CORPUSCULAR VOLUME 105.2 fl (80.0-96.0); MONO % 10.2 % (2.0-8.0); NEUTROPHILS # 7.4 10^3/uL (1.5-8.5); NEUTROPHILS % 73.6 % (36.0-66.0); PLATELET COUNT, AUTOMATED 323 10^3/uL (150-450); WHITE BLOOD COUNT 10.1 10^3/uL (4.0-10.0)
[2021-04-28 08:07] LABS: ALBUMIN 2.9 GM/DL (3.2-5.2); BILIRUBIN,TOTAL 0.7 MG/DL (0.2-1.0); CALCIUM LEVEL 9.3 MG/DL (8.8-10.2); CREATININE FOR GFR 1.21 MG/DL (0.55-1.30); GLOMERULAR FILTRATION RATE 45.1 (>32); POTASSIUM SERUM 5.1 MEQ/L (3.5-5.1); TOTAL PROTEIN 6.6 GM/DL (6.4-8.2)
[2021-04-28] MEDS: OMEPRAZOLE 20 MG CAP PO SCH ×2 (08:39→20:41)
[2021-04-28] MEDS: CETIRIZINE (ZyrTEC) 10 MG TAB PO SCH (08:39)
[2021-04-28] MEDS: GABAPENTIN 300 MG CAP PO SCH (08:39)
[2021-04-28] MEDS: LACTOBACILLUS ACIDOPHILUS CAP (BACID) PO SCH (08:39)
[2021-04-28] MEDS: CitaloPRAM (CeleXA) 10 MG TABLET PO SCH (08:39)
[2021-04-28] MEDS: CALCIUM/VITAMIN D 500 MG TAB PO SCH ×2 (08:39→20:41)
[2021-04-28] MEDS: SENOKOT S TAB PO SCH ×2 (08:39→20:42)
[2021-04-28] MEDS: MULTIVITAMINS/MINERALS THERAP 1 TAB PO SCH (08:39)
[2021-04-28] MEDS: MAGNESIUM OXIDE 400MG TAB (MAG-OX) PO SCH (08:40)
[2021-04-28] MEDS: NYSTATIN 100,000 UNITS/GM TOPICAL PWD 15 GM TOP SCH ×2 (08:40→20:52)
[2021-04-28] MEDS: REMEDY PHYTOPLEX Z-GUARD PASTE 113GM TUBE (FROM STOREROOM PRODUCT) TOP SCH ×3 (08:40→20:51)
[2021-04-28] MEDS: HEPARIN SOD (PORCINE) 5000UNITS/ML 1ML VIAL/SYRINGE SC SCH ×2 (08:40→20:42)
[2021-04-28] MEDS: COMBIVENT RESPIMAT 100-20MCG INHALER 4GM INH SCH ×3 (09:25→20:00)
--- NOTE | 2021-04-28 10:41 | IPNPDOC ---
PM&R Progress Note DATE OF SERVICE: Apr 28, 2021 [employer] Specialist Progress Note Subjective: Patient seen in her room stating she feels her voice has gotten more hoarse over the last 2 weeks. She denies throat pain, fever, or chills. REVIEW OF SYSTEMS: The following is a completed review of systems and has been reviewed. Review of systems otherwise unremarkable. PAIN: Patient self reports no pain EYES: No recent vision changes EARS, NOSE, & THROAT: No throat pain, or dysphagia, or rhinorrhea CARDIOVASCULAR: Denies chest pain or palpitations PULMONARY: Denies shortness of breath, +intermittent cough GASTROINTESTINAL: + constipation GENITOURINARY: denies dysuria MUSCULOSKELETAL: bilat LE weakness NEUROLOGICAL: +peripheral polyneuropathy HEMATOLOGICAL: denies easy bruising SKIN: scattered bilat LE wounds PSYCHIATRIC: Unremarkable All other review of systems found to be negative. PHYSICAL EXAMINATION: VITAL SIGNS: Please see below. GENERAL: Pleasant and cooperative. No acute distress. HEENT: PERRL. Extraocular movements intact. Clear conjunctiva, no lymphadenopathy CARDIOVASCULAR: Regular rate and rhythm. No murmurs, rubs, or gallops LUNGS: Clear to auscultation bilaterally. No wheezes. scattered rhonchi ABDOMEN: Soft, mildly TTP throughout nondistended. Positive bowel sounds. Normal active bowel sounds NEUROLOGICAL: Alert and oriented times three. Cranial nerves II through XII grossly intact. Sensation decreased in stocking pattern EXTREMITIES: 4\5 strength bilateral upper extremities. 4\5 strength right lower extremity. 4/5 strength in left lower extremity SKIN: scattered stage 1 pressure sores on tops of bilat toes ASSESSMENT:85-year-old F with past medical history of pulmonary HTN, hypothyroidism, obesity who presents status post CHF exacerbation with mobility and ADL impairments PLAN: 1. Rehab- PT/OT advance mobility strengthen/stretch/maintain ROM all 4limbs 2. Neuro- peripheral polyneuropathy due to arterial disease contributing to movement impairment 3. CArdiac- diastolic CHF with recent exacerbation s/p aggressive diuresis complicated by DELORES- daily weights, fluid restrict -HTN cont BP meds 4. Resp- monitor for infection -patient with chronic sinusitis cont flonase and nasal saline, will stop Zyrtec as may contribute to dry throat, salt water gargles ordered, strep screen, and throat Cx -asthma cont inhaler treatment 5. GI-acute elevation in LFTs, liver US and CT negative for portal vein thrombosis, LFTs improved today, cont to monitor -hospitalist following, hepatitis panel and autoimmune panel negative 6. Renal- CKD with recent DELORES improving, renal following -NaCl tabs d/c'd -s/p kayexelate for Hyperkalemia, resolved 7. DVT ppx- heparin 8. Pain- oxycodone, gabapentin 9. Endo- hx of hypothyroidism cont Synthroid 10. DIspo- TBD Allergies Coded Allergies: latex (Verified Allergy, Intermediate, rash, blisters, 07/17/20) TAPE (Verified Allergy, Unknown, blisters, 07/17/20) meperidine (Verified Adverse Reaction, Mild, nausea, 07/17/20) morphine (Verified Adverse Reaction, Mild, nausea, 07/17/20) Vital Signs Vital Signs Date Time Temp Pulse Resp B/P (MAP) Pulse Ox O2 Delivery O2 Flow Rate FiO2 04/28/21 06:00 97.7 71 18 139/63 (88) 96 Room Air Laboratory Data CBC/BMP Laboratory Tests 04/28/21 06:43 Labs 24H Laboratory Tests 2 04/27/21 11:00: Prothrombin Time 14.1H, Prothromb Time International Ratio 1.05 04/28/21 06:43: Immature Granulocyte % (Auto) 1.3, Neutrophils (%) (Auto) 73.6H, Lymphocytes (%) (Auto) 11.5L, Monocytes (%) (Auto) 10.2H, Eosinophils (%) (Auto) 3.0, Basophils (%) (Auto) 0.4, Neutrophils # (Auto) 7.4, Lymphocytes # (Auto) 1.2L, Monocytes # (Auto) 1.0H, Eosinophils # (Auto) 0.3, Basophils # (Auto) 0.0, Nucleated Red Blood Cells % (auto) 0.0, Anion Gap 6L, Glomerular Filtration Rate 45.1, Calcium Level 9.3, Total Bilirubin 0.7, Aspartate Amino Transf (AST/SGOT) 252H, Alanine Aminotransferase (ALT/SGPT) 1047H, Alkaline Phosphatase 102, SN-Kow-[id number]-Type Natri uretic Peptide 442, Total Protein 6.6, Albumin 2.9L, Albumin/Globulin Ratio 0.8L Current Medications Current Medications Current Medications Medications (Trade) Dose Ordered Sig/Amada Route PRN Reason Start Time Stop Time Status Last Admin Dose Admin Acetaminophen (Tylenol Tab) 650 mg Q4HP PRN PO fever/MILD PAIN (PS 1-4) 04/26/21 10:00 04/27/21 08:26 DC Albuterol/ Ipratropium (Combivent Respimat 100-20mcg) 1 puff RTID INH 04/26/21 20:00 04/27/21 17:51 Alendronate Sodium (Fosamax) 35 mg Th@07 PO 04/30/21 07:00 04/27/21 22:12 DC Calcium/Vitamin D (Oscal D) 500 mg BID PO 04/26/21 21:00 04/28/21 08:39 Cetirizine HCl (ZyrTEC) 5 mg QAM PO 04/27/21 09:00 04/28/21 08:39 Citalopram Hydrobromide (CeleXA) 5 mg DAILY PO 04/27/21 09:00 04/28/21 08:39 Ferrous Sulfate (Ferrous Sulfate) 325 mg TID PO 04/26/21 16:00 04/27/21 17:40 DC 04/27/21 15:37 Fluticasone Propionate (Flonase 0.05% Nasal [place]) 2 spray QHS NARES 04/26/21 21:00 04/27/21 22:01 Fluticasone Propionate (Flovent Hfa 220mcg) 2 puff RBID INH 04/26/21 20:00 04/27/21 17:51 Gabapentin (Neurontin) 300 mg DAILY PO 04/27/21 09:00 04/28/21 08:39 Heparin Sodium (Porcine) (Heparin) 5,000 units Q12H SC 04/26/21 21:00 04/28/21 08:40 Isosorbide Mononitrate (Imdur) 30 mg QHS PO 04/26/21 21:00 04/27/21 22:01 Lactobacillus Acidophilus (Bacid) 1 ea DAILY PO 04/27/21 09:00 04/28/21 08:39 Levofloxacin (Levaquin) 500 mg DAILY@1800 PO 04/27/21 18:00 04/28/21 09:22 DC 04/27/21 18:48 Levothyroxine Sodium (Synthroid) 12.5 mcg DAILY@06 PO 04/27/21 06:00 04/28/21 05:16 Magnesium Oxide (Mag-Ox) 400 mg DAILY PO 04/26/21 09:00 04/28/21 08:40 Multivitamins (Theragram-M) 1 tab DAILY PO 04/26/21 09:00 04/28/21 08:39 Nystatin (Mycostatin Powder, Nystop) apply to abdominal folds ... BID TOP 04/26/21 21:00 04/28/21 08:40 Omeprazole (PriLOSEC) 40 mg BID PO 04/26/21 21:00 04/28/21 08:39 Oxycodone HCl (Roxicodone, Oxyir) 5 mg Q6HP PRN PO MODERATE PAIN (PS 5-7) 04/26/21 10:00 04/27/21 22:07 Polyethylene Glycol (Miralax) 1 pkt DAILY PRN PO CONSTIPATION 04/26/21 10:00 04/26/21 21:16 Senna/Docusate Sodium (Senokot S) 2 tab BID PO 04/26/21 21:00 04/28/21 08:39 Sodium Chloride (Sodium Chloride) 1 gm BID PO 04/26/21 21:00 04/27/21 09:24 DC 04/27/21 08:36 Solifenacin (Vesicare) 10 mg QHS PO 04/26/21 21:00 04/27/21 22:01 RAGHAV CABEZAS MD Apr 28, 2021 10:41
--- NOTE | 2021-04-28 11:27 | IPNPDOC ---
Text Note Date of Service The patient was seen on 04/28/21. NOTE Subjective: Patient is an 85-year-old female is currently in the acute rehab unit after hospital stay for congestive heart failure. Patient had acute kidney injury which is improving. Patient has some right upper quadrant pain and was found to have transaminitis. This is improving at this time. Patient imaging studies done yesterday which did not show any cause of the transaminitis. Patient is otherwise feeling well today. Review of systems: General: Patient denies fevers HEENT: Patient denies headaches Cardiovascular: Patient denies chest pain Respiratory: Patient denies shortness of breath, cough GI: Patient reports improvement in the right upper quadrant pain, denies nausea, vomiting, or diarrhea : Patient denies increased frequency or pain with urination Extremities: Patient reports pain in extremities from fall Neurological: Patient denies numbness or tingling in legs Physical exam: Vitals: See below General: Alert and oriented female who was sitting in her motorized wheelchair I walked in. Patient not appear to be in acute distress. HEENT: Normocephalic, atraumatic, moist mucous membranes. Neck: No lymphadenopathy or thyromegaly Cardiac: Regular rate and rhythm, no murmurs, normal S1, normal S2 Pulm: Clear to auscultation bilaterally. No wheezes, rhonchi, rales Abd: Nondistended, mild tenderness to palpation the right upper quadrant, normal bowel sounds Ext: No edema bilateral lower extremities Labs: See below Imaging: Liver ultrasound with Doppler performed on 04/27/2021 was reported to show the examination is limited. The technologist is written on the patient's worksheet that the examination was extremely limited to obtain. Consider CT. CT of the abdomen and pelvis without followed by with contrast performed on 04/27/2021 was reported to show patent hepatic and portal veins. Cholelithiasis without CT evidence for cholecystitis. Large hiatal hernia which is similar in appearance compared to CT abdomen pelvis on 04/05/2019. Colonic diverticulosis without evidence of diverticulitis. Large amount of formed stool in the rectum. No bowel obstruction. Progressive distention of the endometrial canal with a large amount of fluid since CT abdomen pelvis on . Gynecology consultation is suggested on a nonemergent basis for further evaluation. Soft tissue edema posterior to the region of the left posterior tuberosity which may indicate a pressure ulcer. Patient with an IVC filter, recommend assessment for management plan for the patient's IVC filter. If there is no established management plan, recommend referral to interventional clinician or not on a nonemergent basis for evaluation. Assessment/plan: 85-year-old female presented to the acute rehab unit after stay in hospital for diastolic congestive heart failure exacerbation. Patient was found to have transaminitis yesterday. 1. Transaminitis. This is improving with the patient's ALT down to about 1000 and AST down to about 250. We will continue to monitor this. Unsure of the exact cause of the transaminitis however, iron, acetaminophen, and alendronate have all been stopped. Viral hepatitis panel is negative. Autoimmune work-up still pending. Congestive hepatitis rule out on CT. We will continue to monitor. Patient does not have any hyperbilirubinemia or elevated alkaline phosphatase. 2. Acute kidney injury. This is improving. We will continue to monitor patient's kidney function. 3. Hyperkalemia. Patient was given a dose of Kayexalate which fixed the patient potassium. Continue to monitor. 4. Hyponatremia. Sodium chloride tablets have been given the patient is improving. 5. Hypertension. This is resolved. 6. Compression fracture of T5 vertebrae. Continue calcium and vitamin D. Alendronate has been stopped as above. 7. Diastolic congestive heart failure acute on chronic. Resolved. Continue to monitor. Patient appears euvolemic today. 8. Hypertension. Hold parameters on medication. 9. Hypothyroidism. Continue home medications. 10. GERD. Continue PPI therapy. 11. Physical deconditioning. Continue therapy and area. DVT Prophylaxis: Heparin Disposition: Discharge per Mark Hanna, I+O Mark SANTOS, I+O Laboratory Tests 04/28/21 06:43 Vital Signs Date Time Temp Pulse Resp B/P (MAP) Pulse Ox O2 Delivery O2 Flow Rate FiO2 04/28/21 06:00 97.7 71 18 139/63 (88) 96 Room Air I&O- Last 24 Hours up to 6 AM 04/28/21 06:00 Intake Total 990 ml Balance 990 ml TOBIAS BASSETT DO Apr 28, 2021 11:27
[2021-04-28] MEDS: FLUTICASONE HFA 220 MCG 12 GM INHALER (FLOVENT) INH SCH ×2 (11:28→20:11)
--- NOTE | 2021-04-28 13:09 | IPNPDOC ---
Subjective CC/HPI The patient is a 85-year-old female admitted with a reason for visit of CHF. Events since last encounter Pt seen in the motorized gaooter. LFTs improving. Renal function is stable. General: Denies: Chills, Night Sweats, Fatigue Constitutional: Denies: Chills, Fever, Malaise Eyes: Denies: Pain, Vision change ENT: Denies: Head Aches, Ear Pain, Dysphagia, Sinus Congestion, Post Nasal Drip, Sore Throat, Epistaxis, Other Symptoms Skin: Denies: Rash, Lesions, Jaundice, Bruising, Itching, Dry, Breakdown, Nail Changes, Other Pulmonary: Denies: Dyspnea, Cough, Pleuritic Chest Pain, Other Symptoms Cardiovascular: Denies: Chest Pain, Palpitations, Orthopnea, Paroxysmal Noc. Dyspnea, Edema, Lt Headedness, Other Symptoms Gastrointestinal: Denies: Nausea, Vomiting, Abdominal Pain, Diarrhea, Constipation, Melena, Hematochezia, Other Symptoms Genitourinary: Denies: Dysuria, Frequency, Incontinence, Hematuria, Retention, Other Symptoms Hematologic: Denies: Bruising, Bleeding Excessively, Petecchia, Purpura, Enlarged Lymph Nodes, Other Hematologic Musculoskeletal: Reports: Back Pain Neurological: Reports: Weakness Psych: Reports: Mood Normal Objective Physical Examination General Exam: Alert, Other (Morbidy obese, sitting in motorized wheelchair, Carmen lift dependent) EYE EXAM: PERRLA, EOMI ENT EXAM: Atraumatic, Mucous membr. moist/pink Neck Exam: Supple; No: JVD, thyromegaly Chest Exam: Clear to auscultation, Normal air movement Heart Exam: Rate Normal, Normal S1, Normal S2 ABDOMEN EXAM: Normal bowel sounds, Soft; No: Tenderness Extremity Exam: Edema (1+ edema of Rt leg); No: Clubbing, Cyanosis Skin Exam: Nl turgor and temperature; No: Rash Neuro Exam: Normal Speech, Other (Carmen and wheelchair depenent) Psych Exam: Mental status NL, Mood NL Vital Signs/I&O Vital Signs Date Time Temp Pulse Resp B/P (MAP) Pulse Ox O2 Delivery O2 Flow Rate FiO2 04/28/21 06:00 97.7 71 18 139/63 (88) 96 Room Air l I&O- Last 24 Hours up to 6 AM 04/28/21 06:00 Intake Total 990 ml Balance 990 ml Laboratory Data Labs 24H Laboratory Tests 2 04/28/21 06:43: Immature Granulocyte % (Auto) 1.3, Neutrophils (%) (Auto) 73.6H, Lymphocytes (%) (Auto) 11.5L, Monocytes (%) (Auto) 10.2H, Eosinophils (%) (Auto) 3.0, Basophils (%) (Auto) 0.4, Neutrophils # (Auto) 7.4, Lymphocytes # (Auto) 1.2L, Monocytes # (Auto) 1.0H, Eosinophils # (Auto) 0.3, Basophils # (Auto) 0.0, Nucleated Red Blood Cells % (auto) 0.0, Anion Gap 6L, Glomerular Filtration Rate 45.1, Calcium Level 9.3, Total Bilirubin 0.7, Aspartate Amino Transf (AST/SGOT) 252H, Alanine Aminotransferase (ALT/SGPT) 1047H, Alkaline Phosphatase 102, TN-[id number]-Type Natriuretic Peptide 442, Total Protein 6.6, Albumin 2.9L, Albumin/Globulin Ratio 0.8L CBC/BMP Laboratory Tests 04/28/21 06:43 Current Medications Current Medications Medications (Trade) Dose Ordered Sig/Amada Route PRN Reason Start Time Stop Time Status Last Admin Dose Admin Acetaminophen (Tylenol Tab) 650 mg Q4HP PRN PO fever/MILD PAIN (PS 1-4) 04/26/21 10:00 04/27/21 08:26 DC Albuterol/ Ipratropium (Combivent Respimat 100-20mcg) 1 puff RTID INH 04/26/21 20:00 04/28/21 11:27 Alendronate Sodium (Fosamax) 35 mg Th@07 PO 04/30/21 07:00 04/27/21 22:12 DC Calcium/Vitamin D (Oscal D) 500 mg BID PO 04/26/21 21:00 04/28/21 08:39 Cetirizine HCl (ZyrTEC) 5 mg QAM PO 04/27/21 09:00 04/28/21 08:39 Citalopram Hydrobromide (CeleXA) 5 mg DAILY PO 04/27/21 09:00 04/28/21 08:39 Ferrous Sulfate (Ferrous Sulfate) 325 mg TID PO 04/26/21 16:00 04/27/21 17:40 DC 04/27/21 15:37 Fluticasone Propionate (Flonase 0.05% Nasal [place]) 2 spray QHS NARES 04/26/21 21:00 04/27/21 22:01 Fluticasone Propionate (Flovent Hfa 220mcg) 2 puff RBID INH 04/26/21 20:00 04/28/21 11:28 Gabapentin (Neurontin) 300 mg DAILY PO 04/27/21 09:00 04/28/21 08:39 Heparin Sodium (Porcine) (Heparin) 5,000 units Q12H SC 04/26/21 21:00 04/28/21 08:40 Isosorbide Mononitrate (Imdur) 30 mg QHS PO 04/26/21 21:00 04/27/21 22:01 Lactobacillus Acidophilus (Bacid) 1 ea DAILY PO 04/27/21 09:00 04/28/21 08:39 Levofloxacin (Levaquin) 500 mg DAILY@1800 PO 04/27/21 18:00 04/28/21 09:22 DC 04/27/21 18:48 Levothyroxine Sodium (Synthroid) 12.5 mcg DAILY@06 PO 04/27/21 06:00 04/28/21 05:16 Magnesium Oxide (Mag-Ox) 400 mg DAILY PO 04/26/21 09:00 04/28/21 08:40 Multivitamins (Theragram-M) 1 tab DAILY PO 04/26/21 09:00 04/28/21 08:39 Nystatin (Mycostatin Powder, Nystop) apply to abdominal folds ... BID TOP 04/26/21 21:00 04/28/21 08:40 Omeprazole (PriLOSEC) 40 mg BID PO 04/26/21 21:00 04/28/21 08:39 Oxycodone HCl (Roxicodone, Oxyir) 5 mg Q6HP PRN PO MODERATE PAIN (PS 5-7) 04/26/21 10:00 04/27/21 22:07 Polyethylene Glycol (Miralax) 1 pkt DAILY PRN PO CONSTIPATION 04/26/21 10:00 04/26/21 21:16 Senna/Docusate Sodium (Senokot S) 2 tab BID PO 04/26/21 21:00 04/28/21 08:39 Sodium Chloride (Sodium Chloride) 1 gm BID PO 04/26/21 21:00 04/27/21 09:24 DC 04/27/21 08:36 Solifenacin (Vesicare) 10 mg QHS PO 04/26/21 21:00 04/27/21 22:01 Allergies Coded Allergies: latex (Verified Allergy, Intermediate, rash, blisters, 07/17/20) TAPE (Verified Allergy, Unknown, blisters, 07/17/20) meperidine (Verified Adverse Reaction, Mild, nausea, 07/17/20) morphine (Verified Adverse Reaction, Mild, nausea, 07/17/20) Assessment/Plan Date Seen The patient was seen on 04/28/21 at 13:05. Plan / VTE VTE Prophylaxis Ordered?: Yes Plan Orders past 48 Hours Orders Resp Order Cpoe (04/26/21 ) Anti-Mitochondrial Antibody (04/27/21 08:36) Prothrombin Time Profile\Inr (04/27/21 08:38) Antinuclear Antibodies (04/27/21 08:43) Anti-Smooth Muscle Antibody (04/27/21 08:43) Liver Doppler Flow (04/27/21 09:05) Liver Us (04/27/21 09:05) Patiromer Sorbitex Calcium (Veltassa) (04/27/21 12:00) Cbc With Differential (04/29/21 06:00) Cbc With Differential (04/28/21 06:00) Complete Comphrensive Metaboli (04/28/21 06:00) Complete Comphrensive Metaboli (04/29/21 06:00) Hepatitis B Surface Antigen (04/27/21 05:43) Hepatitis C Antibody (04/27/21 05:43) Hepatitis A Antibody Igm (04/27/21 05:43) Acetaminophen Level (04/27/21 05:43) Ferritin (04/27/21 05:43) Gamma Glutamyltransferase (04/27/21 05:43) Total Iron Binding Capacit (04/27/21 05:43) Sodium Polystyrene Sulfonate (Kayexalate (04/27/21 13:00) Creatine Phosphokinase (04/27/21 05:43) Pantoprazole Sodium (Protonix) (04/27/21 15:00) 2 Gram Sodium Diet (04/27/21 Dinner) Ct Abd & Pelvis W/O Fol By Wit (04/27/21 15:38) Ns (Nacl 0.9%) (04/27/21 15:40) Levofloxacin (Levaquin) (04/27/21 18:00) Nt-Probnp (04/28/21 06:00) Picc Line Insertion W/Siterite (04/28/21 ) Plan Text Morbid Obesity HFpEF with diastolic dysfunction DELORES on CKD Wheel chair and Carmen lift dependent Elevated Liver Enzymes Osteoporosis and vertebral compression fractures No need of diuretics for now.Renal function is stable. Liver USG and CT scan with no pathology. Serology pending.Stopped alendronate for possible autoimmune hepatitis.LFTs improving. Discussed plan of care with her daughter on the phone as well. WILFRID NEGRO MD Apr 28, 2021 13:09
[2021-04-28 14:00] VITALS: BP 108/66
[2021-04-28] MEDS: SODIUM CHLORIDE NASAL 0.65% SPRAY BTL (OCEAN) SCH ×2 (15:39→20:52)
[2021-04-28 17:09] LABS: ANTI-SMOOTH MUSCLE ANTIBODY 16 Units (0-19); ANTINUCLEAR ANTIBODIES DIRECT Negative (Negative)
[2021-04-28 20:00] VITALS: BP 116/66
[2021-04-28] MEDS: SOLIFENACIN 5 MG TAB PO SCH (20:42)
[2021-04-28] MEDS: ISOSORBIDE MON. (IMDUR) 30 MG XR TAB PO SCH (20:42)
[2021-04-28] MEDS: oxyCODONE 5MG TAB PO PRN (20:45)
[2021-04-28] MEDS: FLUTICASONE PROP 0.05% NASAL SPRAY 16 GM (FLONASE) NARES SCH (20:52)
[2021-04-29] MEDS: LEVOTHYROXINE 12.5MCG PER 1/2 TAB (0.0125MG) PO SCH (05:31)
[2021-04-29] MEDS: oxyCODONE 5MG TAB PO PRN (05:32)
[2021-04-29 06:00] VITALS: BP 138/76
[2021-04-29] MEDS: CALCIUM CARBONATE 500 MG CHEW U/D PO PRN ×2 (06:04→18:43)
[2021-04-29] MEDS: COMBIVENT RESPIMAT 100-20MCG INHALER 4GM INH SCH ×3 (07:34→20:36)
[2021-04-29] MEDS: FLUTICASONE HFA 220 MCG 12 GM INHALER (FLOVENT) INH SCH ×2 (07:34→20:36)
[2021-04-29 07:50] LABS: BASO % 0.3 % (0.0-1.0); EOS # 0.3 10^3/uL (0.0-0.5); EOS % 3.1 % (0.0-3.0); HEMATOCRIT 33.7 % (36.0-47.0); LYMPH % 10.9 % (24.0-44.0); MEAN CORPUSCULAR HEMOGLOBIN 34.4 pg (27.0-33.0); MEAN CORPUSCULAR HGB CONC 32.6 g/dl (32.0-36.5); MEAN CORPUSCULAR VOLUME 105.3 fl (80.0-96.0); MONO # 0.9 10^3/uL (0.0-0.8); MONO % 9.9 % (2.0-8.0); NEUTROPHILS % 74.7 % (36.0-66.0); PLATELET COUNT, AUTOMATED 307 10^3/uL (150-450); WHITE BLOOD COUNT 9.4 10^3/uL (4.0-10.0)
[2021-04-29 08:21] LABS: ALBUMIN 3.1 GM/DL (3.2-5.2); BILIRUBIN,TOTAL 0.7 MG/DL (0.2-1.0); CALCIUM LEVEL 9.7 MG/DL (8.8-10.2); CREATININE FOR GFR 1.43 MG/DL (0.55-1.30); GLOMERULAR FILTRATION RATE 37.2 (>32); POTASSIUM SERUM 5.3 MEQ/L (3.5-5.1); TOTAL PROTEIN 6.8 GM/DL (6.4-8.2)
[2021-04-29] MEDS: OMEPRAZOLE 20 MG CAP PO SCH ×2 (09:30→21:42)
[2021-04-29] MEDS: MULTIVITAMINS/MINERALS THERAP 1 TAB PO SCH (09:30)
[2021-04-29] MEDS: CALCIUM/VITAMIN D 500 MG TAB PO SCH ×2 (09:31→21:39)
[2021-04-29] MEDS: SODIUM CHLORIDE NASAL 0.65% SPRAY BTL (OCEAN) SCH ×3 (09:31→21:40)
[2021-04-29] MEDS: CitaloPRAM (CeleXA) 10 MG TABLET PO SCH (09:31)
[2021-04-29] MEDS: SENOKOT S TAB PO SCH ×2 (09:31→21:39)
[2021-04-29] MEDS: GABAPENTIN 300 MG CAP PO SCH (09:31)
[2021-04-29] MEDS: MAGNESIUM OXIDE 400MG TAB (MAG-OX) PO SCH (09:31)
[2021-04-29] MEDS: LACTOBACILLUS ACIDOPHILUS CAP (BACID) PO SCH (09:31)
[2021-04-29] MEDS: HEPARIN SOD (PORCINE) 5000UNITS/ML 1ML VIAL/SYRINGE SC SCH ×2 (09:31→21:39)
[2021-04-29] MEDS: NYSTATIN 100,000 UNITS/GM TOPICAL PWD 15 GM TOP SCH ×2 (09:32→21:41)
[2021-04-29] MEDS: REMEDY PHYTOPLEX Z-GUARD PASTE 113GM TUBE (FROM STOREROOM PRODUCT) TOP SCH ×3 (09:32→21:41)
--- NOTE | 2021-04-29 11:52 | IPNPDOC ---
PM&R Progress Note DATE OF SERVICE: Apr 29, 2021 Skip Miner Progress Note Subjective: REVIEW OF SYSTEMS: The following is a completed review of systems and has been reviewed. Review of systems otherwise unremarkable. PAIN: Patient self reports no pain EYES: No recent vision changes EARS, NOSE, & THROAT: No throat pain, or dysphagia, or rhinorrhea CARDIOVASCULAR: Denies chest pain or palpitations PULMONARY: Denies shortness of breath, +intermittent cough GASTROINTESTINAL: + constipation GENITOURINARY: denies dysuria MUSCULOSKELETAL: bilat LE weakness NEUROLOGICAL: +peripheral polyneuropathy HEMATOLOGICAL: denies easy bruising SKIN: scattered bilat LE wounds PSYCHIATRIC: Unremarkable All other review of systems found to be negative. PHYSICAL EXAMINATION: VITAL SIGNS: Please see below. GENERAL: Pleasant and cooperative. No acute distress. HEENT: PERRL. Extraocular movements intact. Clear conjunctiva, no lymphadenopathy CARDIOVASCULAR: Regular rate and rhythm. No murmurs, rubs, or gallops LUNGS: Clear to auscultation bilaterally. No wheezes. scattered rhonchi ABDOMEN: Soft, mildly TTP throughout nondistended. Positive bowel sounds. Normal active bowel sounds NEUROLOGICAL: Alert and oriented times three. Cranial nerves II through XII grossly intact. Sensation decreased in stocking pattern EXTREMITIES: 4\5 strength bilateral upper extremities. 4\5 strength right lower extremity. 4/5 strength in left lower extremity SKIN: scattered stage 1 pressure sores on tops of bilat toes ASSESSMENT:85-year-old F with past medical history of pulmonary HTN, hypothyroidism, obesity who presents status post CHF exacerbation with mobility and ADL impairments PLAN: 1. Rehab- PT/OT advance mobility strengthen/stretch/maintain ROM all 4limbs 2. Neuro- peripheral polyneuropathy due to arterial disease contributing to mo vement impairment 3. CArdiac- diastolic CHF with recent exacerbation s/p aggressive diuresis complicated by DELORES- daily weights, fluid restrict -HTN cont BP meds 4. Resp- monitor for infection -patient with chronic sinusitis cont flonase and nasal saline, will stop Zyrtec as may contribute to dry throat, salt water gargles ordered, strep screen, and throat Cx -asthma cont inhaler treatment 5. GI-acute elevation in LFTs, liver US and CT negative for portal vein thrombosis, LFTs cont to improve, cont to monitor -hospitalist following, hepatitis panel and autoimmune panel negative 6. Renal- CKD with recent DELORES improving, renal following -NaCl tabs d/c'd -Hperkalemia- K of 5.3, veltassa ordered, patient on magnesium, will f/u level, renal recs appreciated 7. DVT ppx- heparin 8. Pain- oxycodone, gabapentin 9. Endo- hx of hypothyroidism cont Synthroid 10. DIspo- TBD Allergies Coded Allergies: latex (Verified Allergy, Intermediate, rash, blisters, 07/17/20) TAPE (Verified Allergy, Unknown, blisters, 07/17/20) meperidine (Verified Adverse Reaction, Mild, nausea, 07/17/20) morphine (Verified Adverse Reaction, Mild, nausea, 07/17/20) Vital Signs Vital Signs Date Time Temp Pulse Resp B/P (MAP) Pulse Ox O2 Delivery O2 Flow Rate FiO2 04/29/21 06:02 17 04/29/21 06:00 97.9 70 138/76 (96) 94 Room Air Laboratory Data CBC/BMP Laboratory Tests 04/29/21 07:34 Labs 24H Laboratory Tests 2 04/29/21 07:34: Immature Granulocyte % (Auto) 1.1, Neutrophils (%) (Auto) 74.7H, Lymphocytes (%) (Auto) 10.9L, Monocytes (%) (Auto) 9.9H, Eosinophils (%) (Auto) 3.1H, Basophils (%) (Auto) 0.3, Neutrophils # (Auto) 7.0, Lymphocytes # (Auto) 1.0L, Monocytes # (Auto) 0.9H, Eosinophils # (Auto) 0.3, Basophils # (Auto) 0.0, Nucleated Red Blood Cells % (auto) 0.0, Anion Gap 5L, Glomerular Filtration Rate 37.2, Calcium Level 9.7, Total Bilirubin 0.7, Aspartate Amino Transf (AST/SGOT) 131H, Alanine Aminotransferase (ALT/SGPT) 740H, Alkaline Phosphatase 105, Total Protein 6.8, Albumin 3.1L, Albumin/Globulin Ratio 0.8L Microbiology Microbiology 04/28/21 Group A Streptococcus Screen (MAXIMO) - Final, Complete 04/28/21 Eye/Ear/Nose/Throat Culture - Final, Complete Current Medications Current Medications Current Medications Medications (Trade) Dose Ordered Sig/Amada Route PRN Reason Start Time Stop Time Status Last Admin Dose Admin Acetaminophen (Tylenol Tab) 650 mg Q4HP PRN PO fever/MILD PAIN (PS 1-4) 04/26/21 10:00 04/27/21 08:26 DC Albuterol/ Ipratropium (Combivent Respimat 100-20mcg) 1 puff RTID INH 04/26/21 20:00 04/29/21 07:34 Alendronate Sodium (Fosamax) 35 mg Th@07 PO 04/30/21 07:00 04/27/21 22:12 DC Calcium Carbonate (Tums) 1,000 mg Q4HP PRN PO HEARTBURN 04/29/21 05:50 04/29/21 06:04 Calcium/Vitamin D (Oscal D) 500 mg BID PO 04/26/21 21:00 04/29/21 09:31 Cetirizine HCl (ZyrTEC) 5 mg QAM PO 04/27/21 09:00 04/28/21 14:52 DC 04/28/21 08:39 Citalopram Hydrobromide (CeleXA) 5 mg DAILY PO 04/27/21 09:00 04/29/21 09:31 Ferrous Sulfate (Ferrous Sulfate) 325 mg TID PO 04/26/21 16:00 04/27/21 17:40 DC 04/27/21 15:37 Fluticasone Propionate (Flonase 0.05% Nasal [place]) 2 spray QHS NARES 04/26/21 21:00 04/28/21 20:52 Fluticasone Propionate (Flovent Hfa 220mcg) 2 puff RBID INH 04/26/21 20:00 04/29/21 07:34 Gabapentin (Neurontin) 300 mg DAILY PO 04/27/21 09:00 04/29/21 09:31 Heparin Sodium (Porcine) (Heparin) 5,000 units Q12H SC 04/26/21 21:00 04/29/21 09:31 Isosorbide Mononitrate (Imdur) 30 mg QHS PO 04/26/21 21:00 04/28/21 20:42 Lactobacillus Acidophilus (Bacid) 1 ea DAILY PO 04/27/21 09:00 04/29/21 09:31 Levofloxacin (Levaquin) 500 mg DAILY@1800 PO 04/27/21 18:00 04/28/21 09:22 DC 04/27/21 18:48 Levothyroxine Sodium (Synthroid) 12.5 mcg DAILY@06 PO 04/27/21 06:00 04/29/21 05:31 Magnesium Oxide (Mag-Ox) 400 mg DAILY PO 04/26/21 09:00 04/29/21 09:31 Multivitamins (Theragram-M) 1 tab DAILY PO 04/26/21 09:00 04/29/21 09:30 Nystatin (Mycostatin Powder, Nystop) apply to abdominal folds ... BID TOP 04/26/21 21:00 04/29/21 09:32 Omeprazole (PriLOSEC) 40 mg BID PO 04/26/21 21:00 04/29/21 09:30 Oxycodone HCl (Roxicodone, Oxyir) 5 mg Q6HP PRN PO MODERATE PAIN (PS 5-7) 04/26/21 10:00 04/29/21 05:32 Patiromer (Veltassa) 16.8 gm DAILY@1200 PO 04/29/21 12:00 Polyethylene Glycol (Miralax) 1 pkt DAILY PRN PO CONSTIPATION 04/26/21 10:00 04/26/21 21:16 Senna/Docusate Sodium (Senokot S) 2 tab BID PO 04/26/21 21:00 04/29/21 09:31 Sodium Chloride ([place] Nasal [place]) 2 spray TID NA 04/28/21 16:00 04/29/21 09:31 Sodium Chloride (Sodium Chloride) 1 gm BID PO 04/26/21 21:00 04/27/21 09:24 DC 04/27/21 08:36 Solifenacin (Vesicare) 10 mg QHS PO 04/26/21 21:00 04/28/21 20:42 RAGHAV CABEZAS MD Apr 29, 2021 11:52
[2021-04-29] MEDS: PATIROMER SORBITEX CALCIUM 8.4 GM POWDER PACKET (VELTASSA) PO SCH (12:10)
[2021-04-29 12:44] LABS: MAGNESIUM LEVEL 2.9 MG/DL (1.8-2.4)
[2021-04-29 14:00] VITALS: BP 142/76
[2021-04-29 20:00] VITALS: BP 137/76
[2021-04-29] MEDS: SOLIFENACIN 5 MG TAB PO SCH (21:39)
[2021-04-29 21:40] VITALS: BP 137/76
[2021-04-29] MEDS: FLUTICASONE PROP 0.05% NASAL SPRAY 16 GM (FLONASE) NARES SCH (21:40)
[2021-04-29] MEDS: ISOSORBIDE MON. (IMDUR) 30 MG XR TAB PO SCH (21:40)
--- NOTE | 2021-04-29 22:13 | IPNPDOC ---
Subjective CC/HPI The patient is a 85-year-old female admitted with a reason for visit of CHF. Events since last encounter Pt was seen at rehab floor, sitting in her motorized scooter. LFTs improving. Hyperkalemia noted today. Cr slightly worse Cr1.2-->1.4. She denies any SOB General: Reports: Fatigue; Denies: Chills, Night Sweats Constitutional: Denies: Chills, Malaise Eyes: Denies: Pain, Vision change, Conjunctivae inflammation, Eyelid inflammation, Redness, Other ENT: Denies: Head Aches, Ear Pain, Dysphagia, Sinus Congestion, Post Nasal Drip, Sore Throat, Epistaxis, Other Symptoms Pulmonary: Denies: Dyspnea, Cough, Pleuritic Chest Pain, Other Symptoms Cardiovascular: Denies: Chest Pain, Palpitations, Orthopnea, Paroxysmal Noc. Dyspnea, Edema, Lt Headedness, Other Symptoms Gastrointestinal: Denies: Nausea, Vomiting, Abdominal Pain, Diarrhea, Constipation, Melena, Hematochezia, Other Symptoms Genitourinary: Denies: Dysuria, Frequency, Incontinence, Hematuria, Retention, Other Symptoms Hematologic: Denies: Bruising, Bleeding Excessively, Petecchia, Purpura, Enlarged Lymph Nodes, Other Hematologic Musculoskeletal: Reports: Back Pain Neurological: Reports: Weakness; Denies: Numbness Psych: Reports: Mood Normal Objective Physical Examination General Exam: Alert, Other (Morbidy obese, sitting in motorized wheelchair, Carmen lift dependent) EYE EXAM: PERRLA, EOMI ENT EXAM: Atraumatic, Mucous membr. moist/pink Neck Exam: Supple; No: JVD, thyromegaly Chest Exam: Clear to auscultation, Normal air movement Heart Exam: Rate Normal, Normal S1, Normal S2 ABDOMEN EXAM: Normal bowel sounds, Soft; No: Tenderness Extremity Exam: Edema (1+ edema of Rt leg); No: Clubbing, Cyanosis Skin Exam: Nl turgor and temperature; No: Rash Neuro Exam: Normal Speech, Other (Carmen and wheelchair depenent) Psych Exam: Mental status NL, Mood NL Vital Signs/I&O Vital Signs Date Time Temp Pulse Resp B/P (MAP) Pulse Ox O2 Delivery O2 Flow Rate FiO2 04/29/21 21:40 137/76 04/29/21 20:00 98.2 71 21 92 Room Air I&O- Last 24 Hours up to 6 AM 04/29/21 06:00 Intake Total 480 ml Balance 480 ml Laboratory Data Labs 24H Laboratory Tests 2 04/29/21 07:34: Immature Granulocyte % (Auto) 1.1, Neutrophils (%) (Auto) 74.7H, Lymphocytes (%) (Auto) 10.9L, Monocytes (%) (Auto) 9.9H, Eosinophils (%) (Auto) 3.1H, Basophils (%) (Auto) 0.3, Neutrophils # (Auto) 7.0, Lymphocytes # (Auto) 1.0L, Monocytes # (Auto) 0.9H, Eosinophils # (Auto) 0.3, Basophils # (Auto) 0.0, Nucleated Red Blood Cells % (auto) 0.0, Anion Gap 5L, Glomerular Filtration Rate 37.2, Calcium Level 9.7, Magnesium Level 2.9H, Total Bilirubin 0.7, Aspartate Amino Transf (AST/SGOT) 131H, Alanine Aminotransferase (ALT/SGPT) 740H, Alkaline Phosphatase 105, Total Protein 6.8, Albumin 3.1L, Albumin/Globulin Ratio 0.8L CBC/BMP Laboratory Tests 04/29/21 07:34 Current Medications Current Medications Medications (Trade) Dose Ordered Sig/Amada Route PRN Reason Start Time Stop Time Status Last Admin Dose Admin Acetaminophen (Tylenol Tab) 650 mg Q4HP PRN PO fever/MILD PAIN (PS 1-4) 04/26/21 10:00 04/27/21 08:26 DC Albuterol/ Ipratropium (Combivent Respimat 100-20mcg) 1 puff RTID INH 04/26/21 20:00 04/29/21 20:36 Alendronate Sodium (Fosamax) 35 mg Th@07 PO 04/30/21 07:00 04/27/21 22:12 DC Calcium Carbonate (Tums) 1,000 mg Q4HP PRN PO HEARTBURN 04/29/21 05:50 04/29/21 18:43 Calcium/Vitamin D (Oscal D) 500 mg BID PO 04/26/21 21:00 04/29/21 21:39 Cetirizine HCl (ZyrTEC) 5 mg QAM PO 04/27/21 09:00 04/28/21 14:52 DC 04/28/21 08:39 Citalopram Hydrobromide (CeleXA) 5 mg DAILY PO 04/27/21 09:00 04/29/21 09:31 Ferrous Sulfate (Ferrous Sulfate) 325 mg TID PO 04/26/21 16:00 04/27/21 17:40 DC 04/27/21 15:37 Fluticasone Propionate (Flonase 0.05% Nasal [place]) 2 spray QHS NARES 04/26/21 21:00 04/29/21 21:40 Fluticasone Propionate (Flovent Hfa 220mcg) 2 puff RBID INH 04/26/21 20:00 04/29/21 20:36 Gabapentin (Neurontin) 300 mg DAILY PO 04/27/21 09:00 04/29/21 09:31 Heparin Sodium (Porcine) (Heparin) 5,000 units Q12H SC 04/26/21 21:00 04/29/21 21:39 Isosorbide Mononitrate (Imdur) 30 mg QHS PO 04/26/21 21:00 04/29/21 21:40 Lactobacillus Acidophilus (Bacid) 1 ea DAILY PO 04/27/21 09:00 04/29/21 09:31 Levofloxacin (Levaquin) 500 mg DAILY@1800 PO 04/27/21 18:00 04/28/21 09:22 DC 04/27/21 18:48 Levothyroxine Sodium (Synthroid) 12.5 mcg DAILY@06 PO 04/27/21 06:00 04/29/21 05:31 Magnesium Oxide (Mag-Ox) 400 mg DAILY PO 04/26/21 09:00 04/29/21 14:20 DC 04/29/21 09:31 Multivitamins (Theragram-M) 1 tab DAILY PO 04/26/21 09:00 04/29/21 09:30 Nystatin (Mycostatin Powder, Nystop) apply to abdominal folds ... BID TOP 04/26/21 21:00 04/29/21 21:41 Omeprazole (PriLOSEC) 40 mg BID PO 04/26/21 21:00 04/29/21 21:42 Oxycodone HCl (Roxicodone, Oxyir) 5 mg Q6HP PRN PO MODERATE PAIN (PS 5-7) 04/26/21 10:00 04/29/21 05:32 Patiromer (Veltassa) 16.8 gm DAILY@1200 PO 04/29/21 12:00 04/29/21 12:10 Polyethylene Glycol (Miralax) 1 pkt DAILY PRN PO CONSTIPATION 04/26/21 10:00 04/26/21 21:16 Senna/Docusate Sodium (Senokot S) 2 tab BID PO 04/26/21 21:00 04/29/21 21:39 Sodium Chloride ([place] Nasal [place]) 2 spray TID NA 04/28/21 16:00 04/29/21 21:40 Sodium Chloride (Sodium Chloride) 1 gm BID PO 04/26/21 21:00 04/27/21 09:24 DC 04/27/21 08:36 Solifenacin (Vesicare) 10 mg QHS PO 04/26/21 21:00 04/29/21 21:39 Allergies Coded Allergies: latex (Verified Allergy, Intermediate, rash, blisters, 07/17/20) TAPE (Verified Allergy, Unknown, blisters, 07/17/20) meperidine (Verified Adverse Reaction, Mild, nausea, 07/17/20) morphine (Verified Adverse Reaction, Mild, nausea, 07/17/20) Assessment/Plan Date Seen The patient was seen on 04/29/21 in AM. Plan / VTE VTE Prophylaxis Ordered?: Yes Plan Orders past 48 Hours Orders Nt-Probnp (04/28/21 06:00) Throat Culture (04/28/21 14:49) Strep Screen (04/28/21 14:49) Sodium Chloride Nasal [place] ([place] Nasal (04/28/21 16:00) * Nursing Order * (04/28/21 14:49) Calcium Carbonate (Tums) (04/29/21 05:50) Patiromer Sorbitex Calcium (Veltassa) (04/29/21 12:00) Complete Comphrensive Metaboli (04/30/21 06:00) Complete Comphrensive Metaboli (05/01/21 06:00) Complete Comphrensive Metaboli (05/02/21 06:00) Complete Comphrensive Metaboli (05/03/21 06:00) Complete Comphrensive Metaboli (05/04/21 06:00) Cbc With Differential (05/01/21 06:00) Magnesium Level (04/29/21 07:34) Ct W/ Intravenous Contrast Consent (04/29/21 15:05) 2 Gram Sodium Diet (04/30/21 Breakfast) Plan Text Morbid Obesity HFpEF with diastolic dysfunction DELORES on CKD Hyperkalemia Wheel chair and Carmen lift dependent Elevated Liver Enzymes Osteoporosis and vertebral compression fractures Diuretic PRN for now.Renal function is slightly worse. Stopped alendronate for possible autoimmune hepatitis.LFTs improving. Veltassa for hyperkalemia. Low K diet advised. WILFRID NEGRO MD Apr 29, 2021 22:12
[2021-04-30] MEDS: LEVOTHYROXINE 12.5MCG PER 1/2 TAB (0.0125MG) PO SCH (05:39)
[2021-04-30 06:00] VITALS: BP 174/98
[2021-04-30 06:03] LABS: CALCIUM LEVEL 9.5 MG/DL (8.8-10.2); CREATININE FOR GFR 1.26 MG/DL (0.55-1.30); GLOMERULAR FILTRATION RATE 43.1 (>32); POTASSIUM SERUM 5.4 MEQ/L (3.5-5.1); TOTAL PROTEIN 6.5 GM/DL (6.4-8.2)
[2021-04-30] MEDS ORDERED: ALENDRONATE 35MG TABLET PO SCH (07:00)
[2021-04-30] MEDS: FLUTICASONE HFA 220 MCG 12 GM INHALER (FLOVENT) INH SCH (08:17)
[2021-04-30] MEDS: COMBIVENT RESPIMAT 100-20MCG INHALER 4GM INH SCH ×2 (08:17→13:30)
[2021-04-30] MEDS: CALCIUM/VITAMIN D 500 MG TAB PO SCH (08:53)
[2021-04-30] MEDS: MULTIVITAMINS/MINERALS THERAP 1 TAB PO SCH (08:53)
[2021-04-30] MEDS: GABAPENTIN 300 MG CAP PO SCH (08:53)
[2021-04-30] MEDS: OMEPRAZOLE 20 MG CAP PO SCH (08:53)
[2021-04-30] MEDS: SENOKOT S TAB PO SCH (08:53)
[2021-04-30] MEDS: CitaloPRAM (CeleXA) 10 MG TABLET PO SCH (08:54)
[2021-04-30] MEDS: LACTOBACILLUS ACIDOPHILUS CAP (BACID) PO SCH (08:54)
[2021-04-30] MEDS: NYSTATIN 100,000 UNITS/GM TOPICAL PWD 15 GM TOP SCH (08:55)
[2021-04-30] MEDS: HEPARIN SOD (PORCINE) 5000UNITS/ML 1ML VIAL/SYRINGE SC SCH (08:55)
[2021-04-30] MEDS: SODIUM CHLORIDE NASAL 0.65% SPRAY BTL (OCEAN) SCH (08:56)
[2021-04-30] MEDS: REMEDY PHYTOPLEX Z-GUARD PASTE 113GM TUBE (FROM STOREROOM PRODUCT) TOP SCH (08:57)
[2021-04-30] MEDS ORDERED: guaiFENesin 200 MG TAB PO SCH (09:00)
--- NOTE | 2021-04-30 09:30 | IPNPDOC ---
PM&R Progress Note DATE OF SERVICE: Apr 30, 2021 [employer] Progress Note Subjective: REVIEW OF SYSTEMS: The following is a completed review of systems and has been reviewed. Review of systems otherwise unremarkable. PAIN: Patient self reports no pain EYES: No recent vision changes EARS, NOSE, & THROAT: No throat pain, or dysphagia, or rhinorrhea CARDIOVASCULAR: Denies chest pain or palpitations PULMONARY: Denies shortness of breath, +intermittent cough GASTROINTESTINAL: + constipation GENITOURINARY: denies dysuria MUSCULOSKELETAL: bilat LE weakness NEUROLOGICAL: +peripheral polyneuropathy HEMATOLOGICAL: denies easy bruising SKIN: scattered bilat LE wounds PSYCHIATRIC: Unremarkable All other review of systems found to be negative. PHYSICAL EXAMINATION: VITAL SIGNS: Please see below. GENERAL: Pleasant and cooperative. No acute distress. HEENT: PERRL. Extraocular movements intact. Clear conjunctiva, no lymphadenopathy CARDIOVASCULAR: Regular rate and rhythm. No murmurs, rubs, or gallops LUNGS: Clear to auscultation bilaterally. No wheezes. scattered rhonchi ABDOMEN: Soft, mildly TTP throughout nondistended. Positive bowel sounds. Normal active bowel sounds NEUROLOGICAL: Alert and oriented times three. Cranial nerves II through XII grossly intact. Sensation decreased in stocking pattern EXTREMITIES: 4\5 strength bilateral upper extremities. 4\5 strength right lower extremity. 4/5 strength in left lower extremity SKIN: scattered stage 1 pressure sores on tops of bilat toes ASSESSMENT:85-year-old F with past medical history of pulmonary HTN, hypothyroidism, obesity who presents status post CHF exacerbation with mobility and ADL impairments PLAN: 1. Rehab- PT/OT advance mobility strengthen/stretch/maintain ROM all 4limbs 2. Neuro- peripheral polyneuropathy due to arterial disease contributing to mo vement impairment 3. CArdiac- diastolic CHF with recent exacerbation s/p aggressive diuresis complicated by DELORES- daily weights, fluid restrict -HTN cont BP meds 4. Resp- monitor for infection -patient with chronic sinusitis cont flonase and nasal saline, will stop Zyrtec as may contribute to dry throat, salt water gargles ordered, strep screen, and throat Cx -asthma cont inhaler treatment 5. GI-acute elevation in LFTs, liver US and CT negative for portal vein thrombosis, LFTs cont to improve, cont to monitor -hospitalist following, hepatitis panel and autoimmune panel negative 6. Renal- CKD with recent DELORES improving, renal following -NaCl tabs d/c'd -Hyperkalemia- K of 5.3, veltassa ordered, patient on magnesium, will f/u level, renal recs appreciated 7. DVT ppx- heparin 8. Pain- oxycodone, gabapentin 9. Endo- hx of hypothyroidism cont Synthroid 10. DIspo- TBD Allergies Coded Allergies: latex (Verified Allergy, Intermediate, rash, blisters, 07/17/20) TAPE (Verified Allergy, Unknown, blisters, 07/17/20) meperidine (Verified Adverse Reaction, Mild, nausea, 07/17/20) morphine (Verified Adverse Reaction, Mild, nausea, 07/17/20) Vital Signs Vital Signs Date Time Temp Pulse Resp B/P (MAP) Pulse Ox O2 Delivery O2 Flow Rate FiO2 04/30/21 06:00 97.8 60 19 174/98 (123) 92 Room Air Laboratory Data CBC/BMP Laboratory Tests 04/30/21 05:12 Labs 24H Laboratory Tests 2 04/30/21 05:12: Anion Gap 8, Glomerular Filtration Rate 43.1, Calcium Level 9.5, Total Bilirubin 1.0, Aspartate Amino Transf (AST/SGOT) 86H, Alanine Aminotransferase (ALT/SGPT) 523H, Alkaline Phosphatase 103, Total Protein 6.5, Albumin 3.0L, Albumin/Globu stephenie Ratio 0.9L Microbiology Microbiology 04/28/21 Group A Streptococcus Screen (MAXIMO) - Final, Complete 04/28/21 Eye/Ear/Nose/Throat Culture - Final, Complete Current Medications Current Medications Current Medications Medications (Trade) Dose Ordered Sig/Amada Route PRN Reason Start Time Stop Time Status Last Admin Dose Admin Acetaminophen (Tylenol Tab) 650 mg Q4HP PRN PO fever/MILD PAIN (PS 1-4) 04/26/21 10:00 04/27/21 08:26 DC Albuterol/ Ipratropium (Combivent Respimat 100-20mcg) 1 puff RTID INH 04/26/21 20:00 04/30/21 08:17 Alendronate Sodium (Fosamax) 35 mg Th@07 PO 04/30/21 07:00 04/27/21 22:12 DC Calcium Carbonate (Tums) 1,000 mg Q4HP PRN PO HEARTBURN 04/29/21 05:50 04/29/21 18:43 Calcium/Vitamin D (Oscal D) 500 mg BID PO 04/26/21 21:00 04/30/21 08:53 Cetirizine HCl (ZyrTEC) 5 mg QAM PO 04/27/21 09:00 04/28/21 14:52 DC 04/28/21 08:39 Citalopram Hydrobromide (CeleXA) 5 mg DAILY PO 04/27/21 09:00 04/30/21 08:54 Ferrous Sulfate (Ferrous Sulfate) 325 mg TID PO 04/26/21 16:00 04/27/21 17:40 DC 04/27/21 15:37 Fluticasone Propionate (Flonase 0.05% Nasal [place]) 2 spray QHS NARES 04/26/21 21:00 04/29/21 21:40 Fluticasone Propionate (Flovent Hfa 220mcg) 2 puff RBID INH 04/26/21 20:00 04/30/21 08:17 Gabapentin (Neurontin) 300 mg DAILY PO 04/27/21 09:00 04/30/21 08:53 Heparin Sodium (Porcine) (Heparin) 5,000 units Q12H SC 04/26/21 21:00 04/30/21 08:55 Isosorbide Mononitrate (Imdur) 30 mg QHS PO 04/26/21 21:00 04/29/21 21:40 Lactobacillus Acidophilus (Bacid) 1 ea DAILY PO 04/27/21 09:00 04/30/21 08:54 Levofloxacin (Levaquin) 500 mg DAILY@1800 PO 04/27/21 18:00 04/28/21 09:22 DC 04/27/21 18:48 Levothyroxine Sodium (Synthroid) 12.5 mcg DAILY@06 PO 04/27/21 06:00 04/30/21 05:39 Magnesium Oxide (Mag-Ox) 400 mg DAILY PO 04/26/21 09:00 04/29/21 14:20 DC 04/29/21 09:31 Multivitamins (Theragram-M) 1 tab DAILY PO 04/26/21 09:00 04/30/21 08:53 Nystatin (Mycostatin Powder, Nystop) apply to abdominal folds ... BID TOP 04/26/21 21:00 04/30/21 08:55 Omeprazole (PriLOSEC) 40 mg BID PO 04/26/21 21:00 04/30/21 08:53 Oxycodone HCl (Roxicodone, Oxyir) 5 mg Q6HP PRN PO MODERATE PAIN (PS 5-7) 04/26/21 10:00 04/29/21 05:32 Patiromer (Veltassa) 16.8 gm DAILY@1200 PO 04/29/21 12:00 04/29/21 12:10 Polyethylene Glycol (Miralax) 1 pkt DAILY PRN PO CONSTIPATION 04/26/21 10:00 04/26/21 21:16 Senna/Docusate Sodium (Senokot S) 2 tab BID PO 04/26/21 21:00 04/30/21 08:53 Sodium Chloride ([place] Nasal [place]) 2 spray TID NA 04/28/21 16:00 04/30/21 08:56 Sodium Chloride (Sodium Chloride) 1 gm BID PO 04/26/21 21:00 04/27/21 09:24 DC 04/27/21 08:36 Solifenacin (Vesicare) 10 mg QHS PO 04/26/21 21:00 04/29/21 21:39 RAGHAV CABEZAS MD Apr 30, 2021 09:30
--- NOTE | 2021-04-30 11:00 | REP ---
INDICATION: r/o infiltrate. COMPARISON: Comparison chest x-ray April 22, 2021. TECHNIQUE: Two views.. FINDINGS: There is a large dense infiltrate in the left perihilar region which appears to be new from the April 22, 2021 study. Increased density is seen in the left base behind the heart as well probably also more prominent than on the prior study although not new. The right lung remains essentially clear. Cardiomegaly is observed. IMPRESSION: Large new infiltrate left perihilar region consistent with pneumonia. Cardiomegaly. <Electronically signed by Marcos Carrillo > 04/30/21 1059
[2021-04-30] MEDS ORDERED: CEFEPIME HCL 2 GM in D5W MINI-BAG PLUS 50 ML IV SCH ×2 (11:35→12:00)
[2021-04-30] MEDS ORDERED: LIDOCAINE 1% MDV 20ML VIAL As Ordered ONE (11:43)
--- NOTE | 2021-04-30 11:44 | IPNPDOC ---
Text Note Date of Service The patient was seen on 04/30/21. NOTE Subjective: Patient 85-year-old female with currently on the acute rehab unit after hospital stay for congestive heart failure. Patient had an acute kidney injury is improving. Patient's right upper quadrant pain is also improved. Patient's transaminitis is improving as well. Patient states that she did not feel well today but does not complain of any specific complaints along this. Patient is feeling sore today. Patient denies any fevers or shortness of breath. Review of systems: General: Patient denies fevers HEENT: Patient denies headaches Cardiovascular: Patient denies chest pain Respiratory: Patient denies shortness of breath, cough GI: Patient denies abdominal pain, nausea, vomiting, diarrhea : Patient denies increased frequency or pain with urination Extremities: Patient denies swelling or pain in extremities Neurological: Patient denies numbness or tingling in legs Physical exam: Vitals: See below General: Alert and oriented female patient who does appear mildly ill but does not appear to be in any acute distress. HEENT: Normocephalic, atraumatic, moist mucous membranes. Neck: No lymphadenopathy or thyromegaly Cardiac: Regular rate and rhythm, no murmurs, normal S1, normal S2 Pulm: Clear to auscultation bilaterally. No wheezes, rhonchi, rales Abd: Nondistended, nontender to palpation, normal bowel sounds Ext: No edema bilateral lower extremities Labs: See below Imaging: Chest x-ray performed on 04/30/2021 was reported to show a large new infiltrate left perihilar region consistent with pneumonia. Cardiomegaly. Assessment/plan: 85-year-old female presented to the acute rehab unit after stay in the hospital for diastolic congestive heart failure exacerbation. Patient was found to have elevated transaminitis earlier in her stay and was found to have pneumonia today. 1. Hospital-acquired pneumonia. Patient has been admitted into the hospital since 04/22/2021. Patient was started on cefepime for pseudomonal coverage by Dr Rica Ge. I agree with this. This should be renally dosed based on the patient's creatinine clearance by pharmacy. We will continue to monitor the patient while she improves. 2. Transaminitis. This is improving. This may be secondary to alendronate use. This is since been stopped. We will continue to monitor the patient's transaminitis as it continues to improve. 3. Acute kidney injury. This is improving. We will continue to monitor the patient's kidney function. I appreciate nephrology's help treating the patient. 4. Hyperkalemia. Dr. Lombardo of nephrology has placed the patient on daily Veltassa. We will continue to monitor the patient's potassium. 5. Hyponatremia. Patient is on sodium chloride tablets. We will need to continue to monitor the patient sodium. 6. Hypertension. Continue home medications. 7. Compression fracture of T5 vertebrae. Continue calcium and vitamin D. Alendronate has been stopped due to transaminitis. 8. Congestive heart failure with preserved ejection fraction. Not in exacerbation. Continue to monitor. 9. Hypothyroidism. Continue home medications. 10. GERD. Continue PPI therapy per 11. Physical deconditioning. Continue therapy on the acute rehab unit. DVT Prophylaxis: Heparin Disposition: Discharge per Dr. Ge and the ARU staff. Late entry: Patient acutely worsened and a rapid response was called. Patient was admitted back to the acute floor of the hospital. Please see H&P and that account for more information. VS,Fishbone, I+O VS, Fishbone, I+O Laboratory Tests 04/30/21 05:12 Vital Signs Date Time Temp Pulse Resp B/P (MAP) Pulse Ox O2 Delivery O2 Flow Rate FiO2 04/30/21 06:00 97.8 60 19 174/98 (123) 92 Room Air I&O- Last 24 Hours up to 6 AM 04/30/21 05:59 Intake Total 960 ml Balance 960 ml TOBIAS BASSETT DO Apr 30, 2021 11:44
[2021-04-30 11:56] LABS: BASO # 0.1 10^3/uL (0.0-0.2); BASO % 0.2 % (0.0-1.0); EOS % 0.1 % (0.0-3.0); HEMATOCRIT 32.7 % (36.0-47.0); HEMOGLOBIN 10.8 g/dl (12.0-15.5); LYMPH # 0.5 10^3/uL (1.5-5.0); MEAN CORPUSCULAR HEMOGLOBIN 34.7 pg (27.0-33.0); MEAN CORPUSCULAR VOLUME 105.1 fl (80.0-96.0); MONO # 1.1 10^3/uL (0.0-0.8); MONO % 4.5 % (2.0-8.0); NEUTROPHILS # 23.2 10^3/uL (1.5-8.5); PLATELET COUNT, AUTOMATED 310 10^3/uL (150-450); RED BLOOD COUNT 3.11 10^6/uL (4.00-5.40); WHITE BLOOD COUNT 25.2 10^3/uL (4.0-10.0)
[2021-04-30] MEDS ORDERED: NS 500 ML IV ONE (12:30)
[2021-04-30] MEDS: PATIROMER SORBITEX CALCIUM 8.4 GM POWDER PACKET (VELTASSA) PO SCH (12:48)
[2021-04-30] MEDS ORDERED: D5W/0.9% SODIUM CHLORIDE 1,000 ML IV ONE (13:30)
[2021-04-30 14:33] LABS: ABG BASE EXCESS 1.8 (-2.0-2.0); ABG HCO3 25.8 MEQ/L (22.0-26.0); ABG O2 SATURATION 99.4 % (95.0-99.0); ABG PARTIAL PRESSURE CO2 37.9 mmHg (35.0-45.0); ABG PARTIAL PRESSURE O2 219.7 mmHg (75.0-100.0); ABG STANDARD HCO3 26.1 MEQ/L (22.0-26.0); ABG TOTAL CO2 26.9 MEQ/L (23.0-31.0)
[2021-04-30 14:58] LABS: CK-MB VALUE MASS 1.6 NG/ML (<3.6); MB/CK RELATIVE INDEX 3.72 (< OR =4); TROPONIN I 0.04 NG/ML (< 0.10)
--- NOTE | 2021-04-30 15:30 | ECGEPIP ---
[facility] Test Date: 2021-04-30 Pat Name: PANKAJ AMES Department: Room: [place] [address] Gender: Female Teaching Pastor: CJ : [id number] Requested By: IMAN RAINEY D.O. Order Number: [id number] Reading MD: Netta Church Measurements Intervals [place] Rate: 83 P: 82 FL: 284 QRS: 86 QRSD: 154 T: -13 QT: 400 QTc: 470 Interpretive Statements Sinus rhythm with BIG 1st degree AV block Right bundle branch block Possible Lateral infarct , age undetermined INFERIOR ST T ABN RATE FASTER C/W [email or web address] Signed on 04-30-2021 15:30:06 EDT by Netta Church
--- NOTE | 2021-04-30 22:04 | IPNPDOC ---
Subjective CC/HPI The patient is a 85-year-old female admitted with a reason for visit of CHF. Events since last encounter Pt was seen at bedside early AM. She was more lethargic today and was sleepy. Laying in bed. Renal function is stable General: Reports: Fatigue, Malaise; Denies: Chills Constitutional: Reports: Malaise, Weakness; Denies: Chills, Fever Eyes: Denies: Pain, Vision change ENT: Denies: Head Aches, Ear Pain Skin: Denies: Rash, Lesions Pulmonary: Reports: Dyspnea Cardiovascular: Denies: Chest Pain, Palpitations Gastrointestinal: Denies: Nausea, Vomiting Genitourinary: Denies: Dysuria, Frequency Musculoskeletal: Denies: Neck Pain Neurological: Reports: Weakness Objective Physical Examination General Exam: Other (Morbidy obese, Laying in bed,Carmen lift dependent); No: Alert (More drowsy today) EYE EXAM: PERRLA, EOMI ENT EXAM: Atraumatic, Mucous membr. moist/pink Neck Exam: Supple; No: JVD, thyromegaly Chest Exam: Clear to auscultation, Normal air movement Heart Exam: Rate Normal, Normal S1, Normal S2 ABDOMEN EXAM: Normal bowel sounds, Soft; No: Tenderness Extremity Exam: Edema (1+ edema of Rt leg); No: Clubbing, Cyanosis Skin Exam: Nl turgor and temperature; No: Rash Neuro Exam: Other (Carmen and wheelchair depenent, lethargic); No: Normal Gait Psych Exam: Other (More drowsy); No: Mental status NL Vital Signs/I&O Vital Signs Date Time Temp Pulse Resp B/P (MAP) Pulse Ox O2 Delivery O2 Flow Rate FiO2 04/30/21 06:00 97.8 60 19 174/98 (123) 92 Room Air I&O- Last 24 Hours up to 6 AM 04/30/21 06:00 Intake Total 960 ml Balance 960 ml Laboratory Data Labs 24H Laboratory Tests 2 04/30/21 05:12: Anion Gap 8, Glomerular Filtration Rate 43.1, Calcium Level 9.5, Total Bilirubin 1.0, Aspartate Amino Transf (AST/SGOT) 86H, Alanine Aminotransferase (ALT/SGPT) 523H, Alkaline Phosphatase 103, Total Protein 6.5, Albumin 3.0L, Albumin/Globulin Ratio 0.9L 04/30/21 11:33: Immature Granulocyte % (Auto) 1.2, Neutrophils (%) (Auto) 92.0H, Lymphocytes (%) (Auto) 2.0L, Monocytes (%) (Auto) 4.5, Eosinophils (%) (Auto) 0.1, Basophils (%) (Auto) 0.2, Neutrophils # (Auto) 23.2H, Lymphocytes # (Auto) 0.5L, Monocytes # (Auto) 1.1H, Eosinophils # (Auto) 0.0, Basophils # (Auto) 0.1, Nucleated Red Blood Cells % (auto) 0.0, Lactic Acid Level 1.6 04/30/21 11:56: Methicillin-Resist S.aureus DNA PCR NOT DETECTED 04/30/21 13:00: Urine Color YELLOW, Urine Appearance CLEAR, Urine pH 5.0, Urine Specific [place] 1.010, Urine Protein NEGATIVE, Urine Glucose (UA) NEGATIVE, Urine Ketones NEGATIVE, Urine Blood NEGATIVE, Urine Nitrite NEGATIVE, Urine Bilirubin NEGATIVE, Urine Urobilinogen 0.2, Urine Leukocyte Esterase NEGATIVE, Urine WBC (Auto) 1, Urine RBC (Auto) 0, Urine Hyaline Casts (Auto) 0, Urine Bacteria (Auto) NEGATIVE, Urine Squamous Epithelial Cells 0, Urine Sperm (Auto) 04/30/21 13:55: Bedside Glucose (Misc Panel) 109 04/30/21 14:19: Total Creatine Kinase 43, Creatine Kinase MB 1.6, Creatine Kinase MB Relative Index 3.72, Troponin I 0.04 04/30/21 14:20: Blood Gas Bicarbonate Standard 26.1H, Arterial Blood pH 7.450, Arterial Blood Partial Pressure CO2 37.9, Arterial Blood Partial Pressure O2 219.7H, Arterial Blood Total CO2 26.9, Arterial Blood HCO3 25.8, Arterial Blood Base Excess 1.8, Arterial Blood Oxygen Saturation 99.4H CBC/BMP Laboratory Tests 04/30/21 05:12 04/30/21 11:33 FSBS Laboratory Tests Test 04/30/21 13:55 Range/Units Bedside Glucose (Misc Panel) 109 83-110 MG/DL Current Medications Current Medications Medications (Trade) Dose Ordered Sig/Amada Route PRN Reason Start Time Stop Time Status Last Admin Dose Admin Acetaminophen (Tylenol Tab) 650 mg Q4HP PRN PO fever/MILD PAIN (PS 1-4) 04/26/21 10:00 9/20/21 08:26 DC Albuterol/ Ipratropium (Combivent Respimat 100-20mcg) 1 puff RTID INH 04/26/21 20:00 04/30/21 15:35 DC 04/30/21 13:30 Alendronate Sodium (Fosamax) 35 mg Th@07 PO 04/30/21 07:00 04/27/21 22:12 DC Calcium Carbonate (Tums) 1,000 mg Q4HP PRN PO HEARTBURN 04/29/21 05:50 04/30/21 15:35 DC 04/29/21 18:43 Calcium/Vitamin D (Oscal D) 500 mg BID PO 04/26/21 21:00 04/30/21 15:35 DC 04/30/21 08:53 Cefepime HCl 2 gm/ Dextrose 50 ml @ 100 mls/hr Q12H IV 04/30/21 12:00 04/30/21 15:35 DC 04/30/21 12:35 Cefepime HCl 2 gm/ Dextrose 50 ml @ 100 mls/hr Q8H IV 04/30/21 11:35 UNV Cetirizine HCl (ZyrTEC) 5 mg QAM PO 04/27/21 09:00 04/28/21 14:52 DC 04/28/21 08:39 Citalopram Hydrobromide (CeleXA) 5 mg DAILY PO 04/27/21 09:00 04/30/21 15:35 DC 04/30/21 08:54 Ferrous Sulfate (Ferrous Sulfate) 325 mg TID PO 04/26/21 16:00 04/27/21 17:40 DC 04/27/21 15:37 Fluticasone Propionate (Flonase 0.05% Nasal [place]) 2 spray QHS NARES 04/26/21 21:00 04/30/21 15:35 DC 04/29/21 21:40 Fluticasone Propionate (Flovent Hfa 220mcg) 2 puff RBID INH 04/26/21 20:00 04/30/21 15:35 DC 04/30/21 08:17 Gabapentin (Neurontin) 300 mg DAILY PO 04/27/21 09:00 04/30/21 15:35 DC 04/30/21 08:53 Guaifenesin (Robitussin Tab) 400 mg TID PO 04/30/21 09:00 04/30/21 15:35 DC 04/30/21 12:43 Heparin Sodium (Porcine) (Heparin) 5,000 units Q12H SC 04/26/21 21:00 04/30/21 15:35 DC 04/30/21 08:55 Isosorbide Mononitrate (Imdur) 30 mg QHS PO 04/26/21 21:00 04/30/21 15:35 DC 04/29/21 21:40 Lactobacillus Acidophilus (Bacid) 1 ea DAILY PO 04/27/21 09:00 04/30/21 15:35 DC 04/30/21 08:54 Levofloxacin (Levaquin) 500 mg DAILY@1800 PO 04/27/21 18:00 04/28/21 09:22 DC 04/27/21 18:48 Levothyroxine Sodium (Synthroid) 12.5 mcg DAILY@06 PO 04/27/21 06:00 04/30/21 15:35 DC 04/30/21 05:39 Magnesium Oxide (Mag-Ox) 400 mg DAILY PO 04/26/21 09:00 04/29/21 14:20 DC 04/29/21 09:31 Multivitamins (Theragram-M) 1 tab DAILY PO 04/26/21 09:00 04/30/21 09:29 DC 04/30/21 08:53 Nystatin (Mycostatin Powder, Nystop) apply to abdominal folds ... BID TOP 04/26/21 21:00 04/30/21 15:35 DC 04/30/21 08:55 Omeprazole (PriLOSEC) 40 mg BID PO 04/26/21 21:00 04/30/21 15:35 DC 04/30/21 08:53 Oxycodone HCl (Roxicodone, Oxyir) 5 mg Q6HP PRN PO MODERATE PAIN (PS 5-7) 04/26/21 10:00 04/30/21 15:35 DC 04/29/21 05:32 Patiromer (Veltassa) 16.8 gm DAILY@1200 PO 04/29/21 12:00 04/30/21 15:35 DC 04/30/21 12:48 Polyethylene Glycol (Miralax) 1 pkt DAILY PRN PO CONSTIPATION 04/26/21 10:00 04/30/21 15:35 DC 04/26/21 21:16 Senna/Docusate Sodium (Senokot S) 2 tab BID PO 04/26/21 21:00 04/30/21 15:35 DC 04/30/21 08:53 Sodium Chloride ([place] Nasal [place]) 2 spray TID NA 04/28/21 16:00 04/30/21 15:35 DC 04/30/21 08:56 Sodium Chloride (Sodium Chloride) 1 gm BID PO 04/26/21 21:00 04/27/21 09:24 DC 04/27/21 08:36 Solifenacin (Vesicare) 10 mg QHS PO 04/26/21 21:00 04/30/21 15:35 DC 04/29/21 21:39 Allergies Coded Allergies: latex (Verified Allergy, Intermediate, rash, blisters, 07/17/20) TAPE (Verified Allergy, Unknown, blisters, 07/17/20) meperidine (Verified Adverse Reaction, Mild, nausea, 07/17/20) morphine (Verified Adverse Reaction, Mild, nausea, 07/17/20) Assessment/Plan Date Seen The patient was seen on 04/30/21 in AM. Plan / VTE VTE Prophylaxis Ordered?: Yes Plan Orders past 48 Hours Orders Calcium Carbonate (Tums) (04/29/21 05:50) Patiromer Sorbitex Calcium (Veltassa) (04/29/21 12:00) Complete Comphrensive Metaboli (04/30/21 06:00) Ct W/ Intravenous Contrast Consent (04/29/21 15:05) Chest, 2 View Pa, Lat (04/30/21 09:37) Ua W/ Reflex To Culture (04/30/21 09:37) Blood Cultures (04/30/21 09:37) Blood Cultures (04/30/21 10:00) Cefepime Hcl (Maxipime) (04/30/21 12:00) Sputum Culture And Gram Stain (04/30/21 11:03) Guaifenesin Tablet (Robitussin Tab) (04/30/21 09:00) St Eval & Treat As Needed (04/30/21 11:03) * Nursing Order * (04/30/21 11:03) Mrsa Pcr Screen (04/30/21 11:07) Respiratory Panel (04/30/21 11:08) Isolation: Droplet/Contact (04/30/21 11:08) Midline Insertion W/ [place] (04/30/21 ) Lactic Acid Level, Lactate (04/30/21 11:11) Cbc With Differential (04/30/21 11:11) Ns (Nacl 0.9%) (04/30/21 12:30) Ot Eval & Treat As Needed (04/30/21 12:25) Npo Diet Except Meds (04/30/21 Lunch) D5w/0.9% Sodium Chloride (Dextrose 5%/0 (04/30/21 13:30) Discharge/Transfer Order (04/30/21 13:51) Fingerstick Blood Sugar (04/30/21 13:55) Electrocardiogram Adult (04/30/21 13:59) Arterial Blood Gas (04/30/21 13:59) Cardiac Marker Panel (04/30/21 13:59) Plan Text Morbid Obesity HFpEF with diastolic dysfunction DELORES on CKD Hyperkalemia Wheel chair and Carmen lift dependent Elevated Liver Enzymes-->improved. Lethargy and Hypoxia Diuretic PRN for now.Renal function is stable. LFTs improving. Events in the afternoon noted. Pt transferred back to Med/Surg for possible Aspiration pneumonitis. Nephrology signing off. WILFRID NEGRO MD Apr 30, 2021 22:04
== END 2021-04-30 14:15 | disposition short-term general hospital (02) | DRG 73 ==
LOC: M PM&R 14:15
PROVIDERS: ADMIT Physical Medicine & Rehabilitation; ATTEND Physical Medicine & Rehabilitation
DX: G62.9 Polyneuropathy, unspecified (principal); J18.9 Pneumonia, unspecified organism; I13.0 Hypertensive heart and chronic kidney disease with heart failure and stage 1 through stage 4 chronic kidney disease, or unspecified chronic kidney disease; E87.1 Hypo-osmolality and hyponatremia; N17.9 Acute kidney failure, unspecified; Z68.41 Body mass index [BMI] 40.0-44.9, adult; R53.1 Weakness; E03.9 Hypothyroidism, unspecified; K22.70 Barrett's esophagus without dysplasia; R32 Unspecified urinary incontinence; J45.909 Unspecified asthma, uncomplicated; E66.9 Obesity, unspecified; I27.20 Pulmonary hypertension, unspecified; J32.9 Chronic sinusitis, unspecified; D50.9 Iron deficiency anemia, unspecified; Z74.09 Other reduced mobility; Z74.1 Need for assistance with personal care; N18.9 Chronic kidney disease, unspecified; E87.5 Hyperkalemia; Z79.899 Other long term (current) drug therapy; Z88.5 Allergy status to narcotic agent; Z88.8 Allergy status to other drugs, medicaments and biological substances; Z91.040 Latex allergy status; Z91.048 Other nonmedicinal substance allergy status; Z20.822 Contact with and (suspected) exposure to COVID-19; K21.9 Gastro-esophageal reflux disease without esophagitis; R74.01 Elevation of levels of liver transaminase levels

== ENCOUNTER 2021-04-30 14:01 | Inpatient (IN) | payer MEDICARE, OTHER ==
[2021-04-30] MEDS ORDERED: PIPERACILLIN/TAZOBACTAM SOD 4.5 GM in D5W MINI-BAG PLUS 50 ML IV SCH (14:20)
[2021-04-30] MEDS ORDERED: VANCOMYCIN HCL 1,000 MG, VIAL MATE ADAPTER 1 EACH in NS 250 ML IV SCH (14:20)
[2021-04-30] MEDS ORDERED: ACETAMINOPHEN TAB 650MG DOSE (2X325MG) PO PRN (14:20)
[2021-04-30 14:30] VITALS: BP 118/59
[2021-04-30] MEDS ORDERED: HOME MED LIST COMPLETE! XX SCH (14:45)
[2021-04-30] MEDS ORDERED: ACETAMINOPHEN 650 MG SUPP PR PRN (14:50)
[2021-04-30] MEDS ORDERED: FLEET ENEMA PR PRN (14:50)
[2021-04-30] MEDS ORDERED: LORazepam 2 MG/ML VIAL IV PRN (14:50)
[2021-04-30] MEDS ORDERED: BISACODYL 10 MG SUPP PR PRN (14:50)
[2021-04-30] MEDS ORDERED: SCOPOLAMINE 1MG TRANSDERMAL PATCH TOP PRN (14:50)
[2021-04-30] MEDS ORDERED: HYOSCYAMINE SULFATE 0.125 MG SUBL TABLET PO PRN (14:50)
[2021-04-30] MEDS ORDERED: ONDANSETRON 4MG/2ML VIAL IV PRN (14:50)
[2021-04-30] MEDS ORDERED: ATROPINE SULFATE 1% OP SOLN 2 ML BTL SL PRN (14:50)
--- NOTE | 2021-04-30 15:25 | HPEPDOC ---
[facility] Medical History & Physical Date of Admission Apr 30, 2021 Date of Service: Apr 30, 2021 Attending Physician: TOBIAS BASSETT DO History and Physical CHIEF COMPLAINT: Difficulty breathing HISTORY OF PRESENT ILLNESS: Patient is an 85-year-old female who was initially admitted to [facility] on 04/22/2021 with a CHF exacerbation. Patient was moved over to the acute rehab unit on 04/26/2021. Patient developed transaminitis while in the acute rehab unit which was thought to be secondary to alendronate but this had been improving. This morning I evaluated the patient and she says she is feeling tired and sore. When Dr. Ge, the acute rehab physician, saw the patient she was more lethargic and said she has some difficulty breathing. A chest x-ray was ordered and showed the patient had a new onset left sided infiltrate with a leukocytosis of 25,000 compared to 8000 the day prior. Patient began to worsen requiring oxygen. I was contacted by Dr. Ge who stated that the patient was now more lethargic and somnolent. I went to evaluate the patient and agreed that the patient was having a difficult time waking up and was requiring more oxygen. I went to speak with her when a rapid assessment team was called on the patient. I was the first in the room and we are attempting to keep the patient awake. Patient was placed on a nonrebreather. Patient was initially told to be a full code by nursing staff however, patient was in fact a DO NOT RESUSCITATE/DO NOT INTUBATE. Patient was moved to the intensive care unit for further management of her pneumonia. PAST MEDICAL HISTORY: 1. Monk's esophagus 2. Hypertension. 3. Pulmonary hypertension. 4. Hypothyroidism 5. Anxiety 6. Iron deficiency anemia 7. Peripheral neuropathy 8. Diverticulosis 9. Chronic urinary incontinence 10. Arthritis 11. 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 PAST SURGICAL HISTORY: 1. Left hip surgery. 2. Multiple C-sections. 3. Bilateral hernia repair. 4. Multiple upper endoscopies and colonoscopies 5. Abdominal hernia SOCIAL HISTORY: Patient denies smoking drinking alcohol or doing illicit drugs FAMILY HISTORY: Father is diagnosed with heart disease. Mother is diagnosed with stroke ALLERGIES: Please see below. REVIEW OF SYSTEMS: Review of systems are difficult to ascertain from the patient as she is very somnolent. When patient does wake up she does not complain of any pain but does state it is difficult to breathe HOME MEDICATIONS: Please see below. PHYSICAL EXAMINATION: VITAL SIGNS: Temperature 100.1, pulse 83, respiratory rate 18, blood pressure 118/59, pulse oximetry 93% on 5 L via nasal cannula General: Alert but very somnolent female who would awake for a few seconds before falling back to sleep. Patient was able to follow simple commands. Patient did appear to be in moderate to severe distress HEENT: Normocephalic, atraumatic, moist mucous membranes. Neck: No lymphadenopathy or thyromegaly Cardiac: Regular rate and rhythm, no murmurs, normal S1, normal S2 Pulm: Rales in the left lower lung vázquez. Otherwise clear to auscultation. Patient was using accessory muscles to breathe and was belly breathing Abd: Nondistended, nontender to palpation, normal bowel sounds Ext: No edema bilateral lower extremities Neuro: Patient was somnolent and was able to follow commands such as squeezing my hand but would quickly fall back asleep when not stimulated. Skin: Skin of the head, neck, upper and lower extremities was examined did not show any evidence of rash or wounds. LABORATORY DATA: See below. IMAGING: Chest x-ray from 04/30/2021 was reported to show a large new infiltrate left perihilar region consistent with pneumonia. Cardiomegaly. MICROBIOLOGY: Please see below. ASSESSMENT: Patient is an 85-year-old female who was transferred from the acute rehab unit to the intensive care unit for acute hypoxic respiratory failure secondary to pneumonia . PLAN: 1. Acute hypoxic respiratory failure. Patient requiring nonrebreather to continue to keep his oxygen saturation above 90%. Patient will be started on vancomycin and Zosyn for possible aspiration. Patient does have a history of swallowing difficulties which may be why she had such a large infiltrate because so quickly from aspiration pneumonia. We will cover for anaerobes with Zosyn. Once MRSA PCR comes back negative, we will discontinue Zosyn. 2. Pneumonia. This may be aspiration pneumonia. Speech evaluation has been ordered. Patient will be started on vancomycin and Zosyn as above. Patient will continue on nonrebreather oxygen to be weaned down to keep her oxygen saturations above 90%. 3. Transaminitis. This is continue to improve. Prior work-up was negative. This may have been secondary to alendronate use. 4. Congestive heart failure preserved ejection fraction. Patient does not appear to be in exacerbation at this time. We will continue with her medications. 5. Hyperkalemia. Dr. Mccartney of nephrology has placed the patient on daily Veltassa. We will continue to monitor the patient potassium. 6. Hyponatremia. Patient is on sodium chloride tablets. Continue to monitor the patient's sodium. 7. Hypertension. Continue home medications. 8. Compression fracture of T5 vertebrae. Continue calcium and vitamin D. Alendronate has been stopped due to transaminitis. 9. Hypothyroidism. Continue home medications. 10. GERD. Continue PPI therapy. 11. Physical deconditioning. Continue therapy while treating pneumonia patient be discharged back to acute rehab unit. 12. DVT prophylaxis: Heparin 13. CODE STATUS: I did confirm with the daughter the patient's CODE STATUS is DNR/DNI. MOLST form that was scanned in the chart is difficult to interpret as the 3-hole punch is through the box where DNR was checked. Disposition: Patient will be admitted to the ICU for further monitoring of her acute hypoxic respiratory failure secondary to pneumonia. I do expect greater than or equal to 2 midnight stay. Late entry: After admission was performed and the patient was moved to the intensive care unit, patient stated to nursing staff that she would like to be comfort measures only. Nursing staff brought this to me and I went to speak with the patient. I asked the patient if she would like me to continue treating her pneumonia and continuing to treat her other medical problems and she said she did not. Patient states that she has been wanting to become comfort measures only for about a week or so and does not care how she dies. I again reiterated that if we do not treat her pneumonia with antibiotics or continue the medical work-up, and switch her goals to comfort care, that she will most likely pass away sooner. Patient states that this is what she wants. I did call patient's daughter Hanny who reiterated that this is what her mother has been wanting for the past week or so and now due to the acute illness this is what both her and the patient would like. New MOLST form was filled out for c omfort measures only. Comfort measures only order set has been placed. Patient will be transferred from the intensive care unit to the medical surgical floor. I did inform the daughter that now that the patient is comfort measures only, she can have visitors. Patient did have a Pinzon catheter placed for critical monitoring when she was critically ill. This can be removed if it is causing discomfort for the patient. Vital Signs Vital Signs Date Time Temp Pulse Resp B/P (MAP) Pulse Ox O2 Delivery O2 Flow Rate FiO2 04/30/21 14:30 100.1 83 18 118/59 (80) 93 Nasal Cannula 5.0 Home Medications Scheduled C,E,Zinc,Copper 11/Wyuyi0q/Lut (Ocuvite Adult 50 Plus Softgel) 1 Each Capsule, 1 CAP PO DAILY Calcium Carbonate/Vitamin D3 (Calcium 600 + Vit D 400 Softgl) 1 Each Capsule, 2 CAP PO DAILY Chlorhexidine Gluconate (Hibiclens) 118 Ml Liquid, 1 APPLIC TOP BID APPLY TO AFFECTED AREA TO PREVENT SKIN INFECTION Citalopram Hydrobromide (Citalopram HBr) 10 Mg Tab, 5 MG PO DAILY Cyclosporine (Restasis) 0.05 % Emu, 1 DROP OU BID Ferrous Sulfate (Ferrous Sulfate) 325 Mg Tablet, 325 MG PO TID Fluticasone Furoate (Arnuity Ellipta) 200 Mcg Blst.w.dev, 1 PUFF INH DAILY Fluticasone Propionate (Flonase Allergy Relief) 9.9 Ml Lapine.susp, 2 SPRAY NARES QHS Gabapentin (Neurontin) 300 Mg Cap, 300 MG PO DAILY Indapamide (Indapamide) 1.25 Mg Tablet, 1.25 MG PO DAILY Isosorbide Mononitrate (Isosorbide Mononitrate ER) 30 Mg Tab.er.24h, 30 MG PO QHS L.acidoph/L.bulg/B.bif/S.therm (Bacid Caplet) 1 Each Tablet, 1 TAB PO DAILY Levocetirizine Dihydrochloride (Levocetirizine Dihydrochloride) 5 Mg Tablet, 5 MG PO DAILY Levothyroxine Sodium (Levothyroxine Sodium) 25 Mcg Tab, 12.5 MCG PO DAILY Magnesium Chloride (Mag64) 64 Mg Tablet.dr, 128 MG PO DAILY Multivitamins (Thera M Plus Tablet) 1 Each Tablet, 1 TAB PO DAILY Nystatin (Nystatin Powder) 15 Gm Powder, 1 APPLIC TOP BID TO GROIN Omeprazole (Omeprazole) 40 Mg Capsule.dr, 40 MG PO BID Sennosides/Docusate Sodium (Senna-S Tablet) 1 Each Tablet, 2 TAB PO BID Solifenacin Succinate (Vesicare) 10 Mg Tab, 10 MG PO QHS Scheduled PRN Acetaminophen (Tylenol) 325 Mg Tablet, 650 MG PO Q4H PRN for PAIN / FEVER Acetaminophen/Dextromethorphan (Delsym Cough-Sore Throat Liq) 325 Mg-10 Mg/10 Ml Liquid, 5 ML PO Q8H PRN for COUGH Albuterol Sulf (Albuterol Sulfate) 2.5 Mg/3 Ml Vial.neb, 2.5 MG INH Q2H PRN for SOB/COUGH Albuterol Sulfate (Proair Hfa) 8.5 Gm Hfa.aer.ad, 2 PUFF INH QID PRN for SHORTNESS OF BREATH Benzonatate (Benzonatate) 100 Mg Capsule, 100 MG PO TID PRN for COUGH Bismuth Subsalicylate (Pepto-Bismol) 262 Mg/15 Ml Oral.susp, 30 ML PO BID PRN for DYSPEPSIA Dextromethorphan HBr (Tussin Cough) 15 Mg/5 Ml Liquid, 10 ML PO Q4H PRN for COUGH Diclofenac Sodium (Diclofenac Sodium) 1 % Gel, 1 APPLIC TOP BID PRN for PAIN LEVEL 1-5 APPLY TO NECK AND SHOULDERS Docusate Sodium (Colace) 100 Mg Capsule, 100 MG PO BID PRN for CONSTIPATION Fexofenadine HCl (Lizeth Allergy) 60 Mg Tablet, 60 MG PO BID PRN for ALLERGIES Gabapentin (Gabapentin) 300 Mg Capsule, 300 MG PO QHS PRN for PAIN LEVEL 1-4 Guaifenesin (Mucinex) 600 Mg Tab.er.12h, 600 MG PO BID PRN for CONGESTION Hydrocortisone (Hydrocortisone) 1% 28GM Cream..g., 1 APPLIC TOP BID PRN for ITCHING Loratadine (Loratadine) 10 Mg Tablet, 10 MG PO DAILY PRN for ALLERGIES Magnesium Hydroxide (Milk of Magnesia) 400 Mg/5 Ml Oral.susp, 30 ML PO DAILY PRN for CONSTIPATION Oxycodone HCl/Acetaminophen (Oxycodone-Acetaminophen 5-325) 1 Each Tablet, 1 TAB PO Q6H PRN for PAIN LEVEL 5-10 Polyvinyl Alcohol (Artificial Tears) 15 Ml Drops, 1 DROP OU TID PRN for DRY EYES Sodium Chloride (Saline Nasal Lapine) 44 Ml Lapine, 2 SPRAY NARES Q4H PRN for NASAL CONGESTION [Therabreath] , 1 LOZENGE PO BID PRN for DRY MOUTH Allergies Coded Allergies: latex (Verified Allergy, Intermediate, rash, blisters, 07/17/20) TAPE (Verified Allergy, Unknown, blisters, 07/17/20) meperidine (Verified Adverse Reaction, Mild, nausea, 07/17/20) morphine (Verified Adverse Reaction, Mild, nausea, 07/17/20) A-FIB/CHADSVASC A-FIB History Current/History of A-Fib/PAF?: No TOBIAS BASSETT DO Apr 30, 2021 15:25
[2021-04-30] MEDS ORDERED: DOCUSATE SODIUM 100MG CAPSULE PO SCH (21:00)
[2021-04-30] MEDS ORDERED: HEPARIN SOD (PORCINE) 5000UNITS/ML 1ML VIAL/SYRINGE SQ SCH (21:00)
[2021-04-30] MEDS: MORPHINE 10MG/0.5ML ORAL CONCENTRATE SOLUTION U/D SL PRN (23:39)
[2021-05-01] MEDS: MORPHINE 10MG/0.5ML ORAL CONCENTRATE SOLUTION U/D SL PRN ×2 (10:06→20:55)
--- NOTE | 2021-05-01 12:16 | IPNPDOC ---
Text Note Date of Service The patient was seen on 05/01/21. NOTE Subjective: Patient is an 85-year-old female who was admitted yesterday for acute hypoxic respiratory failure secondary to a large left-sided pneumonia. Patient became HUB BANDER yesterday. Patient states that she is feeling well this morning. I did have a conversation with the patient's daughter and son who were present at bedside when I went back. Patient does not want to leave the [facility] for hospice at this time. Patient has not any complaints. Physical exam: Vitals: See below General: Alert and oriented female patient with nasal cannula oxygen in place. Patient not appear to be in any acute distress. HEENT: Normocephalic, atraumatic, moist mucous membranes. Cardiac: Regular rate and rhythm, no murmurs, normal S1, normal S2 Pulm: Rales in the left lower base otherwise clear to auscultation bilaterally Labs: See below Imaging: No imaging has been performed Assessment/plan: 85-year-old female who presented with acute hypoxemic respiratory failure who was made HUB BANDER yesterday. 1. Acute hypoxic respiratory failure secondary to pneumonia. Patient made herself HUB BANDER. Patient had a discussion with hospice event but does not want to leave the hospital at this time as she has been moved to 3 different rooms over the last 24 hours. Patient will continue with the HUB BANDER orders at this time. DVT Prophylaxis: None Disposition: Pending placement at hospice house. Patient currently does not want to go to the hospice house that she has moved too much. We will continue to monitor the patient here at the hospital until either she decides to go to the hospice house or she passes away. Patient was initially getting be made ALC today however, due to Medicare rules she needs 3 nights inpatient. Patient can be made ALC tomorrow. VS,Fishbone, I+O VS, Fishbone, I+O Vital Signs Date Time Temp Pulse Resp B/P (MAP) Pulse Ox O2 Delivery O2 Flow Rate FiO2 05/01/21 09:00 5.0 05/01/21 00:09 Nasal Cannula 04/30/21 14:30 100.1 83 18 118/59 (80) 93 I&O- Last 24 Hours up to 6 AM 05/01/21 06:00 Intake Total 510 ml Output Total 175 ml Balance 335 ml TOBIAS BASSETT DO May 01, 2021 12:16
[2021-05-01] MEDS: LORazepam 1 MG TAB PO PRN (22:51)
[2021-05-02] MEDS: CALCIUM CARBONATE 500 MG CHEW U/D PO PRN (00:04)
[2021-05-02] MEDS: MORPHINE 10MG/0.5ML ORAL CONCENTRATE SOLUTION U/D SL PRN (07:59)
[2021-05-02] MEDS: MORPHINE 2 MG/ML 1ML VIAL (J2270) IV PRN ×2 (10:29→12:38)
[2021-05-02] MEDS: LORazepam 1 MG TAB PO PRN (12:38)
[2021-05-02] MEDS: ANEXSIA, NORCO 7.5MG/325MG TABLET(HYDROCODONE/APAP) PO PRN ×2 (15:13→22:54)
[2021-05-03] MEDS: ANEXSIA, NORCO 7.5MG/325MG TABLET(HYDROCODONE/APAP) PO PRN ×2 (08:53→19:54)
[2021-05-04] MEDS: ANEXSIA, NORCO 7.5MG/325MG TABLET(HYDROCODONE/APAP) PO PRN ×2 (10:06→19:24)
[2021-05-04] MEDS: MORPHINE 10MG/0.5ML ORAL CONCENTRATE SOLUTION U/D SL PRN ×4 (11:20→22:01)
[2021-05-04] MEDS: LORazepam 1 MG TAB PO PRN ×3 (15:25→22:01)
[2021-05-04] MEDS: CALCIUM CARBONATE 500 MG CHEW U/D PO PRN (15:30)
[2021-05-04] MEDS ORDERED: IBUPROFEN 600MG TAB PO PRN (15:40)
[2021-05-04] MEDS: DICLOFENAC EPOLAMINE 1.3 % PATCH TOP SCH (17:49)
[2021-05-05] MEDS: MORPHINE 10MG/0.5ML ORAL CONCENTRATE SOLUTION U/D SL PRN ×3 (01:38→17:54)
[2021-05-05] MEDS: LORazepam 1 MG TAB PO PRN (01:38)
[2021-05-05] MEDS: DICLOFENAC EPOLAMINE 1.3 % PATCH TOP SCH (06:02)
[2021-05-05] MEDS: DICLOFENAC 1% TOP SCH ×2 (17:49→21:43)
[2021-05-06] MEDS: MORPHINE 10MG/0.5ML ORAL CONCENTRATE SOLUTION U/D SL PRN ×3 (02:36→15:14)
[2021-05-06] MEDS: ANEXSIA, NORCO 7.5MG/325MG TABLET(HYDROCODONE/APAP) PO SCH ×4 (11:04→20:50)
[2021-05-06] MEDS: DICLOFENAC 1% TOP SCH ×4 (11:05→20:51)
[2021-05-06] MEDS: LORazepam 1 MG TAB PO PRN ×3 (12:40→20:50)
[2021-05-07] MEDS: ANEXSIA, NORCO 7.5MG/325MG TABLET(HYDROCODONE/APAP) PO SCH ×4 (00:51→13:00)
[2021-05-07] MEDS: LORazepam 1 MG TAB PO PRN (00:51)
[2021-05-07] MEDS: MORPHINE 2 MG/ML 1ML VIAL (J2270) IV PRN (05:00)
[2021-05-07] MEDS: MORPHINE 10MG/0.5ML ORAL CONCENTRATE SOLUTION U/D SL PRN (06:02)
[2021-05-07] MEDS: DICLOFENAC 1% TOP SCH ×2 (08:46→13:00)
--- NOTE | 2021-05-07 14:20 | DS.PDOC ---
Discharge Summary General Date of Admission Apr 30, 2021 at 14:01 Date of Discharge 05/07/2021 Attending Physician: TOBIAS BASSETT DO Discharge Summary PROCEDURES PERFORMED DURING STAY: [None]. ADMITTING DIAGNOSES: 1. Acute hypoxic respiratory failure requiring nonrebreather. 2. Pneumonia possible aspiration pneumonia 3. Transaminitis 4. Congestive heart failure preserved ejection fraction, not in exacerbation 5. Hyperkalemia 6. Hyponatremia 7. Hypertension 8. Compression fracture of T5 vertebrae 9. Hypothyroidism 10. GERD 11. Physical deconditioning DISCHARGE DIAGNOSES: 1. Acute hypoxic respiratory failure requiring nonrebreather. 2. Pneumonia possible aspiration pneumonia 3. Transaminitis 4. Congestive heart failure preserved ejection fraction, not in exacerbation 5. Hyperkalemia 6. Hyponatremia 7. Hypertension 8. Compression fracture of T5 vertebrae 9. Hypothyroidism 10. GERD 11. Physical deconditioning COMPLICATIONS/CHIEF COMPLAINT: Respiratory Failure. HISTORY OF PRESENT ILLNESS: Patient is an 85-year-old female who was initially admitted to [facility] on 04/22/2021 with a CHF exacerbation. Patient was moved over to the acute rehab unit on 04/26/2021. Patient developed transaminitis while in the acute rehab unit which was thought to be secondary to alendronate but this had been improving. This morning I evaluated the patient and she says she is feeling tired and sore. When Dr. Ge, the acute rehab physician, saw the patient she was more lethargic and said she has some difficu lty breathing. A chest x-ray was ordered and showed the patient had a new onset left sided infiltrate with a leukocytosis of 25,000 compared to 8000 the day prior. Patient began to worsen requiring oxygen. I was contacted by Dr. Ge who stated that the patient was now more lethargic and somnolent. I went to evaluate the patient and agreed that the patient was having a difficult time waking up and was requiring more oxygen. I went to speak with her when a rapid assessment team was called on the patient. I was the first in the room and we are attempting to keep the patient awake. Patient was placed on a nonrebreather. Patient was initially told to be a full code by nursing staff however, patient was in fact a DO NOT RESUSCITATE/DO NOT INTUBATE. Patient was moved to the intensive care unit for further management of her pneumonia. HOSPITAL COURSE: After the patient had been moved into the intensive care unit for further management of the acute hypoxemic respiratory failure, patient decided to make her self comfort measures only. Patient initially told nursing staff that she wanted to be comfort measures and that she was very tired. I went and spoke with the patient about this and the patient stated that this was her wishes. Patient understood that changing the goal of care from life- prolonging therapy to improving the quality of life with comfort measures only may decrease the quantity of her life. Patient states that this is what she wanted she did not want any more invasive testing such as laboratory studies or imaging along with any antibiotics. I called the patient's daughter and confirmed this with her. Patient was transitioned to comfort measures only and was moved up to the medical surgical floor. Patient did not want to be moved again and did not want to be moved to the hospice house although a bed was available. Patient stated that she wanted to pass away here in the hospital. Patient did require more pain medication and had to have the morphine switched to every 1 hour. Because she was having difficulty communicating with the nurses towards the end of her life, the medication was changed from as needed to scheduled. I went in to speak with the patient's son and daughter yesterday, 05/06/2021 and saw the patient from the bedside. Patient was in good spirits at that time. Patient remained in the hospital on comfort measures only until she on 05/07/2021 at 13:52. Nursing notified the patient's family. DISCHARGE MEDICATIONS: Please see below. ALLERGIES: Please see below. PHYSICAL EXAMINATION ON DISCHARGE: VITAL SIGNS: Please see below. Examination of the heart and lungs shows no heart sounds and no breath sounds with no chest rise. No carotid pulses were felt. LABORATORY DATA: Please see below. IMAGING: Chest x-ray from 04/30/2021 was reported to show a large new infiltrate left perihilar region consistent with pneumonia. Cardiomegaly. PROGNOSIS: ACTIVITY: . DISCHARGE PLAN: Body will be released [place] [facility] [place] once family has had the chance to see the patient DISPOSITION: DISCHARGE INSTRUCTIONS: 1. None. ITEMS TO FOLLOWUP ON ON OUTPATIENT: 1. None. DISCHARGE CONDITION: . TIME SPENT ON DISCHARGE: 20 minutes. Vital Signs/I&Os Vital Signs Date Time Temp Pulse Resp B/P (MAP) Pulse Ox O2 Delivery O2 Flow Rate FiO2 05/04/21 19:24 18 Room Air 05/03/21 21:00 94 05/01/21 21:00 5.0 I&O- Last 24 Hours up to 6 AM 05/07/21 06:00 Intake Total 300 ml Output Total 625 ml Balance -325 ml Discharge Medications Scheduled C,E,Zinc,Copper 11/Lfxeh5o/Lut (Ocuvite Adult 50 Plus Softgel) 1 Each Capsule, 1 CAP PO DAILY, (Reported) Calcium Carbonate/Vitamin D3 (Calcium 600 + Vit D 400 Softgl) 1 Each Capsule, 2 CAP PO DAILY, (Reported) Chlorhexidine Gluconate (Hibiclens) 118 Ml Liquid, 1 APPLIC TOP BID, (Reported) APPLY TO AFFECTED AREA TO PREVENT SKIN INFECTION Citalopram Hydrobromide (Citalopram HBr) 10 Mg Tab, 5 MG PO DAILY, (Reported) Cyclosporine (Restasis) 0.05 % Emu, 1 DROP OU BID, (Reported) Ferrous Sulfate (Ferrous Sulfate) 325 Mg Tablet, 325 MG PO TID, (Reported) Fluticasone Furoate (Arnuity Ellipta) 200 Mcg Blst.w.dev, 1 PUFF INH DAILY, (Reported) Fluticasone Propionate (Flonase Allergy Relief) 9.9 Ml [place].susp, 2 SPRAY NARES QHS, (Reported) Gabapentin (Neurontin) 300 Mg Cap, 300 MG PO DAILY, (Reported) Indapamide (Indapamide) 1.25 Mg Tablet, 1.25 MG PO DAILY, (Reported) Isosorbide Mononitrate (Isosorbide Mononitrate ER) 30 Mg Tab.er.24h, 30 MG PO QHS, (Reported) L.acidoph/L.bulg/B.bif/S.therm (Bacid Caplet) 1 Each Tablet, 1 TAB PO DAILY, (R eported) Levocetirizine Dihydrochloride (Levocetirizine Dihydrochloride) 5 Mg Tablet, 5 MG PO DAILY, (Reported) Levothyroxine Sodium (Levothyroxine Sodium) 25 Mcg Tab, 12.5 MCG PO DAILY, (Repo rted) Magnesium Chloride (Mag64) 64 Mg Tablet.dr, 128 MG PO DAILY, (Reported) Multivitamins (Thera M Plus Tablet) 1 Each Tablet, 1 TAB PO DAILY, (Reported) Nystatin (Nystatin Powder) 15 Gm Powder, 1 APPLIC TOP BID, (Reported) TO GROIN Omeprazole (Omeprazole) 40 Mg Capsule.dr, 40 MG PO BID, (Reported) Sennosides/Docusate Sodium (Senna-S Tablet) 1 Each Tablet, 2 TAB PO BID, (Reported) Solifenacin Succinate (Vesicare) 10 Mg Tab, 10 MG PO QHS, (Reported) Scheduled PRN Acetaminophen (Tylenol) 325 Mg Tablet, 650 MG PO Q4H PRN for PAIN / FEVER, (Reported) Acetaminophen/Dextromethorphan (Delsym Cough-Sore Throat Liq) 325 Mg-10 Mg/10 Ml Liquid, 5 ML PO Q8H PRN for COUGH, (Reported) Albuterol Sulf (Albuterol Sulfate) 2.5 Mg/3 Ml Vial.neb, 2.5 MG INH Q2H PRN for SOB/COUGH, (Reported) Albuterol Sulfate (Proair Hfa) 8.5 Gm Hfa.aer.ad, 2 PUFF INH QID PRN for SHORTNESS OF BREATH, (Reported) Benzonatate (Benzonatate) 100 Mg Capsule, 100 MG PO TID PRN for COUGH, (Reported) Bismuth Subsalicylate (Pepto-Bismol) 262 Mg/15 Ml Oral.susp, 30 ML PO BID PRN for DYSPEPSIA, (Reported) Dextromethorphan HBr (Tussin Cough) 15 Mg/5 Ml Liquid, 10 ML PO Q4H PRN for COUGH, (Reported) Diclofenac Sodium (Diclofenac Sodium) 1 % Gel, 1 APPLIC TOP BID PRN for PAIN LEVEL 1-5, (Reported) APPLY TO NECK AND SHOULDERS Docusate Sodium (Colace) 100 Mg Capsule, 100 MG PO BID PRN for CONSTIPATION, (Reported) Fexofenadine HCl (Lizeth Allergy) 60 Mg Tablet, 60 MG PO BID PRN for ALLERGIES, (Reported) Gabapentin (Gabapentin) 300 Mg Capsule, 300 MG PO QHS PRN for PAIN LEVEL 1-4, (Reported) Guaifenesin (Mucinex) 600 Mg Tab.er.12h, 600 MG PO BID PRN for CONGESTION, (Reported) Hydrocortisone (Hydrocortisone) 1% 28GM Cream..g., 1 APPLIC TOP BID PRN for ITCHING, (Reported) Loratadine (Loratadine) 10 Mg Tablet, 10 MG PO DAILY PRN for ALLERGIES, (Reported) Magnesium Hydroxide (Milk of Magnesia) 400 Mg/5 Ml Oral.susp, 30 ML PO DAILY PRN for CONSTIPATION, (Reported) Oxycodone HCl/Acetaminophen (Oxycodone-Acetaminophen 5-325) 1 Each Tablet, 1 TAB PO Q6H PRN for PAIN LEVEL 5-10, (Reported) Polyvinyl Alcohol (Artificial Tears) 15 Ml Drops, 1 DROP OU TID PRN for DRY EYES, (Reported) Sodium Chloride (Saline Nasal [place]) 44 Ml [place], 2 SPRAY NARES Q4H PRN for NASAL CONGESTION, (Reported) [Therabreath] , 1 LOZENGE PO BID PRN for DRY MOUTH, (Reported) Allergies Coded Allergies: latex (Verified Allergy, Intermediate, rash, blisters, 07/17/20) TAPE (Verified Allergy, Unknown, blisters, 07/17/20) meperidine (Verified Adverse Reaction, Mild, nausea, 07/17/20) morphine (Verified Adverse Reaction, Mild, nausea, 07/17/20) TOBIAS BASSETT DO May 07, 2021 14:20
== END 2021-05-07 13:52 | disposition expired | DRG 951 ==
LOC: M ICU 14:01 → M MSPAV 15:26
PROVIDERS: ADMIT Family Medicine; ATTEND Family Medicine
DX: Z51.5 Encounter for palliative care (principal); J96.01 Acute respiratory failure with hypoxia; J69.0 Pneumonitis due to inhalation of food and vomit; I50.32 Chronic diastolic (congestive) heart failure; E87.1 Hypo-osmolality and hyponatremia; S22.050A Wedge compression fracture of T5-T6 vertebra, initial encounter for closed fracture; R74.01 Elevation of levels of liver transaminase levels; E87.5 Hyperkalemia; I11.0 Hypertensive heart disease with heart failure; E03.9 Hypothyroidism, unspecified; K21.9 Gastro-esophageal reflux disease without esophagitis; Z72.3 Lack of physical exercise; Z66 Do not resuscitate; Z79.899 Other long term (current) drug therapy; Z88.5 Allergy status to narcotic agent; Z88.8 Allergy status to other drugs, medicaments and biological substances; Z91.040 Latex allergy status; X58.XXXA Exposure to other specified factors, initial encounter; Y92.9 Unspecified place or not applicable; D50.9 Iron deficiency anemia, unspecified; I27.20 Pulmonary hypertension, unspecified